=== PATIENT | male | born 1950 | race Caucasian/White ===

== ENCOUNTER 2019-09-19 16:11 | Inpatient (IN) | payer MEDICARE ==
[2019-09-19] MEDS ORDERED: Enoxaparin Sodium 100 MG/ML SYRINGE ONE (17:03)
--- NOTE | 2019-09-19 17:07 | PDOC.FPRHP ---
- History of Present Illness Chief Complaint: L upper chest pain History of Present Illness: 69 y/o M with pmhx of tobacco abuse, HTN, HLD, and epilepsy presents to the ED from [place] via transfer for SVT and NSTEMI. Pt c/o chest pain that started the night before in his left shoulder and upper left chest area. This pain radiated down the left arm. Today around 1 PM the pain became more intense and caused nausea, diaphoresis and SOB. This was worsened by walking and not alleviated with anything. Pt had never experienced this before. Denies palpitations. States his Pt states that a 14 years ago he had a cardiac cath and had CAD, with collateral circulation not requiring any stents or interventions. Has been on atenolol since. Pt was admitted to [facility] on Sunday and Sunday for treatment of pneumonia. F/u with Dr. Rahman, PCP, yesterday. He was not having chest pain during this visit. ED Course: Trop 0.678, 0.722. CXR cardiomegaly, R pleura effusion vs infiltrate. started on heparin drip initially in [place], transitioned to lovenox. EKG showed 197 rate, SVT with ST depressions. Placed on cardizem drip Repeat EKG showed rate 107, with short TN intervals and L atrial enlargement. Upon transfer to the floor pt had a flutter with RVR. Pt had crushing 10/10 chest pain at this time. Pt was cardioverted and converted to 70's SR with depressions in anteriolateral distribution. Pt's Chest pain was 2/10 after cardioversion. Cardiology was consulted and recommended amiodarone drip, therapeutic lovenox, and asa. - Allergies/Adverse Reactions Allergies Allergy/AdvReac Type Severity Reaction Status Date / Time No Known Drug Allergies Allergy Verified 09/15/19 12:53 - Home Medications Medication Instructions Recorded Confirmed Type Aspirin [Aspir-Low] 81 mg PO DAILY 09/15/19 09/15/19 History Atenolol [Tenormin] 25 mg PO DAILY 09/15/19 09/15/19 History Atorvastatin Calcium 40 mg PO DAILY 09/15/19 09/15/19 History Ezetimibe 10 mg PO DAILY 09/15/19 09/15/19 History Zonisamide 300 mg PO DAILY 09/15/19 09/15/19 History carBAMazepine [Carbamazepine] 600 mg PO BID 09/15/19 09/15/19 History Azithromycin [Zithromax] 250 mg PO DAILY #4 tablet 09/16/19 Rx Guaifenesin DM 100-10 [Robitussin 15 ml PO Q4H PRN ml 09/16/19 Rx DM] Ventolin HFA Inhaler 2 puff INH Q4H PRN #1 aer 09/16/19 Rx predniSONE 20 mg PO BID 4 Days #8 tab 09/16/19 Rx - History PMHx: epilepsy, HTN, HLD, COPD, Angina PSHx: Cardia cath 14 years ago, with no interventions. Tonsilectomy, appendectomy. FHx: Dad: stomach CA. Mom: A fib, "heart problems." Social: Smoked 3 ppd for 50 years. 150 pack year. denies current etoh or drug use. Prior etoh heavily used. - Review of Systems General: denies: fever/chills, weight/appetite/sleep changes, fatigue Eyes: denies: eye pain ENT: denies: nasal congestion Respiratory: reports: shortness of breath, exercise intolerance. denies: cough , congestion Cardiovascular: reports: chest pain. denies: palpitation, edema, paroxysmal nocturnal dyspnea, orthopnea Gastrointestinal: reports: nausea. denies: vomiting, diarrhea Genitourinary: denies: incontinence Skin: denies: rashes, lesions Musculoskeletal: denies: pain, tenderness Neurological: denies: numbness, syncope, seizure - Vital signs BP: 101/72 HR: 110 RR: 18 Tmax: 98.2 Pox: 99% on RA Wt: 98.9 kg - Physical Exam Constitutional: NAD, awake, alert and oriented, well developed HEENT: normocephalic and atraumatic, PERRLA, EOMI, conjunctiva clear, no scleral icterus, grossly normal vision, grossly normal hearing, MMM Neck: supple, FROM, trachea midline, no LAD, no JVD Chest: no-tender to palpation, no lesions Heart: normal S1/S2, no murmurs/rubs/gallops, pulses present, no edema -Heart: tachycardic Lungs: no respiratory distress, good air movement -Lungs: diffuse expiratory wheezing. Abdomen: soft, non-tender, bowel sounds present Musculoskeletal: normal structure, normal tone, ROM grossly normal Neurological: no focal deficit, normal sensation Skin: no rash/lesions, good turgor, capillary refill <2 seconds Heme/Lymphatic: no unusual bruising or bleeding, no purpura, no petechia Psychiatric: normal mood and affect, good judgment and insight, intact recent and remote memory FMR H&P: Results - Labs Result Diagrams: 09/19/19 16:45 - Radiology Interpretation Chest x-ray Status: report reviewed by me (cardiomegaly. RLL infiltrate vs pleural effusion) FMR H&P: A/P - Problem List (1) NSTEMI (non-ST elevated myocardial infarction) Current Visit: Yes Status: Acute Code(s): I21.4 - NON-ST ELEVATION (NSTEMI) MYOCARDIAL INFARCTION (2) SVT (supraventricular tachycardia) Current Visit: Yes Status: Acute Code(s): I47.1 - SUPRAVENTRICULAR TACHYCARDIA (3) HTN (hypertension) Current Visit: Yes Status: Chronic Code(s): I10 - ESSENTIAL (PRIMARY) HYPERTENSION (4) HLD (hyperlipidemia) Current Visit: Yes Status: Chronic Code(s): E78.5 - HYPERLIPIDEMIA, UNSPECIFIED (5) COPD (chronic obstructive pulmonary disease) Current Visit: Yes Status: Chronic (6) Epilepsy Current Visit: Yes Status: Chronic Code(s): G40.909 - EPILEPSY, UNSP, NOT INTRACTABLE, WITHOUT STATUS EPILEPTICUS (7) Tobacco dependence due to cigarettes Current Visit: Yes Status: Acute Code(s): F17.210 - NICOTINE DEPENDENCE, CIGARETTES, UNCOMPLICATED (8) Elevated liver enzymes Current Visit: Yes Status: Acute Code(s): R74.8 - ABNORMAL LEVELS OF OTHER SERUM ENZYMES (9) Elevated brain natriuretic peptide (BNP) level Current Visit: Yes Status: Acute Code(s): R79.89 - OTHER SPECIFIED ABNORMAL FINDINGS OF BLOOD CHEMISTRY - Plan 69 y/o male admitted to Tele in patient for further treatment and evaluation of an NSTEMI 1. NSTEMI - Trop 0.678, 0.722, likely elevated from demand ischemia from arrhythmias. - Continue to trend trops. BNP elevated. - Cardiology consulted, recommending amiodarone drip, ASA, therapeutic lovenox - NPO at midnight, HH diet for dinner - Started on Therapeutic lovenox - Ordered TT Echo - CXR cardiomegaly, RLL infiltrate vs pleural effusion. - Extensive smoking hx, 150 pack year. States he quit Last week. 2. SVT - rate 197 upon initial EKG in [place] - Started on cardizem drip and rate decreased to 107 with short TN intervals and evidence of L atrial enlargement. - Continue to monitor continuously on Tele 3. Recent hx for pneumonia - Hospitalized in [place] Sunday and Sunday this week. - Was d/c on Azithromycin and changed to Levaquin by PCP (Lacey,) on Sunday. 4. Elevated liver enzymes - Likely from acute myocardial event - Will trend in the morning. 5. Hx HTN 6. Hx of HLD 7. Hx of COPD 8. Hx of epilepsy - Continue home medications Code status: full code Diet: HH, NPo at midnight DVT Ppx: th lovenox Dispo: Stable, admit to tele inpatient for >2 midnights. Cardiology consulted. FMR H&P: Upper Level - Pertinent history 69 yo M w/hx of CAD and COPD and recent hospitalization for CAP here with complaint of chest pain. He was first seen in [place] where he was noted to be in SVT and he was given adenosine. He then went in to [facility] with RVR where and his was started on Dilt, he converted back in NSR and Dilt was dc'd here. Of note in the [place] ER was an elevated trop and CKMB. Also of note was elevated LFT and lactic acid. Repeat EKG was concerning for ischemia, but no STEMI. PMHx CAD COPD HLD Seizure disorder Social Hx 30 pack year smoker No etoh or drugs Surgical Hx none - Pertinent findings See environmental engineering intern note for full PE, ROS, vitals, and labs ROS General denies fever or chills. CV Complains of CP that radiates to his L shoulder. No palpitation Resp Denies SOB or cough GI denies n/v/d/c or abdominal pain denies increased frequency or dysuria Neuro denies numbness or weakness. PE General A&O x4, NAD HEENT NCAT CV RRR, no murmur Resp CTA, no respiratory distress Abd non tender, no distension, normal BS Extremities no edema, equal pedal pulses Neuro no focal deficits, CN II-XII intact - Plan Date/Time: 09/19/19 1707 IMino DO, have evaluated this patient and agree with findings/plan as outlined by environmental engineering intern resident. Pertinent changes/additions are listed here. 1. NSTEMI - admit to tele - trend trops and EKG - continue therapeutic lovenox - echo - consult cardiology - prn O2 2. CAD - continue home meds 3. HLD - continue home Statin 4. Elevated LFT - repeat CMP in am, likely related to LV dysfunction 5. Elevated BNP - does not appear overloaded at this time, likely related to UT 6. PNA - continue levaquin PPx on lovenox Diet HH, NPO at midnight Code Full
[2019-09-19 17:21] LABS: ALT (SGPT) 792 U/L (8-55); AST (SGOT) 609 U/L (5-34); Albumin 3.9 g/dL (3.4-4.8); Alkaline Phosphatase 54 U/L (40-110); Anion Gap 16 mmol/L (10-20); BUN (Urea Nitrogen) 25 mg/dL (8.4-25.7); Bilirubin, Total 0.5 mg/dL (0.2-1.2); CK (CPK) 93 U/L (30-200); Calc. Creatinine Clearance 0 mL/min (70-130); Calcium 8.1 mg/dL (7.8-10.44); Carbon Dioxide 19 mmol/L (23-31); Chloride 107 mmol/L (98-107); Estimated GFR-MDRD 72; Globulin 2.4 g/dL (2.4-3.5); Glucose 109 mg/dL (80-115); Potassium 4.2 mmol/L (3.5-5.1); Protein, Total 6.3 g/dL (5.8-8.1); Sodium 138 mmol/L (136-145)
--- NOTE | 2019-09-19 18:40 | PDOC.EVN ---
Event Note - Event Note Event Note: Date/Time: 09/19/191838 I personally evaluated the patient and discussed the management with Dr. Reed I agree with the History, Examination, Assessment and Plan documented above with any addition or exceptions noted below - 69 yo M w/hx of CAD, HTN, epilepsy , and COPD and recent hospitalization for CAP here with complaint of chest pain. He was first seen in [place] where he was noted to be in SVT and he was given adenosine. He then went in to [facility] with RVR where and his was started on diltiazem, he converted back in NSR and drip was dc'd here. Of note in the [place] ER was an elevated trop and CKMB. Also of note was elevated LFT and lactic acid. PMH/PSH/Meds/SH reviewed and agree with resident's documentation. Afebrile VSS Exam repeated by me and agree with resident's findings. Labs: H/H= 12.3/38.2, To=728, K=4.4, Lq=992, CO2=16, BUN/Cr=27/1.12, Gluc = 140, AST/ALT= 362/476, CFT=759, lactic acid=2.8, CKMB=8.1, trop=0.678. A/P: 1) NSTEMI - Admit to telemetry. Will continue to trend cardiac enzymes. Monitor EKG. Plan to check lipids and echo. Continue lovenox. Consult cardiology in AM 2) Transaminitis- most likely secondary to passive congestion; will continue to monitor. 3) Epilepsy - continue home meds.
[2019-09-19] MEDS ORDERED: Adenosine 6 MG/2 ML VIAL ONE (18:51)
[2019-09-19] MEDS ORDERED: Amiodarone 150 MG/3 ML VIAL ONE (19:38)
[2019-09-19] MEDS ORDERED: Ondansetron ODT 4 MG TAB PO PRN (20:12)
[2019-09-19] MEDS ORDERED: Nitroglycerin 0.4 MG TAB (25 Tab Bottle) SL PRN (20:12)
[2019-09-19] MEDS: Amiodarone 450 MG, Admixture Fee 1 EACH in Dextrose 5% in Water 250 ML IVPB SCH (20:32)
[2019-09-19] MEDS: Nicotine 14 MG PATCH TD SCH (20:35)
[2019-09-19] MEDS: Digoxin 0.5 MG/2 ML AMP SLOW IVP SCH (21:03)
[2019-09-19 21:14] LABS: Troponin I 1.109 ng/mL (< 0.028); Troponin I 1.179 ng/mL (< 0.028)
[2019-09-19 21:18] VITALS: BMI 30.7
[2019-09-19] MEDS ORDERED: Zonisamide 100 MG CAP PO SCH (23:30)
[2019-09-19] MEDS ORDERED: carBAMazepine 200 MG TAB PO SCH (23:30)
[2019-09-20] MEDS: Digoxin 0.5 MG/2 ML AMP SLOW IVP SCH (02:49)
[2019-09-20] MEDS: Benzonatate 100 MG CAP PO PRN ×3 (04:14→20:05)
[2019-09-20 04:47] LABS: #Lymphocytes 1.8 thou/uL (1.20-3.40); #Monocytes 0.6 thou/uL (0.11-0.59); %Basophils 0.7 % (0.0-1.0); %Eosinophils 0.4 % (0.0-10.0); %Lymphocytes 27.9 % (21.0-51.0); %Monocytes 8.5 % (0.0-10.0); %Neutrophils 62.5 % (42.0-75.0); Hemoglobin 11.4 g/dL (14.0-18.0); Mean Corpuscular HGB CONC 32.6 g/dL (32.0-36.0); Mean Corpuscular Hemoglobin 33.4 pg (27.0-31.0); Mean Platelet Volume 8.4 fL (7.4-10.4); Platelet Count 97 thou/uL (130-400); RBC Distribution Width 12.6 % (11.5-14.5); Red Blood Cell (RBC) Count 3.41 mill/uL (4.70-6.10); White Blood Cell (WBC) Count 6.4 thou/uL (4.8-10.8)
[2019-09-20 04:58] LABS: ALT (SGPT) 1814 U/L (8-55); AST (SGOT) 1765 U/L (5-34); Albumin 3.6 g/dL (3.4-4.8); Alkaline Phosphatase 48 U/L (40-110); Anion Gap 14 mmol/L (10-20); BUN (Urea Nitrogen) 31 mg/dL (8.4-25.7); Bilirubin, Total 0.4 mg/dL (0.2-1.2); Calc. Creatinine Clearance 94 mL/min (70-130); Calcium 8.2 mg/dL (7.8-10.44); Carbon Dioxide 18 mmol/L (23-31); Cardiac Risk 2.6 (Less than 4.5); Chloride 107 mmol/L (98-107); Cholesterol 92 mg/dl (< 200 Desired); Estimated GFR-MDRD 68; Globulin 2.7 g/dL (2.4-3.5); Glucose 103 mg/dL (80-115); HDL Cholesterol 36 mg/dL (>60 Neg Risk); LDL Cholesterol, Calculated 43 mg/dL; Potassium 4.1 mmol/L (3.5-5.1); Protein, Total 6.3 g/dL (5.8-8.1); Sodium 135 mmol/L (136-145); Triglycerides 65 mg/dL (Less than 150)
[2019-09-20] MEDS: Amiodarone 450 MG, Admixture Fee 1 EACH in Dextrose 5% in Water 250 ML IVPB SCH ×2 (05:23→23:59)
--- NOTE | 2019-09-20 05:53 | PDOC.FM ---
- Subjective Subjective: Pt denies any chest pain this morning. C/o SOB and coughing overnight. Given tessalon pears to alleviate the cough. Pt was SR in 60-70's overnight on Tele. Resting well this morning. Denies any IVDA in the past. Denies abd pain. Troponin levels have continued to rise. Cardiology started amiodarone drip and digoxin overnight. - Objective Vital Signs & Weight: Vital Signs (12 hours) Temp Pulse Resp BP BP Pulse Ox 09/20/19 03:33 97.7 F 68 20 135/82 98 09/20/19 02:49 69 09/20/19 02:35 18 98 09/20/19 00:12 69 122/79 09/19/19 20:12 100 09/19/19 19:50 76 20 118/69 100 Weight Weight 99.926 kg Result Diagrams: 09/20/19 09:45 09/20/19 09:44 Phys Exam - Physical Examination Constitutional: NAD HEENT: PERRLA, moist MMs, sclera anicteric Neck: no nodes, no JVD, supple, full ROM Respiratory: no rales, no rhonchi, wheezing present (expiratory) Cardiovascular: RRR, no rub Gastrointestinal: soft, non-tender, no distention, positive bowel sounds Musculoskeletal: no edema, pulses present Neurological: non-focal, moves all 4 limbs Psychiatric: normal affect, A&O x 3 Skin: no rash, normal turgor, cap refill <2 seconds Dx/Plan (1) NSTEMI (non-ST elevated myocardial infarction) Code(s): I21.4 - NON-ST ELEVATION (NSTEMI) MYOCARDIAL INFARCTION Status: Acute (2) Atrial flutter with rapid ventricular response Code(s): I48.92 - UNSPECIFIED ATRIAL FLUTTER Status: Acute (3) SVT (supraventricular tachycardia) Code(s): I47.1 - SUPRAVENTRICULAR TACHYCARDIA Status: Acute (4) HTN (hypertension) Code(s): I10 - ESSENTIAL (PRIMARY) HYPERTENSION Status: Chronic (5) HLD (hyperlipidemia) Code(s): E78.5 - HYPERLIPIDEMIA, UNSPECIFIED Status: Chronic (6) COPD (chronic obstructive pulmonary disease) Status: Chronic (7) Epilepsy Code(s): G40.909 - EPILEPSY, UNSP, NOT INTRACTABLE, WITHOUT STATUS EPILEPTICUS Status: Chronic (8) Tobacco dependence due to cigarettes Code(s): F17.210 - NICOTINE DEPENDENCE, CIGARETTES, UNCOMPLICATED Status: Acute (9) Elevated liver enzymes Code(s): R74.8 - ABNORMAL LEVELS OF OTHER SERUM ENZYMES Status: Acute (10) Elevated brain natriuretic peptide (BNP) level Code(s): R79.89 - OTHER SPECIFIED ABNORMAL FINDINGS OF BLOOD CHEMISTRY Status : Acute (11) Macrocytic anemia Code(s): D53.9 - NUTRITIONAL ANEMIA, UNSPECIFIED Status: Acute - Plan Plan: 69 y/o male admitted to Tele in patient for further treatment and evaluation of an NSTEMI 1. NSTEMI - Trop 0.678, 0.722, 1.179, 1.326, likely elevated from demand ischemia from arrhythmias. - Continue to trend trops. BNP elevated. - Cardiology consulted on 09/19, recommending amiodarone drip, ASA, therapeutic lovenox - Started on Therapeutic lovenox - Ordered TT Echo - CXR cardiomegaly, RLL infiltrate vs pleural effusion. - Extensive smoking hx, 150 pack year. States he quit Last week. 2. Arrhythmias: SVT, a Flutter with RVR. - SVT, rate 197 upon initial EKG in [place] - Started on cardizem drip and rate decreased to 107 with short KS intervals and evidence of L atrial enlargement. - Continue to monitor continuously on Tele - Card consulted, appreciate recommendations. Started digoxin. - Causing demand ischemia and organ damage with elevated liver enzymes. 3. Recent hx for pneumonia - Hospitalized in [place] Sunday and Sunday this week. - Was d/c on Azithromycin and changed to Levaquin by PCP (Lacey,) on Sunday. - Started Rocephin 2 g Q24H. 4. Elevated liver enzymes - Likely from acute myocardial event and lack of perfusion - AST 609 > 1765, ALT 792 > 1814 - Will trend - Ordered hepatitis panel 5. Hx HTN 6. Hx of HLD - Holding statin therapy in setting of elevated liver enzymes. 7. Hx of COPD -Added Dulera inhaler 2 puffs BID. 8. Hx of epilepsy - Continue home medications 9. Macrocytic anemia - ordered RBC folate and B12. Code status: full code Diet: HH diet. DVT Ppx: th lovenox Dispo: Stable, admit to tele inpatient for >2 midnights. Cardiology consulted, following recommendations.
[2019-09-20 06:49] LABS: CKMB 13.2 ng/mL (0-6.6)
[2019-09-20] MEDS ORDERED: Morphine 2 MG/ML SYRINGE SLOW IVP SCH (09:00)
[2019-09-20] MEDS: Zonisamide 100 MG CAP PO SCH ×2 (09:10→20:37)
[2019-09-20] MEDS: carBAMazepine 200 MG TAB PO SCH ×2 (09:10→20:05)
[2019-09-20 10:13] LABS: Hemoglobin 11.7 g/dL (14.0-18.0); Platelet Count 92 thou/uL (130-400)
[2019-09-20 10:56] LABS: Vitamin B12 1593 pg/mL (211-911)
[2019-09-20 11:02] LABS: HBCM Index 0.05 S/CO (0-0.79); HBSAB Concentration 1.83 mIU/mL; HBSAg Index 0.19 S/CO (0-0.99); Hep B Surf AB Non-Reactive (NonReactive); Hep B Surf Ag Non-Reactive S/CO (NonReactive); Hepatitis B Core IgM Abs Non-Reactive (NonReactive)
--- NOTE | 2019-09-20 11:05 | CON ---
DATE OF CONSULTATION: 09/20/2019 REASON FOR CONSULTATION: Coronary artery disease, [id number] myocardial infarction, tachycardia, possibly atrial flutter versus SVT with a very rapid rate, recent pneumonia, increased liver function tests, peripheral vascular disease, history of seizure disorder. HISTORY OF PRESENT ILLNESS: Mr. Stafford is a 69-year-old gentleman, who initially presented for medical care, he initially reported it was 14 years ago, he had a cardiac catheterization and was found have coronary artery disease, was found to have an occluded vessel with collateral flow. No intervention was done at that point. The patient has continued to smoke over the last 14 years. The patient went to the hospital about a week ago and had treatment for pneumonia. He was seen by Dr. Rahman yesterday, not having chest pain during that visit. The patient now started having recurrent subjective fever, diaphoresis, nausea, and came to the emergency room. After he had been in the emergency room, he was found to have an episode of very rapid tachycardia, rate 200 beats per minute, which required cardioversion as it was associated with a crushing 10/10 chest pain. The patient's pain resolved with cardioversion. Dr. Garland was consulted last night, he recommended amiodarone drip. The patient has had no recurrent atrial arrhythmias or supraventricular arrhythmias. The patient had pain in the left shoulder, left anterior chest, and left arm, also on left posterior chest and back. The patient was continuing to cough in the last few days. He stopped smoking about 5 days ago. He has had a cough, which is moderately productive. The patient is unable to lie down for more than just a few minutes without violent coughing. HOME MEDICATIONS: He is on; 1. Aspirin. 2. Atenolol. 3. Atorvastatin. 4. Zetia. 5. Zithromax. PAST MEDICAL HISTORY: 1. History of seizure disorder. No seizures in the last couple of years. 2. Coronary artery disease, catheterization 14 years ago per the patient. He thought that was done here, but I do not see any records of that. He is not certain where that was done. 3. The patient in initial history reported a three pack per day smoking for 50 years. REVIEW OF SYSTEMS: CONSTITUTIONAL: No significant weight gain or loss. VISION: No changes. PULMONARY: Positive for cough. No wheezing. CARDIAC: As outlined above. GASTROINTESTINAL: No nausea, vomiting, or diarrhea. SKIN: No rashes. NEUROLOGIC: No unilateral weakness or numbness. PSYCHIATRIC: No unusual depression or anxiety. FAMILY HISTORY: Negative for heart disease at a young age. SOCIAL HISTORY: The patient does not consume any alcohol. PHYSICAL EXAMINATION: GENERAL: This is a 69-year-old man. VITAL SIGNS: He is 5 feet and 11 inches tall, 220 pounds. EYES: Sclerae are nonicteric. MOUTH: Mucous membranes moist. NECK: Supple. No lymphadenopathy. LUNGS: Clear of any wheezing currently, there are no rales. CARDIAC: Normal S1, normal S2. ABDOMEN: Soft and nontender. EXTREMITIES: Warm and dry. No clubbing or cyanosis. There is no edema. PERIPHERAL PULSES: I feel femoral pulses bilaterally, faint popliteal pulses. I do not feel pedal pulses. PERTINENT LABORATORY DATA: The peak troponin is 1.326. AST was 609 initially and 1765 today, 1814 this morning. Potassium is 4.1. LDL cholesterol is 43. EKG, sinus rhythm with a left axis deviation. The patient when he had tachycardia, did have rate of 200 beats per minute. There is ST depression, there is some narrow complex. ASSESSMENT: 1. Coronary artery disease. 2. Non-ST elevation myocardial infarction, probably related to tachycardia superimposed on underlying coronary artery disease which may be severe. 3. Long history of smoking, 150 pack-year history of smoking. 4. Cough. 5. Increased liver function test of uncertain etiology. Since it got worse so quickly, we wonder if it is hypoperfusion. Also he is on amiodarone, but it will be very unusual to have increased liver function tests so quickly with amiodarone and the patient's liver function tests were elevated prior to the amiodarone. Also, he was on statins previously. 6. Peripheral vascular disease. 7. Seizure disorder, stable. 8. Cough, it is partly related to possible recent pneumonia. Also, he has quit smoking for 5 days, therefore likely there will be increasing cough for few days. PLAN: 1. Echocardiogram to evaluate left ventricular function. 2. Continue anticoagulation. 3. Continue aspirin. 4. Hold statin for now in view of markedly increased liver function tests. 5. Repeat liver function test tomorrow. 6. Ultimately cardiac catheterization should be done, it might be much safer if we could delay this for a few days until the cough improves. He may have multivessel coronary artery disease. He apparently had coronary artery disease 14 years ago and has continued to smoke heavily for the last 14 years. He would be a very poor candidate to go to surgery at the present time with his long history of smoking and recent pneumonia. I would like to have the patient be treated medically for some time. We will follow closely with you. Prognosis is guarded. Job ID: [id number]
[2019-09-20] MEDS: Aspirin 325 mg Enteric Coated Tablet PO SCH (11:52)
[2019-09-20] MEDS: Enoxaparin Sodium 100 MG/ML SYRINGE SC SCH ×2 (11:53→20:10)
[2019-09-20] MEDS: cefTRIAXone\\ROCEPHIN 2 GM in Sodium Chloride 0.9% 100 ML IVPB SCH (11:54)
[2019-09-20] MEDS ORDERED: Chloraseptic Spray 180 ml Bottle PO PRN (12:53)
[2019-09-20] MEDS: Mometasone/Formoterol 120 PUFF INHALER INH SCH (19:00)
[2019-09-20] MEDS: Nicotine 14 MG PATCH TD SCH (20:03)
[2019-09-21 05:06] LABS: #Eosinphils 0.1 thou/uL (0.0-0.7); #Lymphocytes 2.7 thou/uL (1.20-3.40); #Monocytes 0.4 thou/uL (0.11-0.59); #Neutrophils 3.6 thou/uL (1.40-6.50); %Basophils 0.6 % (0.0-1.0); %Eosinophils 1.4 % (0.0-10.0); %Lymphocytes 39.6 % (21.0-51.0); %Monocytes 5.4 % (0.0-10.0); %Neutrophils 52.9 % (42.0-75.0); Hemoglobin 11.3 g/dL (14.0-18.0); Mean Corpuscular HGB CONC 33.7 g/dL (32.0-36.0); Mean Corpuscular Hemoglobin 33.7 pg (27.0-31.0); Mean Corpuscular Volume 99.9 fL (78.0-98.0); Mean Platelet Volume 8.3 fL (7.4-10.4); Platelet Count 118 thou/uL (130-400); RBC Distribution Width 12.6 % (11.5-14.5); Red Blood Cell (RBC) Count 3.36 mill/uL (4.70-6.10); White Blood Cell (WBC) Count 6.8 thou/uL (4.8-10.8)
[2019-09-21 05:26] LABS: ALT (SGPT) 1860 U/L (8-55); AST (SGOT) 1016 U/L (5-34); Albumin 3.6 g/dL (3.4-4.8); Alkaline Phosphatase 52 U/L (40-110); Anion Gap 10 mmol/L (10-20); BUN (Urea Nitrogen) 23 mg/dL (8.4-25.7); Bilirubin, Total 0.4 mg/dL (0.2-1.2); Calc. Creatinine Clearance 111 mL/min (70-130); Calcium 8.1 mg/dL (7.8-10.44); Carbon Dioxide 25 mmol/L (23-31); Chloride 104 mmol/L (98-107); Estimated GFR-MDRD 83; Globulin 2.6 g/dL (2.4-3.5); Glucose 90 mg/dL (80-115); Potassium 4.2 mmol/L (3.5-5.1); Protein, Total 6.2 g/dL (5.8-8.1); Sodium 135 mmol/L (136-145)
--- NOTE | 2019-09-21 06:04 | PDOC.FM ---
- Subjective Subjective: Pt resting well. Denies CP. C/O mouth pain, associated with ulcerations on roof of mouth from use of inhalers. C/o cough that has alleviated some since yesterday. Productive of thick clear- brown sputum. - Objective MAR Reviewed: Yes Vital Signs & Weight: Vital Signs (12 hours) Temp Pulse Resp BP BP Pulse Ox 09/21/19 03:44 97.6 F 75 18 147/75 H 97 09/21/19 00:00 75 143/72 H 09/20/19 19:15 98.3 F 73 18 149/72 H 97 09/20/19 19:05 95 09/20/19 19:00 94 L Weight Admit Weight 99.926 kg Weight 99.926 kg I&O: 09/19/19 09/20/19 09/21/19 06:59 06:59 06:59 Intake Total 883 Output Total 300 Balance 583 Result Diagrams: 09/21/19 04:47 09/21/19 04:47 Phys Exam - Physical Examination Constitutional: NAD HEENT: PERRLA, moist MMs superior palate with scattered macular erythematous base ulcerations. Neck: no nodes, no JVD, full ROM + rales bilaterally. good airmovement. No respiratory distress. Cardiovascular: RRR, no significant murmur, no rub Gastrointestinal: soft, non-tender, no distention, positive bowel sounds Musculoskeletal: no edema, pulses present Neurological: non-focal, moves all 4 limbs Psychiatric: normal affect, A&O x 3 Skin: no rash, normal turgor, cap refill <2 seconds Dx/Plan (1) NSTEMI (non-ST elevated myocardial infarction) Code(s): I21.4 - NON-ST ELEVATION (NSTEMI) MYOCARDIAL INFARCTION Status: Acute (2) Atrial flutter with rapid ventricular response Code(s): I48.92 - UNSPECIFIED ATRIAL FLUTTER Status: Acute (3) SVT (supraventricular tachycardia) Code(s): I47.1 - SUPRAVENTRICULAR TACHYCARDIA Status: Acute (4) HTN (hypertension) Code(s): I10 - ESSENTIAL (PRIMARY) HYPERTENSION Status: Chronic (5) HLD (hyperlipidemia) Code(s): E78.5 - HYPERLIPIDEMIA, UNSPECIFIED Status: Chronic (6) COPD (chronic obstructive pulmonary disease) Status: Chronic (7) Epilepsy Code(s): G40.909 - EPILEPSY, UNSP, NOT INTRACTABLE, WITHOUT STATUS EPILEPTICUS Status: Chronic (8) Tobacco dependence due to cigarettes Code(s): F17.210 - NICOTINE DEPENDENCE, CIGARETTES, UNCOMPLICATED Status: Acute (9) Elevated liver enzymes Code(s): R74.8 - ABNORMAL LEVELS OF OTHER SERUM ENZYMES Status: Acute (10) Elevated brain natriuretic peptide (BNP) level Code(s): R79.89 - OTHER SPECIFIED ABNORMAL FINDINGS OF BLOOD CHEMISTRY Status : Acute (11) Macrocytic anemia Code(s): D53.9 - NUTRITIONAL ANEMIA, UNSPECIFIED Status: Acute - Plan Plan: 69 y/o male admitted to Tele in patient for further treatment and evaluation of an NSTEMI 1. NSTEMI - Trop 0.678, 0.722, 1.179, 1.326, likely elevated from demand ischemia from arrhythmias. - Continue to trend trops. BNP elevated. - Cardiology consulted on 09/19, recommending amiodarone drip, ASA, therapeutic lovenox. Planning to cath Sunday. - Continue Therapeutic lovenox - Echo: EF 50-60%, inferior wall hypokinetic. PA systolic pressure 54 mmHg. - CXR cardiomegaly, RLL infiltrate vs pleural effusion. - Extensive smoking hx, 150 pack year. States he quit Last week. 2. Arrhythmias: SVT, a Flutter with RVR. - SVT, rate 197 upon initial EKG in [place] - Started on cardizem drip and rate decreased to 107 with short NC intervals and evidence of L atrial enlargement. - Continue to monitor continuously on Tele - Card consulted, appreciate recommendations. Started digoxin. - Causing demand ischemia and organ damage with elevated liver enzymes. 3. Recent hx for pneumonia - Hospitalized in [place] Sunday and Sunday this week. - Was d/c on Azithromycin and changed to Levaquin by PCP (Lacey,) on Sunday. D/C'd levaquin. - Started Rocephin 2 g Q24H. 4. Elevated liver enzymes - Likely from acute myocardial event and lack of perfusion - AST 609 > 1765 > 1016, ALT 792 > 1814 >1860 - Will trend - Hepatitis panel negative for infection, non-immune to hep B. 5. Hx HTN 6. Hx of HLD - Holding statin therapy in setting of elevated liver enzymes. 7. Hx of COPD -Added Dulera inhaler 2 puffs BID. -Using duonebs with caution as pt has had arrhythmias recently. 8. Hx of epilepsy - Continue home medications 9. Macrocytic anemia - ordered RBC folate and B12. - B12 levels high. Code status: full code Diet: HH diet. DVT Ppx: th lovenox Dispo: Stable, admit to tele inpatient for >2 midnights. Cardiology consulted, following recommendations. Plan to take pt to cardiac cath Sunday.
[2019-09-21] MEDS: Mometasone/Formoterol 120 PUFF INHALER INH SCH ×2 (06:20→18:42)
[2019-09-21] MEDS ORDERED: Potassium Chloride 20 MEQ TAB PO SCH (08:15)
[2019-09-21] MEDS ORDERED: Furosemide 20 MG/2 ML VIAL SLOW IVP SCH (08:15)
[2019-09-21] MEDS: Zonisamide 100 MG CAP PO SCH ×2 (09:12→23:29)
[2019-09-21] MEDS: carBAMazepine 200 MG TAB PO SCH ×2 (09:14→21:08)
[2019-09-21] MEDS: Enoxaparin Sodium 100 MG/ML SYRINGE SC SCH ×2 (09:14→21:08)
[2019-09-21] MEDS: Aspirin 325 mg Enteric Coated Tablet PO SCH (09:14)
[2019-09-21] MEDS: Atenolol 25 MG TAB PO SCH (09:14)
[2019-09-21] MEDS: cefTRIAXone\\ROCEPHIN 2 GM in Sodium Chloride 0.9% 100 ML IVPB SCH (12:47)
[2019-09-21] MEDS: Amiodarone 450 MG, Admixture Fee 1 EACH in Dextrose 5% in Water 250 ML IVPB SCH (13:42)
--- NOTE | 2019-09-21 14:36 | PRG ---
DATE OF SERVICE: 09/21/2019 SUBJECTIVE: Mr. Stafford is feeling much better. His coughing has markedly reduced. OBJECTIVE: VITAL SIGNS: His blood pressure is 113/61. Pulse 66 and regular. LUNGS: Clear. CARDIAC: Normal S1, normal S2. ABDOMEN: Soft and nontender. EXTREMITIES: Still mild edema. DIAGNOSTIC STUDIES: Echocardiogram, technically difficult study. The ejection fraction is 40% to 50%. Inferior wall hypokinetic. The patient's liver function tests are still markedly abnormal, AST 1016, ALT 1860. ASSESSMENT: 1. Congestive heart failure, systolic and diastolic mixed, improved. 2. Probable multivessel coronary artery disease. 3. Supraventricular tachycardia associated with severe chest pain with a rate of 200, atrial flutter versus supraventricular tachycardia, AV sarmad reentry, more likely atrial flutter. PLAN: 1. Check comp mets tomorrow. 2. He received a dose of diuretics today with a good response. 3. Check coagulation tomorrow. 4. Consideration for catheterization in the next few days depending on clinical status, we will check him again in the morning, also on the electrophysiologic evaluation, he remains on IV amiodarone. Job ID: [id number]
[2019-09-21] MEDS: Nicotine 14 MG PATCH TD SCH (21:14)
[2019-09-22 04:56] LABS: INR-International Normal Ratio 1.4; PTT 41.3 SEC (22.9-36.1); Prothrombin Time 16.6 SEC (12.0-14.7)
[2019-09-22 05:17] LABS: ALT (SGPT) 1208 U/L (8-55); AST (SGOT) 361 U/L (5-34); Albumin 3.1 g/dL (3.4-4.8); Alkaline Phosphatase 49 U/L (40-110); Anion Gap 10 mmol/L (10-20); BUN (Urea Nitrogen) 17 mg/dL (8.4-25.7); Bilirubin, Total 0.3 mg/dL (0.2-1.2); Calc. Creatinine Clearance 120 mL/min (70-130); Calcium 7.8 mg/dL (7.8-10.44); Carbon Dioxide 26 mmol/L (23-31); Chloride 101 mmol/L (98-107); Estimated GFR-MDRD Greater than 90; Globulin 2.5 g/dL (2.4-3.5); Glucose 106 mg/dL (80-115); Potassium 3.4 mmol/L (3.5-5.1); Protein, Total 5.6 g/dL (5.8-8.1); Sodium 134 mmol/L (136-145)
--- NOTE | 2019-09-22 06:30 | PDOC.FM ---
- Subjective Subjective: Pt denies any CP, SOB. States his cough is much improved from yesterday. Louisa planning to cath pt tomorrow 09/23. Giving last dose of lovenox this AM, per Louisa. - Objective MAR Reviewed: Yes Vital Signs & Weight: Vital Signs (12 hours) Temp Pulse Resp BP BP Pulse Ox 09/22/19 04:00 98 F 69 18 129/57 L 92 L 09/21/19 20:00 98.7 F 70 18 114/54 L 92 L 09/21/19 18:43 93 L 09/21/19 18:42 94 L Weight Admit Weight 99.926 kg Weight 98.067 kg I&O: 09/20/19 09/21/19 09/22/19 06:59 06:59 06:59 Intake Total 883 2023 Output Total 300 175 Balance 583 1848 Result Diagrams: 09/21/19 04:47 09/22/19 04:15 Phys Exam - Physical Examination Constitutional: NAD HEENT: moist MMs, sclera anicteric Neck: no nodes, no JVD, full ROM Respiratory: wheezing present Lungs improved from yesterday's exam, but slight wheezing and rales present Cardiovascular: RRR, no rub Gastrointestinal: soft, non-tender, no distention Musculoskeletal: no edema, pulses present Neurological: non-focal, moves all 4 limbs Psychiatric: normal affect, A&O x 3 Skin: no rash, normal turgor, cap refill <2 seconds Dx/Plan (1) NSTEMI (non-ST elevated myocardial infarction) Code(s): I21.4 - NON-ST ELEVATION (NSTEMI) MYOCARDIAL INFARCTION Status: Acute (2) Atrial flutter with rapid ventricular response Code(s): I48.92 - UNSPECIFIED ATRIAL FLUTTER Status: Acute (3) SVT (supraventricular tachycardia) Code(s): I47.1 - SUPRAVENTRICULAR TACHYCARDIA Status: Acute (4) HTN (hypertension) Code(s): I10 - ESSENTIAL (PRIMARY) HYPERTENSION Status: Chronic (5) HLD (hyperlipidemia) Code(s): E78.5 - HYPERLIPIDEMIA, UNSPECIFIED Status: Chronic (6) COPD (chronic obstructive pulmonary disease) Status: Chronic (7) Epilepsy Code(s): G40.909 - EPILEPSY, UNSP, NOT INTRACTABLE, WITHOUT STATUS EPILEPTICUS Status: Chronic (8) Tobacco dependence due to cigarettes Code(s): F17.210 - NICOTINE DEPENDENCE, CIGARETTES, UNCOMPLICATED Status: Acute (9) Elevated liver enzymes Code(s): R74.8 - ABNORMAL LEVELS OF OTHER SERUM ENZYMES Status: Acute (10) Elevated brain natriuretic peptide (BNP) level Code(s): R79.89 - OTHER SPECIFIED ABNORMAL FINDINGS OF BLOOD CHEMISTRY Status : Acute (11) Macrocytic anemia Code(s): D53.9 - NUTRITIONAL ANEMIA, UNSPECIFIED Status: Acute - Plan Plan: 69 y/o male admitted to Tele in patient for further treatment and evaluation of an NSTEMI 1. NSTEMI - Trop 0.678, 0.722, 1.179, 1.326, likely elevated from demand ischemia from arrhythmias. - BNP elevated. Has trended down. 543 --> 222 - Cardiology consulted on 09/19, recommending amiodarone drip, ASA, therapeutic lovenox. Planning to cath Sunday. - Therapeutic lovenox. Louisa d/c'd after 12 AM dose. - Echo: EF 50-60%, inferior wall hypokinetic. PA systolic pressure 54 mmHg. - CXR cardiomegaly, RLL infiltrate vs pleural effusion. - Extensive smoking hx, 150 pack year. States he quit Last week. 2. Arrhythmias: SVT, a Flutter with RVR. Improved - SVT, rate 197 upon initial EKG in [place] - Started on cardizem drip in ER in [place], and rate decreased to 107 with short IA intervals and evidence of L atrial enlargement. - Continue to monitor continuously on Tele - Card consulted, appreciate recommendations. Started digoxin. - Causing demand ischemia and hepatic congestion with elevated liver enzymes. 3. Recent hx for pneumonia - Hospitalized in [place] Sunday and Sunday this week. - Was d/c on Azithromycin and changed to Levaquin by PCP (Lacey,) on Sunday. D/C'd levaquin. - Started Rocephin 2 g Q24H. 4. Elevated liver enzymes, improving - Likely from acute myocardial event and lack of perfusion vs hepatic congestion. - AST 609 > 1765 > 1016 > 361, ALT 792 > 1814 >1860 > 1218 - Will trend - Hepatitis panel negative for infection, non-immune to hep B. 5. Hx HTN 6. Hx of HLD - Holding statin therapy in setting of elevated liver enzymes. 7. Hx of COPD -Added Dulera inhaler 2 puffs BID. -Using duonebs with caution as pt has had arrhythmias recently. 8. Hx of epilepsy - Continue home medications 9. Macrocytic anemia - ordered RBC folate and B12. - B12 levels high. Code status: full code Diet: diet. DVT Ppx: th lovenox Dispo: Stable, admit to tele inpatient for >2 midnights. Cardiology consulted, following recommendations. Plan to take pt to cardiac cath Sunday.
[2019-09-22] MEDS: Mometasone/Formoterol 120 PUFF INHALER INH SCH ×2 (07:10→18:38)
[2019-09-22] MEDS ORDERED: Potassium Chloride 20 MEQ TAB PO SCH (07:45)
[2019-09-22] MEDS: Aspirin 325 mg Enteric Coated Tablet PO SCH (08:20)
[2019-09-22] MEDS: Amiodarone 200 MG TAB PO SCH ×4 (08:20→21:14)
[2019-09-22] MEDS: Atenolol 25 MG TAB PO SCH (08:20)
[2019-09-22] MEDS: Zonisamide 25 MG CAP PO SCH ×2 (08:21→20:31)
[2019-09-22] MEDS: carBAMazepine 200 MG TAB PO SCH ×2 (08:21→20:27)
--- NOTE | 2019-09-22 08:25 | PRG ---
DATE OF SERVICE: 09/22/2019 SUBJECTIVE: Mr. Stafford is feeling better today. He can lie flat now. He still has had some trouble lying down for a long time due to his back, but he is not short of breath when he lies down. His coughing has improved. OBJECTIVE: VITAL SIGNS: His blood pressure is 130/66, pulse is 66 and regular. LUNGS: Clear. CARDIAC: Normal S1. Normal S2. ABDOMEN: Soft, nontender. EXTREMITIES: No edema. PERTINENT LABORATORY DATA: His potassium is low at 3.4. His coagulations are off. His INR is 1.4, PTT is 41.3. His liver tests are improving. The AST is 361 and its peak was 1765; ALT is 1208, the peak was 1814, it is better every day. I suspect this may have been hepatic congestion. ASSESSMENT: 1. Status post non-ST elevation myocardial infarction, probably related to tachycardia with underlying coronary artery disease. 2. Coagulopathy. I suspect it is related to his liver congestion, is improving. 3. Tachyarrhythmia, probably was either atrial flutter with a very rapid rate or potentially atrioventricular sarmad reentry, but probably more likely to be flutter. PLAN: 1. Change from intravenous amiodarone to oral amiodarone. 2. Replete potassium. 3. Given one further dose of Lovenox and stop. 4. Probably proceed to catheterization tomorrow. The coagulopathy is probably going to improve daily. Now, that his liver congestion is better. We will come back again to discuss with the patient later today. Job ID: [id number]
[2019-09-22] MEDS ORDERED: Enoxaparin Sodium 100 MG/ML SYRINGE SC SCH (09:00)
[2019-09-22] MEDS: cefTRIAXone\\ROCEPHIN 2 GM in Sodium Chloride 0.9% 100 ML IVPB SCH (11:07)
--- NOTE | 2019-09-22 11:42 | PRG ---
DATE OF SERVICE: 09/22/2019 I read the note of Dr. Silvia Reed and discussed the case with her. I agree with her assessment and plan. Mr. Stafford is a pleasant 69-year-old man with a history of tobacco abuse, hypertension, and SVT. He had been having some chest pain intermittently since the night before admission. He became nauseated, diaphoretic, and shortness of breath. He eventually came to our ER and was noticed to have elevated troponins of 0.678 and 0.722. He was admitted with an NSTEMI and atrial flutter with RVR. In fact, he had to be given cardioversion because his heart rate was elevated and associated with crushing chest pain. This was successful and thereafter Cardiology was consulted. He will be undergoing a heart catheterization probably tomorrow and has been seen in consultation already by Dr. Jasso. This morning, he is pleasant, awake, alert, in no distress at all. We explained his condition and the plan. His CBC showed a white count of 6400. His hemoglobin was 11.4, hematocrit was 35 with an MCV of 102. His chemistries, his sodium was 135, potassium 4.2, chloride 104, bicarb 25, BUN 23, creatinine 0.91. His AST was elevated to 1016 and eventually dropped to 361. His ALT was elevated at 1860 and eventually dropped to 1208. We have initiated a workup and so far his hepatitis B studies are negative. We will add a hepatitis C as well. In the past, he had a very significant history of heavy drinking. I would therefore recommend we do a right upper quadrant ultrasound to consider the possibility of cirrhosis, particularly given that his CBC shows thrombocytopenia suggesting possibly hypersplenism from portal hypertension. In the event, from a clinical standpoint, he is stable and awaits cardiac catheterization, which will likely be done tomorrow. I have also suggested a baseline room air arterial blood gas given his significant smoking history and sleep apnea and the likely presence of pulmonary hypertension. Job ID: [id number]
[2019-09-22 12:49] LABS: Actual Bicarbonate (HCO3a) 25.5 mEq/L (22-28); Base Excess (BEa) 0.7 mEq/L (-2.0 to +3.0); CO2 Tension 41.5 mmHg (35.0-45.0); Carboxyhemoglobin (COHb) 1.8 gm% (0.0-3.0); Hemoglobin (Hb) 11.4 g/dL (14.0-18.0); O2 Tension (PaO2) 77.3 mmHg (> 80.0); Potassium - ABG Lab 3.59 mmol/L (3.70-5.30); pH, Arterial 7.41 (7.35-7.45)
[2019-09-22 12:52] LABS: ALV-art Gradient 20.555 (0-20)
[2019-09-22] MEDS: Nicotine 14 MG PATCH TD SCH (20:34)
[2019-09-22] MEDS ORDERED: Communication Order-Pharmacy FS SCH (20:45)
[2019-09-23 04:52] LABS: INR-International Normal Ratio 1.2; Prothrombin Time 15.2 SEC (12.0-14.7)
[2019-09-23 05:09] LABS: ALT (SGPT) 804 U/L (8-55); AST (SGOT) 133 U/L (5-34); Albumin 3.1 g/dL (3.4-4.8); Alkaline Phosphatase 50 U/L (40-110); Anion Gap 12 mmol/L (10-20); BUN (Urea Nitrogen) 13 mg/dL (8.4-25.7); Bilirubin, Total 0.4 mg/dL (0.2-1.2); Calc. Creatinine Clearance 116 mL/min (70-130); Carbon Dioxide 21 mmol/L (23-31); Chloride 105 mmol/L (98-107); Estimated GFR-MDRD 89; Globulin 2.7 g/dL (2.4-3.5); Glucose 102 mg/dL (80-115); Potassium 3.9 mmol/L (3.5-5.1); Protein, Total 5.8 g/dL (5.8-8.1); Sodium 134 mmol/L (136-145)
[2019-09-23] MEDS ORDERED: Diazepam 5 MG TAB PO SCH (06:00)
--- NOTE | 2019-09-23 06:32 | PDOC.FM ---
- Subjective Subjective: Pt resting well today. Awaiting cath to be performed by cards today. Possible ablation. Pt denies CP, SOB. Cough is improving. Tele monitoring: sinus 60-70's. - Objective MAR Reviewed: Yes Vital Signs & Weight: Vital Signs (12 hours) Temp Pulse Resp BP BP Pulse Ox 09/23/19 04:00 98.2 F 66 20 114/59 L 94 L 09/22/19 20:00 98.3 F 67 18 84/49 L 97 09/22/19 18:38 75 16 94 L Weight Admit Weight 99.926 kg Weight 97.386 kg I&O: 09/21/19 09/22/19 09/23/19 06:59 06:59 06:59 Intake Total 883 2022 2019 Output Total 300 175 Balance 583 1847 2019 Result Diagrams: 09/21/19 04:47 09/23/19 04:28 Phys Exam - Physical Examination Constitutional: NAD HEENT: moist MMs, sclera anicteric Neck: no nodes, no JVD, supple, full ROM Respiratory: wheezing present (no resp distress. Good air movement. ) Cardiovascular: RRR, no significant murmur, no rub Gastrointestinal: soft, non-tender, no distention, positive bowel sounds Musculoskeletal: no edema, pulses present Neurological: non-focal, normal sensation, moves all 4 limbs Psychiatric: normal affect, A&O x 3 Skin: normal turgor, cap refill <2 seconds Dx/Plan (1) NSTEMI (non-ST elevated myocardial infarction) Code(s): I21.4 - NON-ST ELEVATION (NSTEMI) MYOCARDIAL INFARCTION Status: Acute (2) Atrial flutter with rapid ventricular response Code(s): I48.92 - UNSPECIFIED ATRIAL FLUTTER Status: Acute (3) SVT (supraventricular tachycardia) Code(s): I47.1 - SUPRAVENTRICULAR TACHYCARDIA Status: Acute (4) HTN (hypertension) Code(s): I10 - ESSENTIAL (PRIMARY) HYPERTENSION Status: Chronic (5) HLD (hyperlipidemia) Code(s): E78.5 - HYPERLIPIDEMIA, UNSPECIFIED Status: Chronic (6) COPD (chronic obstructive pulmonary disease) Status: Chronic (7) Epilepsy Code(s): G40.909 - EPILEPSY, UNSP, NOT INTRACTABLE, WITHOUT STATUS EPILEPTICUS Status: Chronic (8) Tobacco dependence due to cigarettes Code(s): F17.210 - NICOTINE DEPENDENCE, CIGARETTES, UNCOMPLICATED Status: Acute (9) Elevated liver enzymes Code(s): R74.8 - ABNORMAL LEVELS OF OTHER SERUM ENZYMES Status: Acute (10) Elevated brain natriuretic peptide (BNP) level Code(s): R79.89 - OTHER SPECIFIED ABNORMAL FINDINGS OF BLOOD CHEMISTRY Status : Acute (11) Macrocytic anemia Code(s): D53.9 - NUTRITIONAL ANEMIA, UNSPECIFIED Status: Acute - Plan Plan: 69 y/o male admitted to Tele in patient for further treatment and evaluation of an NSTEMI 1. NSTEMI - Trop 0.678, 0.722, 1.179, 1.326, likely elevated from demand ischemia from arrhythmias. - BNP elevated. Has trended down. 543 --> 222 - Cardiology consulted on 09/19, recommending amiodarone drip, ASA, therapeutic lovenox. Planning to cath 09/23. Amiodarone switch to PO 09/22. - Therapeutic lovenox. Louisa d/c'd after 09/22 AM dose. - Echo: EF 50-60%, inferior wall hypokinetic. PA systolic pressure 54 mmHg. - CXR cardiomegaly, RLL infiltrate vs pleural effusion. - Extensive smoking hx, 150 pack year. States he quit Last week. 2. Arrhythmias: SVT, a Flutter with RVR. Improved - SVT, rate 197 upon initial EKG in [place] - Started on cardizem drip in ER in [place], and rate decreased to 107 with short OH intervals and evidence of L atrial enlargement. - Continue to monitor continuously on Tele - Card consulted, appreciate recommendations. PO amiodarone. - Causing demand ischemia and hepatic congestion with elevated liver enzymes. 3. Recent hx for pneumonia - Hospitalized in [place] Sunday and Sunday this week. - Was d/c on Azithromycin and changed to Levaquin by PCP (Lacey,) on Sunday. D/C'd levaquin. - Started Rocephin 2 g Q24H. 4. Elevated liver enzymes, improving - Likely from acute myocardial event and lack of perfusion vs hepatic congestion. Likely not due to amiodarone since elevated before starting amiodarone. - AST 609 > 1765 > 1016 > 361 > 133, ALT 792 > 1814 >1860 > 1218 > 804 - Will trend - Hepatitis panel negative for infection, non-immune to hep B. - RUQ abd US ordered, pending. 5. Hx HTN 6. Hx of HLD - Holding statin therapy in setting of elevated liver enzymes. 7. Hx of COPD -Added Dulera inhaler 2 puffs BID. -Using duonebs with caution as pt has had arrhythmias recently. 8. Hx of epilepsy - Continue home medications 9. Macrocytic anemia - ordered RBC folate and B12. - B12 levels high. Code status: full code Diet: HH diet. DVT Ppx: th lovenox Dispo: Stable, admit to tele inpatient for >2 midnights. Cardiology consulted, following recommendations. Plan to take pt to cardiac cath today.
[2019-09-23] MEDS: Mometasone/Formoterol 120 PUFF INHALER INH SCH ×2 (06:59→18:46)
[2019-09-23] MEDS: Atenolol 25 MG TAB PO SCH (07:20)
[2019-09-23] MEDS: Benzonatate 100 MG CAP PO PRN (07:20)
[2019-09-23] MEDS: Amiodarone 200 MG TAB PO SCH ×2 (07:21→21:01)
[2019-09-23] MEDS: carBAMazepine 200 MG TAB PO SCH ×2 (07:21→21:00)
[2019-09-23] MEDS: Zonisamide 25 MG CAP PO SCH (07:48)
[2019-09-23] MEDS: Aspirin 325 mg Enteric Coated Tablet PO SCH (07:48)
[2019-09-23] MEDS ORDERED: Heparin (Artline) 0 ML ONE (07:51)
[2019-09-23] MEDS ORDERED: Heparin (Artline) 500 ML ONE ×2 (07:51→10:27)
[2019-09-23] MEDS: Sodium Chloride 0.9% 1,000 ML IV SCH ×2 (08:09→22:40)
[2019-09-23 08:56] LABS: Hemoglobin 10.6 g/dL (14.0-18.0); Platelet Count 142 thou/uL (130-400)
[2019-09-23] MEDS ORDERED: Nitroglycerin 100MG/250ML BOT 250 ML ONE (09:09)
[2019-09-23] MEDS ORDERED: Verapamil 5 MG/2 ML VIAL ONE (09:09)
[2019-09-23] MEDS ORDERED: Heparin 10,000 UNITS/1 ML VIAL ONE (09:09)
[2019-09-23] MEDS ORDERED: Iopamidol 370 76% 50 ML VIAL FS ONE (09:31)
[2019-09-23] MEDS ORDERED: Iopamidol 370 76% 100 ML VIAL ONE (09:31)
--- NOTE | 2019-09-23 09:46 | ULT ---
RIGHT UPPER QUADRANT ULTRASOUND: HISTORY: Possible cirrhosis. FINDINGS: The liver demonstrates increase in coarse echogenicity without focal mass or intrahepatic ductal dila tation. The liver is enlarged, measuring 20.8 cm in length. The pancreas, gallbladder and right kidne y appear normal. The common duct measures 5 mm in diameter. No free fluid is seen. IMPRESSION: Hepatomegaly with fatty infiltration of the liver. POS: [facility]
--- NOTE | 2019-09-23 10:29 | PRG ---
DATE OF SERVICE: 09/22/2019 ADDENDUM: Mr. Stafford is scheduled for cardiac catheterization tomorrow. I discussed with him again over the phone tonight. We discussed again that there is a risk involved with the procedure. Discussed risks and benefits of cardiac catheterization and possible stent implantation. Risks include stroke, heart attack, iodine allergy, loss of blood supply to leg or kidney. He understands and wished to proceed. Job ID: [id number]
--- NOTE | 2019-09-23 10:48 | PRG ---
DATE OF SERVICE: 09/23/2019 Mr. Stafford is in no distress. He has currently been taken down for his cardiac catheterization and further treatment to follow the results of this study. He is also being followed by Dr. Jasso and Cardiology Service. Job ID: [id number]
[2019-09-23] MEDS: cefTRIAXone\\ROCEPHIN 2 GM in Sodium Chloride 0.9% 100 ML IVPB SCH (11:26)
[2019-09-23 13:10] LABS: Folate,Hemolysate 313.9 ng/mL (Not Estab.)
[2019-09-23] MEDS: Zonisamide 100 MG CAP PO SCH (21:00)
[2019-09-23] MEDS ORDERED: Atorvastatin Calcium 40 MG TAB PO SCH (21:00)
[2019-09-23] MEDS: Nicotine 14 MG PATCH TD SCH (21:01)
--- NOTE | 2019-09-23 22:56 | CON ---
DATE OF CONSULTATION: 09/23/2019 HISTORY OF PRESENT ILLNESS: I am seeing Mr. Stafford at our [facility] as electrophysiology [facility] consultant. His problems are: 1. Newly found sustained likely typical atrial flutter with 1:1 AV conduction requiring cardioversion and IV amiodarone for suppression. 2. Atypical chest pains. a. Left heart catheterization shows nonocclusive coronary artery disease, on medical management. 3. Widely used LVEF of 40% to 50%, mild MR, moderate pulmonary pressure elevation on echo, 09/12/2019. 4. History of COPD. 5. History of hypertension. 6. History of epilepsy. ALLERGIES: NONE NOTED. MEDICATIONS: At home included; 1. Zonisamide. 2. Lipitor. 3. Ezetimibe. 4. Atenolol daily. 5. Carbamazepine. 6. Aspirin. 7. Prednisone. 8. Ventolin. 9. Levofloxacin. 10. Guaifenesin. SUBJECTIVE: Mr. Stafford was admitted with complaints of pneumonia last week. He started developing chest pains on discharge, nausea, diaphoresis, dizziness, but did not pass out completely. Came to the ER, found to be in rapidly conducted atrial flutter. He initially was slowed down with diltiazem, but the atrial flutter with ventricular rate recurred and eventually required emergent cardioversion, which resolved the chest pains. He has no current chest discomforts. No recurrent rhythm issues on continued amiodarone therapy. No fever, chills, or cough. No stroke-like symptoms. No neurological deficits. Rest of 12-point review of system otherwise unremarkable. PAST MEDICAL HISTORY: As above. SOCIAL HISTORY: The patient is a smoker, three pack per day for the last 50 years. Denies EtOH or drug abuse, but has a history of heavy ETOH use in the past. FAMILY HISTORY: Significant for stomach cancer with father, and mother had atrial fibrillation and heart problems. OBJECTIVE DATA: VITAL SIGNS: Blood pressure is 110/67, heart rate 58, respiration is 18. The patient is afebrile. GENERAL: Alert and oriented man, with elevated BMI, in no apparent distress. NECK: Supple. Jugular veins not distended. CHEST: Coarse without crackles. HEART: Sounds are regular to rate and rhythm. No murmur or gallop is appreciated. PMI is nonpalpable. ABDOMEN: Benign. Bowel sounds are positive. EXTREMITIES: Lower extremities are without edema, clubbing, or cyanosis. Pulses are adequate. NEUROLOGIC: The patient is nonfocal. MUSCULOSKELETAL: No joint swelling or deformity. SKIN: Without rash. DATABASE: EKG is reviewed, initially reveals a 1:1 conducted atrial flutter. Subsequently, EKGs reveal improving rate control with 2:1 AV block. Typical isthmus dependent atrial flutter morphologies observed. Finally after cardioversion, the patient remained in sinus rhythm throughout his stay. LABORATORY DATA: Most recent hemoglobin 10.6, white cell count 6.8, platelet count is 118. Sodium 130, potassium 3.9, BUN is 13, creatinine 0.86. AST and ALT are elevated at 1016 to 661 down to 133; ALT is 1860, 1208 and 804. BNP is 223. ASSESSMENT AND PLAN: Mr. Stafford is a 69-year-old man with history of heavy smoking, COPD, moderately elevated pulmonary pressures, but preserved LV systolic function, presenting with severe chest pains and in one-to-one conducted very rapid atrial flutter up to 197 beats per minute. EKG reveals typical isthmus dependent atrial flutter with rapid conduction eventually required cardioversion for symptom control. He was placed on amiodarone drip and currently maintaining sinus rhythm. I discussed the etiology of atrial flutter and potential fibrillation with him and his family. We discussed the treatment options, which can be considered continued amiodarone therapy or alternative antiarrhythmic or ablation procedures. We agreed that likely ablation procedure would be more beneficial and then long-term exposure to the potential toxicity with the amiodarone medication. We discussed the procedure as well, including chance of infection, bleeding, pneumothorax, tamponade, device malfunctions, and recalls. Currently stable and could be discharged and will make arrangements for early followup in outpatient ablation. In the meantime, he could continue on low-dose amiodarone taper. Also consider oral anticoagulation likely or NOACs. I will see him back in 2-4 weeks in the office. The liver enzymes likely shock liver, improving. Continue monitoring. Chronic obstructive pulmonary disease. Smoking cessation advised. Job ID: [id number]
[2019-09-24 05:39] LABS: ALT (SGPT) 543 U/L (8-55); AST (SGOT) 85 U/L (5-34); Albumin 3.1 g/dL (3.4-4.8); Alkaline Phosphatase 47 U/L (40-110); Anion Gap 10 mmol/L (10-20); BUN (Urea Nitrogen) 11 mg/dL (8.4-25.7); Bilirubin, Total 0.4 mg/dL (0.2-1.2); Calc. Creatinine Clearance 109 mL/min (70-130); Calcium 7.9 mg/dL (7.8-10.44); Carbon Dioxide 24 mmol/L (23-31); Chloride 106 mmol/L (98-107); Estimated GFR-MDRD 84; Globulin 2.6 g/dL (2.4-3.5); Glucose 107 mg/dL (80-115); Potassium 3.8 mmol/L (3.5-5.1); Protein, Total 5.7 g/dL (5.8-8.1); Sodium 136 mmol/L (136-145)
[2019-09-24] MEDS: Mometasone/Formoterol 120 PUFF INHALER INH SCH (06:44)
--- NOTE | 2019-09-24 07:51 | PDOC.FM ---
- Subjective Subjective: pt denies any chest pain. Pt educated on diet changes for fatty liver. States he eats ice cream and fatty food choices. Denies SOB. - Objective MAR Reviewed: Yes Vital Signs & Weight: Vital Signs (12 hours) Temp Pulse Resp BP Pulse Ox 09/24/19 03:53 96.0 F L 68 20 133/63 96 09/24/19 00:00 68 20 09/23/19 20:00 97.6 F 66 20 121/57 L 94 L Weight Admit Weight 99.926 kg Weight 96.842 kg I&O: 09/23/19 09/24/19 09/25/19 06:59 06:59 06:59 Intake Total 2019 1976 Balance 2019 1976 Result Diagrams: 09/23/19 08:36 09/24/19 04:44 Phys Exam - Physical Examination Constitutional: NAD HEENT: PERRLA, moist MMs, sclera anicteric Neck: no JVD, supple, full ROM Respiratory: no rales, wheezing present Cardiovascular: RRR, no significant murmur, no rub Gastrointestinal: soft, non-tender, no distention, positive bowel sounds Musculoskeletal: no edema, pulses present Neurological: non-focal Psychiatric: normal affect, A&O x 3 Dx/Plan (1) NSTEMI (non-ST elevated myocardial infarction) Code(s): I21.4 - NON-ST ELEVATION (NSTEMI) MYOCARDIAL INFARCTION Status: Acute (2) Atrial flutter with rapid ventricular response Code(s): I48.92 - UNSPECIFIED ATRIAL FLUTTER Status: Acute (3) SVT (supraventricular tachycardia) Code(s): I47.1 - SUPRAVENTRICULAR TACHYCARDIA Status: Acute (4) HTN (hypertension) Code(s): I10 - ESSENTIAL (PRIMARY) HYPERTENSION Status: Chronic (5) HLD (hyperlipidemia) Code(s): E78.5 - HYPERLIPIDEMIA, UNSPECIFIED Status: Chronic (6) COPD (chronic obstructive pulmonary disease) Status: Chronic (7) Epilepsy Code(s): G40.909 - EPILEPSY, UNSP, NOT INTRACTABLE, WITHOUT STATUS EPILEPTICUS Status: Chronic (8) Tobacco dependence due to cigarettes Code(s): F17.210 - NICOTINE DEPENDENCE, CIGARETTES, UNCOMPLICATED Status: Acute (9) Elevated liver enzymes Code(s): R74.8 - ABNORMAL LEVELS OF OTHER SERUM ENZYMES Status: Acute (10) Elevated brain natriuretic peptide (BNP) level Code(s): R79.89 - OTHER SPECIFIED ABNORMAL FINDINGS OF BLOOD CHEMISTRY Status : Acute (11) Macrocytic anemia Code(s): D53.9 - NUTRITIONAL ANEMIA, UNSPECIFIED Status: Acute - Plan Plan: 69 y/o male admitted to Tele in patient for further treatment and evaluation of an NSTEMI 1. NSTEMI - Trop 0.678, 0.722, 1.179, 1.326, likely elevated from demand ischemia from arrhythmias. - BNP elevated. Has trended down. 543 --> 222 - Cardiology consulted on 09/19, recommending amiodarone drip, ASA, therapeutic lovenox. Planning to cath 09/23. Amiodarone switch to PO 09/22. - Therapeutic lovenox. Louisa d/c'd after 12/30 AM dose. - Echo: EF 50-60%, inferior wall hypokinetic. PA systolic pressure 54 mmHg. - CXR cardiomegaly, RLL infiltrate vs pleural effusion. - Extensive smoking hx, 150 pack year. States he quit Last week. - Cath did not show any stenosis requiring stenting. moderate stenosis throughout, but nothing requiring intervention. 2. Arrhythmias: SVT, a Flutter with RVR. Improved - SVT, rate 197 upon initial EKG in [place] - Started on cardizem drip in ER in [place], and rate decreased to 107 with short DC intervals and evidence of L atrial enlargement. - Continue to monitor continuously on Tele - Card consulted, appreciate recommendations. PO amiodarone. - EP consulted, recommending continued amiodarone and NOAC. F/u outpt for ablation in 2-4 weeks. - Causing demand ischemia and hepatic congestion with elevated liver enzymes. 3. Recent hx for pneumonia - Hospitalized in [place] Sunday and Sunday this week. - Was d/c on Azithromycin and changed to Levaquin by PCP (Lacey,) on Sunday. D/C'd levaquin. - Started Rocephin 2 g Q24H. stopped 09/24/2019 - d/c'd on omnicef for 6 more days. 4. Elevated liver enzymes, improving - Likely from acute myocardial event and lack of perfusion vs hepatic congestion. Likely not due to amiodarone since elevated before starting amiodarone. - AST 609 > 1765 > 1016 > 361 > 133, ALT 792 > 1814 >1860 > 1218 > 804 - Will trend - Hepatitis panel negative for infection, non-immune to hep B. - RUQ abd US ordered, pending. 5. Hx HTN 6. Hx of HLD - Holding statin therapy in setting of elevated liver enzymes. 7. Hx of COPD -Added Dulera inhaler 2 puffs BID. -Using duonebs with caution as pt has had arrhythmias recently. 8. Hx of epilepsy - Continue home medications 9. Macrocytic anemia - ordered RBC folate and B12. - B12 levels high. Code status: full code Diet: HH diet. DVT Ppx: th lovenox Dispo: Stable, admit to tele inpatient for >2 midnights. stable for d/c home today. following EP and cards recs.
[2019-09-24] MEDS: Zonisamide 100 MG CAP PO SCH (08:31)
[2019-09-24] MEDS: Atenolol 25 MG TAB PO SCH (08:32)
[2019-09-24] MEDS: Aspirin 325 mg Enteric Coated Tablet PO SCH (08:32)
[2019-09-24] MEDS: Amiodarone 200 MG TAB PO SCH (08:32)
[2019-09-24] MEDS: carBAMazepine 200 MG TAB PO SCH (08:32)
[2019-09-24 08:41] VITALS: BP 117/66; TEMP 98
[2019-09-24] MEDS ORDERED: Apixaban 5 MG TAB PO SCH (09:00)
[2019-09-24] MEDS: cefTRIAXone\\ROCEPHIN 2 GM in Sodium Chloride 0.9% 100 ML IVPB SCH (11:28)
--- NOTE | 2019-09-24 11:32 | PRG ---
DATE OF SERVICE: 09/24/2019 Mr. Stafford is pleasantly resting in bed this morning in no distress. His cath yesterday showed diffuse disease but nothing that needed stenting. He will be treated medically. He is currently on amiodarone and Eliquis. He is stable and will be discharged later this afternoon to follow up with Cardiology. Job ID: [id number]
--- NOTE | 2019-09-24 17:23 | DIS ---
DATE OF ADMISSION: 09/19/2019 DATE OF DISCHARGE: 09/24/2019 RESIDENT: Silvia Reed DO Admitting attending: Dr. Rivas DISCHARGE ATTENDING: Stephane Llamas MD CONSULTATIONS: Cardiology, Electrophysiology, Cardiac Rehab. PROCEDURES: Echocardiogram which showed an EF of 50% to 60%, inferior wall hypokinesis, and pulmonary artery pressure of 54 mmHg. laboratory administrative director procedure on 09/23/2019, disease of the right coronary artery, 50% proximal stenosis by distal to high bifurcation, the vessel that fills the left circumflex has no stenosis. LAD no stenosis. Diagonal-1 of 50% to 70%. Left circ fills distally from RCA. Left circ 100% after takeoff from the OM. OM1, no stenosis. No stents were placed or interventions were taken during the cath. Dr. Purcell was consulted for an outpatient ablation procedure to be performed, but not inpatient. DIAGNOSES: 1. Hee-TL-poucuklkv myocardial infarction. 2. Arrhythmias, supraventricular tachycardia, atrial flutter with rapid ventricular response. 3. Recent history for pneumonia. 4. Elevated liver enzymes. 5. Hypertension. 6. Hyperlipidemia. 7. Chronic obstructive pulmonary disease. 8. Epilepsy. 9. Macrocytic anemia. 10. Hepatomegaly with fatty liver. DISCHARGE MEDICATIONS: 1. Amiodarone 200 mg p.o. b.i.d. 2. Eliquis 5 mg p.o. b.i.d. 3. Aspirin 325 mg p.o. daily. 4. Atenolol 25 mg p.o. daily. 5. Tessalon Perles 100 mg capsules q.4 hours p.r.n. cough. 6. Carbamazepine 600 mg p.o. b.i.d. 7. Dulera inhaler 2 puffs inhaled b.i.d. 8. Nicotine patch 1 patch daily. 9. Zonisamide 300 mg p.o. b.i.d. 10. Cefdinir 300 mg p.o. b.i.d. 11. Robitussin 15 mL p.o. q.4 hours. 12. Ventolin inhaler 2 puffs inhaled q.4 hours. 13. Atorvastatin 40 mg p.o. daily. 14. Zetia 10 mg p.o. daily. DISCONTINUE MEDICATIONS: Aspirin 81 mg p.o. daily. Atorvastatin and Zetia were held during the hospital. The patient was discharged on these medications as the liver enzymes improved. HISTORY OF PRESENT ILLNESS AND HOSPITAL COURSE: Mr. Stafford is a 69-year-old carmina with a history of hypertension, hyperlipidemia, COPD, and epilepsy, came in because of shortness of breath and palpitations. He was found to be in SVT with elevated troponins, peak troponin of 1.326, and was treated for NSTEMI. The patient was placed on therapeutic Lovenox and Cardiology was consulted. He went into A- flutter with RVR and converted after a cardioversion done in the ER. The patient was then started on IV amiodarone and digoxin which was later transitioned to just p.o. amiodarone. The patient's liver enzymes, AST max of 1755, was down trended to 133 on the day of discharge, ALT 1860 max, was down trended to 804 on day of discharge. This is likely due to lack of perfusion to the liver during the cardiac event, although we did order a right upper quadrant ultrasound which showed hepatomegaly with fatty liver infiltrate. The patient' Zetia and atorvastatin were held during the elevation of his hepatic enzymes, but he was discharged on these medications as the patient needs to be on them for fatty liver. The patient's ABG did not show hypoxia, but did show some retained PO2. It is recommended that he get a sleep study outpatient as pulmonary artery pressures were also elevated to 54 as evidenced on his echo. Dr. Purcell would like to see the patient in the next 2 to 4 weeks after he has been on Eliquis and amiodarone to consider an outpatient ablation. The patient came in, already knowing about having pneumonia, he was treated on Rocephin IV while here, I have discharged him on Omnicef for 6 more days. The patient understands his discharge medications and will follow up with Dr. Rahman closely for any questions or concerns as she is his PCP. The patient had a workup in hospital for hepatitis, which was negative, but showed that he was nonimmune to hepatitis B. DISPOSITION: The patient was stable upon discharge, eager to go home. DISCHARGE INSTRUCTIONS: 1. Location: To home. 2. Diet: Heart healthy. 3. Activity: As tolerated. 4. Followup: Follow up with primary care doctor, Dr. Rahman. The patient already has appointment set for 09/30/2019 at 10 a.[address] Follow up with Dr. Purcell, EP, in 2 -[address] Jasso, Cardiology in 3 to 4 weeks in cardiac rehab in 3 days in [place]. Job ID: [id number] MTDD
--- NOTE | 2019-09-25 09:55 | PRG ---
DATE OF SERVICE: 09/24/2019 Mr. Stafford's liver enzymes have been dropping to near normal. I really believe this elevation was related to passive hepatic congestion and "shock liver." Feel it would be very prudent given that he has fatty liver that we add back his atorvastatin and increase the dose to 80 mg a day. He will also continue with aspirin and Eliquis. Job ID: [id number]
--- NOTE | 2019-09-25 21:37 | PQF ---
S[employer] Nursing Consultant [employer] [facility] ERCHAUNCEY STEPHANE CAMPBELL [id number] [facility]-261 [id number] CLINICAL DOCUMENTATION CLARIFICATION FORM: POST DISCHARGE Addendum to original discharge summary date: ____ Late entry note date: __ DATE: 08/25/19 ATTN: Stephane Jimenez Please exercise your independent, professional judgment in responding to the clarification form. Clinical indicators are provided on the bottom of this form for your review Can you please further specify the acuity of CHF? Please check appropriate box(s): Congestive hear failure , systolic and diastolic mixed ACUITY [ ] Acute [ ] Acute on Chronic [ ] Chronic [ ] Other diagnosis [ ] Unable to determine In addition, please specify: Present on Admission (POA): [ ] Yes [ ] No [ ] Unable to determine For continuity of documentation, please document condition throughout progress notes and discharge summary. Thank You. CLINICAL INDICATORS - SIGNS / SYMPTOMS / LABS H and P pg.4BNP elevated H and P pg.4- CXR cardiomegaly, RLL infiltrate vs pleural effusion PN Dr. Jasso09/21 pg.1 -congestive hear failure , systolic abd diastolic mixed, improved PN Dr. Jasso09/21 pg.1 the ejection fraction is 40%-50% Laboratory - BNP 222.3H RISKS: HTN- H and P pg.1 HLD- H and P pg.1 SVT- H and P pg.1 NSTEMI- H and P pg.1 CAD- H and P pg.1 Smoked 3 ppd for 50 years- H and P pg.2 TREATMENTS: Cardiology Consult-09/20 Dr. Jasso IV Lasix 20mg- DEC 03 LHC- BAR TURNER 09/19 IV Fluiids- DEC 03 (This form is maintained as a part of the permanent medical record) 2014 [employer]. All Rights Reserved [email or web address] [not provided] LYLYD
== END 2019-09-24 13:08 | disposition home or self-care (01) | DRG 280 ==
LOC: ERS 16:11 → 2NO 20:04
PROVIDERS: ADMIT Family Medicine; ATTEND Family Medicine
PROC: 5A2204Z Restoration of Cardiac Rhythm, Single (ICD-10-PCS; 2019-09-19)
PROC: 4A023N7 Measurement of Cardiac Sampling and Pressure, Left Heart, Percutaneous Approach (ICD-10-PCS; principal; 2019-09-23)
PROC: B2151ZZ Fluoroscopy of Left Heart using Low Osmolar Contrast (ICD-10-PCS; 2019-09-23)
PROC: B2111ZZ Fluoroscopy of Multiple Coronary Arteries using Low Osmolar Contrast (ICD-10-PCS; 2019-09-23)
DX: I48.3 Typical atrial flutter (principal); I21.4 Non-ST elevation (NSTEMI) myocardial infarction; J18.9 Pneumonia, unspecified organism; K72.00 Acute and subacute hepatic failure without coma; D68.4 Acquired coagulation factor deficiency; I50.40 Unspecified combined systolic (congestive) and diastolic (congestive) heart failure; J44.0 Chronic obstructive pulmonary disease with (acute) lower respiratory infection; I47.1 Supraventricular tachycardia; I73.9 Peripheral vascular disease, unspecified; I11.0 Hypertensive heart disease with heart failure; D69.6 Thrombocytopenia, unspecified; K76.0 Fatty (change of) liver, not elsewhere classified; K76.1 Chronic passive congestion of liver; I25.10 Atherosclerotic heart disease of native coronary artery without angina pectoris; E78.5 Hyperlipidemia, unspecified; G40.909 Epilepsy, unspecified, not intractable, without status epilepticus; E78.00 Pure hypercholesterolemia, unspecified; D53.9 Nutritional anemia, unspecified; Z90.49 Acquired absence of other specified parts of digestive tract; Z79.51 Long term (current) use of inhaled steroids; Z79.82 Long term (current) use of aspirin; Z79.52 Long term (current) use of systemic steroids; Z79.899 Other long term (current) drug therapy; Z95.5 Presence of coronary angioplasty implant and graft; Z87.891 Personal history of nicotine dependence
CPT/HCPCS: 36415; 76705; 80053; 80061; 82553; 82565; 82607; 82747; 82805; 83880; 84484; 85014; 85018; 85025; 85049; 85610; 85730; 86705; 86706; 86709; 87340; 87521; 93005; 93306; 93458; 94640; 94664; 96361; 96372; 96374; 96375; C1769; J0153; J0282; J0696; J1160; J1644; J1650; J1940; J2270; J3490; J7070; J7620; Q9967

== ENCOUNTER 2019-10-02 18:14 | Observation (INO) | payer MEDICARE ==
[2019-10-02 18:34] VITALS: BMI 31.3
--- NOTE | 2019-10-02 19:52 | PDOC.FPRHP ---
- History of Present Illness Chief Complaint: Fall History of Present Illness: Patient is a 69 y/o male who presents to the ED following a fall. Per the patient, he was standing up from a seated position in order to walk to the kitchen when he suddenly felt dizzy and fell to the ground. He denied LOC or trauma to his head, but stated that he has noticed that his vision had been getting blurry recently and that he was experiencing increasing NEVES. However, he denied palpitations, CP, SOB, peripheral edema, fatigue, N/V or diaphoresis during this episode. He recently suffered an NSTEMI and subsequent cardiac arrythmia that was treated via cardioversion in late August, and he states that he has been having similar symptoms since then, but never this severe. Following his fall, he stayed on the floor for several minutes to regain his balance and was able to ambulate without difficulty. Later in the afternoon, a family member noticed subjective difficulty with ambulation and slurred speech without associated facial droop, and encouraged him to present to an outside ED for subsequent evaluation. Initial CT Head performed at the outside ED was negative, and he was subsequently transferred to [facility] in order to receive a higher level of care since he was outside of the tPA window. ED Course: While in the ED, and EKG revealed NSR and a CT Angio [place] that revealed significant Left Carotid Artery stenosis. He was given Antivert 50 mg PO. - Allergies/Adverse Reactions Allergies Allergy/AdvReac Type Severity Reaction Status Date / Time No Known Drug Allergies Allergy Verified 10/02/19 19:52 - Home Medications Medication Instructions Recorded Confirmed Type Atenolol [Tenormin] 25 mg PO DAILY 09/15/19 10/02/19 History Zonisamide 300 mg PO BID 09/15/19 10/02/19 History carBAMazepine [Carbamazepine] 600 mg PO BID 09/15/19 10/02/19 History Amiodarone [Cordarone] 200 mg PO BID #60 tab 09/24/19 10/02/19 Rx Apixaban [Eliquis] 5 mg PO BID #60 tablet 09/24/19 10/02/19 Rx Aspirin [Ecotrin Regular Strength] 325 mg PO DAILY tab 09/24/19 10/02/19 Rx Atorvastatin Calcium [Lipitor] 40 mg PO DAILY #30 tab 09/24/19 10/02/19 Rx Ezetimibe [Zetia] 10 mg PO DAILY #30 tab 09/24/19 10/02/19 Rx - History PMHx: Recent NSTEMI, Recent Pneumonia, A-Flutter, Epilepsy, CAD, Tobacco Abuse PSHx: None FHx: Negative for [place], Stroke, Seizures, DM2, or HTN Social: Tobacco Abuse (2-3 PPD x40), denies EtOH and Drug Abuse Patient was a notably poor historian, and much of the extended history was obtained via chart review. Code: Full - Review of Systems General: reports: fatigue. denies: fever/chills Eyes: reports: vision changes ENT: denies: nasal congestion, rhinorrhea Respiratory: reports: cough. denies: congestion, shortness of breath Cardiovascular: reports: paroxysmal nocturnal dyspnea. denies: chest pain, palpitation, edema Gastrointestinal: denies: nausea, vomiting, diarrhea, constipation, abdominal pain, GI bleeding Genitourinary: denies: dysuria, discharge Skin: denies: rashes, lesions Musculoskeletal: denies: stiffness, swelling Neurological: reports: weakness. denies: numbness, syncope, seizure - Vital signs BP: [127/70] HR: [62] RR: [20] Tmax: [98.1] Pox: [96]% on [Room] Wt: [94 kg] - Physical Exam Constitutional: NAD, awake, alert and oriented, well developed HEENT: normocephalic and atraumatic, PERRLA, conjunctiva clear, no scleral icterus, grossly normal vision, grossly normal hearing, normal nasal mucosa, MMM , oropharynx clear, good dention Neck: supple, FROM, trachea midline, no LAD, no JVD Chest: no-tender to palpation, no lesions Heart: RRR, normal S1/S2, no murmurs/rubs/gallops, pulses present, no edema Lungs: CTAB, no respiratory distress, good air movement, no rales/rhonchi, no wheezing, no retractions Abdomen: soft, non-tender, bowel sounds present, no masses/distention Musculoskeletal: normal structure, ROM grossly normal Neurological: no focal deficit, CN II-XII intact, other (-Finger to Nose, -Heel to Harry, equivocal Dysdiadokinesia) Skin: no rash/lesions, no jaundice Heme/Lymphatic: no unusual bruising or bleeding, no purpura, no petechia, no LAD Psychiatric: normal mood and affect, intact recent and remote memory FMR H&P: Results - EKG Interpretation EKG: NSR FMR H&P: A/P - Problem List (1) TIA (transient ischemic attack) Current Visit: Yes Status: Acute Code(s): G45.9 - TRANSIENT CEREBRAL ISCHEMIC ATTACK, UNSPECIFIED (2) Atrial flutter with rapid ventricular response Current Visit: No Status: Acute Code(s): I48.92 - UNSPECIFIED ATRIAL FLUTTER (3) NSTEMI (non-ST elevated myocardial infarction) Current Visit: No Status: Acute Code(s): I21.4 - NON-ST ELEVATION (NSTEMI) MYOCARDIAL INFARCTION (4) SVT (supraventricular tachycardia) Current Visit: No Status: Acute Code(s): I47.1 - SUPRAVENTRICULAR TACHYCARDIA (5) COPD (chronic obstructive pulmonary disease) Current Visit: No Status: Chronic (6) Epilepsy Current Visit: No Status: Chronic Code(s): G40.909 - EPILEPSY, UNSP, NOT INTRACTABLE, WITHOUT STATUS EPILEPTICUS (7) HLD (hyperlipidemia) Current Visit: No Status: Chronic Code(s): E78.5 - HYPERLIPIDEMIA, UNSPECIFIED (8) HTN (hypertension) Current Visit: No Status: Chronic Code(s): I10 - ESSENTIAL (PRIMARY) HYPERTENSION - Plan Patient is a 69 y/o male who presented to the ED following an unexplained fall. 1. TIA vs. CVA -Patient's fall and reported ambulatory difficulty and dysarthria in the setting of advance cardiopulmonary history are concerning -CT Head: NAF -CT Angio [place]: Left Internal Carotid Artery Stenosis -EKG: NSR -Trops: 0.017 -CK-MB: 1.9 -NIHSS: 0-1 -s/p Aspirin 325 mg PO -Neuro Checks Q4H -Fasting Lipid Panel: Performed during recent hospitalization - will not repeat -TTE: Performed during recent hospitalization - will not repeat -MRI: Pending (Note: Patient will likely require Lorazepam prior to testing due to Claustrophobia) -Continue home medication regimen, as prescribed by Cards / EP following most recent hospitalization -Consider CV Surg consult based on CT Angio [place] findings 2. Hx of A-Fib vs. A-Flutter -Continue home medication regimen, as prescribed by Cards / EP following most recent hospitalization -Consider EP consult based on planned, upcoming ablation 3. HTN -BP: 136/78 on 10/03/19 -Continue home medication regimen -Hydralazine 10 mg PO PRN for severe-range pressures 4. HLD -Continue home medication regimen 5. Epilepsy -Patient denies recent seizure activity -Continue home medication regimen 6. Tobacco Abuse -Nicotine 21 mg Patch -Patient was encouraged to continue tobacco abuse cessation efforts Code: Full Diet: HH Activity: Ambulate w/ Assist VTE PPx: Currently holding for 24H Dispo: Patient is currently stable on the Telemetry Floor for further observation. Will plan for MRI in the AM and await AM labs. Consider consults for EP and CV Surg based on planned ablation and document ICA disease. Manage chronic medical conditions. Expected LOS < 48H FMR H&P: Upper Level - Pertinent history 69 y/o M PMHx CAD s/p NSTEMI, HTN, HLD, Epilepsy presents to the ED due to a fall. The patient was at home alone and around noon was getting up to go get some water from the kitchen and got very dizzy and then fell. Denies hitting his head. He reports dizziness and some blurry vision over the past couple of weeks , especially after taking his amiodarone. His relative came to check on him and reported some slurred speech that has now resolved. He was seen in [place] ED and had stroke workup initiated. The patient denies any LOC, numbness, or weakness. Of note, the patient was admitted to the hospital for PNA and then subsequently for an NSTEMI in Aug. He was found to have SVT and a-flutter and was started on amiodarone and eliquis. There are plans for an outpatient ablation with Dr. Purcell after 2 weeks of amio and anticoagulation. - Pertinent findings Vitals: BP 130/67, HR 65, RR 20, Temp 98.1, O2 sat 98% on RA PE: Gen - alert, oriented, sitting in bed in NAD CV - RRR, no murmurs Lungs - CTAB, no wheezes Neuro - CN II-XII intact, EOMI, PERRL, Sensation grossly intact, no dysdiadochokinesia, strength 5/5 in all extremities Labs: Trop 0.017 CT brain: no acute intracranial process CTA head/neck: short segment of severe stenosis in proximal L ICA, lumenal diameter of 2mm. Echo 09/20/19 - EF 40-50%, increased PA pressure to 54 - Plan Date/Time: 10/02/191951 IKendra MD, PGY-3, have evaluated this patient and agree with findings/ plan as outlined by promotions intern resident. Pertinent changes/additions are listed here. 1. Fall with dizziness Pt with h/o a-flutter, SVT, recent NSTEMI presents s/p fall. DDx: TIA, CVA, arrhythmia. Pt on eliquis at home. Denies hitting head. CT head negative. -Meclizine prn dizziness -Monitor on tele for arrhythmia. EKG showed NSR 2. TIA vs CVA CT head negative, CTA showed L ICA severe stenosis. -MRI brain -Neuro checks -Cont statin, aspirin 3. Severe Carotid Stenosis -Will consult CV surg in AM -Continue statin 4. CHF -Daily weights, strict I/O's -Cont home meds 5. h/o aflutter -Cont amiodarone, hold eliquis for 24 hours 6. Epilepsy -Cont home meds Dispo: Obs on stroke LOS: Likely less than 48 hours Addendum - Attending - Attending Attestation Date/Time: 10/02/192202 I personally evaluated the patient and discussed the management with Dr. Macario I agree with the History, Examination, Assessment and Plan documented above with any addition or exceptions noted below - 69 y/o M PMHx CAD s/p NSTEMI, HTN , HLD, Epilepsy presents to the ED due to a fall. The patient was at home alone and around noon was getting up to go get some water from the kitchen and got very dizzy and then fell. Denies hitting his head. He reports dizziness and some blurry vision over the past couple of weeks, especially after taking his amiodarone. His relative came to check on him and reported some slurred speech that has now resolved. He was seen in [place] ED and had stroke workup initiated. The patient denies any LOC, numbness, or weakness. PMH/PSH/Meds/SH reviewed and agree with resident's documentation. Afebrile P68 RR14 BP 144/ 87 94% RA Exam repeated by me and agree with resident's findings. Labs: H/H= 11.3/34.9, Poe=800, Xo=330, K=3.8, We=335, CO2=24, BUN/Cr=9/1.14, Gluc=95, trop I = 0.017, AST/ALT=31/84; CT brain- no acute intracranial abnormalities. CTA- short segment of high grade stenosis in left proximal internal carotid artery. A /P: 1) Possible TIA/CVA - will check MRI in AM; continue current medications. Symptoms may also be secondary to arrhythmia. Has h/o A-flutter with recent NSTEMI. Continue cardiac monitoring.
[2019-10-02] MEDS ORDERED: hydrALAZINE 20 MG/ML VIAL SLOW IVP PRN (21:03)
[2019-10-02] MEDS ORDERED: Meclizine HCl 12.5 MG TAB PO PRN (23:05)
[2019-10-02] MEDS ORDERED: Lorazepam 0.5 MG TAB PO SCH (23:30)
[2019-10-02] MEDS ORDERED: carBAMazepine 200 MG TAB PO SCH (23:30)
[2019-10-02] MEDS ORDERED: Zonisamide 100 MG CAP PO SCH (23:30)
[2019-10-03 05:11] LABS: Anion Gap 13 mmol/L (10-20); BUN (Urea Nitrogen) 10 mg/dL (8.4-25.7); Calc. Creatinine Clearance 81 mL/min (70-130); Calcium 8.2 mg/dL (7.8-10.44); Carbon Dioxide 23 mmol/L (23-31); Chloride 105 mmol/L (98-107); Estimated GFR-MDRD 62; Glucose 96 mg/dL (80-115); Potassium 3.5 mmol/L (3.5-5.1); Sodium 137 mmol/L (136-145)
[2019-10-03] MEDS ORDERED: Apixaban 5 MG TAB PO SCH (09:00)
[2019-10-03] MEDS: Ezetimibe 10 MG TAB PO SCH (09:25)
[2019-10-03] MEDS: carBAMazepine 200 MG TAB PO SCH ×2 (09:25→21:01)
[2019-10-03] MEDS: Amiodarone 200 MG TAB PO SCH ×2 (09:25→21:02)
[2019-10-03] MEDS: Atenolol 25 MG TAB PO SCH (09:25)
[2019-10-03] MEDS: Aspirin 325 mg Enteric Coated Tablet PO SCH (09:25)
[2019-10-03] MEDS: Famotidine 20 MG TAB PO SCH ×2 (09:26→21:02)
[2019-10-03] MEDS: Nicotine 21 MG PATCH TD SCH (09:26)
[2019-10-03] MEDS: Zonisamide 100 MG CAP PO SCH ×2 (09:26→21:01)
--- NOTE | 2019-10-03 09:46 | PDOC.FM ---
- Subjective Subjective: Pt feeling well this AM, no perception of neuro deficit. Family states his speech is at baseline. no acute complaints - Objective Vital Signs & Weight: Vital Signs (12 hours) Temp Pulse Resp BP Pulse Ox 10/03/19 09:25 67 10/03/19 07:26 98.2 F 67 14 141/80 H 97 10/03/19 04:00 98.2 F 66 20 139/81 97 10/03/19 00:00 97.7 F 65 23 H 136/78 96 Weight Weight 93.077 kg Result Diagrams: 10/03/19 04:36 Phys Exam - Physical Examination Constitutional: NAD HEENT: moist MMs, sclera anicteric Neck: no JVD, full ROM Respiratory: no wheezing, clear to auscultation bilateral Cardiovascular: RRR, no significant murmur Gastrointestinal: soft, non-tender Musculoskeletal: no edema, pulses present Neurological: normal sensation, moves all 4 limbs Psychiatric: normal affect, A&O x 3 Skin: no rash, normal turgor Dx/Plan (1) TIA (transient ischemic attack) Code(s): G45.9 - TRANSIENT CEREBRAL ISCHEMIC ATTACK, UNSPECIFIED Status: Acute (2) Atrial flutter with rapid ventricular response Code(s): I48.92 - UNSPECIFIED ATRIAL FLUTTER Status: Acute (3) COPD (chronic obstructive pulmonary disease) Status: Chronic (4) Epilepsy Code(s): G40.909 - EPILEPSY, UNSP, NOT INTRACTABLE, WITHOUT STATUS EPILEPTICUS Status: Chronic (5) HLD (hyperlipidemia) Code(s): E78.5 - HYPERLIPIDEMIA, UNSPECIFIED Status: Chronic (6) HTN (hypertension) Code(s): I10 - ESSENTIAL (PRIMARY) HYPERTENSION Status: Chronic - Plan Plan: Fall with dizziness A- Pt with h/o a-flutter, SVT, recent NSTEMI presents s/p fall. DDx: TIA, CVA, arrhythmia. Pt on eliquis at home. Denies hitting head. CT head negative. EKG showed NSR P- Meclizine prn dizziness -Monitor on tele for arrhythmia. TIA vs CVA A- CT head negative, CTA showed L ICA severe stenosis. P- MRI brain -Neuro checks -Cont statin, aspirin High grade Carotid Stenosis A- CTA shows high grade stenosis, lumen is 2mm P- Will consult CV surg -Continue statin -hold home eliquis in case they prefer to do procedure today/tomorrow CHF A- stable P- Daily weights, strict I/O's -Cont home meds h/o aflutter -Cont amiodarone, hold eliquis for possibility of procedure CV surg Epilepsy -Cont home meds Addendum - Attending - Attending Attestation Date/Time: 10/06/19 2462 I personally evaluated the patient and discussed the management with Dr. Ospina. I agree with the History, Examination, Assessment and Plan documented above with any addition or exceptions noted below.
--- NOTE | 2019-10-03 10:44 | MRI ---
MRI BRAIN WITHOUT CONTRAST: Date: 10/03/2019 HISTORY: TIA. COMPARISON: None. CORRELATION: CT and CTA of brain from previous day. FINDINGS: No restricted diffusion is seen. There are multiple foci of T2 prolongation in the periventricular wh ite matter consistent with chronic small vessel ischemic disease. No evidence of infarct, hemorrhage, midline shift, or abnormal extra-axial fluid collections are seen. The ventricular size is appropria te and the basilar cisterns are patent. There is mucosal disease in the paranasal sinuses and fluid i n the mastoid air cells, right greater than left. IMPRESSION: No evidence of acute intracranial process. POS: TPC
--- NOTE | 2019-10-03 16:07 | CON ---
DATE OF CONSULTATION: HISTORY OF PRESENT ILLNESS: This is a 69-year-old gentleman, who was recently discharged from the hospital about 2 weeks ago following evaluation for a non-STEMI. He was found to have coronary artery disease, but was not felt to be significant enough to warrant any stenting with an occluded small distal circumflex system. He had plans to be seen by Electrophysiology as an outpatient for possible ablation for his fibrillation/flutter. Unfortunately, he had a syncopal episode or near-syncopal episode as he did not actually pass out, but got up to get a drink of water and felt lightheaded and fell to the floor. Family saw him later and thought he had a facial droop and some slurred speech, and so, he was brought to the hospital, where he has had a thorough neurologic evaluation including a negative brain MRI. A CT angiogram read as severe left carotid stenosis, but on my review, I do not think the stenosis is more than 50% on the left. PAST MEDICAL HISTORY: Significant otherwise for a longstanding smoking history, but he stopped last month. He has a remote history of epilepsy. SOCIAL HISTORY: He is and not accompanied by his at the present time. PHYSICAL EXAMINATION: GENERAL: On examination, he is an alert and cooperative gentleman, in no distress. Recorded weight of 205 pounds, height 5 feet 8 inches. VITAL SIGNS: Last recorded blood pressure 139/70 with a heart rate of 68 and regular. NECK: He does have bilateral ear creases. He has no carotid bruits. No JVD. LUNGS: Clear to auscultation. CARDIAC: Regular rate and rhythm. No murmurs. ABDOMEN: Soft and nontender. No aneurysm. EXTREMITIES: He has palpable femoral and pedal pulses bilaterally. NEUROLOGIC: Normal at this time. ASSESSMENT AND PLAN: At this time, I do not think his left carotid disease is significant and I have suggested that he follow up in the office with me in 6 months with a carotid ultrasound. Otherwise, he was already on good medical management, taking Eliquis twice a day for his fibrillation/flutter, aspirin 81 a day, amiodarone 200 b.i.d., atenolol 25 a day, atorvastatin 40 a day, carbamazepine 600 b.i.d., Zetia 10 a day, and zonisamide 300 b.i.d. No further recommendations at the present time. Job ID: [id number]
[2019-10-03] MEDS ORDERED: Amiodarone 200 MG TAB PO SCH (21:00)
[2019-10-03] MEDS ORDERED: Atorvastatin Calcium 40 MG TAB PO SCH (21:00)
[2019-10-03] MEDS: Apixaban 5 MG TAB PO SCH (21:02)
--- NOTE | 2019-10-04 07:34 | PDOC.FM ---
- Subjective Subjective: Seen at bedside this morning no new complaints. No continued neuro symptoms - Objective Vital Signs & Weight: Vital Signs (12 hours) Temp Pulse Resp BP Pulse Ox 10/04/19 04:00 98.1 F 72 16 155/76 H 92 L 10/04/19 00:00 98.8 F 70 18 135/75 93 L 10/03/19 20:00 98.6 F 72 16 134/72 92 L Weight Weight 93.44 kg I&O: 10/03/19 10/04/19 10/05/19 06:59 06:59 06:59 Intake Total 1050 Balance 1050 Result Diagrams: 10/03/19 04:36 Phys Exam - Physical Examination Constitutional: NAD HEENT: moist MMs Respiratory: clear to auscultation bilateral Cardiovascular: RRR, no significant murmur Gastrointestinal: no distention Neurological: normal sensation, moves all 4 limbs Psychiatric: A&O x 3 Skin: no rash Dx/Plan (1) TIA (transient ischemic attack) Code(s): G45.9 - TRANSIENT CEREBRAL ISCHEMIC ATTACK, UNSPECIFIED Status: Acute (2) Atrial flutter with rapid ventricular response Code(s): I48.92 - UNSPECIFIED ATRIAL FLUTTER Status: Acute (3) COPD (chronic obstructive pulmonary disease) Status: Chronic (4) Epilepsy Code(s): G40.909 - EPILEPSY, UNSP, NOT INTRACTABLE, WITHOUT STATUS EPILEPTICUS Status: Chronic (5) HLD (hyperlipidemia) Code(s): E78.5 - HYPERLIPIDEMIA, UNSPECIFIED Status: Chronic (6) HTN (hypertension) Code(s): I10 - ESSENTIAL (PRIMARY) HYPERTENSION Status: Chronic - Plan Plan: TIA -CT and MRIhead negative, CTA showed L ICA severe stenosis. -CV surg has seen pt and opts for no intervention at this time. Pt will follow up outpt. High grade Carotid Stenosis - as above. Likely source of TIA CHF - stable h/o aflutter -Cont amiodarone Epilepsy -Cont home meds Dispo: pt is in good condition, plan to dc today Addendum - Attending - Attending Attestation Date/Time: 10/04/19 3700 I personally evaluated the patient and discussed the management with Dr. Blankenship I agree with the History, Examination, Assessment and Plan documented above with any addition or exceptions noted below. Patient stable anticipate d/c with eliquis/cordarone.
[2019-10-04 08:29] VITALS: BP 121/69; TEMP 98
[2019-10-04] MEDS: carBAMazepine 200 MG TAB PO SCH (08:29)
[2019-10-04] MEDS: Apixaban 5 MG TAB PO SCH (08:29)
[2019-10-04] MEDS: Amiodarone 200 MG TAB PO SCH (08:29)
[2019-10-04] MEDS: Nicotine 21 MG PATCH TD SCH (08:30)
[2019-10-04] MEDS: Aspirin 325 mg Enteric Coated Tablet PO SCH (08:30)
[2019-10-04] MEDS: Ezetimibe 10 MG TAB PO SCH (08:30)
[2019-10-04] MEDS: Zonisamide 100 MG CAP PO SCH (08:30)
[2019-10-04] MEDS: Atenolol 25 MG TAB PO SCH (08:30)
[2019-10-04] MEDS: Famotidine 20 MG TAB PO SCH (08:30)
[2019-10-04] MEDS ORDERED: Aspirin 325 mg Enteric Coated Tablet PO SCH (09:00)
[2019-10-04] MEDS ORDERED: Atorvastatin Calcium 40 MG TAB PO SCH (09:00)
--- NOTE | 2019-10-04 23:30 | DIS ---
DATE OF ADMISSION: 10/02/2019 DATE OF DISCHARGE: 10/04/2019 ADMITTING ATTENDING: Gaby Banks MD DISCHARGE ATTENDING: Jake Zepeda MD RESIDENT: Mino Blankenship DO. CONSULTS: Christiano Becerril MD, Cardiovascular Surgery. PROCEDURES: Brain CT on 10/02, finding no acute intracranial abnormality. CT angio, [place] on 10/02 with finding of no significant stenosis or vascular occlusion with short-segment high-grade stenosis involving the proximal left internal carotid and a brain MRI on 10/03 finding no evidence of acute intracranial process. ADMITTING DIAGNOSES: 1. Transient ischemic attack versus cerebrovascular accident. 2. Atrial flutter with rapid ventricular response. 3. Jxf-ZT-ackmnypfd myocardial infarction. 4. Supraventricular tachycardia. 5. Chronic obstructive pulmonary disease. 6. Epilepsy. 7. Hyperlipidemia. 8. Hypertension. DISCHARGE DIAGNOSES: 1. Transient ischemic attack. 2. Atrial flutter with rapid ventricular response. 3. Chronic obstructive pulmonary disease. 4. Epilepsy. 5. Hyperlipidemia. 6. Hypertension. DISCHARGE MEDICATIONS: 1. Zonisamide 100 mg capsule 300 mg p.o. b.i.d. 2. Atenolol 25 mg p.o. daily. 3. Carbamazepine 200 mg tab 600 mg p.o. b.i.d. 4. Amiodarone 200 mg p.o. b.i.d. 5. Aspirin 325 mg p.o. daily. 6. Eliquis 5 mg p.o. b.i.d. 7. Atorvastatin 40 mg p.o. daily. 8. Zetia 10 mg p.o. daily. HOSPITAL COURSE: This is a 69-year-old male, who was admitted as a near transfer from [place] after falling off a ladder at home. Initial workup for bleeds or fractures were negative. The patient at the time of fall felt dizzy with some weakness and there was concern initially for a CVA versus TIA. The subsequent followup was negative for CVA. However, CT angio of neck is concerning for a possible carotid source of a TIA. He was seen by CV Surgery, Dr. Becerril, while admitted, who opted for no intervention at this time. The patient is to have outpatient followup with Dr. Becerril. At the time of discharge, the patient was at his neurological baseline and had no specific complaints. DISCHARGE INSTRUCTIONS: 1. Location: Home. 2. Diet: Heart healthy. 3. Followup: With PCP, Dr. Rahman in [address] Becerril within 1 week. 4. Activity: Ad kamilah. Job ID: [id number]
== END 2019-10-04 13:27 | disposition home or self-care (01) ==
LOC: 2SE 18:14
PROVIDERS: ADMIT Family Medicine; ATTEND Family Medicine
DX: I65.22 Occlusion and stenosis of left carotid artery (principal); I48.92 Unspecified atrial flutter; J44.9 Chronic obstructive pulmonary disease, unspecified; G40.909 Epilepsy, unspecified, not intractable, without status epilepticus; E78.5 Hyperlipidemia, unspecified; I11.0 Hypertensive heart disease with heart failure; I50.9 Heart failure, unspecified; I25.2 Old myocardial infarction; I25.10 Atherosclerotic heart disease of native coronary artery without angina pectoris; F17.210 Nicotine dependence, cigarettes, uncomplicated; I47.1 Supraventricular tachycardia; Z79.01 Long term (current) use of anticoagulants; Z79.82 Long term (current) use of aspirin; Z79.899 Other long term (current) drug therapy; W19.XXXA Unspecified fall, initial encounter
CPT/HCPCS: 70551; 80048; G0378 ×3; 36415

== ENCOUNTER 2019-11-10 11:01 | Outpatient (CLI) | payer MEDICARE ==
[2019-11-10 12:43] LABS: Hemoglobin 11.2 g/dL (14.0-18.0); Mean Corpuscular HGB CONC 32.5 g/dL (32.0-36.0); Mean Corpuscular Hemoglobin 33.3 pg (27.0-31.0); Mean Platelet Volume 7.4 fL (7.4-10.4); Platelet Count 158 thou/uL (130-400); RBC Distribution Width 14.3 % (11.5-14.5); Red Blood Cell (RBC) Count 3.37 mill/uL (4.70-6.10); White Blood Cell (WBC) Count 5.3 thou/uL (4.8-10.8)
[2019-11-10 12:49] LABS: INR-International Normal Ratio 1.1; Prothrombin Time 14.6 SEC (12.0-14.7)
[2019-11-10 12:50] LABS: PTT 29.7 SEC (22.9-36.1)
[2019-11-10 13:29] LABS: Anion Gap 12 mmol/L (10-20); BUN (Urea Nitrogen) 12 mg/dL (8.4-25.7); Calc. Creatinine Clearance 0 mL/min (70-130); Calcium 9.3 mg/dL (7.8-10.44); Carbon Dioxide 23 mmol/L (23-31); Chloride 103 mmol/L (98-107); Estimated GFR-MDRD 70; Glucose 182 mg/dL (80-115); Potassium 3.7 mmol/L (3.5-5.1); Sodium 134 mmol/L (136-145)
--- NOTE | 2019-11-10 16:52 | EKG ---
Test Reason : Blood Pressure : / mmHG Vent. Rate : 059 BPM Atrial Rate : 059 BPM P-R Int : 144 ms QRS Dur : 090 ms QT Int : 422 ms P-R-T Axes : 059 076 050 degrees QTc Int : 417 ms Sinus bradycardia Non-specific intra-ventricular conduction delay Abnormal ECG Confirmed by AVIVA ARNOLD ([id number]) on 11/10/2019 4:52:29 PM Referred By: MILLER Confirmed By:AVIVA ARNOLD
== END 2019-11-10 11:02 | disposition home or self-care (01) ==
LOC: LABBT 11:01
PROVIDERS: ATTEND Internal Medicine Cardiovascular Disease
DX: Z01.818 Encounter for other preprocedural examination (principal); I48.92 Unspecified atrial flutter
CPT/HCPCS: 80048; 85027; 85610; 85730; 93005; 93010

== ENCOUNTER 2019-11-17 06:13 | Day surgery (SDC) | payer MEDICARE ==
[2019-11-10 11:37] VITALS: BMI 25.4
[2019-11-17] MEDS ORDERED: Heparin (Artline) 500 ML ONE (06:53)
[2019-11-17] MEDS ORDERED: Lidocaine 1% (PF) 30 ML VIAL ONE (06:54)
[2019-11-17] MEDS ORDERED: Heparin 10,000 UNITS/1 ML VIAL ONE (07:02)
[2019-11-17] MEDS ORDERED: Isoproterenol 0.2 MG/1 ML AMP ONE (08:12)
[2019-11-17] MEDS ORDERED: Albuterol Sulfate 1.25 MG/3 ML NEB ONE (08:37)
[2019-11-17] MEDS ORDERED: Ketamine 50 MG/ML (10ML VIAL) ONE (08:39)
[2019-11-17] MEDS ORDERED: Midazolam HCl 2 mg/2 ml Vial ONE (08:39)
[2019-11-17] MEDS ORDERED: Fentanyl 100 MCG/2 ML VIAL ONE (08:39)
[2019-11-17] MEDS ORDERED: Propofol 1,000 MG/100 ML VIAL IV ONE (08:40)
[2019-11-17] MEDS ORDERED: DOPamine 400 MG/D5W 250 ML 250 ML ONE (09:49)
--- NOTE | 2019-11-17 12:22 | OP ---
DATE OF PROCEDURE: 11/17/2019 PROCEDURE PERFORMED: Electrophysiology study and radiofrequency ablation. PRIMARY CARE PHYSICIAN: Evelina Rahman MD REASON FOR PROCEDURE: Mr. Stafford is a 69-year-old man who had a history of atypical chest pain, nonocclusive coronary artery disease, LVEF 40% to 50% on a recent hospitalization. He has also had narrow-complex tachycardia with diagnosis of typical atrial flutter seen with 1:1 conduction. IV amiodarone was used, which was later discontinued due to side effects. He is on Eliquis therapy, currently in sinus rhythm, here for ablation of atrial flutter. DESCRIPTION OF PROCEDURE: The patient received deep sedation by anesthesia specialist. The right femoral venous area was prepped, draped, and anesthetized using subcutaneous lidocaine. Under ultrasound guidance, the right femoral vein was cannulated x2. Two 8-Faroese short sheaths were introduced, through which a ThermoCool SFST catheter and a decapolar catheter was advanced to the right atrium. The catheter was moved to the right ventricle, His bundle, right atrium, and CS position. Pacing mapping and recording was performed in each location including pacing the left atrium via the CS. The RV was also paced. The 3D map of the right atrium, His bundle, CS, and cavotricuspid isthmus was obtained. Basic EP study was performed with the following findings. Baseline rhythm is sinus rhythm with RR 78 milliseconds, NE 165 milliseconds, QRS 104 milliseconds, QT 337 milliseconds, AH 67 milliseconds, HV 46 millisecond, sinus node recovery time is 982 milliseconds with corrected sinus node recovery time about 202 milliseconds. AV Wenckebach cycle length was 280 milliseconds, retrograde Wenckebach cycle length was 360 milliseconds, AV sarmad ERP 600/200 milliseconds. Concentric retrograde VA conduction was seen and no dual AV sarmad physiology was observed. Burst atrial pacing with down to 200 millisecond cycle length pacing performed, which did not reinduce atrial arrhythmias. At this point, decision was made hence history of typical morphology for the atrial flutter to perform a cavotricuspid isthmus ablation. During proximal CS pacing, radiofrequency ablation at the cavotricuspid isthmus was delivered with total of 3 lesions. Total duration 2 minutes and 39 seconds were delivered. During the ablation, the cavotricuspid isthmus prolonged up to 178 milliseconds. The isthmus block was demonstrated by longest transisthmus time adjacent to the ablation line. Following that, dopamine was administered at 50 mcg. Repeated burst atrial pacing maneuvers were performed. Also, at full dopamine effect, the transisthmus block was rechecked and any reconnection was re-ablated. No further atrial arrhythmias or atrial fibrillation induced. At the end of the case, cardiac silhouette did not change. The catheter was removed from body. The puncture sites were closed using a Vascade closure device under ultrasound guidance. CONCLUSIONS: 1. Successful cavotricuspid isthmus ablation. 2. No atrial arrhythmias inducible. 3. Normal sinus and AV sarmad and His-Purkinje function without evidence of any accessory pathway or slow pathway present. PLAN: Continue short-term anticoagulation. Monitor for recurrent arrhythmias. Consider discontinuing anticoagulation long-term if no further arrhythmias are seen after amiodarone completely washed out. Job ID: [id number]
--- NOTE | 2019-11-17 16:30 | EKG ---
Test Reason : POST ABLATION Blood Pressure : / mmHG Vent. Rate : 085 BPM Atrial Rate : 085 BPM P-R Int : 158 ms QRS Dur : 092 ms QT Int : 380 ms P-R-T Axes : 071 058 028 degrees QTc Int : 452 ms Normal sinus rhythm Normal ECG Confirmed by DR. Bella DUMONT ([id number]) on 11/17/2019 4:30:20 PM Referred By: [facility] Confirmed By:DR. Bella DUMONT
== END 2019-11-17 13:16 | disposition home or self-care (01) ==
LOC: CCL 06:13
PROVIDERS: ATTEND Internal Medicine Cardiovascular Disease
PROC: 02583ZZ Destruction of Conduction Mechanism, Percutaneous Approach (ICD-10-PCS; principal; 2019-11-17)
PROC: 02K83ZZ Map Conduction Mechanism, Percutaneous Approach (ICD-10-PCS; 2019-11-17)
PROC: 4A023FZ Measurement of Cardiac Rhythm, Percutaneous Approach (ICD-10-PCS; 2019-11-17)
PROC: 4A0234Z Measurement of Cardiac Electrical Activity, Percutaneous Approach (ICD-10-PCS; 2019-11-17)
DX: I48.3 Typical atrial flutter (principal); J44.9 Chronic obstructive pulmonary disease, unspecified; I25.10 Atherosclerotic heart disease of native coronary artery without angina pectoris; I10 Essential (primary) hypertension; E78.5 Hyperlipidemia, unspecified; G40.909 Epilepsy, unspecified, not intractable, without status epilepticus; I25.2 Old myocardial infarction; F17.200 Nicotine dependence, unspecified, uncomplicated; Z79.01 Long term (current) use of anticoagulants; Z79.82 Long term (current) use of aspirin; Z79.899 Other long term (current) drug therapy; Z88.8 Allergy status to other drugs, medicaments and biological substances
CPT/HCPCS: 76942; 93005; 93010; 93613; 93623; 93653; C1732; C1769; J1265; J1644; J2001; J2250; J2704; J3010

== ENCOUNTER 2020-09-19 02:57 | Inpatient (IN) | payer MEDICARE ==
--- NOTE | 2020-09-19 04:28 | PDOC.FPRHP ---
- History of Present Illness Chief Complaint: SOB History of Present Illness: Patient is a 70 year old male with a history of COPD, HTN, CAD, hx VA and nicotine dependence who presented to [facility] ED with complaints of SOB worsened with exertion and chest pain x 2 weeks. Chest pain was described as tightness, rated 3/10. Reported cough with productive sputum and sore throat. Patient noted similar symptoms 1 year ago when he was diagnosed with VA. Denied sick contacts. BP initially 100s-110s systolic, increased to max 215. While in ED, patient noted to be increasingly drowsy similar to post-ictal state. CT Head ordered to further evaluate. While in CT, patient noted to be hypoxic with diminished response. Was intubated. BP decreased to 60s systolic but improved to 120 after 2 L bolus. Patient was given solu-medrol 125mg, lovenox 100mg, lorazepam 2mg, midazolam 5mg x 2, ventolin inhaler, duoneb, ASA 81mg ED Course: See above - Allergies/Adverse Reactions Allergies Allergy/AdvReac Type Severity Reaction Status Date / Time amiodarone Allergy Verified 02/10/20 20:00 - Home Medications Medication Instructions Recorded Confirmed Type Atenolol [Tenormin] 25 mg PO DAILY 09/15/19 11/17/19 History Zonisamide 300 mg PO BID 09/15/19 11/17/19 History carBAMazepine [Carbamazepine] 3 tab PO BID 09/15/19 11/17/19 History Apixaban [Eliquis] 5 mg PO BID #60 tablet 09/24/19 11/17/19 Rx Aspirin [Ecotrin Regular Strength] 325 mg PO DAILY tab 09/24/19 11/17/19 Rx Atorvastatin Calcium [Lipitor] 40 mg PO DAILY #30 tab 09/24/19 11/17/19 Rx Ezetimibe [Zetia] 10 mg PO DAILY #30 tab 09/24/19 11/17/19 Rx Albuterol Sulfate [Ventolin Hfa] 2 puff INH BID PRN 11/10/19 11/10/19 History Mometasone/Formoterol 100/5 2 puff INH DAILY PRN 11/10/19 11/10/19 History [Dulera 100 Mcg/5 Mcg Inhaler] - History Per chart review PMHx: HLD, nicotine dependence, TIA, BPPV, HTN, CAD, VA, Aflutter, L carotid arthery stenosis, seizures, restless leg syndrome, obesity PSHx: Appendectomy, angioplasty in 2008, knee surgery in 1957, cardiac ablation in 10/13 FHx: Unable to obtain Social: Smokes 2ppd for past 25 years. Denies ETOH and drug use - Review of Systems ROS unobtainable: due to endotracheal tube - Vital signs BP: [107/64] HR: [100] RR: [19] Tmax: [95.1F] Wt: [111.9kg] Vent settings upon arrival: Ppeak 38, Pman 15, PEEP 5.3, I:E 1:2.0, fTOT 20, Vte 581, Vetot 11.5 - Physical Exam -Constitutional: Sedated on vent, intermittently moves HEENT: normocephalic and atraumatic, PERRLA, no scleral icterus, MMM Neck: trachea midline, no bruits Heart: normal S1/S2, no murmurs/rubs/gallops, no edema -Heart: Tachycardic Lungs: CTAB, good air movement, no rales/rhonchi, no wheezing Abdomen: soft, bowel sounds present, no masses/distention Musculoskeletal: normal structure -Neurological: Sedated Skin: no jaundice Heme/Lymphatic: no purpura, no petechia FMR H&P: A/P - Plan Acute hypoxic hypercapnic respiratory failure 2/2 COPD exacerbation Respiratory acidosis Presented with SOB and chest pain. Became acutely hypoxic in [facility] ED, requiring intubation, after receiving lorazepam 2mg and midazolam 5mg x 2 due to seizure x 2. Received solu-medrol 125mg, lovenox 100mg, ventolin and duoneb in ED. WBC 7.6, D-dimer 0.43, BNP 250. COVID neg. CXR showed no acute process. -Admit to CCU inpatient -Vent protocol with propofol for sedation -Order stat ABG, EKG -Repeat CXR to confirm ET and NG tube placement -Duoneb Q4H KRISTA -Azithromycin 500mg, transition to 250mg on 09/20 x 4 days -Start prednisone 40mg x 5 days -Trop 0.133 -> 0.154. Continue trend x 3 Hypotensive episode S/p 2 L in ED due to BP 60s/40s. Currently 100s/70s. -Monitor -Consider central line if persists due to need for adequate sedation EVANGELINA -Creatinine 1.54. Monitor with repeat labs Seizure Hx of seizures in the past. Per ED report, experienced 2 prior to transfer with administration of lorazepam 2mg, midazolam 5mg x 2 -Continue home meds -Monitor Macrocytic anemia Hgb 11.9, MCV 110 in ED -Monitor with am labs -B12, folate level Nicotine dependence Smokes 2ppd for 25 years -Nicotine patch HLD -Continue home med CAD -Hold home atenolol and lasix due to hypotensive episodes HFrEF Most recent echo 09/11 showed EF 40-50% -Continue home med Restless leg syndrome -Continue home meds Hx TIA BPPV Hx VA Hx aflutter L carotid artery stenosis Obesity -Aware PCP: Lacey Code: FULL DVT ppx: Home eliquis Dispo: Admit to CCU inpatient, expected LOS > 48 hours FMR H&P: Upper Level - Plan Date/Time: 09/19/20 0428 IChristina, have evaluated this patient and agree with findings/plan as outlined by international project engineer resident. Pertinent changes/additions are listed here.' HPI: 70 yo M with PMH of COPD, current tobacco abuse, CHF (EF 40-50%), VA, epilepsy, and medication noncompliance presented to [facility] for chest pain, SOB with exertion, LE swelling that had been worsening over the 2 weeks prior. He also reported productive cough. Chest pain per ED report was described as tightness. Patient reported to [facility] ED that he had similar symptoms 1 yr prior and was diagnosed with VA. He also reported associated Rt ear pain when coughing to the ED. He became less responsive and was thought to be having a seizure, he was given benzos. He then was sent to CT to look for bleed, and started desatting. He was intubated. ED: solumedrol 125 mg, lovenox 100, lorazepam 2 mg, midazolam 5 mg twice, Ventolin inhaler, duoneb, asa 81 mg Vitals: P 112, BP 84/54, T 98.1, O2 satting 100% on ventilator CXR: no acute cardiopulmonary findings. Repeat CXR: endotracheal tube present, somewhat shallow placement. Official read pending. EKG: NSR, rate 96, PVCs, Low voltage, normal ST segments Brain CT: No acute findings, official read pending Labs: WBC 7.6, Hgb 11.9, Plt 124, D-dimer 4.3, ABG (at [facility]) pH 7.16, pCO2 92.5, pO2 65.4, Base exc 1.3, Aa gradient 175, K of 5.66 Physical Exam: Cardiac: RRR, no murmur Lungs: Diffuse rhonchi Ext: 1+ pitting edema BLE A/P: Acute hypoxic Respiratory failure 2/2 COPD exacerbation -desatted to 80s on RA, responded to BNC -Then desatted while in CT and was intubated -Covid swab was negative - ABG showed hypercarbia, rate was increased by respiratory -Continue prednisone, azithromycin, duonebs -Pt intubated and sedated, Admit to CCU, consult pulm in AM SIRS criteria Hypotensive episode -Patient was having increased agitation, requiring propofol and Ativan. Fluid resuscitated with 2.5 L, But MAP decreased to the the 40s -Central line placed Right IJ, pressors started -Procal pending EVANGELINA - fluid resuscitation, continue to trend Ind Trop - 0.133, trend -CKMB also elevated at 11.9 -FLP ordered -Trend, NSTEMI vs Elevated BNP -hx of CHF -Echo in 08/2019: EF 40-50%, inferior wall hypokinetic, mod-[place] elevated pulm artery pressure, estimated pressure 54 mmHg systolic -Repeat Echo today -Monitor for s/s fluid overloaded, pt was appearing more fluid overloaded on repeat CXR, official read pending. Epilepsy, possible seizure -given lorazepam 2 mg once, midazolam 5 mg twice -likely the cause of his subsequent desaturations Tobacco abuse -currently smokes 2 PPD -Nicotine Patch For other chronic problems, please see international project engineer note. Dispo: Admit to CCU inpatient, continue pressor support, wean pressors and oxygen as tolerated. Treat for COPD exacerbation. Consult Pulm in the AM. Rachael Taylor MD PGY3 Addendum - Attending - Attending Attestation Date/Time: 09/19/20 0600 I personally evaluated the patient and discussed the management with Dr. Ervin and Dr. Taylor. I agree with the History, Examination, Assessment and Plan documented above with any addition or exceptions noted below. The patient presented to the [facility] ER with shortness of breath and chest pain. He was being treated for a copd exacerbation and was going to be admitted to the [facility] to evaluate the slightly elevated trops when they requested a covid swab. This was negative but while waiting for the results, the patient was reported to have 2 small seizures and given ativan. He was then sent to the CT scan for a CT head and became hypoxic requiring intubation. Pt's bnp is elevated as well. Upon arrival to the ICU, pt was noted to be hypotensive and requires pressure support. A central line is being placed by Dr. Taylor and Dr. Rivas. The patient will continue on levophed. He did receive a fluid bolus when hypotensive while waiting on the line to be placed. Will treat with steroids, levaquin. Get echo, trend trops. Consult pulmonology for vent management. Monitor for repeat seizure activity. Home seizure meds restarted. Adding urine culture.
[2020-09-19] MEDS ORDERED: Propofol 1,000 MG/100 ML VIAL IV ONE (04:45)
[2020-09-19 05:01] LABS: Actual Bicarbonate (HCO3a) 32.3 mEq/L (22-28); Base Excess (BEa) 1.3 mEq/L (-2.0 to +3.0); Carboxyhemoglobin (COHb) 3.7 gm% (0.0-3.0); Hemoglobin (Hb) 12.1 g/dL (14.0-18.0); O2 Tension (PaO2), arterial 65.4 mmHg (> 80.0); Potassium - ABG Lab 5.66 mmol/L (3.70-5.30)
[2020-09-19 05:05] LABS: CO2 Tension 92.5 mmHg (35.0-45.0); Puncture Site RRA; pH, Arterial 7.16 (7.35-7.45)
[2020-09-19 05:06] LABS: ALV-art Gradient 175.475 mmHg (0-20)
[2020-09-19] MEDS ORDERED: Electrolyte Replacement Protocol 1 EACH IVPB ONE (05:19)
[2020-09-19] MEDS ORDERED: Ventilator Sedation Protocol 1 EACH FS SCH (05:30)
[2020-09-19] MEDS ORDERED: Electrolyte Replacement Protocol FS PRN (05:45)
[2020-09-19] MEDS ORDERED: DISCONTINUE PREVIOUS NARCOTIC PAIN MEDICATIONS AND BENZODIAZEPINES FS SCH (05:45)
[2020-09-19] MEDS ORDERED: Propofol BOLUS 1,000 MG/100 ML VIAL IV PRN (05:45)
[2020-09-19] MEDS ORDERED: Fentanyl BOLUS 250 ML IVPB PRN (05:45)
[2020-09-19] MEDS ORDERED: Magnesium 2 GM/50 ML 2 GM in Premix Bag 1 BAG IVPB SCH (06:00)
[2020-09-19] MEDS ORDERED: Azithromycin 500 MG in Sodium Chloride 0.9% 250 ML 250 ML IVPB SCH (06:15)
[2020-09-19] MEDS ORDERED: Norepinephrine 8 MG/0.9% NS 250 ML ONE (06:16)
[2020-09-19 06:23] LABS: Troponin I 0.131 ng/mL (< 0.028)
[2020-09-19] MEDS ORDERED: Norepinephrine 8 MG/0.9% NS 250 ML IVPB SCH (06:30)
[2020-09-19] MEDS: Lorazepam 2 MG/ML VIAL SLOW IVP PRN ×6 (06:39→22:23)
--- NOTE | 2020-09-19 07:57 | RAD ---
Chest AP view INDICATION: Status post central line placement COMPARISON: September 19, 2020 5:40 AM FINDINGS: Lungs: There is increasing subsegmental atelectasis within both lower lobes. Cardiac silhouette: There is stable mild cardiomegaly Pulmonary vasculature: Normal Pleural spaces: No pleural effusion or pneumothorax is demonstrated. Upper abdomen: No abnormality seen. Osseous structures: No acute osseous abnormality. Additional findings: Patient is intubated with gastric catheter placement. There is a new right IJ c entral venous catheter. No pneumothorax. IMPRESSION: Worsening bibasilar atelectasis. Stable cardiomegaly. Tubes and lines as above. No pneumothorax.
[2020-09-19] MEDS ORDERED: predniSONE 20 MG TAB PER TUBE SCH (08:00)
--- NOTE | 2020-09-19 08:04 | RAD ---
Chest AP view INDICATION: History of ET tube placement for transport COMPARISON: Prior exam performed on September 19, 2020 2:31 AM FINDINGS: Lungs: There is worsening bibasilar interstitial and airspace opacities. There is worsening subsegme ntal volume loss involving both lung bases. Cardiac silhouette: There is mild cardiomegaly Pulmonary vasculature: Mildly prominent Pleural spaces: New small bilateral pleural effusions Upper abdomen: There is been interval placement of a gastric catheter projects below the left hemidi aphragm and beyond the [id number]. Osseous structures: No acute osseous abnormality. Additional findings: Patient remains intubated with the ET tube tip seen at the level of the thoraci c inlet. IMPRESSION: New bibasilar airspace disease may reflect aspiration. There are new bilateral pleural effusions with bibasilar atelectasis. Mild cardiomegaly and mild pulmonary vascular congestion persists. Component of volume overload or CHF is suspected. New gastric catheter projecting below the left hemidiaphragm and beyond the [id number]. Stable ET tube tip.
--- NOTE | 2020-09-19 08:14 | PDOC.BPN ---
- Brief Progress Note Encounter Date: 09/19/20 Encounter Time: 07:00 Internal Jugular Central Line Procedure Note INDICATION: Hypotension, needing to start pressors PROCEDURE CONFORMAL PAD FORMER: Dr. Rachael Taylor, PGY3 ATTENDING PHYSICIAN: Dr. Rivas, In Attendance CONSENT: The procedure was performed emergently and the permission was implied because of the emergent nature. PROCEDURE SUMMARY: A time out was performed. My hands were washed immediately prior to the procedure. I wore a surgical cap, mask, full gown and sterile gloves throughout the procedure. The patient was placed in Trendelenburg position. RIGHT chest region was prepped using iodine scrub and draped in sterile fashion using a full drape and sterile probe cover employed. The medial and lateral heads of the sternocleidomastoid muscle were identified as was the carotid pulse. The Internal Jugular vein was identified using the ultrasound. Anesthesia was achi eved over the vein using 1% lidocaine. Using real-time out of plane guidance, the introducer needle was inserted into the Internal Jugular vein under direct ultrasound visualization. Venous blood was withdrawn. The syringe was removed and a guidewire was advanced into the introducer needle. The guidewire was visualized in the Internal Jugular Vein by ultrasound. A small incision was made at the skin surface with a scalpel and the introducer needle was exchanged for a dilator over the guidewire. After appropriate dilation was obtained, the dilator was exchanged over the wire for a 3 lumen central venous catheter. The wire was removed and the catheter was sutured in place at 15 cm. Nursing placed a sterile sorbaview shield over the catheter at the insertion site. The patient tolerated the procedure without any hemodynamic compromise. At time of procedure completion, all ports aspirated and flushed properly. Post-procedure chest x-ray showed the tip of the CVC correctly placed. Estimated blood loss is 15 ml.
[2020-09-19] MEDS: Propofol 1,000 MG/100 ML VIAL IV PRN ×4 (08:29→21:07)
[2020-09-19] MEDS: Dexamethasone 4 mg/ml Vial SLOW IVP SCH (08:48)
[2020-09-19] MEDS: rOPINIRole HCl 2 MG TAB PER TUBE SCH (09:02)
[2020-09-19] MEDS: Zonisamide 100 MG CAP PER TUBE SCH ×2 (09:02→19:55)
[2020-09-19] MEDS: Nicotine 14 MG PATCH TD SCH (09:03)
[2020-09-19] MEDS: Apixaban 5 MG TAB PER TUBE SCH ×2 (09:03→19:54)
[2020-09-19] MEDS: Ezetimibe 10 MG TAB PER TUBE SCH (09:04)
[2020-09-19] MEDS: Aspirin Chewable 81 MG TAB PER TUBE SCH (09:04)
[2020-09-19 09:24] LABS: Bacteria/HPF None Seen HPF (None Seen); Bilirubin Negative (Negative); Blood, Urine 2+ (Negative); Clarity Clear (Clear); Glucose, Urine (Dipstick) 300 mg/dL (Negative); Ketone, Urine Negative (Negative); Leukocyte Negative Leu/uL (Negative); Nitrite Negative (Negative); Protein, Urine (Dipstick) 30 mg/dL (Neg-Trace); RBC/HPF Greater than 50 HPF (0-3); Squamous Epithelial None Seen HPF (0-3); Urobilinogen Normal mg/dL (Less than 2); WBC/HPF 0-3 HPF (0-3); pH, Urine 6.5 (5.0-9.0)
[2020-09-19 09:45] LABS: Actual Bicarbonate (HCO3a) 30.5 mEq/L (22-28); Base Excess (BEa) 5.2 mEq/L (-2.0 to +3.0); CO2 Tension 48.2 mmHg (35.0-45.0); Carboxyhemoglobin (COHb) 1.3 gm% (0.0-3.0); Hemoglobin (Hb) 11.3 g/dL (14.0-18.0); O2 Tension (PaO2), arterial 93.7 mmHg (> 80.0); Potassium - ABG Lab 4.54 mmol/L (3.70-5.30); pH, Arterial 7.42 (7.35-7.45)
[2020-09-19 09:48] LABS: Puncture Site RRA
[2020-09-19 10:53] LABS: Lactic Acid 1.2 mmol/L (0.5-2.2)
[2020-09-19 10:55] LABS: Anion Gap 12 mmol/L (10-20); BUN (Urea Nitrogen) 21 mg/dL (8.4-25.7); Calc. Creatinine Clearance 90 mL/min (70-130); Carbon Dioxide 29 mmol/L (23-31); Chloride 101 mmol/L (98-107); Potassium 4.6 mmol/L (3.5-5.1); Sodium 137 mmol/L (136-145)
[2020-09-19 10:56] LABS: Calcium 7.8 mg/dL (7.8-10.44); Glucose 137 mg/dL (80-115)
[2020-09-19 11:18] LABS: White Blood Cell (WBC) Count 8.3 thou/uL (4.8-10.8)
[2020-09-19 11:20] LABS: #Lymphocytes 0.9 thou/uL (1.20-3.40); #Monocytes 0.6 thou/uL (0.11-0.59); #Neutrophils 6.8 thou/uL (1.40-6.50); %Basophils 0.4 % (0.0-1.0); %Eosinophils 0.3 % (0.0-10.0); %Lymphocytes 10.5 % (21.0-51.0); %Monocytes 7.2 % (0.0-10.0); %Neutrophils 81.5 % (42.0-75.0); Hemoglobin 10.3 g/dL (14.0-18.0); MDiff Complete? YES; Macrocytosis SLIGHT = 6-15 cells (100X) (0-5/hpf); Mean Corpuscular HGB CONC 32.1 g/dL (32.0-36.0); Mean Corpuscular Hemoglobin 35.6 pg (27.0-31.0); Mean Platelet Volume 7.4 fL (7.4-10.4); Platelet Count 132 thou/uL (130-400); Platelet Morphology Comment Appears Adequate; Polychromasia SLIGHT = 2-3 cells (100X) (0-2/hpf); RBC Distribution Width 12.8 % (11.5-14.5); Red Blood Cell (RBC) Count 2.89 mill/uL (4.70-6.10)
[2020-09-19] MEDS ORDERED: Sodium Chloride 0.9% 1,000 ML IV SCH (13:45)
[2020-09-19] MEDS ORDERED: Mometasone 100 MCG/Formoterol 5 MCG 120 PUFF INHALER INH PRN (14:48)
[2020-09-19] MEDS: Morphine 2 MG/ML VIAL SLOW IVP PRN (16:41)
--- NOTE | 2020-09-19 18:08 | CON ---
DATE OF CONSULTATION: 09/19/2020 HISTORY OF PRESENT ILLNESS: Mr. Stafford is a 70-year-old male with history of hypertension, coronary artery disease, and COPD. Apparently, was transferred here. He was felt to possibly be postictal in the ER. He was given Ativan. Had a head CT done and then was respiratory distressed when he came out of the CAT scan. He subsequently was intubated. He became hypotensive, requiring volume resuscitation. He has subsequently been admitted. PAST MEDICAL HISTORY: Remarkable for, 1. Hypertension. 2. ? history of seizure disorder. 3. History of TIA. 4. History of myocardial infarction. 5. History of atrial flutter. 6. History of carotid disease. 7. History of restless legs. 8. History of obesity. 9. Appendectomy. 10. History of PTCA in 2008. 11. History of knee surgery in the distant past. 12. History of ablation early this year. FAMILY HISTORY: Unknown. SOCIAL HISTORY: Two pack-a-day smoker. Does not drink. REVIEW OF SYSTEMS: Not obtainable since he is intubated. PHYSICAL EXAMINATION: VITAL SIGNS: Blood pressure 113/64, heart rate 95, respiratory rate is 21, and oximetry is 100%. HEENT: Pupils reactive. Sclerae anicteric. NECK: Supple. LUNGS: Distant clear with wheezes. HEART: Regular rhythm. ABDOMEN: Soft. EXTREMITIES: Without clubbing, cyanosis, or edema. LABORATORY DATA: White count 8.3, hemoglobin 10.3, and platelets 132,000. The pH 7.42, CO2 48, and PO2 93. Electrolytes normal. Creatinine 1.24. Chest x-ray shows an increase in interstitial markings and generous cardiac silhouette. IMPRESSION: 1. Respiratory failure. 2. History of coronary artery disease. 3. History of chronic obstructive pulmonary disease. 4. History of ongoing tobacco use with clinical bronchospasm at this time. He has a prolonged expiratory phase on his flow volume loop with mechanical ventilation. He did have an echocardiogram done, but this is poor quality. We will continue ventilatory support. He is certainly not weanable until his bronchospasm improves. Critical care time 30 min. Job ID: [id number] MTDD
[2020-09-19] MEDS: carBAMazepine 200 MG TAB PO SCH (19:54)
[2020-09-19] MEDS: Atorvastatin Calcium 40 MG TAB PER TUBE SCH (19:54)
[2020-09-19] MEDS ORDERED: carBAMazepine 200 MG TAB PO SCH (21:00)
[2020-09-20] MEDS: Propofol 1,000 MG/100 ML VIAL IV PRN ×7 (00:38→21:16)
[2020-09-20] MEDS: Lorazepam 2 MG/ML VIAL SLOW IVP PRN ×7 (01:25→21:34)
[2020-09-20] MEDS: Morphine 2 MG/ML VIAL SLOW IVP PRN (01:54)
[2020-09-20 03:57] LABS: #Basophils 0.1 thou/uL (0.0-0.2); #Lymphocytes 1.3 thou/uL (1.20-3.40); #Monocytes 0.6 thou/uL (0.11-0.59); #Neutrophils 5.6 thou/uL (1.40-6.50); %Basophils 0.7 % (0.0-1.0); %Eosinophils 0.2 % (0.0-10.0); %Lymphocytes 17.5 % (21.0-51.0); %Monocytes 8.4 % (0.0-10.0); %Neutrophils 73.2 % (42.0-75.0); Hemoglobin 9.9 g/dL (14.0-18.0); Mean Corpuscular HGB CONC 32.3 g/dL (32.0-36.0); Mean Corpuscular Hemoglobin 35.7 pg (27.0-31.0); Mean Platelet Volume 7.5 fL (7.4-10.4); Platelet Count 111 thou/uL (130-400); RBC Distribution Width 12.9 % (11.5-14.5); Red Blood Cell (RBC) Count 2.79 mill/uL (4.70-6.10); White Blood Cell (WBC) Count 7.6 thou/uL (4.8-10.8)
[2020-09-20 04:07] LABS: Anion Gap 12 mmol/L (10-20); BUN (Urea Nitrogen) 22 mg/dL (8.4-25.7); Calc. Creatinine Clearance 115 mL/min (70-130); Calcium 7.7 mg/dL (7.8-10.44); Carbon Dioxide 29 mmol/L (23-31); Chloride 101 mmol/L (98-107); Glucose 112 mg/dL (80-115); Potassium 4.2 mmol/L (3.5-5.1); Sodium 138 mmol/L (136-145)
[2020-09-20] MEDS ORDERED: Diltiazem 125 MG in Sodium Chloride 0.9% 100 ML IVPB SCH (05:00)
--- NOTE | 2020-09-20 05:03 | PDOC.BPN ---
- Brief Progress Note Encounter Date: 09/20/20 Encounter Time: 05:00 Pt developed afib with RVR around 0430 this AM, with pulse of 160s. BP was stable, systolic in 120s. 20 mg of diltiazem IV push was given. Patient pulse responded and improved to the 110s-130s. He remains in afib. Diltiazem drip will be started and titrated for rate control/pulse less than 120. Mag, phos, and TSH are pending. Patient has been off of levophed support since 06:30 PM yesterday evening.
[2020-09-20 05:33] LABS: Magnesium 2.1 mg/dL (1.6-2.6); Phosphorus 2.6 mg/dL (2.3-4.7)
--- NOTE | 2020-09-20 06:27 | PDOC.FM ---
- Subjective Subjective: Developed afib RVR last night. Started on dilt drip after push and remains RVR. No other acute events. Remains ventilated and sedated. - Objective Vital Signs & Weight: Vital Signs (12 hours) Temp Pulse Resp Pulse Ox 09/20/20 06:00 23 H 09/20/20 04:00 99.6 F 27 H 09/20/20 02:53 103 H 20 97 09/20/20 02:00 20 09/20/20 00:00 99.9 F H 26 H 09/19/20 22:05 97 20 98 09/19/20 22:00 21 H 09/19/20 20:00 100.1 F H 26 H 98 09/19/20 18:57 94 20 98 Weight Weight 112 kg Most Recent Monitor Data Heart Rate from ECG 144 NIBP 118/58 NIBP BP-Mean 78 Respiration from ECG 29 SpO2 98 I&O: 09/18/20 09/19/20 09/20/20 06:59 06:59 06:59 Intake Total 526 2473.3 Output Total 760 3350 Balance -234 -876.7 Result Diagrams: 09/20/20 03:25 09/20/20 03:25 Phys Exam - Physical Examination HEENT: moist MMs insp and exp wheezing, few scattered rhonci tachy, irreg irreg, no murmur Gastrointestinal: soft, non-tender Musculoskeletal: edema present (1+) sedated, non purposeful movements, no tremor Skin: no rash, cap refill <2 seconds Dx/Plan - Plan Plan: Acute hypoxic hypercapnic respiratory failure 2/2 COPD exacerbation/Bronchospasm Intubated - Dex - Levaquin - simon Singh - Prolonged expiratory phase on vent - Pulm consulted, appreciate recs - Vent settings: RR 20, Vt 500, PS 10, PEEP 5, FiO2 40 - Blood gas: pending Afib RVR - Hx of afib/aflutter - Rate as high as 160 last night - Failed dilt after push and gtt maxed - Transition to esmolol, 55mg push followed by 50mcg/kg/min ggt, titrate per protocol HFrEF - repeat echo yesterday, technically difficult study - EF appeared normal but left atrium significantly dilated - Strict I/O - Holding lasix right now due to volume dependence upon arrival, low threshold to resume EVANGELINA -Resolved, Cr: 0.97 Seizure - resumed home carbemazepine and zonisamide - consider neuro consult based on neuro exam off sedation Macrocytic anemia - Folate deficiency - Folate level of 3 - Started on folic acid supplement Dispo: Remains intubated, not weanable due to broncho spasm, continue abx, steroids, and inhailed tx. Esmolol drip for afib RVR with plan to resume home atenolol once rate has improved. Addendum - Attending - Attending Attestation Date/Time: 09/20/20 1200 I personally evaluated the patient and discussed the management with Dr. Hagen. I agree with the History, Examination, Assessment and Plan documented above with any addition or exceptions noted below.
[2020-09-20] MEDS ORDERED: Esmolol 100 MG/10 ML VIAL IVP SCH (07:15)
[2020-09-20] MEDS: Esmolol 2,500 MG/250 ML 250 ML IVPB SCH ×3 (07:26→23:17)
[2020-09-20 07:38] LABS: Actual Bicarbonate (HCO3a) 29.3 mEq/L (22-28); Base Excess (BEa) 3.9 mEq/L (-2.0 to +3.0); CO2 Tension 48.1 mmHg (35.0-45.0); Calcium, Ionized (arterial) 1.11 mmol/L (1.12-1.30); Carboxyhemoglobin (COHb) 0.9 gm% (0.0-3.0); Hemoglobin (Hb) 10.9 g/dL (14.0-18.0); Potassium - ABG Lab 4.04 mmol/L (3.70-5.30)
[2020-09-20] MEDS: Dexamethasone 4 mg/ml Vial SLOW IVP SCH (07:38)
[2020-09-20] MEDS: carBAMazepine 200 MG TAB PO SCH ×2 (07:39→21:58)
[2020-09-20] MEDS: Folic Acid 1 MG TAB PER TUBE SCH (07:39)
[2020-09-20] MEDS: Aspirin Chewable 81 MG TAB PER TUBE SCH (07:39)
[2020-09-20] MEDS: rOPINIRole HCl 2 MG TAB PER TUBE SCH (07:39)
[2020-09-20] MEDS: Ezetimibe 10 MG TAB PER TUBE SCH (07:40)
--- NOTE | 2020-09-20 08:07 | RAD ---
AP CHEST: HISTORY: COPD. Intubation and CCU followup. COMPARISON: 09/19/2020. FINDINGS/IMPRESSION: ET tube, NG tube, and central lines are unchanged. CP angles are not included on this film. Visuali zed lung sanchez are aerated and show no focal consolidation or infiltrate. No interval change appare nt. POS: AGW
[2020-09-20] MEDS: Apixaban 5 MG TAB PER TUBE SCH ×2 (08:16→21:57)
[2020-09-20] MEDS: Nicotine 14 MG PATCH TD SCH (08:16)
[2020-09-20] MEDS ORDERED: Azithromycin 250 MG TAB PER TUBE SCH (09:00)
[2020-09-20] MEDS: Zonisamide 100 MG CAP PER TUBE SCH ×2 (10:19→22:09)
[2020-09-20 10:56] LABS: Carbamazepine-Tegretol 7.9 ug/mL (4.0-12.0)
[2020-09-20 12:00] LABS: ALV-art Gradient 166.875 mmHg (0-20); O2 Tension (PaO2), arterial 58.2 mmHg (> 80.0); Puncture Site LRA
--- NOTE | 2020-09-20 12:17 | PRG ---
DATE OF SERVICE: 09/20/2020 SUBJECTIVE: Samson Stafford remains hemodynamically stable. He is intermittently having rapid atrial fibrillation. He has been seen by Dr. Purcell in the past. OBJECTIVE: LUNGS: Remarkable for coarse equal breath sounds. HEART: Regular rhythm, rapid rate. ABDOMEN: Soft. IMAGING: Chest x-ray is clear today. LABORATORY DATA: White count 7.6, hemoglobin 9.9, platelets 111. Electrolytes are unremarkable. IMPRESSION: 1. History of Now, Cardiology input will be appreciated. 2. Respiratory failure. 3. History of chronic obstructive pulmonary disease. 4. Status post intubation, possibly mostly secondary to Ativan dosing given prior to a CT scan. 5. History of seizure disorder? 6. History of coronary artery disease. 7. History of ablation procedure earlier by Dr. Purcell. PLAN: Continue supportive care, slow decrease in ventilatory support, but need to be extubated, so we have rate control. Critical care time 35 min. Job ID: [id number] MTDD
--- NOTE | 2020-09-20 15:18 | EKG ---
Test Reason : Blood Pressure : / mmHG Vent. Rate : 089 BPM Atrial Rate : 089 BPM P-R Int : 144 ms QRS Dur : 092 ms QT Int : 338 ms P-R-T Axes : 079 076 033 degrees QTc Int : 411 ms Normal sinus rhythm Normal ECG No previous ECGs available Confirmed by RENÉ JACOBSON, DR. Tilley ([id number]) on 09/20/2020 3:18:12 PM Referred By: JOANA Confirmed By:DR. Treva MERRITT MD
--- NOTE | 2020-09-20 16:17 | CON ---
DATE OF CONSULTATION: 09/20/2020 REASON FOR CONSULTATION: Atrial flutter. HISTORY OF PRESENT ILLNESS: Mr. Stafford is a 70-year-old gentleman who is a patient of Dr. David Jasso. He recently was seen in the emergency room for COPD exacerbation and possible seizure. He developed respiratory distress and required rapid sequence intubation. During my encounter, he is sedated, is currently on Levophed in addition to esmolol. No family is present for history. PAST MEDICAL HISTORY: 1. Seizure disorder. 2. CAD. 3. Tobacco use. FAMILY HISTORY: Negative for CAD. SOCIAL HISTORY: Positive for tobacco use. HOME MEDICATIONS: 1. Carbamazepine. 2. Dulera. 3. Zetia. 4. Lipitor. 5. Tenormin. 6. Aspirin. 7. Eliquis. 8. Ventolin. PHYSICAL EXAMINATION: GENERAL: This gentleman is currently intubated and sedated. VITAL SIGNS: Blood pressure 105/68, pulse 85, and temperature 100.9. NEUROLOGIC: This gentleman is currently intubated and sedated. HEENT: Sclerae without icterus. Mouth has moist mucous membranes with normal pallor. NECK: No JVD. Carotid upstroke brisk. No bruits bilaterally. LUNGS: Clear to auscultation with unlabored respirations. BACK: No scoliosis or kyphosis. CARDIAC: Regular rate and rhythm with normal S1 and S2. No S3 or S4 noted. No significant rubs, murmurs, thrills, or gallops noted throughout the precordium. PMI is not displaced. There is no parasternal heave. ABDOMEN: Soft, nontender, nondistended. No peritoneal signs present. No hepatosplenomegaly. No abnormal striae. EXTREMITIES: 2+ femoral and 2+ dorsalis pedis pulses. No cyanosis, clubbing, or edema. SKIN: No gross abnormalities. PERTINENT LABORATORY DATA: Hemoglobin 9.9 and hematocrit 30.7. The patient is COVID negative as of 09/18/2020. IMPRESSION: 1. Atrial fibrillation with rapid ventricular rate. 2. Respiratory distress. 3. Seizure disorder. 4. Coronary artery disease. RECOMMENDATIONS: The patient is currently on esmolol and we will continue. He has also been on Levophed for pressor support. We would recommend weaning the pressor support down if blood pressure tolerates. Last angiogram dated RCA with 50% stenosis and LAD with no significant disease and the patient did have diagonal disease at 50% to 70% with 100% occlusion of the circumflex artery. Medical management is recommended. We will continue to follow with you. Job ID: [id number]
[2020-09-20] MEDS: Atorvastatin Calcium 40 MG TAB PER TUBE SCH (21:57)
--- NOTE | 2020-09-20 23:12 | EKG ---
Test Reason : Blood Pressure : / mmHG Vent. Rate : 150 BPM Atrial Rate : 357 BPM P-R Int : 000 ms QRS Dur : 088 ms QT Int : 286 ms P-R-T Axes : 000 047 048 degrees QTc Int : 451 ms Atrial fibrillation with rapid ventricular response Low voltage QRS Abnormal ECG When compared with ECG of 20-SEP-2020 03:13, (Unconfirmed) Atrial fibrillation has replaced Sinus rhythm Confirmed by Guanaco RADFORD ([id number]) on 09/20/2020 11:12:25 PM Referred By: AMY Confirmed By:Guanaco RADFORD
--- NOTE | 2020-09-20 23:12 | EKG ---
Test Reason : Blood Pressure : / mmHG Vent. Rate : 117 BPM Atrial Rate : 117 BPM P-R Int : 126 ms QRS Dur : 086 ms QT Int : 324 ms P-R-T Axes : 049 046 049 degrees QTc Int : 451 ms Sinus tachycardia with Premature supraventricular complexes Low voltage QRS Borderline ECG When compared with ECG of 19-SEP-2020 06:26, (Unconfirmed) Premature supraventricular complexes are now Present Confirmed by Guanaco RADFORD ([id number]) on 09/20/2020 11:12:14 PM Referred By: AMY Confirmed By:Guanaco RADFORD
--- NOTE | 2020-09-20 23:13 | EKG ---
Test Reason : Blood Pressure : / mmHG Vent. Rate : 100 BPM Atrial Rate : 100 BPM P-R Int : 128 ms QRS Dur : 088 ms QT Int : 324 ms P-R-T Axes : 065 056 002 degrees QTc Int : 417 ms Normal sinus rhythm Normal ECG When compared with ECG of 20-SEP-2020 04:45, (Unconfirmed) Sinus rhythm has replaced Atrial fibrillation Vent. rate has decreased BY 50 BPM Inverted T waves have replaced nonspecific T wave abnormality in Inferior leads Confirmed by Guanaco RADFORD ([id number]) on 09/20/2020 11:13:19 PM Referred By: VALENTIN CliftonR Confirmed By:Guanaco RADFORD
[2020-09-21] MEDS: Propofol 1,000 MG/100 ML VIAL IV PRN ×7 (00:57→22:42)
[2020-09-21] MEDS: Lorazepam 2 MG/ML VIAL SLOW IVP PRN ×3 (04:06→11:44)
[2020-09-21] MEDS: Esmolol 2,500 MG/250 ML 250 ML IVPB SCH ×3 (04:07→12:48)
[2020-09-21 04:55] LABS: #Basophils 0.1 thou/uL (0.0-0.2); #Eosinphils 0.1 thou/uL (0.0-0.7); #Lymphocytes 1.9 thou/uL (1.20-3.40); #Monocytes 0.6 thou/uL (0.11-0.59); #Neutrophils 6.8 thou/uL (1.40-6.50); %Basophils 0.8 % (0.0-1.0); %Eosinophils 0.7 % (0.0-10.0); %Lymphocytes 19.8 % (21.0-51.0); %Monocytes 6.8 % (0.0-10.0); Hemoglobin 10.1 g/dL (14.0-18.0); Mean Corpuscular HGB CONC 32.3 g/dL (32.0-36.0); Mean Corpuscular Hemoglobin 35.4 pg (27.0-31.0); Platelet Count 117 thou/uL (130-400); RBC Distribution Width 12.8 % (11.5-14.5); Red Blood Cell (RBC) Count 2.84 mill/uL (4.70-6.10); White Blood Cell (WBC) Count 9.4 thou/uL (4.8-10.8)
[2020-09-21 05:24] LABS: Anion Gap 10 mmol/L (10-20); BUN (Urea Nitrogen) 24 mg/dL (8.4-25.7); Calc. Creatinine Clearance 110 mL/min (70-130); Calcium 7.8 mg/dL (7.8-10.44); Carbon Dioxide 29 mmol/L (23-31); Chloride 102 mmol/L (98-107); Glucose 116 mg/dL (80-115); Sodium 137 mmol/L (136-145)
--- NOTE | 2020-09-21 06:37 | PDOC.FM ---
- Subjective Subjective: Intubated and sedated. - Objective Vital Signs & Weight: Vital Signs (12 hours) Pulse Resp BP Pulse Ox 09/21/20 06:00 20 09/21/20 05:00 20 09/21/20 04:00 20 09/21/20 02:29 87 96/62 09/21/20 02:00 20 09/21/20 00:00 20 09/20/20 23:42 88 123/68 09/20/20 22:00 20 09/20/20 21:44 86 108/84 09/20/20 20:00 20 99 Weight Admit Weight 111.992 kg Weight 112.8 kg Most Recent Monitor Data Heart Rate from ECG 85 NIBP 101/58 NIBP BP-Mean 72 Respiration from ECG 20 SpO2 98 I&O: 09/19/20 09/20/20 09/21/20 06:59 06:59 06:59 Intake Total 526 2473.3 1499 Output Total 760 3350 2515 Balance -234 -876.7 -1016 Result Diagrams: 09/21/20 04:22 09/21/20 04:22 Phys Exam - Physical Examination Inutbated and sedated HEENT: moist MMs Neck: no JVD, supple no wheezing appreciated, rhonchi present Cardiovascular: RRR, no significant murmur Gastrointestinal: soft, positive bowel sounds Musculoskeletal: no edema, pulses present sedated Deviation from normal: sedated Skin: no rash, cap refill <2 seconds Dx/Plan - Plan Plan: Acute hypoxic hypercapnic respiratory failure 2/2 COPD exacerbation/Bronchospasm Intubated - Dex - Levaquin - dario Singhbs - Prolonged expiratory phase on vent - Pulm consulted, appreciate recs - Vent settings: RR 20, Vt 500, PS 10, PEEP 5, FiO2 40 Afib RVR - Hx of afib/aflutter - Rate as high as 160 last night - Currently on esmolol and restarted atenolol with goal to titrate off esmolol - Cardiology consulted, appreciate recs HFpEF - repeat echo yesterday, technically difficult study - EF appeared normal but left atrium significantly dilated - Strict I/O - Holding lasix right now due to volume dependence upon arrival, low threshold to resume Hypotension - likely secondary to sedation, beta jm, intubation - continue levophed and titrate as tolerated EVANGELINA -Resolved Seizure - resumed home carbemazepine and zonisamide - consider neuro consult based on neuro exam off sedation Macrocytic anemia - Folate deficiency - Folate level of 3 - Started on folic acid supplement Dispo: Remains intubated, continue abx, steroids, and inhaled tx. Titrate off of esmolol and start atenolol Addendum - Attending - Attending Attestation Date/Time: 09/21/20 3535 I personally evaluated the patient and discussed the management with Dr. Mercado. I agree with the History, Examination, Assessment and Plan documented above with any addition or exceptions noted below. Patient overall stable. HR controlled, BP maintained at goal with Levophed. Work to wean from Levophed and ensure rate control. Oxygenation improved, Pulm on board and managing vent, hopeful to extubate in the next day or so. Continue abx for supportive care for suspected COPD exacerbation that led to his decompensation.
[2020-09-21] MEDS: Apixaban 5 MG TAB PER TUBE SCH ×2 (07:14→21:10)
[2020-09-21] MEDS: Nicotine 14 MG PATCH TD SCH (07:14)
[2020-09-21] MEDS: rOPINIRole HCl 2 MG TAB PER TUBE SCH (07:14)
[2020-09-21] MEDS: carBAMazepine 200 MG TAB PO SCH ×2 (07:14→21:10)
[2020-09-21] MEDS: Ezetimibe 10 MG TAB PER TUBE SCH (07:14)
[2020-09-21] MEDS: methylPREDNISolone Sod Succ 40 MG VIAL IVP SCH (07:14)
[2020-09-21] MEDS: Zonisamide 100 MG CAP PER TUBE SCH ×2 (07:15→21:11)
[2020-09-21] MEDS: Aspirin Chewable 81 MG TAB PER TUBE SCH (07:15)
[2020-09-21] MEDS: Folic Acid 1 MG TAB PER TUBE SCH (07:15)
[2020-09-21 07:21] LABS: Actual Bicarbonate (HCO3a) 27.3 mEq/L (22-28); Base Excess (BEa) 2.6 mEq/L (-2.0 to +3.0); CO2 Tension 42.9 mmHg (35.0-45.0); Calcium, Ionized (arterial) 1.11 mmol/L (1.12-1.30); Carboxyhemoglobin (COHb) 0.5 gm% (0.0-3.0); Hemoglobin (Hb) 10.3 g/dL (14.0-18.0); O2 Tension (PaO2), arterial 84.1 mmHg (> 80.0); Potassium - ABG Lab 3.95 mmol/L (3.70-5.30); pH, Arterial 7.42 (7.35-7.45)
[2020-09-21 07:28] LABS: ALV-art Gradient 147.475 mmHg (0-20); Puncture Site LRA
--- NOTE | 2020-09-21 07:57 | RAD ---
XR Chest 1 View Portable History: Intubated patient Comparison: Radiograph prior day Findings: Right IJ approach catheter projects over the history location inferior SVC. Endotracheal tu be tip at the clavicular level. Enteric tube tip below diaphragm although out of field of view. Layering left larger than right pleural effusions with compressive atelectasis. No pneumothorax. Impression: Similar examination of the chest without worsening lung aeration.
--- NOTE | 2020-09-21 09:45 | CON ---
DATE OF CONSULTATION: 09/21/2020 SUBJECTIVE: Mr. Stafford has converted into sinus rhythm. He converted last evening. He continues to be on esmolol. He is currently intubated and sedated. He also is requiring a low-dose of Levophed at 5 mcg. REVIEW OF SYSTEMS: Unobtainable. PHYSICAL EXAMINATION: VITAL SIGNS: Blood pressure 92/61, pulse 83, respirations 20. LUNGS: Rhonchi and rales bilaterally. HEART: Regular rate and rhythm. ABDOMEN: Soft, nontender, nondistended. EXTREMITIES: No edema. PERTINENT LABORATORY DATA: Hemoglobin 10.1, hematocrit 31.2. IMPRESSION: 1. Atrial fibrillation. 2. Chronic obstructive pulmonary disease exacerbation. 3. Respiratory failure. RECOMMENDATIONS: Mr. Stafford has currently improved cardiovascularly. His rate is back in sinus rhythm. Would recommend adding low-dose beta-jm therapy and trying to wean off esmolol. Respiratory status per Pulmonary. Job ID: [id number]
--- NOTE | 2020-09-21 17:26 | PRG ---
DATE OF SERVICE: 09/21/2020 SUBJECTIVE: Mr. Stafford remains mechanically ventilated. OBJECTIVE: VITAL SIGNS: Heart rate is in the 80s, blood pressure 102/54, respiratory rates in the 20s, and oximetry is 97. LUNGS: Distant and clear. He has a prolonged expiratory phase. HEART: Regular rhythm. ABDOMEN: Soft. EXTREMITIES: Without edema. LABORATORY DATA: White count 9.4, hemoglobin 10.1, and platelets 117. Electrolytes are normal, creatinine is 1.0. Chest x-ray is unchanged. He is seen by Dr. Garland today for atrial fibrillation, but he converted into sinus rhythm. IMPRESSION: 1. Chronic obstructive pulmonary disease exacerbation, leading to intubation. 2. Atrial fibrillation, now in sinus rhythm. 3. Obesity and deconditioning. PLAN: We may be able to dramatically decrease ventilatory support and consider extubation in 24 to 48 hours. Critical care time 30 min. Job ID: [id number] MTDD
[2020-09-21] MEDS ORDERED: Atenolol 25 MG TAB PO SCH (17:45)
[2020-09-21] MEDS: Atorvastatin Calcium 40 MG TAB PER TUBE SCH (21:10)
[2020-09-22] MEDS: Esmolol 2,500 MG/250 ML 250 ML IVPB SCH (01:33)
[2020-09-22] MEDS: Propofol 1,000 MG/100 ML VIAL IV PRN ×4 (02:30→12:20)
[2020-09-22 04:12] LABS: Anion Gap 13 mmol/L (10-20); BUN (Urea Nitrogen) 25 mg/dL (8.4-25.7); Calc. Creatinine Clearance 114 mL/min (70-130); Carbon Dioxide 26 mmol/L (23-31); Chloride 103 mmol/L (98-107); Glucose 119 mg/dL (80-115); Potassium 4.2 mmol/L (3.5-5.1); Sodium 138 mmol/L (136-145)
[2020-09-22 04:22] LABS: Band 19 % (5-11); Hemoglobin 10.9 g/dL (14.0-18.0); Lymphocytes 17 % (21-51); MDiff Complete? YES; Mean Corpuscular Hemoglobin 35.2 pg (27.0-31.0); Mean Platelet Volume 7.8 fL (7.4-10.4); Monocytes 5 % (0-10); Neutrophil 58 % (42-75); Platelet Count 95 thou/uL (130-400); Platelet Morphology Comment Appears Decreased; RBC Distribution Width 12.6 % (11.5-14.5); Reactive Lymphocytes 1 % (0-10); White Blood Cell (WBC) Count 6.8 thou/uL (4.8-10.8)
[2020-09-22] MEDS: Lorazepam 2 MG/ML VIAL SLOW IVP PRN ×2 (05:58→07:50)
--- NOTE | 2020-09-22 07:07 | PDOC.FM ---
- Subjective Subjective: Pt is intubated and sedated. Tolerated atenolol last night and is currently being titrated off of esmolol. - Objective Vital Signs & Weight: Vital Signs (12 hours) Temp Pulse Resp BP Pulse Ox 09/22/20 07:01 83 109/59 L 09/22/20 05:53 29 H 09/22/20 05:51 100.3 F H 09/22/20 05:00 24 H 09/22/20 04:00 27 H 09/22/20 03:00 99.1 F 09/22/20 02:23 82 24 H 94 L 09/22/20 02:00 99.7 F H 17 09/22/20 01:00 99.7 F H 09/22/20 00:00 100.3 F H 21 H 09/21/20 22:00 27 H 09/21/20 21:36 81 28 H 96 09/21/20 20:00 23 H 97 Weight Admit Weight 111.992 kg Weight 112.4 kg Most Recent Monitor Data Heart Rate from ECG 82 NIBP 104/60 NIBP BP-Mean 74 Respiration from ECG 31 SpO2 93 I&O: 09/21/20 09/22/20 09/23/20 06:59 06:59 06:59 Intake Total 1499 1284 Output Total 2840 4740 Balance -1631 -5756 Result Diagrams: 09/22/20 03:35 09/22/20 03:35 Phys Exam - Physical Examination Inbutated and sedated Neck: no JVD diffuse rhonchi appreciated, no wheezing Cardiovascular: RRR, no significant murmur Gastrointestinal: soft, positive bowel sounds Musculoskeletal: no edema, pulses present Skin: no rash, cap refill <2 seconds Dx/Plan - Plan Plan: Acute hypoxic hypercapnic respiratory failure 2/2 COPD exacerbation/Bronchospasm Intubated - Dex - Levaquin - simon Singh - Pulm consulted, appreciate recs - Vent settings: RR 14, Vt 550, PS 10, PEEP 5, FiO2 40 - Possible extubation in next 24-48 hours per pulm Afib RVR - Hx of afib/aflutter - Currently on esmolol and restarted atenolol with goal to titrate off esmolol. Tolerating well. - Cardiology consulted, appreciate recs HFpEF - repeat echo yesterday, technically difficult study - EF appeared normal but left atrium significantly dilated - Strict I/O - Holding lasix right now due to volume dependence upon arrival, low threshold to resume Hypotension - likely secondary to sedation, beta jm, intubation - continue levophed and titrate as tolerated - currently at 5 mcg EVANGELINA -Resolved Seizure - resumed home carbemazepine and zonisamide - consider neuro consult based on neuro exam off sedation Macrocytic anemia - Folate deficiency - Folate level of 3 - Started on folic acid supplement Dispo: Remains intubated, continue abx, steroids, and inhaled tx. Titrate off of esmolol and continue atenolol Addendum - Attending - Attending Attestation Date/Time: 09/22/20 1151 I personally evaluated the patient and discussed the management with Dr. Mercado. I agree with the History, Examination, Assessment and Plan documented above with any addition or exceptions noted below.
[2020-09-22] MEDS: Atenolol 25 MG TAB PO SCH (07:20)
[2020-09-22] MEDS: carBAMazepine 200 MG TAB PO SCH ×2 (07:20→21:38)
[2020-09-22] MEDS: Apixaban 5 MG TAB PER TUBE SCH ×2 (07:20→22:15)
[2020-09-22] MEDS: rOPINIRole HCl 2 MG TAB PER TUBE SCH (07:20)
[2020-09-22] MEDS: Nicotine 14 MG PATCH TD SCH (07:21)
[2020-09-22] MEDS: methylPREDNISolone Sod Succ 40 MG VIAL IVP SCH (07:21)
[2020-09-22] MEDS: Ezetimibe 10 MG TAB PER TUBE SCH (07:21)
[2020-09-22] MEDS: Aspirin Chewable 81 MG TAB PER TUBE SCH (07:21)
[2020-09-22] MEDS: Folic Acid 1 MG TAB PER TUBE SCH (07:21)
[2020-09-22] MEDS: Zonisamide 100 MG CAP PER TUBE SCH ×2 (07:28→21:39)
[2020-09-22 07:47] LABS: Actual Bicarbonate (HCO3a) 26.2 mEq/L (22-28); Base Excess (BEa) -0.7 mEq/L (-2.0 to +3.0); CO2 Tension 54.3 mmHg (35.0-45.0); Calcium, Ionized (arterial) 1.17 mmol/L (1.12-1.30); Carboxyhemoglobin (COHb) 0.6 gm% (0.0-3.0); Hemoglobin (Hb) 10.5 g/dL (14.0-18.0); O2 Tension (PaO2), arterial 67.4 mmHg (> 80.0)
[2020-09-22 08:08] LABS: ALV-art Gradient 149.925 mmHg (0-20); Puncture Site LRA
[2020-09-22] MEDS: fentaNYL Citrate/PF 2,000 MCG in Sodium Chloride 0.9% 60 ML IV SCH (08:56)
--- NOTE | 2020-09-22 10:39 | RAD ---
PORTABLE CHEST: HISTORY: CCU followup. COPD. COMPARISON: 09/21/2020. FINDINGS: ET tube and NG tube again noted. Central line unchanged. Hazy infiltrate throughout the left lung is more prominent on the current study. Left CP angle and d iaphragm are not included on this exam but opacification of the left lung base indicates effusion and left basilar atelectasis or consolidation. Small right effusion with right basilar atelectasis also again noted. IMPRESSION: Bilateral effusions and bilateral infiltrates more extensive on the left. POS: AGW
--- NOTE | 2020-09-22 14:40 | PRG ---
DATE OF SERVICE: 09/22/2020 OBJECTIVE: VITAL SIGNS: His heart rate is in the 70s blood pressure is 95/55, respiratory rate is in the 20s, still has very long expiratory phase. LUNGS: Remarkable for distant coarse wheezes diffusely. HEART: Regular rhythm. ABDOMEN: Soft. EXTREMITIES: Without asymmetry. NEUROLOGIC: Is not assessed as he is sedated. Bladder temperature is a 101.1, which makes his core temperature a 100.1. LABORATORY DATA: Chest radiograph shows bilateral infiltrates. IMPRESSION: 1. Chronic obstructive pulmonary disease exacerbation. 2. Atrial fibrillation, converted to sinus rhythm. 3. Obesity and deconditioning. 4. ? coexistent pneumonia. PLAN: We will start Precedex drip and decrease his ventilatory support. It is unclear what his functional status is to me, but I suspect it is not good. This may take a while to wean him from mechanical ventilation. We will continue nebulized treatments, empiric antimicrobial therapy, steroids, and sedation. Critical care time 30 min. Job ID: [id number] MTDD
[2020-09-22] MEDS: Atorvastatin Calcium 40 MG TAB PER TUBE SCH (21:37)
[2020-09-23 05:44] LABS: #Eosinphils 0.1 thou/uL (0.0-0.7); #Lymphocytes 0.9 thou/uL (1.20-3.40); #Monocytes 0.5 thou/uL (0.11-0.59); #Neutrophils 4.5 thou/uL (1.40-6.50); %Basophils 0.8 % (0.0-1.0); %Lymphocytes 14.7 % (21.0-51.0); %Neutrophils 74.5 % (42.0-75.0); Hemoglobin 10.5 g/dL (14.0-18.0); Mean Corpuscular HGB CONC 31.7 g/dL (32.0-36.0); Mean Corpuscular Hemoglobin 35.2 pg (27.0-31.0); Mean Platelet Volume 8.3 fL (7.4-10.4); Platelet Count 101 thou/uL (130-400); RBC Distribution Width 12.5 % (11.5-14.5); Red Blood Cell (RBC) Count 2.99 mill/uL (4.70-6.10)
[2020-09-23] MEDS: Propofol 1,000 MG/100 ML VIAL IV PRN ×3 (05:47→21:03)
[2020-09-23 05:57] LABS: Anion Gap 13 mmol/L (10-20); BUN (Urea Nitrogen) 39 mg/dL (8.4-25.7); Calc. Creatinine Clearance 0 mL/min (70-130); Calcium 8.4 mg/dL (7.8-10.44); Carbon Dioxide 27 mmol/L (23-31); Chloride 104 mmol/L (98-107); Glucose 124 mg/dL (80-115); Potassium 4.8 mmol/L (3.5-5.1); Sodium 139 mmol/L (136-145)
--- NOTE | 2020-09-23 06:41 | PDOC.FM ---
- Subjective Subjective: Pt is intubated and sedated. Requiring levophed. He is sedated due to agitation while remaining intubated. He did have a temperature overnight. - Objective Vital Signs & Weight: Vital Signs (12 hours) Pulse Resp Pulse Ox 09/23/20 02:20 75 18 93 L 09/22/20 21:35 75 22 H 94 L 09/22/20 18:55 78 22 H 95 Weight Admit Weight 111.992 kg Weight 113.3 g Most Recent Monitor Data Heart Rate from ECG 79 NIBP 104/60 NIBP BP-Mean 74 Respiration from ECG 22 SpO2 92 I&O: 09/21/20 09/22/20 09/23/20 06:59 06:59 06:59 Intake Total 1499 1284 1044 Output Total 2840 2240 1960 Balance -1341 -3456 -916 Result Diagrams: 09/23/20 04:40 09/23/20 04:40 Phys Exam - Physical Examination Inbutated and sedated HEENT: PERRLA, sclera anicteric Neck: no JVD, supple diffuse rhonchi Cardiovascular: RRR, no significant murmur Gastrointestinal: soft, non-tender, positive bowel sounds Musculoskeletal: no edema, pulses present Skin: no rash, normal turgor Dx/Plan - Plan Plan: Acute hypoxic hypercapnic respiratory failure 2/2 COPD exacerbation/Bronchospasm Intubated - Dex - Levaquin - increasing temperature with possible bilateral pneumonia on CXR. Will discuss addition of abx. - simon Singh - Pulm consulted, appreciate recs - Vent settings: RR 14, Vt 550, PS 10, PEEP 5, FiO2 40 - Possible extubation in next 24-48 hours per pulm Afib RVR - resolved - Hx of afib/aflutter - Continue atenolol - Cardiology consulted, appreciate recs HFpEF - repeat echo yesterday, technically difficult study - EF appeared normal but left atrium significantly dilated - Strict I/O - Holding lasix right now due to volume dependence upon arrival, low threshold to resume EVANGELINA -Resolved Seizure - resumed home carbemazepine and zonisamide - consider neuro consult based on neuro exam off sedation Macrocytic anemia - Folate deficiency - Folate level of 3 - Started on folic acid supplement Dispo: Remains intubated, continue abx, steroids, and inhaled tx. Addendum - Attending - Attending Attestation Date/Time: 09/23/20 8277 I personally evaluated the patient and discussed the management with Dr. Mercado. I agree with the History, Examination, Assessment and Plan documented above with any addition or exceptions noted below. Patient overall stable. Still having low grade fevers, on abx therapy. CXR overall stable. Due to lack of findings of bacterial infection or to explain his COPD exacerbation and respiratory failure, will repeat COVID swab. Continue supportive care, Pulm on board.
--- NOTE | 2020-09-23 08:18 | RAD ---
Portable frontal chest radiograph: 09/23/2020 COMPARISON: 09/22/2020 HISTORY: Intubated patient, COPD exacerbation FINDINGS: Stable endotracheal tube, nasogastric tube, and right-sided vascular catheter. Persistent pulmonary vascular prominence and stable dense pleural and parenchymal opacity in the lung bases, left greater than right. IMPRESSION: No significant interval change.
[2020-09-23 08:20] LABS: Actual Bicarbonate (HCO3a) 27.5 mEq/L (22-28); Base Excess (BEa) 0.1 mEq/L (-2.0 to +3.0); CO2 Tension 59.7 mmHg (35.0-45.0); Calcium, Ionized (arterial) 1.18 mmol/L (1.12-1.30); Carboxyhemoglobin (COHb) 1.1 gm% (0.0-3.0); Hemoglobin (Hb) 10.4 g/dL (14.0-18.0); O2 Tension (PaO2), arterial 65.3 mmHg (> 80.0); Potassium - ABG Lab 4.79 mmol/L (3.70-5.30); pH, Arterial 7.28 (7.35-7.45)
[2020-09-23] MEDS: Acetaminophen 325 MG TAB PER TUBE PRN (08:41)
[2020-09-23] MEDS: Folic Acid 1 MG TAB PER TUBE SCH (08:42)
[2020-09-23] MEDS: carBAMazepine 200 MG TAB PO SCH ×2 (08:42→20:47)
[2020-09-23] MEDS: Apixaban 5 MG TAB PER TUBE SCH ×2 (08:42→20:47)
[2020-09-23] MEDS: Zonisamide 100 MG CAP PER TUBE SCH ×2 (08:42→20:47)
[2020-09-23] MEDS: Aspirin Chewable 81 MG TAB PER TUBE SCH (08:42)
[2020-09-23] MEDS: Atenolol 25 MG TAB PO SCH (08:42)
[2020-09-23] MEDS: Ezetimibe 10 MG TAB PER TUBE SCH (08:42)
[2020-09-23] MEDS: methylPREDNISolone Sod Succ 40 MG VIAL IVP SCH (08:43)
[2020-09-23] MEDS: Nicotine 14 MG PATCH TD SCH (08:43)
[2020-09-23 09:05] LABS: ALV-art Gradient 145.275 mmHg (0-20); Puncture Site LRA
[2020-09-23] MEDS: rOPINIRole HCl 2 MG TAB PER TUBE SCH (09:07)
[2020-09-23] MEDS: Vancomycin 1.5 GRAM/300 ML BAG 1.5 GM in Premix Bag 1 BAG IVPB SCH ×2 (12:51→23:50)
[2020-09-23 17:11] LABS: SARS-CoV-2 MS2 Positive; SARS-CoV-2 N Gene Negative; SARS-CoV-2 S Gene Negative; SARS-CoV-2 by NAA Not Detected (NotDetected); SARS-CoV-2 orf1ab Negative
--- NOTE | 2020-09-23 18:04 | PRG ---
DATE OF SERVICE: 09/23/2020 SUBJECTIVE: Samson Stafford remains mechanically ventilated, sedated for ventilation. OBJECTIVE: VITAL SIGNS: Respiratory rate is in the 20s, FiO2 is 40%, blood pressure 100/56, and heart rate is in 70s. LUNGS: Remarkable for diffuse faint wheezes. HEART: Regular rhythm. ABDOMEN: Soft. EXTREMITIES: Without asymmetry or significant edema. LABORATORY DATA: White count 6, hemoglobin 10.5, and platelets 101,000. Electrolytes are normal. Potassium 4.8, BUN 39, and creatinine 1.15. A pH 7.28, . IMPRESSION: Chronic obstructive pulmonary disease exacerbation. He had a temperature spike by core temperature, so COVID screen was ordered. The admitting COVID was negative. Today's COVID screen was also negative. We will continue with supportive care with slow weaning from mechanical ventilation. Majority of his problems are chronic obstructive pulmonary disease related in my opinion. He does have a history of seizure disorder. There is some concern that maybe he was postictal when he was in the emergency department, but this also could have just been simply respiratory failure and altered mental status because of that. We will continue with supportive care and slow decrease in ventilatory support. His expiratory phase has improved compared to yesterday, but yesterday he still had a very long expiratory phase. Critical care time 30 min. Job ID: [id number] MTDD
[2020-09-23] MEDS: Atorvastatin Calcium 40 MG TAB PER TUBE SCH (20:47)
[2020-09-24] MEDS: fentaNYL Citrate/PF 2,000 MCG in Sodium Chloride 0.9% 60 ML IV SCH (00:20)
[2020-09-24 04:08] LABS: Anion Gap 14 mmol/L (10-20); BUN (Urea Nitrogen) 46 mg/dL (8.4-25.7); Calc. Creatinine Clearance 0 mL/min (70-130); Calcium 8.2 mg/dL (7.8-10.44); Carbon Dioxide 28 mmol/L (23-31); Chloride 108 mmol/L (98-107); Glucose 141 mg/dL (80-115); Potassium 4.8 mmol/L (3.5-5.1); Sodium 145 mmol/L (136-145)
[2020-09-24] MEDS: Propofol 1,000 MG/100 ML VIAL IV PRN (04:50)
[2020-09-24 04:58] LABS: #Eosinphils 0.1 thou/uL (0.0-0.7); #Monocytes 0.6 thou/uL (0.11-0.59); #Neutrophils 5.1 thou/uL (1.40-6.50); %Basophils 0.5 % (0.0-1.0); %Eosinophils 1.3 % (0.0-10.0); %Lymphocytes 14.9 % (21.0-51.0); %Monocytes 8.5 % (0.0-10.0); %Neutrophils 74.9 % (42.0-75.0); Hemoglobin 9.8 g/dL (14.0-18.0); MDiff Complete? YES; Macrocytosis SLIGHT = 6-15 cells (100X) (0-5/hpf); Mean Corpuscular HGB CONC 32.1 g/dL (32.0-36.0); Mean Corpuscular Hemoglobin 35.7 pg (27.0-31.0); Mean Platelet Volume 8.2 fL (7.4-10.4); Platelet Count 102 thou/uL (130-400); Platelet Morphology Comment Appears Decreased; RBC Distribution Width 12.3 % (11.5-14.5); Red Blood Cell (RBC) Count 2.75 mill/uL (4.70-6.10); White Blood Cell (WBC) Count 6.8 thou/uL (4.8-10.8)
--- NOTE | 2020-09-24 07:02 | PDOC.FM ---
- Subjective Subjective: Pt is inbtubated and sedated with precedex. Fentanyl and propofol have been d/c 5 minutes prior to my eval. He was agitated but not responding to commands. - Objective Vital Signs & Weight: Vital Signs (12 hours) Pulse BP 09/24/20 02:31 82 111/57 L 09/23/20 22:41 79 Weight Admit Weight 111.992 kg Weight 115.1 g Most Recent Monitor Data Heart Rate from ECG 69 NIBP 105/59 NIBP BP-Mean 74 Respiration from ECG 15 SpO2 94 I&O: 09/23/20 09/24/20 09/25/20 06:59 06:59 06:59 Intake Total 1044 2172 Output Total 1960 2760 Balance -916 -588 Result Diagrams: 09/24/20 03:18 09/24/20 03:18 Phys Exam - Physical Examination Constitutional: NAD intubated HEENT: PERRLA, sclera anicteric Neck: no JVD, full ROM bilateral rhonchi Cardiovascular: RRR, no significant murmur Gastrointestinal: soft, positive bowel sounds Musculoskeletal: no edema, pulses present Neurological: moves all 4 limbs Psychiatric: normal affect, A&O x 3 Skin: no rash, cap refill <2 seconds Dx/Plan - Plan Plan: Acute hypoxic hypercapnic respiratory failure 2/2 COPD exacerbation/Bronchospasm Intubated - Dex - Levaquin, vanc but pt remains febrile, procal negative; covid pending - simon Singh - Pulm consulted, appreciate recs - Vent settings: RR 14, Vt 550, PS 10, PEEP 5, FiO2 40 - Possible extubation in next 24-48 hours per pulm - currently only on precedex. Afib RVR - resolved - Hx of afib/aflutter - Continue atenolol - Cardiology consulted, appreciate recs HFpEF - repeat echo yesterday, technically difficult study - EF appeared normal but left atrium significantly dilated - Strict I/O - Holding lasix right now due to volume dependence upon arrival, low threshold to resume EVANGELINA -Resolved Seizure - resumed home carbemazepine and zonisamide - consider neuro consult based on neuro exam off sedation Macrocytic anemia - Folate deficiency - Folate level of 3 - Started on folic acid supplement Thrombocytopenia - stable HLD - continue home meds Dispo: Remains intubated, continue abx, steroids, and inhaled tx. Addendum - Attending - Attending Attestation Date/Time: 09/24/20 0482 I personally evaluated the patient and discussed the management with Dr. Mercado . I agree with the History, Examination, Assessment and Plan documented above with any addition or exceptions noted below. Patient overall stable. He continues to spike moderate fevers, despite negative cultures, stable CXR, and negative COVID x2. Suspect this could be inflammatory or medication related, will do med review. Pulm on board and managing vent. Otherwise, continue treatment for COPD exacerbation and wean vent as tolerated. Vanc added to improve antimicrobial coverage, but low suspicion at this time for worsening bacterial infection given his CXR and labs.
[2020-09-24] MEDS: methylPREDNISolone Sod Succ 40 MG VIAL IVP SCH ×2 (08:09→20:00)
[2020-09-24 08:21] LABS: Actual Bicarbonate (HCO3a) 27.4 mEq/L (22-28); Base Excess (BEa) -0.1 mEq/L (-2.0 to +3.0); CO2 Tension 59.6 mmHg (35.0-45.0); Calcium, Ionized (arterial) 1.18 mmol/L (1.12-1.30); Hemoglobin (Hb) 10.6 g/dL (14.0-18.0); O2 Tension (PaO2), arterial 70.5 mmHg (> 80.0); Potassium - ABG Lab 4.57 mmol/L (3.70-5.30); pH, Arterial 7.28 (7.35-7.45)
[2020-09-24] MEDS: Apixaban 5 MG TAB PER TUBE SCH ×2 (08:31→20:00)
[2020-09-24] MEDS: Aspirin Chewable 81 MG TAB PER TUBE SCH (08:32)
[2020-09-24] MEDS: Folic Acid 1 MG TAB PER TUBE SCH (08:32)
[2020-09-24] MEDS: carBAMazepine 200 MG TAB PO SCH ×2 (08:32→20:00)
[2020-09-24] MEDS: Ezetimibe 10 MG TAB PER TUBE SCH (08:33)
[2020-09-24] MEDS: Nicotine 14 MG PATCH TD SCH (08:33)
[2020-09-24] MEDS: Zonisamide 100 MG CAP PER TUBE SCH ×2 (08:33→20:01)
[2020-09-24 09:07] LABS: Puncture Site RRA
--- NOTE | 2020-09-24 09:55 | RAD ---
EXAM: Chest one view: HISTORY: Intubation, COPD exacerbation COMPARISON: 09/23/2020 FINDINGS: Life support tubes in place. Heart size: Within upper range of normal. Lungs: Bilateral vascular congestion. Bilateral pleural effusions. IMPRESSION: Overall stable findings.
[2020-09-24] MEDS: Atenolol 25 MG TAB PO SCH (10:51)
[2020-09-24] MEDS: rOPINIRole HCl 2 MG TAB PER TUBE SCH (10:51)
[2020-09-24] MEDS: Lorazepam 2 MG/ML VIAL SLOW IVP PRN ×3 (12:23→20:50)
[2020-09-24] MEDS ORDERED: Albumin 25% 25 GM/100 ML BOT IVPB ONE (12:23)
--- NOTE | 2020-09-24 12:43 | PRG ---
DATE OF SERVICE: 09/24/2020 SUBJECTIVE: 70-year-old gentleman with end-stage COPD, remains in the ICU, intubated in the vent. He was sedated this morning. His blood pressure was low, still 99/60. He is making good urine output. OBJECTIVE: VITAL SIGNS: His temperature is 101.9, respirations 25, sats 92%. CHEST: Decreased breath sounds. No wheezing. CARDIAC: Normal S1, S2. No gallops. ABDOMEN: Soft. LABORATORY AND DIAGNOSTIC DATA: White count 6000, H and H 9 and 38, platelet count is 102. PO2 of 70, pCO2 of 59, pH 7.28. BUN is 46, creatinine is normal. GFR is 63. X-ray shows cardiomegaly. Cultures all negative. ASSESSMENT AND PLAN: Chronic obstructive pulmonary disease, respiratory failure, presumably normal to decreased ejection fraction. COVID test negative. He is not weanable at this stage. Increase the dose of steroids. Still febrile. We will continue broad-spectrum antibiotics as prescribed. One-half hour of critical time. Job ID: [id number]
[2020-09-24] MEDS: Vancomycin 1.5 GRAM/300 ML BAG 1.5 GM in Premix Bag 1 BAG IVPB SCH (13:04)
[2020-09-24] MEDS: Acetaminophen 325 MG TAB PER TUBE PRN (15:22)
[2020-09-24] MEDS: Atorvastatin Calcium 40 MG TAB PER TUBE SCH (20:01)
[2020-09-24] MEDS: Morphine 2 MG/ML VIAL SLOW IVP PRN (20:17)
[2020-09-24] MEDS: Norepinephrine 8 MG in Dextrose 5% in Water 242 ML IVPB SCH (20:50)
[2020-09-24 23:26] LABS: Vancomycin, Trough 22.1 ug/mL
[2020-09-25] MEDS: Acetaminophen 325 MG TAB PER TUBE PRN ×3 (00:30→16:03)
[2020-09-25] MEDS: Vancomycin 1.5 GRAM/300 ML BAG 1.5 GM in Premix Bag 1 BAG IVPB SCH ×2 (00:30→11:21)
[2020-09-25] MEDS: Lorazepam 2 MG/ML VIAL SLOW IVP PRN ×5 (00:49→20:13)
[2020-09-25] MEDS: Morphine 2 MG/ML VIAL SLOW IVP PRN (04:06)
[2020-09-25] MEDS: fentaNYL Citrate/PF 2,000 MCG in Sodium Chloride 0.9% 60 ML IV SCH ×2 (04:06→23:08)
[2020-09-25 05:07] LABS: #Lymphocytes 1.1 thou/uL (1.20-3.40); #Monocytes 0.6 thou/uL (0.11-0.59); %Basophils 0.4 % (0.0-1.0); %Eosinophils 0.8 % (0.0-10.0); %Lymphocytes 18.7 % (21.0-51.0); %Monocytes 9.6 % (0.0-10.0); %Neutrophils 70.5 % (42.0-75.0); Hemoglobin 9.1 g/dL (14.0-18.0); Mean Corpuscular HGB CONC 31.5 g/dL (32.0-36.0); Mean Corpuscular Hemoglobin 35.7 pg (27.0-31.0); Mean Platelet Volume 8.5 fL (7.4-10.4); Platelet Count 91 thou/uL (130-400); RBC Distribution Width 12.2 % (11.5-14.5); Red Blood Cell (RBC) Count 2.54 mill/uL (4.70-6.10); White Blood Cell (WBC) Count 5.7 thou/uL (4.8-10.8)
[2020-09-25 05:10] LABS: Anion Gap 13 mmol/L (10-20); BUN (Urea Nitrogen) 47 mg/dL (8.4-25.7); Calc. Creatinine Clearance 0 mL/min (70-130); Calcium 8.3 mg/dL (7.8-10.44); Carbon Dioxide 31 mmol/L (23-31); Chloride 109 mmol/L (98-107); Glucose 163 mg/dL (80-115); Potassium 5.3 mmol/L (3.5-5.1); Sodium 148 mmol/L (136-145)
--- NOTE | 2020-09-25 05:55 | PDOC.FM ---
- Subjective Subjective: Pt is intubated and sedated today. He is requring levophed 5 mcg/min. BP's drop when agitated. Spoke with RT and state his chest is tight. Good I&O's but is receiving almost 2 L NS with medications. Atenolol was not given yesterday but rates are normal. - Objective Vital Signs & Weight: Vital Signs (12 hours) Temp Pulse Resp BP Pulse Ox 09/25/20 05:39 10 L 09/25/20 04:00 14 09/25/20 03:46 101.9 F H 09/25/20 02:00 10 L 09/25/20 01:57 81 94/55 L 09/25/20 00:00 25 H 09/24/20 22:11 83 118/65 09/24/20 22:00 18 09/24/20 19:25 22 H 09/24/20 19:18 80 121/57 L 09/24/20 19:05 95 09/24/20 18:00 20 Weight Admit Weight 111.992 kg Weight 109.3 kg Most Recent Monitor Data Heart Rate from ECG 75 NIBP 104/60 NIBP BP-Mean 74 Respiration from ECG 9 SpO2 95 I&O: 09/23/20 09/24/20 09/25/20 06:59 06:59 06:59 Intake Total 1044 2172 3679 Output Total 8036 2760 3035 Balance -916 -588 644 Result Diagrams: 09/25/20 03:15 09/25/20 03:15 Phys Exam - Physical Examination Intubated and sedated HEENT: PERRLA, sclera anicteric Neck: no JVD, full ROM bilateral rhonchi Cardiovascular: RRR, no significant murmur Gastrointestinal: soft, positive bowel sounds Musculoskeletal: no edema, pulses present Neurological: non-focal Skin: no rash, cap refill <2 seconds Dx/Plan - Plan Plan: Acute hypoxic hypercapnic respiratory failure 2/2 COPD exacerbation/Bronchospasm Intubated - Dex - Levaquin, vanc but pt remains febrile, procal negative; covid negative - simon Singh - Pulm consulted, appreciate recs - Continue levophed as tolerated in the setting of precedex and fentanyl. Continue sedation as needed. - Vanc trough 22 Hyperchloremic Hypernatremia -Add free water, pt is receiving NaCl with medications Elevated BUN -Will discuss on round. Monitor K Afib RVR - resolved - Hx of afib/aflutter - Continue atenolol - Cardiology consulted, appreciate recs HFpEF - repeat echo yesterday, technically difficult study - EF appeared normal but left atrium significantly dilated - Strict I/O - Holding lasix right now due to volume dependence upon arrival, low threshold to resume EVANGELINA -Resolved Seizure - resumed home carbemazepine and zonisamide - consider neuro consult based on neuro exam off sedation Macrocytic anemia - Folate deficiency - Folate level of 3 - Started on folic acid supplement Thrombocytopenia - stable HLD - continue home meds Dispo: Remains intubated, continue abx, steroids, and inhaled tx. Addendum - Attending - Attending Attestation Date/Time: 09/25/20 0068 I personally evaluated the patient and discussed the management with Dr. Mercado. I agree with the History, Examination, Assessment and Plan documented above with any addition or exceptions noted below. Patient overall stable. Continues to spike fevers despite negative infection workup. Continues on empiric abx. Consider drug fever. HR controlled, Pulm on board to wean vent as tolerated. Increase free water flushes given her hypernatremia.
[2020-09-25 07:47] LABS: Actual Bicarbonate (HCO3a) 32.2 mEq/L (22-28); Base Excess (BEa) 3.4 mEq/L (-2.0 to +3.0); Calcium, Ionized (arterial) 1.21 mmol/L (1.12-1.30); Carboxyhemoglobin (COHb) 0.9 gm% (0.0-3.0); Hemoglobin (Hb) 9.3 g/dL (14.0-18.0); O2 Tension (PaO2), arterial 74.4 mmHg (> 80.0); Potassium - ABG Lab 5.05 mmol/L (3.70-5.30)
[2020-09-25 07:48] LABS: pH, Arterial 7.24 (7.35-7.45)
[2020-09-25 07:49] LABS: ALV-art Gradient 185.225 mmHg (0-20); CO2 Tension 77.5 mmHg (35.0-45.0); Puncture Site RRA
[2020-09-25] MEDS: Nicotine 14 MG PATCH TD SCH (08:01)
[2020-09-25] MEDS: carBAMazepine 200 MG TAB PO SCH ×2 (08:01→20:18)
[2020-09-25] MEDS: Ezetimibe 10 MG TAB PER TUBE SCH (08:01)
[2020-09-25] MEDS: Aspirin Chewable 81 MG TAB PER TUBE SCH (08:01)
[2020-09-25] MEDS: Zonisamide 100 MG CAP PER TUBE SCH ×2 (08:02→20:18)
[2020-09-25] MEDS: Apixaban 5 MG TAB PER TUBE SCH ×2 (08:02→20:18)
[2020-09-25] MEDS: Folic Acid 1 MG TAB PER TUBE SCH (08:02)
[2020-09-25] MEDS: methylPREDNISolone Sod Succ 40 MG VIAL IVP SCH ×2 (08:02→20:18)
[2020-09-25] MEDS: Atenolol 25 MG TAB PO SCH (08:03)
--- NOTE | 2020-09-25 09:34 | RAD ---
Chest one view HISTORY: Dyspnea. COPD. COMPARISON: 09/24/2020. FINDINGS: Cardiac silhouette is magnified and enlarged. Pulmonary vasculature remains engorged. Hazy opacity at the right base has increased. Left pleural fluid unchanged. Subtle ill-defined patchy areas of parenchymal infiltrate throughout each lung are stable. Mediastinum is midline. Lines and tubes unchanged in position. IMPRESSION : Slight interval increase in right pleural fluid. Bilateral infiltrates and other findings are otherwise stable.
[2020-09-25] MEDS: rOPINIRole HCl 2 MG TAB PER TUBE SCH (10:58)
[2020-09-25] MEDS ORDERED: Furosemide 20 MG/2 ML VIAL SLOW IVP SCH (11:00)
--- NOTE | 2020-09-25 11:16 | PRG ---
DATE OF SERVICE: SUBJECTIVE: Mr. Stafford remains intubated, sedated. The patient's blood pressure was low this morning. The beta jm was held. The patient becomes somewhat agitated when the sedation is reduced. OBJECTIVE: VITAL SIGNS: Currently, blood pressure is 120/60, pulse is in the mid 80s and sinus. LUNGS: Clear. CARDIAC: Normal S1, normal S2. ABDOMEN: Soft, nontender. EXTREMITIES: Mild edema. They are warm and dry. LABORATORY DATA: Reviewing the records, the patient has had high BNP of 250 on the 18 of September. ASSESSMENT: 1. Congestive heart failure, diastolic, probably somewhat volume overloaded. The x-ray still looks like heart failure. 2. Severe chronic obstructive pulmonary disease. 3. Mild hyperkalemia. Potassium is 5.3. PLAN: 1. Add furosemide. 2. Stop beta blockers for now. 3. Continue to monitor. I think at least some of his problem may be diastolic heart failure exacerbating the COPD. Job ID: [id number]
--- NOTE | 2020-09-25 12:30 | PRG ---
DATE OF SERVICE: 09/25/2020 SUBJECTIVE: Samson Stafford remains in the ICU, very encephalopathic. In spite of being on fentanyl, he is thrashing around, on Demadex. His pCO2 was 77, pO2 was 74, pH 7.224, clearly not weanable. His rate of 10, 550 tidal volume. White count 5000, H and H 9 and 28, platelet count is 91,000. His x-ray did show what appears to be his pleural effusion. OBJECTIVE: VITAL SIGNS: Otherwise, this morning, his temperature is 99.9, blood pressure 120/59, saturations 96%. I's and O's even. CHEST: Decreased breath sounds. No wheezing. CARDIAC: Normal S1, S2. No gallops. ABDOMEN: Soft. LABORATORY AND DIAGNOSTIC STUDIES: White count 5000, H and H 9 and 28, platelet count is low. Creatinine is normal. BUN is 47, sodium 147, glucose 133. ASSESSMENT: 1. Chronic obstructive pulmonary disease. 2. Respiratory failure. 3. Possibly underlying congestive heart failure. 4. Metabolic encephalopathy. PLAN: He is not weanable at this stage. I have added low-dose risperidone for his agitation and encephalopathy. He is getting diuretics. He is on pressors. He is on steroids and inhalers. He is on vancomycin. His cultures are negative. I may consider discontinuing the vancomycin. One-half hour of critical care time. Job ID: [id number]
[2020-09-25] MEDS: risperiDONE 0.25 MG TAB PO SCH (20:18)
[2020-09-25] MEDS: Atorvastatin Calcium 40 MG TAB PER TUBE SCH (20:55)
[2020-09-25] MEDS ORDERED: Amiodarone 450 MG, Admixture Fee 1 EACH in Dextrose 5% in Water 250 ML IVPB SCH ×2 (21:15)
[2020-09-25] MEDS ORDERED: Digoxin 0.5 MG/2 ML AMP SLOW IVP SCH (21:15)
[2020-09-25] MEDS: Norepinephrine 8 MG in Dextrose 5% in Water 242 ML IVPB SCH (22:44)
[2020-09-25] MEDS: Diltiazem HCl 125 MG, Admixture Fee 1 EACH in Sodium Chloride 0.9% 100 ML IVPB SCH (22:46)
[2020-09-26] MEDS: Vancomycin 1.5 GRAM/300 ML BAG 1.5 GM in Premix Bag 1 BAG IVPB SCH ×2 (00:01→11:38)
[2020-09-26] MEDS: Morphine 2 MG/ML VIAL SLOW IVP PRN (04:27)
[2020-09-26] MEDS: Furosemide 20 MG/2 ML VIAL SLOW IVP SCH ×2 (05:07→13:01)
[2020-09-26 05:49] LABS: Anion Gap 12 mmol/L (10-20); BUN (Urea Nitrogen) 43 mg/dL (8.4-25.7); Calc. Creatinine Clearance 120 mL/min (70-130); Calcium 8.3 mg/dL (7.8-10.44); Carbon Dioxide 33 mmol/L (23-31); Chloride 110 mmol/L (98-107); Glucose 148 mg/dL (80-115); Potassium 4.4 mmol/L (3.5-5.1); Sodium 151 mmol/L (136-145)
--- NOTE | 2020-09-26 05:52 | PDOC.FM ---
- Subjective Subjective: Pt is intubated and sedated. Overnight his rate was uncontrolled and ultimately started on a dilt drip. He has missed 2 doses of atenolol. - Objective Vital Signs & Weight: Vital Signs (12 hours) Temp Pulse Resp BP Pulse Ox 09/26/20 04:00 99.8 F H 26 H 09/26/20 03:27 95 09/26/20 02:00 100.0 F H 13 09/26/20 00:00 101.1 F H 25 H 09/25/20 23:55 97 124/66 09/25/20 22:35 169 H 120/67 09/25/20 22:00 26 H 09/25/20 21:23 134 H 09/25/20 20:00 16 94 L 09/25/20 18:56 81 09/25/20 18:55 94 L 09/25/20 18:00 12 Weight Admit Weight 111.992 kg Weight 109.3 kg Most Recent Monitor Data Heart Rate from ECG 96 NIBP 120/58 NIBP BP-Mean 78 Respiration from ECG 12 SpO2 93 I&O: 09/24/20 09/25/20 09/26/20 06:59 06:59 06:59 Intake Total 2172 3679 3914.8 Output Total 2760 3035 5345 Balance -588 644 -1430.2 Result Diagrams: 09/26/20 05:15 09/26/20 05:15 Phys Exam - Physical Examination Intubated but agitated with sedation HEENT: sclera anicteric Neck: no JVD, full ROM Respiratory: no wheezing, clear to auscultation bilateral irregular rate and rhythm Gastrointestinal: soft, positive bowel sounds mild distention Musculoskeletal: no edema, pulses present Neurological: moves all 4 limbs Dx/Plan - Plan Plan: Acute hypoxic hypercapnic respiratory failure 2/2 COPD exacerbation/Bronchospasm Intubated - Dex - Levaquin, vanc but pt remains febrile, procal negative; covid negative - simon Singh - Pulm consulted, appreciate recs - Continue levophed as tolerated in the setting of precedex and fentanyl. Continue sedation as needed. - Vanc trough 22 Hypernatremia -Add free water with flushes 200 ml/hr, start D5W. Pt is down 5 L of fluids which is complicated by the need for diuresis. Has too much solute compared to free water. Elevated BUN -likely from pre-renal disease Monitor K/Mg Afib RVR - resolved - started on dilt drip; atenolol d/c but not given for 2 doses - Cardiology consulted, appreciate recs HFpEF - repeat echo yesterday, technically difficult study - EF appeared normal but left atrium significantly dilated - Strict I/O - Resume lasix, diuresing well EVANGELINA -Resolved Seizure - resumed home carbemazepine and zonisamide - consider neuro consult based on neuro exam off sedation Macrocytic anemia - Folate deficiency - Folate level of 3 - Started on folic acid supplement Thrombocytopenia - stable HLD - continue home meds Dispo: Remains intubated, continue abx, steroids, and inhaled tx. Addendum - Attending - Attending Attestation Date/Time: 09/26/20 9715 I personally evaluated the patient and discussed the management with Dr. Orville baldwin. I agree with the History, Examination, Assessment and Plan documented above with any addition or exceptions noted below. Patient clinical status stable. He did bounce back to RVR overnight, given he was not continued on Atenolol by nursing. This was started for initial RVR on presentation and had cardiology input. He is back on Diltiazem drip now. Await further cardiology recs. His free water deficit has increased and will need to be repleted despite him being hypervolemic. Increase tube feed flushes. Continues to spike stable fevers, suspect drug fever at this time. On vent for COPD exacerbation, wean as tolerated per Pulm. UOP adequate.
[2020-09-26 06:38] LABS: #Eosinphils 0.1 thou/uL (0.0-0.7); #Lymphocytes 1.9 thou/uL (1.20-3.40); #Monocytes 0.7 thou/uL (0.11-0.59); #Neutrophils 4.8 thou/uL (1.40-6.50); %Basophils 0.1 % (0.0-1.0); %Eosinophils 1.1 % (0.0-10.0); %Lymphocytes 24.9 % (21.0-51.0); %Monocytes 9.6 % (0.0-10.0); %Neutrophils 64.3 % (42.0-75.0); Hemoglobin 9.5 g/dL (14.0-18.0); MDiff Complete? YES; Macrocytosis SLIGHT = 6-15 cells (100X) (0-5/hpf); Mean Corpuscular HGB CONC 29.7 g/dL (32.0-36.0); Mean Corpuscular Hemoglobin 33.6 pg (27.0-31.0); Mean Platelet Volume 8.4 fL (7.4-10.4); Platelet Count 115 thou/uL (130-400); Platelet Morphology Comment Appears Decreased; RBC Distribution Width 12.1 % (11.5-14.5); Red Blood Cell (RBC) Count 2.82 mill/uL (4.70-6.10); White Blood Cell (WBC) Count 7.5 thou/uL (4.8-10.8)
[2020-09-26 06:58] LABS: Actual Bicarbonate (HCO3a) 30.2 mEq/L (22-28); Base Excess (BEa) 3.2 mEq/L (-2.0 to +3.0); CO2 Tension 59.5 mmHg (35.0-45.0); Calcium, Ionized (arterial) 1.18 mmol/L (1.12-1.30); Carboxyhemoglobin (COHb) 0.6 gm% (0.0-3.0); Hemoglobin (Hb) 10.5 g/dL (14.0-18.0); Potassium - ABG Lab 4.12 mmol/L (3.70-5.30); pH, Arterial 7.32 (7.35-7.45)
[2020-09-26 07:05] LABS: ALV-art Gradient 220.125 mmHg (0-20); Puncture Site RRA
[2020-09-26] MEDS: Lorazepam 2 MG/ML VIAL SLOW IVP PRN ×4 (08:03→21:15)
[2020-09-26] MEDS: methylPREDNISolone Sod Succ 40 MG VIAL IVP SCH ×2 (08:25→21:34)
[2020-09-26] MEDS: Aspirin Chewable 81 MG TAB PER TUBE SCH ×2 (08:26→08:27)
[2020-09-26] MEDS: rOPINIRole HCl 2 MG TAB PER TUBE SCH (08:26)
[2020-09-26] MEDS: carBAMazepine 200 MG TAB PO SCH ×2 (08:27→21:23)
[2020-09-26] MEDS: Folic Acid 1 MG TAB PER TUBE SCH (08:27)
[2020-09-26] MEDS: Apixaban 5 MG TAB PER TUBE SCH ×2 (08:27→21:23)
[2020-09-26] MEDS: Polyethylene Glycol 3350 17 GM Packet PER TUBE SCH (08:27)
[2020-09-26] MEDS: Nicotine 14 MG PATCH TD SCH (08:28)
[2020-09-26] MEDS: Ezetimibe 10 MG TAB PER TUBE SCH (08:28)
[2020-09-26] MEDS: Dextrose 5% in Water 1,000 ML IV SCH ×2 (09:03→21:34)
[2020-09-26] MEDS: risperiDONE 0.25 MG TAB PO SCH ×2 (09:03→21:33)
[2020-09-26] MEDS: Zonisamide 100 MG CAP PER TUBE SCH ×2 (09:30→21:23)
[2020-09-26] MEDS: Acetaminophen 650 MG/20.3 ML UDCUP PER TUBE PRN (09:31)
[2020-09-26] MEDS ORDERED: Digoxin 0.5 MG/2 ML AMP SLOW IVP SCH (09:45)
[2020-09-26] MEDS ORDERED: Metoprolol Tartrate 5 MG/5 ML VIAL IVP SCH (10:00)
--- NOTE | 2020-09-26 10:03 | PRG ---
DATE OF SERVICE: 09/26/2020 SUBJECTIVE: Mr. Stafford went into atrial fibrillation with a rapid ventricular response last night. He was given intravenous diltiazem and intravenous digoxin. The heart rate was difficult to control, but ultimately he converted to sinus rhythm. This morning, he went back in atrial fibrillation with a rapid rate despite intravenous Cardizem. He has been given additional Cardizem. The patient is very restless when he wakes up. Still on pressors. OBJECTIVE: VITAL SIGNS: Blood pressure 117/76, pulse is 120 to 140, irregular. LUNGS: Clear. CARDIAC: Tachycardic and irregular. ABDOMEN: Soft, nontender. ASSESSMENT: 1. Atrial fibrillation, paroxysmal with rapid ventricular response, difficult to control the rate. 2. Congestive heart failure, diastolic. 3. Hypernatremia with sodium of 151. PLAN: 1. Continue intravenous diltiazem. 2. BNP was checked, it is elevated at 552 compatible with diastolic heart failure. 3. Continue diuretics. 4. Continue digoxin. 5. Prognosis guarded in this gentleman. Continue to treat aggressively. Job ID: [id number]
--- NOTE | 2020-09-26 10:12 | RAD ---
Chest one view HISTORY: Pneumonia. COPD. Follow-up. COMPARISON: 09/25/2020. FINDINGS: Cardiac silhouette is magnified and upper limits of normal in size. Pulmonary vasculature e ngorged. Patient remains rotated rightward. Lines and tubes unchanged in position. Hazy opacity at each base and widespread reticulonodular interstitial prominence are similar in appea lebron to the prior exam. No evidence of pneumothorax. IMPRESSION : Bilateral pleural fluid, widespread fine infiltrate, and other findings are stable.
[2020-09-26] MEDS ORDERED: Metoprolol Tartrate 25 MG TAB PO SCH (10:15)
[2020-09-26] MEDS: Diltiazem HCl 125 MG, Admixture Fee 1 EACH in Sodium Chloride 0.9% 100 ML IVPB SCH ×2 (10:20→21:11)
--- NOTE | 2020-09-26 10:30 | PRG ---
DATE OF SERVICE: 09/26/2020 SUBJECTIVE: A 70-year-old gentleman, who is intubated, remains encephalopathic. OBJECTIVE: VITAL SIGNS: Temperature 98, blood pressure 106/63, pulse 100, atrial fibrillation, respiratory rate 20. EYES AND NOSE: Negative. CHEST: Decreased breath sounds. No wheezing. CARDIAC: Normal, S1, S2. ABDOMEN: No masses. LABORATORY DATA: Platelet count 150, H and H 9 and 25, white count 7000. pO2 of 62, pCO2 of x-ray still shows bilateral infiltrates. Sodium 151. IMPRESSION: 1. Respiratory failure. 2. electrolyte imbalance. 3. Supraventricular tachycardia. 4. Pneumonia. 5. Encephalopathy. PLAN: The patient clearly is not weanable at this stage. He was started on risperidone, broad-spectrum antibiotics on board. Cultures so far negative. Fluids being switched over to D5 when elevated sodium. We will continue to follow. One-half hour of critical time. Job ID: [id number]
[2020-09-26 11:16] LABS: Vancomycin, Trough 24.4 ug/mL
[2020-09-26] MEDS: fentaNYL Citrate/PF 2,000 MCG in Sodium Chloride 0.9% 60 ML IV SCH (13:24)
[2020-09-26] MEDS: Atorvastatin Calcium 40 MG TAB PER TUBE SCH (21:23)
[2020-09-26] MEDS: Metoprolol Tartrate 25 MG TAB PO SCH (21:34)
[2020-09-27] MEDS: Vancomycin 1 GM in Premix Bag 1 BAG IVPB SCH ×2 (00:12→11:29)
[2020-09-27] MEDS: Lorazepam 2 MG/ML VIAL SLOW IVP PRN ×11 (02:56→22:07)
[2020-09-27] MEDS: Furosemide 20 MG/2 ML VIAL SLOW IVP SCH ×2 (05:40→13:22)
[2020-09-27] MEDS: Dextrose 5% in Water 1,000 ML IV SCH ×2 (05:52→13:23)
[2020-09-27 06:09] LABS: #Lymphocytes 1.4 thou/uL (1.20-3.40); #Monocytes 0.5 thou/uL (0.11-0.59); #Neutrophils 5.1 thou/uL (1.40-6.50); %Basophils 0.7 % (0.0-1.0); %Eosinophils 0.6 % (0.0-10.0); %Lymphocytes 19.9 % (21.0-51.0); %Neutrophils 71.8 % (42.0-75.0); Hemoglobin 9.1 g/dL (14.0-18.0); Mean Corpuscular HGB CONC 30.8 g/dL (32.0-36.0); Mean Corpuscular Hemoglobin 34.8 pg (27.0-31.0); Mean Platelet Volume 8.4 fL (7.4-10.4); Platelet Count 107 thou/uL (130-400); RBC Distribution Width 11.9 % (11.5-14.5); White Blood Cell (WBC) Count 7.1 thou/uL (4.8-10.8)
--- NOTE | 2020-09-27 06:13 | PDOC.FM ---
- Subjective Subjective: Pt is intubated with mild sedation. He did not receive his metoprolol overnight, remains on dilt drip at 10 mg/hr. Pt has digoxin as well. Received about 3.5 L of free water yesterday. - Objective Vital Signs & Weight: Vital Signs (12 hours) Pulse Resp BP Pulse Ox 09/27/20 04:00 30 H 09/27/20 03:41 100 09/27/20 02:00 28 H 09/27/20 00:00 15 09/26/20 23:36 79 103/53 L 09/26/20 22:00 10 L 09/26/20 20:00 10 L 100 09/26/20 18:58 60 Weight Admit Weight 111.992 kg Weight 108.9 kg Most Recent Monitor Data Heart Rate from ECG 100 NIBP 123/60 NIBP BP-Mean 81 Respiration from ECG 25 SpO2 97 I&O: 09/25/20 09/26/20 09/27/20 06:59 06:59 06:59 Intake Total 3679 3968.1 6138 Output Total 3035 5995 3760 Balance 644 -2026.9 2378 Result Diagrams: 09/27/20 05:40 09/27/20 05:40 Phys Exam - Physical Examination Intubated and sedated Neck: no JVD, supple Respiratory: no wheezing, no rales irregular rate and rhythm Gastrointestinal: soft, no distention Musculoskeletal: no edema, pulses present Neurological: moves all 4 limbs Skin: no rash, cap refill <2 seconds Dx/Plan - Plan Plan: Acute hypoxic hypercapnic respiratory failure 2/2 COPD exacerbation/Bronchospasm Intubated - Dex - Levaquin, vanc; procal negative; covid negative - simon Singh - Pulm consulted, appreciate recs - Continue levophed as tolerated due to sedation. Likely hypotension secondary to increased rate control medications. - Vanc trough 22 Hypernatremia -Add free water with flushes 200 ml/hr, start D5W. Pt is down 3.7 L at this time. Had 2 L in total yesterday. Will continue to monitor in the setting of diuresis to help with extubation. Elevated BUN -likely from pre-renal disease Monitor K/Mg Afib RVR - started on dilt drip; metprolol IV and dig initiated; mildly tachycardic on exam. He did not receive metoprolol overnight. He needs to receive this am. - Cardiology consulted, appreciate recs HFpEF - repeat echo yesterday, technically difficult study - EF appeared normal but left atrium significantly dilated - Strict I/O - Resume lasix, diuresing well EVANGELINA -Resolved Seizure - resumed home carbemazepine and zonisamide - consider neuro consult based on neuro exam off sedation Macrocytic anemia - Folate deficiency - Folate level of 3 - Started on folic acid supplement Thrombocytopenia - stable HLD - continue home meds Dispo: Remains intubated, continue abx, steroids, and inhaled tx. Addendum - Attending - Attending Attestation Date/Time: 09/27/20 0230 I personally evaluated the patient and discussed the management with Dr. Mercado I agree with the History, Examination, Assessment and Plan documented above with any addition or exceptions noted below. 70 yo male admitted for acute respiratory failure due to severe COPD ex. Covid negative. Remains intubated. A-a gradient stable. Pulm following. Continue current meds. HFrEF with elevated BNP. Treat with lasix as needed. Remains agitated. Requires high doses of sedative to remain comfortable while intubated. Medications are causing hypotension. Required pressor support. Do not feel this is related to septic shock. Start antipsychotic/alpha jm to help Low grade temp concern for drug fevers. Monitoring. Free H2O deficit. Elevated sodium. Increase free water flush per tube. Continue D5W. Plt down to 105. Monitor. No bleeding. Monitor for arrhythmias. Nursing holding medication causing arrhythmias due to hypotension related to deep sedation. Discussed with staff. Continue anti- arrhythmias. Wojciech
[2020-09-27 06:15] LABS: Anion Gap 12 mmol/L (10-20); BUN (Urea Nitrogen) 43 mg/dL (8.4-25.7); Calc. Creatinine Clearance 122 mL/min (70-130); Calcium 8.3 mg/dL (7.8-10.44); Carbon Dioxide 34 mmol/L (23-31); Chloride 106 mmol/L (98-107); Glucose 181 mg/dL (80-115); Magnesium 2.1 mg/dL (1.6-2.6); Potassium 4.1 mmol/L (3.5-5.1); Sodium 148 mmol/L (136-145)
[2020-09-27 07:51] LABS: Actual Bicarbonate (HCO3a) 34.1 mEq/L (22-28); Base Excess (BEa) 7.6 mEq/L (-2.0 to +3.0); CO2 Tension 59.3 mmHg (35.0-45.0); Calcium, Ionized (arterial) 1.14 mmol/L (1.12-1.30); Carboxyhemoglobin (COHb) 0.6 gm% (0.0-3.0); Hemoglobin (Hb) 9.4 g/dL (14.0-18.0); O2 Tension (PaO2), arterial 72.2 mmHg (> 80.0); Potassium - ABG Lab 3.74 mmol/L (3.70-5.30); pH, Arterial 7.38 (7.35-7.45)
[2020-09-27 07:54] LABS: ALV-art Gradient 210.175 mmHg (0-20); Puncture Site RRA
[2020-09-27] MEDS: Polyethylene Glycol 3350 17 GM Packet PER TUBE SCH (08:21)
[2020-09-27] MEDS: methylPREDNISolone Sod Succ 40 MG VIAL IVP SCH ×2 (08:22→21:12)
[2020-09-27] MEDS: Aspirin Chewable 81 MG TAB PER TUBE SCH (08:22)
[2020-09-27] MEDS: Ezetimibe 10 MG TAB PER TUBE SCH (08:22)
[2020-09-27] MEDS: Folic Acid 1 MG TAB PER TUBE SCH (08:23)
[2020-09-27] MEDS: carBAMazepine 200 MG TAB PO SCH ×2 (08:23→21:56)
[2020-09-27] MEDS: Metoprolol Tartrate 25 MG TAB PO SCH ×2 (08:23→21:23)
[2020-09-27] MEDS: risperiDONE 0.25 MG TAB PO SCH ×3 (08:23→21:23)
[2020-09-27] MEDS: Apixaban 5 MG TAB PER TUBE SCH ×2 (08:24→21:23)
[2020-09-27] MEDS: Nicotine 14 MG PATCH TD SCH (08:36)
[2020-09-27] MEDS: Zonisamide 100 MG CAP PER TUBE SCH ×2 (08:36→21:57)
[2020-09-27] MEDS: fentaNYL Citrate/PF 2,000 MCG in Sodium Chloride 0.9% 60 ML IV SCH (09:04)
[2020-09-27] MEDS: rOPINIRole HCl 2 MG TAB PER TUBE SCH (09:05)
--- NOTE | 2020-09-27 09:25 | RAD ---
PORTABLE CHEST: HISTORY: COPD exacerbation. Pneumonia. COMPARISON: 09/26/2020 study. FINDINGS: Endotracheal and NG tubes and right-sided central line are all unchanged in position. Infiltrative l cristian changes are stable. IMPRESSION: Stable exam. POS: OFF
[2020-09-27] MEDS: Diltiazem HCl 125 MG, Admixture Fee 1 EACH in Sodium Chloride 0.9% 100 ML IVPB SCH (11:53)
--- NOTE | 2020-09-27 15:28 | PRG ---
DATE OF SERVICE: 09/27/2020 SUBJECTIVE: The patient remains intubated and sedated. Heart rhythm is somewhat better. He is in sinus rhythm in the 70s, intermittently goes into atrial fibrillation with a rate of 110. OBJECTIVE: LUNGS: Clear. CARDIAC: Irregular at times, but now is regular. ABDOMEN: Soft, nontender, is obese. ASSESSMENT: 1. Chronic obstructive pulmonary disease. 2. Diastolic heart failure. 3. Paroxysmal atrial fibrillation. 4. Listed as allergic to amiodarone. PLAN: 1. He is on furosemide twice a day. 2. Metoprolol 12.5 mg twice a day. 3. IV Cardizem. No other recommendations presently. Job ID: [id number]
--- NOTE | 2020-09-27 19:23 | PRG ---
DATE OF SERVICE: 09/27/2020 SUBJECTIVE: Mr. Stafford is clinically unchanged. He is not deeply sedated. He is extremely tachypneic and tachycardic. OBJECTIVE: VITAL SIGNS: His heart rate is 80, blood pressure 129/70, respiratory rate is in the teens. LUNGS: Remarkable for distant breath sounds with prolonged expiratory phase. HEART: Regular rhythm. ABDOMEN: Soft. EXTREMITIES: Without edema. LABORATORY DATA: White count is 7.1, hemoglobin 9.1, platelets 107,000. Sodium 148, potassium 4.1, chloride 106, bicarb 34, BUN 43, creatinine 0.89. PH 7.38, pCO2 of 59, pO2 of 72. IMPRESSION: Respiratory failure secondary to severe chronic obstructive pulmonary disease. He has paroxysmal atrial fibrillation and diastolic heart failure. He is well and reports an allergy to amiodarone. He is in sinus rhythm at this time. He will need a tracheostomy to wean in my opinion. Critical care time 30 min. Job ID: [id number]
[2020-09-27] MEDS: Famotidine/PF 20 mg/2ml Vial SLOW IVP SCH (21:12)
[2020-09-27] MEDS: Atorvastatin Calcium 40 MG TAB PER TUBE SCH (21:12)
[2020-09-28] MEDS: Vancomycin 1 GM in Premix Bag 1 BAG IVPB SCH ×2 (00:02→22:02)
[2020-09-28] MEDS: fentaNYL Citrate/PF 2,000 MCG in Sodium Chloride 0.9% 60 ML IV SCH (00:23)
[2020-09-28] MEDS: Lorazepam 2 MG/ML VIAL SLOW IVP PRN ×4 (01:36→22:45)
[2020-09-28] MEDS: Morphine 2 MG/ML VIAL SLOW IVP PRN (01:41)
[2020-09-28] MEDS: Propofol 1,000 MG/100 ML VIAL IV PRN ×4 (02:11→18:24)
[2020-09-28] MEDS: Dextrose 5% in Water 1,000 ML IV SCH (02:27)
[2020-09-28 04:37] LABS: #Lymphocytes 1.1 thou/uL (1.20-3.40); #Monocytes 0.3 thou/uL (0.11-0.59); #Neutrophils 5.5 thou/uL (1.40-6.50); %Basophils 0.4 % (0.0-1.0); %Eosinophils 0.2 % (0.0-10.0); %Lymphocytes 16.3 % (21.0-51.0); %Monocytes 4.5 % (0.0-10.0); %Neutrophils 78.7 % (42.0-75.0); Hemoglobin 8.4 g/dL (14.0-18.0); Mean Corpuscular HGB CONC 31.3 g/dL (32.0-36.0); Mean Corpuscular Hemoglobin 34.9 pg (27.0-31.0); Mean Platelet Volume 8.4 fL (7.4-10.4); Platelet Count 111 thou/uL (130-400); Red Blood Cell (RBC) Count 2.39 mill/uL (4.70-6.10); White Blood Cell (WBC) Count 6.9 thou/uL (4.8-10.8)
[2020-09-28 04:48] LABS: Anion Gap 11 mmol/L (10-20); BUN (Urea Nitrogen) 35 mg/dL (8.4-25.7); Calc. Creatinine Clearance 121 mL/min (70-130); Carbon Dioxide 34 mmol/L (23-31); Chloride 100 mmol/L (98-107); Glucose 223 mg/dL (80-115); Potassium 4.2 mmol/L (3.5-5.1); Sodium 141 mmol/L (136-145)
[2020-09-28] MEDS: Furosemide 20 MG/2 ML VIAL SLOW IVP SCH ×2 (05:41→14:20)
--- NOTE | 2020-09-28 06:23 | PDOC.FM ---
- Subjective Subjective: Pt is intubated and sedated. Currently on fentanyl and propofol. He is no longer on levophed but did not receive his metoprolol overnight. He is mildly tachycardic, a-fib. He has not had a BM at this time. - Objective Vital Signs & Weight: Vital Signs (12 hours) Temp Pulse Resp BP Pulse Ox 09/28/20 06:00 14 09/28/20 04:00 98.5 F 09/28/20 03:32 12 09/28/20 02:43 77 09/28/20 02:00 23 H 09/28/20 00:00 98.4 F 09/27/20 23:53 16 09/27/20 22:16 73 88/53 L 09/27/20 22:00 12 09/27/20 20:00 100 09/27/20 19:52 71 97/55 L 09/27/20 19:51 69 13 99 09/27/20 19:48 12 Weight Admit Weight 111.992 kg Weight 109.2 g Most Recent Monitor Data Heart Rate from ECG 84 NIBP 112/53 NIBP BP-Mean 72 Respiration from ECG 13 SpO2 96 I&O: 09/26/20 09/27/20 09/28/20 06:59 06:59 06:59 Intake Total 3968.1 6176.7 6054.2 Output Total 5995 4185 4300 Balance -2026.9 1991.7 1754.2 Result Diagrams: 09/28/20 04:10 09/28/20 04:10 Phys Exam - Physical Examination intubated, sedated but agitated HEENT: PERRLA, sclera anicteric Neck: no JVD, full ROM Respiratory: no wheezing, no rhonchi irregular rate and rhythm Gastrointestinal: positive bowel sounds distended Musculoskeletal: no edema, pulses present Neurological: moves all 4 limbs Skin: no rash, cap refill <2 seconds Dx/Plan - Plan Plan: Acute hypoxic hypercapnic respiratory failure 2/2 COPD exacerbation/Bronchospasm Intubated - Dex - Levaquin, vanc; procal negative; covid negative - simon Singh - Pulm consulted, appreciate recs - D/C levophed overnight, administer Hypernatremia - resolved -Continue free water flushes at 50 mls/hr, d/c D5W Elevated BUN -likely from pre-renal disease Monitor K/Mg Afib RVR - currently rate controlled - started on dilt drip again - wean as tolerated; metprolol IV, dig d/c per cards; mildly tachycardic on exam. He did not receive metoprolol overnight. He needs to receive this am. Call inpt medicine team if there is concern for hypotension and will be evaluated before rate controlling medication are held. - Cardiology consulted, appreciate recs HFpEF - repeat echo yesterday, technically difficult study - EF appeared normal but left atrium significantly dilated - Strict I/O - Resume lasix, diuresing well EVANGELINA -Resolved Seizure - resumed home carbemazepine and zonisamide - consider neuro consult based on neuro exam off sedation Macrocytic anemia - Folate deficiency Monitor as it seems there is a dilutional aspect to Hgb. Will also assess for bleeding as we can go off of vitals signs. - Folate level of 3 - Started on folic acid supplement Thrombocytopenia - stable HLD - continue home meds No BM - soapsuds enema ordered Dispo: Remains intubated, continue abx, steroids, and inhaled tx. Addendum - Attending - Attending Attestation Date/Time: 09/28/20 3476 I personally evaluated the patient and discussed the management with Dr. Mercado. I agree with the History, Examination, Assessment and Plan documented above with any addition or exceptions noted below. Patient with no majjor change in clinical status. He will be moving towards Trach/PEG tomorrow per Pulm due to inability to wean from ventilator. HR varies based on whether he is given his rate control medication or not. He has remained afebrile. Hypernatremia improved. Continue current management.
[2020-09-28] MEDS: Diltiazem HCl 125 MG, Admixture Fee 1 EACH in Sodium Chloride 0.9% 100 ML IVPB SCH ×2 (07:50→22:46)
[2020-09-28] MEDS: Famotidine/PF 20 mg/2ml Vial SLOW IVP SCH ×2 (07:56→21:05)
[2020-09-28] MEDS: Aspirin Chewable 81 MG TAB PER TUBE SCH (08:00)
[2020-09-28] MEDS: Folic Acid 1 MG TAB PER TUBE SCH (08:00)
[2020-09-28] MEDS: Apixaban 5 MG TAB PER TUBE SCH (08:00)
[2020-09-28] MEDS: methylPREDNISolone Sod Succ 40 MG VIAL IVP SCH ×2 (08:01→21:06)
[2020-09-28] MEDS: Metoprolol Tartrate 25 MG TAB PO SCH ×2 (08:01→17:25)
[2020-09-28] MEDS: Ezetimibe 10 MG TAB PER TUBE SCH (08:01)
[2020-09-28] MEDS: Zonisamide 100 MG CAP PER TUBE SCH ×2 (08:01→21:05)
[2020-09-28] MEDS: Nicotine 14 MG PATCH TD SCH (08:02)
[2020-09-28] MEDS: Polyethylene Glycol 3350 17 GM Packet PER TUBE SCH (08:02)
[2020-09-28] MEDS: rOPINIRole HCl 2 MG TAB PER TUBE SCH (08:02)
[2020-09-28] MEDS: carBAMazepine 200 MG TAB PO SCH ×2 (08:07→21:27)
[2020-09-28] MEDS: risperiDONE 0.25 MG TAB PO SCH ×2 (08:07→21:05)
--- NOTE | 2020-09-28 08:34 | RAD ---
Chest one view HISTORY: Pneumonia. Follow-up. COMPARISON: 09/27/2020. FINDINGS: Cardiac silhouette is magnified and enlarged. Pulmonary vasculature remains engorged. Media stinum is midline. Lines and tubes unchanged in position. Hazy opacity and infiltrate at the right base are more pronounced than on the prior study. Widespread groundglass infiltrate involving each lung otherwise stable. No pneumothorax. IMPRESSION : Worsening density at right lung base infiltrate and pleural fluid.
[2020-09-28 08:37] LABS: Actual Bicarbonate (HCO3a) 32.2 mEq/L (22-28); Base Excess (BEa) 4.4 mEq/L (-2.0 to +3.0); Calcium, Ionized (arterial) 1.13 mmol/L (1.12-1.30); Carboxyhemoglobin (COHb) 1.1 gm% (0.0-3.0); Hemoglobin (Hb) 9.2 g/dL (14.0-18.0); O2 Tension (PaO2), arterial 81.1 mmHg (> 80.0); Potassium - ABG Lab 3.75 mmol/L (3.70-5.30); pH, Arterial 7.29 (7.35-7.45)
[2020-09-28 08:38] LABS: CO2 Tension 68.9 mmHg (35.0-45.0)
[2020-09-28 08:39] LABS: ALV-art Gradient 189.275 mmHg (0-20); Puncture Site RRA
[2020-09-28 09:27] LABS: Actual Bicarbonate (HCO3a) 32.2 mEq/L (22-28); Base Excess (BEa) 4.4 mEq/L (-2.0 to +3.0); CO2 Tension 68.9 mmHg (35.0-45.0); Carboxyhemoglobin (COHb) 1.1 gm% (0.0-3.0); Hemoglobin (Hb) 9.2 g/dL (14.0-18.0); O2 Tension (PaO2), arterial 81.1 mmHg (> 80.0); pH, Arterial 7.29 (7.35-7.45)
[2020-09-28 09:28] LABS: ALV-art Gradient 189.275 mmHg (0-20); Calcium, Ionized (arterial) 1.13 mmol/L (1.12-1.30); Potassium - ABG Lab 3.75 mmol/L (3.70-5.30); Puncture Site RRA
--- NOTE | 2020-09-28 10:19 | PRG ---
DATE OF SERVICE: 09/28/2020 SUBJECTIVE: Mr. Stafford is intubated and sedated. OBJECTIVE: VITAL SIGNS: Blood pressure is 105/49, pulse 90, it is regular. NECK: Veins are normal. LUNGS: Clear anteriorly and laterally. CARDIAC: There is no new murmur, rub, or gallop. ABDOMEN: Obese, nontender. EXTREMITIES: There is no edema. He is maintaining sinus rhythm currently. ASSESSMENT: 1. Chronic obstructive pulmonary disease with respiratory failure. 2. Diastolic heart failure. 3. Paroxysmal atrial fibrillation. 4. He is becoming progressively more anemic with the hemoglobin drop in 8.4. PLAN: 1. Agree withholding apixaban for now. 2. Continue low-dose diltiazem. He seems to still be going in and out of atrial fibrillation. 3. Continue aspirin. 4. May consider reducing furosemide tomorrow. 5. Continue metoprolol. Long-term prognosis guarded. Job ID: [id number]
--- NOTE | 2020-09-28 10:33 | EKG ---
Test Reason : AFIB? Blood Pressure : / mmHG Vent. Rate : 135 BPM Atrial Rate : 192 BPM P-R Int : 000 ms QRS Dur : 088 ms QT Int : 278 ms P-R-T Axes : 000 073 -78 degrees QTc Int : 417 ms Atrial fibrillation with rapid ventricular response Abnormal ECG When compared with ECG of 20-SEP-2020 10:09, Atrial fibrillation has replaced Sinus rhythm ST now depressed in Lateral leads T wave inversion more evident in Inferior leads Confirmed by Guanaco RADFORD ([id number]) on 09/28/2020 10:33:14 AM Referred By: Armando REYES Confirmed By:Guanaco RADFORD
[2020-09-28 11:49] LABS: Vancomycin, Trough 21.6 ug/mL
[2020-09-28] MEDS ORDERED: Metoprolol Tartrate 5 MG/5 ML VIAL ONE (11:52)
[2020-09-28] MEDS ORDERED: Vancomycin 2 GM in Premix Bag 1 BAG IVPB SCH (12:55)
[2020-09-28] MEDS: Metoprolol Tartrate 5 MG/5 ML VIAL IVP SCH ×2 (13:43→16:48)
--- NOTE | 2020-09-28 15:34 | PRG ---
DATE OF SERVICE: 09/28/2020 SUBJECTIVE: Mr. Stafford remains mechanically ventilated. He is quite combative when he is not deeply sedated. OBJECTIVE: VITAL SIGNS: Respiratory rate in the teens, FiO2 is 50%, blood pressure 98/51, heart rate is 80. LUNGS: Remarkable distant breath sounds with prolonged expiratory phase. HEART: Regular rate and rhythm. ABDOMEN: Soft and nontender. LABORATORY DATA: White count 6.9, hemoglobin 8.4, platelets 111. Sodium 141, potassium 4.2, chloride 100, bicarb 34, BUN 35, creatinine 0.9. PH of 7.29, CO2 of 60, PO2 of 81. IMPRESSION: 1. Respiratory failure associated with very severe chronic obstructive pulmonary disease. Recommended tracheostomy and PEG. 2. Rapid atrial fibrillation. I reviewed the cultures and I do not see any MRSA isolates, so I would consider discontinuing the vancomycin. Blood cultures going back all the way to the are negative. His Eliquis will be held. Critical care time 30 min Job ID: [id number] MTDD
[2020-09-28] MEDS ORDERED: Metoprolol Tartrate 5 MG/5 ML VIAL IVP PRN (16:41)
[2020-09-28] MEDS ORDERED: Metoprolol Tartrate 5 MG/5 ML VIAL IVP SCH (16:45)
--- NOTE | 2020-09-28 17:27 | CON ---
DATE OF CONSULTATION: HISTORY OF PRESENT ILLNESS: Samson Stafford is a 70-year-old male, COVID negative on 09/23/2020, admitted to [facility] on 09/19/2020, seen by Cardiology and Pulmonary Medicine. He has developed respiratory failure. I have been asked to see him regarding placement of tracheostomy and PEG tube. He has good IV access. He had presented initially to [facility] with dyspnea, chest pain, cough productive. He developed drowsiness while being evaluated. CAT scan obtained of brain, unresponsible. The patient required intubation and treated for COPD and transferred to this facility and is felt to need trach and PEG to enable weaning. The patient is sedated on the ventilator. PAST SURGICAL HISTORY: 1. Appendectomy. 2. Some sort of angioplasty. 3. Knee surgery. 4. Cardiac ablation. PAST MEDICAL HISTORY: 1. Hypertension. 2. Coronary artery disease. 3. Myocardial infarction. 4. A flutter. 5. Seizures. 6. Restless legs syndrome. 7. Obesity. Seen by Dr. Purcell on 11/17/2019 for RFA, electrophysiology. ALLERGIES: NONE. SOCIAL HISTORY: Tobacco abuse, more than two packs a day. Alcohol and drug use, none. REVIEW OF SYSTEMS: Not possible. FAMILY HISTORY: Not possible. PHYSICAL EXAMINATION: VITAL SIGNS: Height 6 feet tall, blood pressure 90/51, and heart rate 80. HEAD, EARS, EYES, NOSE, AND THROAT: Unremarkable. LUNGS: Clear to auscultation. Wheezing. CARDIAC: Obese, soft. Midline incision. EXTREMITIES: Unremarkable. LABORATORY DATA: White count 6 and hemoglobin 8.4. Sodium 141, potassium 4.2, BUN 35, and creatinine 0.9. ASSESSMENT AND PLAN: Respiratory failure. PLAN: Percutaneous endoscopic gastrostomy tube and tracheostomy tube tomorrow. Hold his Eliquis. Can resume his Eliquis 2 days postoperatively. Job ID: [id number]
[2020-09-28] MEDS: Atorvastatin Calcium 40 MG TAB PER TUBE SCH (21:05)
[2020-09-29] MEDS: Metoprolol Tartrate 25 MG TAB PO SCH ×5 (00:02→23:58)
[2020-09-29] MEDS: Lorazepam 2 MG/ML VIAL SLOW IVP PRN (01:02)
[2020-09-29] MEDS: fentaNYL Citrate/PF 2,000 MCG in Sodium Chloride 0.9% 60 ML IV SCH (02:06)
[2020-09-29] MEDS: Propofol 1,000 MG/100 ML VIAL IV PRN ×2 (03:39→15:40)
[2020-09-29 04:27] LABS: #Lymphocytes 1.4 thou/uL (1.20-3.40); #Monocytes 0.4 thou/uL (0.11-0.59); #Neutrophils 5.2 thou/uL (1.40-6.50); %Basophils 0.4 % (0.0-1.0); %Eosinophils 0.5 % (0.0-10.0); %Lymphocytes 19.6 % (21.0-51.0); %Monocytes 5.6 % (0.0-10.0); %Neutrophils 73.8 % (42.0-75.0); Hemoglobin 8.5 g/dL (14.0-18.0); Mean Corpuscular HGB CONC 32.2 g/dL (32.0-36.0); Mean Corpuscular Hemoglobin 35.4 pg (27.0-31.0); Mean Platelet Volume 8.6 fL (7.4-10.4); Platelet Count 125 thou/uL (130-400); RBC Distribution Width 12.2 % (11.5-14.5); White Blood Cell (WBC) Count 7.1 thou/uL (4.8-10.8)
[2020-09-29 04:45] LABS: Anion Gap 11 mmol/L (10-20); BUN (Urea Nitrogen) 39 mg/dL (8.4-25.7); Calc. Creatinine Clearance 0 mL/min (70-130); Calcium 8.1 mg/dL (7.8-10.44); Carbon Dioxide 34 mmol/L (23-31); Chloride 99 mmol/L (98-107); Glucose 154 mg/dL (80-115); Potassium 4.5 mmol/L (3.5-5.1); Sodium 139 mmol/L (136-145)
[2020-09-29] MEDS: Furosemide 20 MG/2 ML VIAL SLOW IVP SCH ×2 (05:56→15:10)
--- NOTE | 2020-09-29 06:23 | PDOC.FM ---
- Subjective Subjective: Pt is intubated and sedated. Trach and PEG for this am. - Objective Vital Signs & Weight: Vital Signs (12 hours) Temp Pulse Resp BP Pulse Ox 09/29/20 06:00 24 H 09/29/20 04:00 99.2 F 15 09/29/20 03:43 97 115/59 L 09/29/20 02:00 27 H 09/29/20 01:00 99.8 F H 09/29/20 00:00 23 H 09/28/20 22:50 130 H 09/28/20 22:49 96 09/28/20 22:00 24 H 09/28/20 20:00 98.4 F 28 H 96 09/28/20 19:57 111 H 15 97 Weight Admit Weight 111.992 kg Weight 108.4 kg Most Recent Monitor Data Heart Rate from ECG 95 NIBP 135/55 NIBP BP-Mean 81 Respiration from ECG 22 SpO2 98 I&O: 09/27/20 09/28/20 09/29/20 06:59 06:59 06:59 Intake Total 6176.7 6054.2 2315.3 Output Total 4185 4300 5040 Balance 1991.7 1754.2 -2724.7 Result Diagrams: 09/29/20 03:40 09/29/20 03:40 Phys Exam - Physical Examination intubated and sedated HEENT: sclera anicteric Neck: no JVD, full ROM Respiratory: no wheezing, no rhonchi regular rate Gastrointestinal: soft, non-tender, positive bowel sounds Musculoskeletal: pulses present No LE Edema intubated and sedated Skin: no rash, cap refill <2 seconds Dx/Plan - Plan Plan: Acute hypoxic hypercapnic respiratory failure 2/2 COPD exacerbation/Bronchospasm Intubated - Dex - Levaquin, d/c vanc; procal negative; covid negative - simon Singh - Pulm consulted, appreciate recs - trach/peg today Hypernatremia - resolved -Continue free water flushes at 50 mls/hr, d/c D5W Elevated BUN -likely from pre-renal disease Monitor K/Mg Afib RVR - currently rate controlled - Continue metoprolol IV, dilt GGT at 10 - Cardiology consulted, appreciate recs HFpEF - repeat echo yesterday, technically difficult study - EF appeared normal but left atrium significantly dilated - Strict I/O - Resume lasix, diuresing well, good UOP, I&Os balance -2.7 L EVANGELINA -Resolved Seizure - resumed home carbemazepine and zonisamide - consider neuro consult based on neuro exam off sedation Macrocytic anemia - Folate deficiency Monitor as it seems there is a dilutional aspect to Hgb. Will also assess for bleeding as we can go off of vitals signs. - Folate level of 3 - Started on folic acid supplement Thrombocytopenia - stable HLD - continue home meds No BM - soapsuds enema ordered Dispo: Remains intubated, continue abx, steroids, and inhaled tx. Addendum - Attending - Attending Attestation Date/Time: 09/29/20 4755 I personally evaluated the patient and discussed the management with Dr. Mercado. I agree with the History, Examination, Assessment and Plan documented above with any addition or exceptions noted below. Patient overall stable, taking a little better spontaneous breaths today. He is going for Trach/PEG today. Stop Vanc. Otherwise he seems fairly stable at the the current time, will be prolonged wean from vent. Will need placement.
[2020-09-29] MEDS: Famotidine/PF 20 mg/2ml Vial SLOW IVP SCH ×2 (08:31→20:30)
[2020-09-29] MEDS: Aspirin Chewable 81 MG TAB PER TUBE SCH (08:31)
[2020-09-29] MEDS: Folic Acid 1 MG TAB PER TUBE SCH (08:31)
[2020-09-29] MEDS: carBAMazepine 200 MG TAB PO SCH ×2 (08:31→20:29)
[2020-09-29] MEDS: Ezetimibe 10 MG TAB PER TUBE SCH (08:31)
[2020-09-29] MEDS: Zonisamide 100 MG CAP PER TUBE SCH ×2 (08:32→20:29)
[2020-09-29] MEDS: methylPREDNISolone Sod Succ 40 MG VIAL IVP SCH ×2 (08:32→20:30)
[2020-09-29] MEDS: risperiDONE 0.25 MG TAB PO SCH ×2 (08:32→20:29)
[2020-09-29] MEDS: rOPINIRole HCl 2 MG TAB PER TUBE SCH (08:32)
[2020-09-29] MEDS: Polyethylene Glycol 3350 17 GM Packet PER TUBE SCH (08:32)
[2020-09-29] MEDS: Nicotine 14 MG PATCH TD SCH (08:37)
[2020-09-29] MEDS ORDERED: Rocuronium Bromide 10 MG/ML (10ML VIAL) ONE (08:52)
[2020-09-29] MEDS ORDERED: Ondansetron PF 4 MG/2 ML Vial ONE (08:52)
[2020-09-29] MEDS ORDERED: PHENYLEPHRINE-NS 100 MCG/ML 10 ML SYRINGE ONE (08:52)
[2020-09-29 09:29] LABS: Actual Bicarbonate (HCO3a) 32.3 mEq/L (22-28); Base Excess (BEa) 6.8 mEq/L (-2.0 to +3.0); CO2 Tension 51.4 mmHg (35.0-45.0); Calcium, Ionized (arterial) 1.13 mmol/L (1.12-1.30); Carboxyhemoglobin (COHb) 0.2 gm% (0.0-3.0); Hemoglobin (Hb) 9.8 g/dL (14.0-18.0); O2 Tension (PaO2), arterial 80.6 mmHg (> 80.0); Potassium - ABG Lab 3.96 mmol/L (3.70-5.30); pH, Arterial 7.42 (7.35-7.45)
[2020-09-29 09:33] LABS: Puncture Site RRA
[2020-09-29] MEDS ORDERED: Fentanyl 100 MCG/2 ML VIAL ONE ×2 (10:27→11:25)
[2020-09-29] MEDS ORDERED: Midazolam HCl 2 mg/2 ml Vial ONE ×2 (10:27→11:26)
[2020-09-29] MEDS ORDERED: Lorazepam 2 MG/ML VIAL SLOW IVP PRN (11:00)
[2020-09-29] MEDS ORDERED: fentaNYL Citrate/PF 2,000 MCG in Sodium Chloride 0.9% 60 ML IV SCH (11:00)
[2020-09-29] MEDS ORDERED: Morphine 2 MG/ML VIAL SLOW IVP PRN (11:00)
[2020-09-29] MEDS ORDERED: Fentanyl BOLUS 250 ML IVPB PRN (11:00)
--- NOTE | 2020-09-29 11:06 | RAD ---
PORTABLE CHEST: HISTORY: COPD exacerbation. COMPARISON: Prior day's exam. FINDINGS: Endotracheal and NG Tubes and right central line all are unchanged in position. Pleural and parenchy mal lung changes all appear stable. IMPRESSION: Stable exam. POS: [facility]
[2020-09-29] MEDS ORDERED: Famotidine/PF 20 mg/2ml Vial ONE (11:25)
[2020-09-29] MEDS ORDERED: Bupivacaine PF 0.5% 30 ML VIAL ONE (11:28)
[2020-09-29] MEDS ORDERED: Lidocaine 2% w/Epinephrine 1:200K 20 ML VIAL ONE (11:28)
[2020-09-29] MEDS: Diltiazem HCl 125 MG, Admixture Fee 1 EACH in Sodium Chloride 0.9% 100 ML IVPB SCH (11:42)
[2020-09-29] MEDS: Atorvastatin Calcium 40 MG TAB PER TUBE SCH (20:29)
--- NOTE | 2020-09-29 22:24 | PRG ---
DATE OF SERVICE: 09/29/2020 SUBJECTIVE: Av Stafford is to undergo tracheostomy today. OBJECTIVE: VITAL SIGNS: Heart rate is in 80s, blood pressure 109/65 this evening, and respiratory rate is in the teens. LUNGS: Distant, clear. HEART: Regular rhythm. ABDOMEN: Soft. LABORATORY DATA: White count 7.1, hemoglobin 8.5, platelets 125. Sodium 139, potassium 4.5, chloride 99, bicarb 34, BUN 39, and creatinine 0.84. Blood gas, pH 7.42, CO2 of 51, pO2 of 80. IMPRESSION: Respiratory failure secondary to chronic obstructive pulmonary disease tracheostomy. He could be evaluated for transfer to long-term acute care hospital starting tomorrow. We will begin the weaning process starting tomorrow. Critical care time 30 min Job ID: [id number] MTDD
[2020-09-30] MEDS: Propofol 1,000 MG/100 ML VIAL IV PRN ×4 (01:29→23:02)
[2020-09-30] MEDS: Metoprolol Tartrate 25 MG TAB PO SCH ×4 (05:02→23:18)
[2020-09-30] MEDS: Furosemide 20 MG/2 ML VIAL SLOW IVP SCH ×2 (05:02→14:14)
[2020-09-30 05:15] LABS: #Lymphocytes 2.2 thou/uL (1.20-3.40); #Monocytes 0.7 thou/uL (0.11-0.59); #Neutrophils 7.7 thou/uL (1.40-6.50); %Basophils 0.5 % (0.0-1.0); %Eosinophils 0.4 % (0.0-10.0); %Lymphocytes 20.7 % (21.0-51.0); %Monocytes 6.3 % (0.0-10.0); %Neutrophils 72.2 % (42.0-75.0); Hemoglobin 8.9 g/dL (14.0-18.0); Mean Corpuscular HGB CONC 32.3 g/dL (32.0-36.0); Mean Corpuscular Hemoglobin 35.9 pg (27.0-31.0); Mean Platelet Volume 8.6 fL (7.4-10.4); Platelet Count 151 thou/uL (130-400); RBC Distribution Width 12.6 % (11.5-14.5); Red Blood Cell (RBC) Count 2.48 mill/uL (4.70-6.10); White Blood Cell (WBC) Count 10.7 thou/uL (4.8-10.8)
[2020-09-30 05:39] LABS: Anion Gap 13 mmol/L (10-20); BUN (Urea Nitrogen) 36 mg/dL (8.4-25.7); Calc. Creatinine Clearance 99 mL/min (70-130); Calcium 8.2 mg/dL (7.8-10.44); Carbon Dioxide 33 mmol/L (23-31); Chloride 102 mmol/L (98-107); Glucose 146 mg/dL (80-115); Potassium 4.3 mmol/L (3.5-5.1); Sodium 144 mmol/L (136-145)
--- NOTE | 2020-09-30 05:50 | PDOC.FM ---
- Subjective Subjective: Pt has no overnight events. PEG is ok. No feeds started at this time. Will need orders from Dr. Diez/Budget Report Clerk. No free water flushes due to not using PEG tube at this time. Trach is working but bleeding noted at site. No RVR/tachycardia overnight. - Objective Vital Signs & Weight: Vital Signs (12 hours) Temp Pulse Resp BP Pulse Ox 09/30/20 04:00 99.7 F H 30 H 09/30/20 02:09 97 27 H 97 09/30/20 02:00 25 H 09/30/20 01:54 96 117/63 09/30/20 00:00 100.8 F H 28 H 09/29/20 22:43 97 25 H 94 L 09/29/20 22:38 97 136/89 09/29/20 22:00 20 09/29/20 20:00 99.9 F H 25 H 100 09/29/20 19:07 88 20 98 09/29/20 19:03 88 115/59 L 09/29/20 18:00 23 H Weight Admit Weight 111.992 kg Weight 102.5 kg Most Recent Monitor Data Heart Rate from ECG 100 NIBP 123/61 NIBP BP-Mean 81 Respiration from ECG 28 SpO2 97 I&O: 09/28/20 09/29/20 09/30/20 06:59 06:59 06:59 Intake Total 6054.2 2315.3 826 Output Total 4300 5040 3865 Balance 1754.2 -2724.7 -3039 Result Diagrams: 09/30/20 04:00 09/30/20 04:00 Phys Exam - Physical Examination Intubated and sedated HEENT: PERRLA, moist MMs Neck: no JVD, full ROM Respiratory: no wheezing, no rales rhonchi present Cardiovascular: RRR appears to be in sinus rhythm Gastrointestinal: soft, non-tender Musculoskeletal: no edema, pulses present Skin: no rash, cap refill <2 seconds Dx/Plan - Plan Plan: Acute hypoxic hypercapnic respiratory failure 2/2 COPD exacerbation/Bronchospasm Intubated - Dex - Levaquin, d/c vanc; procal negative; covid negative - simon Singh - Pulm consulted, appreciate recs - trach/peg 09/30 w/o complications. Will need orders from Dr. Diez for use. Hypernatremia - resolved -Continue free water flushes at 50 mls/hr once PEG is cleared for use. Discussed with nursing staff. Monitor K/Mg Afib RVR - currently rate controlled - Continue metoprolol IV, dilt GGT at 10 - Cardiology consulted, appreciate recs HFpEF - repeat echo yesterday, technically difficult study - EF appeared normal but left atrium significantly dilated - Strict I/O - Resume lasix, diuresing well, good UOP EVANGELINA -Resolved Seizure - resumed home carbemazepine and zonisamide - consider neuro consult based on neuro exam off sedation Macrocytic anemia - Folate deficiency Monitor as it seems there is a dilutional aspect to Hgb. Will also assess for bleeding as we can go off of vitals signs. - Folate level of 3 - Started on folic acid supplement Thrombocytopenia - stable HLD - continue home meds Dispo: Trach for ventilation, continue abx, steroids, and inhaled tx. Addendum - Attending - Attending Attestation Date/Time: 09/30/20 1131 I personally evaluated the patient and discussed the management with Dr. Mercado. I agree with the History, Examination, Assessment and Plan documented above with any addition or exceptions noted below. Patient overall stable. POD1 from trach/PEG. Continue to wean vent as tolerated, hopefully start tube feeds today. Continue treatment for COPD. Will need longterm placement once stable for discharge.
[2020-09-30 06:27] LABS: Actual Bicarbonate (HCO3a) 30.9 mEq/L (22-28); Base Excess (BEa) 6.3 mEq/L (-2.0 to +3.0); CO2 Tension 44.5 mmHg (35.0-45.0); Calcium, Ionized (arterial) 1.12 mmol/L (1.12-1.30); Carboxyhemoglobin (COHb) 0.7 gm% (0.0-3.0); O2 Tension (PaO2), arterial 64.4 mmHg (> 80.0); Potassium - ABG Lab 4.03 mmol/L (3.70-5.30); pH, Arterial 7.46 (7.35-7.45)
[2020-09-30 06:32] LABS: ALV-art Gradient 236.475 mmHg (0-20); Puncture Site RRA
--- NOTE | 2020-09-30 07:07 | OP ---
DATE OF PROCEDURE: 09/29/2020 PREOPERATIVE DIAGNOSES: Respiratory failure, malnutrition, chronic obstructive pulmonary disease, respiratory dependency. POSTOPERATIVE DIAGNOSES: Respiratory failure, malnutrition, chronic obstructive pulmonary disease, respiratory dependency. PROCEDURE PERFORMED: #8 Shiley low-pressure cuffed tracheostomy tube, percutaneous endoscopic gastrostomy tube. ANESTHESIA: General, local 0.5% Marcaine 30 mL mixed with 1% Xylocaine with epinephrine 20 mL. DESCRIPTION OF PROCEDURE: The patient was taken to the operating room, where under general anesthesia, neck and chest and abdomen clipped of hair, prepared with ChloraPrep and draped in routine fashion. Local anesthetic was infiltrated in the skin and subcutaneous tissue about the operative site. Incision was made in the lower neck just above the manubrium, carried down to skin and platysma, gaining hemostasis with cautery, dividing the strap muscles laterally, reflecting laterally, dividing the isthmus of the thyroid, identifying the trachea, dissecting it free below the cricoid cartilage. Tracheostomy hook inserted. Good hemostasis noted. Anterior window of the trachea excised over 2 cartilaginous rings and endotracheal tube withdrawn. Good hemostasis noted. #8 Shiley low-pressure cuffed tracheostomy tube directly inserted in the trachea, balloon inflated, connected to the ventilator. Skin approximated with OpSite with 3-0 Prolene and tracheostomy appliance secured to skin with 3-0 Prolene and sterile dressings applied. The patient tolerated the procedure well. Endoscope was placed per os under direct visualization. Using air insufflation, passed throughout the esophagus and the stomach insufflated left medial subcostal. Betadine prep used local anesthetic infiltrated in skin and subcutaneous tissue. Stab incision made. Trocar catheter introduced percutaneously into the gastric lumen and visualized endoscopically, grasping, introduced the wire with the snare and then bringing it out through the mouth, connected to the feeding tube. Scope was withdrawn. The esophagus and stomach visualized was normal. Feeding tube lubricated, pulled back down through the esophagus and the stomach, fixated to the abdominal wall fixation the feeding tube and connected to the feeding device. Patient tolerated the procedure well. Sterile dressing was applied. Job ID: [id number]
--- NOTE | 2020-09-30 08:48 | RAD ---
Chest one view HISTORY: COPD. Dyspnea. COMPARISON: 09/29/2020. FINDINGS: Cardiac silhouette is magnified by projection. Pulmonary vasculature is engorged. Mediastinum is midline. Tracheostomy appliance now in place over the upper trachea. Nasogastric tube no longer visible. Right internal jugular central venous catheter in place. Hazy pleural opacity at the left base unchanged. Widespread reticulonodular interstitial prominence s table. IMPRESSION : Tracheostomy appliance in good radiographic position. Removal of the nasogastric tube. Right pleural fluid and findings are stable.
[2020-09-30] MEDS: Aspirin Chewable 81 MG TAB PER TUBE SCH (08:59)
[2020-09-30] MEDS: Ezetimibe 10 MG TAB PER TUBE SCH (08:59)
[2020-09-30] MEDS: carBAMazepine 200 MG TAB PO SCH ×2 (08:59→20:22)
[2020-09-30] MEDS: Famotidine/PF 20 mg/2ml Vial SLOW IVP SCH ×2 (09:00→20:23)
[2020-09-30] MEDS: Folic Acid 1 MG TAB PER TUBE SCH (09:00)
[2020-09-30] MEDS: methylPREDNISolone Sod Succ 40 MG VIAL IVP SCH ×2 (09:00→20:23)
[2020-09-30] MEDS: rOPINIRole HCl 2 MG TAB PER TUBE SCH (09:01)
[2020-09-30] MEDS: risperiDONE 0.25 MG TAB PO SCH ×2 (09:01→20:23)
[2020-09-30] MEDS: Polyethylene Glycol 3350 17 GM Packet PER TUBE SCH (09:01)
[2020-09-30] MEDS: Zonisamide 100 MG CAP PER TUBE SCH ×2 (09:02→20:23)
[2020-09-30] MEDS: Nicotine 14 MG PATCH TD SCH (09:34)
[2020-09-30] MEDS: Diltiazem HCl 125 MG, Admixture Fee 1 EACH in Sodium Chloride 0.9% 100 ML IVPB SCH ×2 (12:09)
--- NOTE | 2020-09-30 13:40 | PRG ---
DATE OF SERVICE: 09/30/2020 Mr. Stafford is doing well after tracheostomy and PEG tube yesterday. He is tolerating his tube feedings. Tracheostomy is functioning well without significant bleeding. At this point, I will see him as needed. Please call if necessary. Job ID: [id number]
--- NOTE | 2020-09-30 13:59 | PRG ---
DATE OF SERVICE: 09/30/2020 SUBJECTIVE: Mr. Stafford is status post tracheostomy and PEG tube placement. He is oozing from the tracheostomy. OBJECTIVE: VITAL SIGNS: Blood pressure 110/54. Pulse 90 and it is regular. LUNGS: Clear. CARDIAC: Normal S1, normal S2. ASSESSMENT: 1. Respiratory failure. 2. Paroxysmal atrial fibrillation. 3. Allergy to amiodarone per the chart. PLAN: 1. Continue to hold Eliquis, I think it has been a couple of days since he has received any, he is not on it now. 2. Continue p.r.n. beta-blockers as well as scheduled beta blockers. 3. Still on low-dose diltiazem. 4. Consider resuming apixaban in a few days once the oozing is stopped and there are no bleeding issues. My partners will be available this weekend. Job ID: [id number]
[2020-09-30] MEDS ORDERED: Vecuronium 10 MG VIAL ONE (14:38)
--- NOTE | 2020-09-30 16:05 | PRG ---
DATE OF SERVICE: 09/30/2020 OBJECTIVE: VITAL SIGNS: Samson Stafford's heart rate in 80s, blood pressure 112/56, respiratory rates in the 20s. He has audible air coming up through his mouth. His trach balloon is inflated. I suspect his trachea has bigger diameter than the balloon. LUNGS: He has equal breath sounds bilaterally. HEART: Regular rhythm. ABDOMEN: Soft. LABORATORY DATA: White count 10.7, hemoglobin 8.9, platelets 151. Sodium 144, potassium 4.3, chloride 102, bicarb 33, BUN 36, creatinine 1.04. PH 7.46, CO2 of 44, pO2 of 64. IMPRESSION: Respiratory failure associated with chronic obstructive pulmonary disease exacerbation, now with tracheostomy. We will more aggressively work toward weaning. His pH is 7.46, CO2 of 44, pO2 of 64. We decreased his ventilatory rate. We will hopefully be able to try trach collar in the morning and p.r.n. Critical care time 30 min. Job ID: [id number] MTDD
--- NOTE | 2020-09-30 16:30 | OP ---
DATE OF PROCEDURE: 09/30/2020 PROCEDURE PERFORMED: Bronchoscopy. PREOPERATIVE DIAGNOSES: Tracheostomy, excessive leak, inability to ventilate the patient. DESCRIPTION OF PROCEDURE: I was informed by the respiratory therapist that he could no longer get tidal volumes back on the patient. I came to the bedside and the patient was breathing spontaneously, but all this volume was going through his mouth. We put a mask over his mouth and initiated bag-mask ventilation. I called Dr. Diez, who came to the bedside as he was put in the original trach. We attempted to change the tracheostomy with a tube exchanger, but the exchanger would not pass through the tracheostomy. Therefore, the tracheostomy was removed. Using a bronchoscope, I located the ostomy site and placed a Bivona tracheostomy tube into the trachea without difficulty. 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 I was able to pass the Bivona tube down to where it was almost hubbed and it was still about 2 cm above the marcelo. This did get him past the area of tracheomalacia. The patient tolerated the procedure well and was returned to mechanical ventilation. Job ID: [id number]
[2020-09-30] MEDS: Acetaminophen 650 MG/20.3 ML UDCUP PER TUBE PRN (16:49)
[2020-09-30] MEDS: Atorvastatin Calcium 40 MG TAB PER TUBE SCH (20:22)
[2020-10-01 03:59] LABS: #Lymphocytes 1.6 thou/uL (1.20-3.40); #Monocytes 0.7 thou/uL (0.11-0.59); #Neutrophils 7.1 thou/uL (1.40-6.50); %Basophils 0.1 % (0.0-1.0); %Eosinophils 0.3 % (0.0-10.0); %Lymphocytes 16.7 % (21.0-51.0); %Monocytes 7.6 % (0.0-10.0); %Neutrophils 75.3 % (42.0-75.0); Hemoglobin 8.7 g/dL (14.0-18.0); Mean Corpuscular HGB CONC 31.9 g/dL (32.0-36.0); Mean Corpuscular Hemoglobin 34.6 pg (27.0-31.0); Mean Platelet Volume 8.1 fL (7.4-10.4); Platelet Count 164 thou/uL (130-400); RBC Distribution Width 12.5 % (11.5-14.5); Red Blood Cell (RBC) Count 2.52 mill/uL (4.70-6.10); White Blood Cell (WBC) Count 9.5 thou/uL (4.8-10.8)
[2020-10-01 04:22] LABS: Anion Gap 14 mmol/L (10-20); BUN (Urea Nitrogen) 40 mg/dL (8.4-25.7); Calc. Creatinine Clearance 97 mL/min (70-130); Calcium 8.3 mg/dL (7.8-10.44); Carbon Dioxide 29 mmol/L (23-31); Chloride 106 mmol/L (98-107); Glucose 151 mg/dL (80-115); Potassium 4.5 mmol/L (3.5-5.1); Sodium 144 mmol/L (136-145)
--- NOTE | 2020-10-01 06:19 | PDOC.FM ---
- Subjective Subjective: Pt trach'ed and mildly sedated. He is agitated. Not following commands. - Objective Vital Signs & Weight: Vital Signs (12 hours) Temp Pulse Resp Pulse Ox 10/01/20 04:00 99.8 F H 20 10/01/20 02:49 75 19 97 10/01/20 02:00 22 H 10/01/20 00:00 21 H 09/30/20 23:00 99.7 F H 09/30/20 22:17 84 21 H 99 09/30/20 22:00 20 09/30/20 20:00 18 09/30/20 19:39 99 09/30/20 19:00 99.8 F H 09/30/20 18:35 78 18 100 Weight Admit Weight 111.992 kg Weight 104.5 kg Most Recent Monitor Data Heart Rate from ECG 79 NIBP 93/50 NIBP BP-Mean 64 Respiration from ECG 20 SpO2 98 I&O: 09/29/20 09/30/20 10/01/20 06:59 06:59 06:59 Intake Total 2315.3 892.4 400.9 Output Total 5040 4515 2270 Balance -2724.7 -3622.6 -1869.1 Result Diagrams: 10/01/20 03:30 10/01/20 03:30 Phys Exam - Physical Examination Constitutional: NAD HEENT: sclera anicteric Neck: no JVD, full ROM tracheostomy Respiratory: no wheezing, clear to auscultation bilateral Cardiovascular: no significant murmur irregular rate and rhytm Gastrointestinal: soft, non-tender Musculoskeletal: no edema, pulses present Skin: no rash, cap refill <2 seconds Dx/Plan - Plan Plan: Acute hypoxic hypercapnic respiratory failure 2/2 COPD exacerbation/Bronchospasm Intubated - Dex - Levaquin, d/c vanc; procal negative; covid negative - simon Singh - Pulm consulted, appreciate recs - trach/peg 09/30 w/o complications. Will need orders from Dr. Diez for use. Hypernatremia - resolved -Continue free water flushes at 50 mls/hr once PEG is cleared for use. Discussed with nursing staff. Monitor K/Mg Afib RVR - currently rate controlled - Continue metoprolol, dilt - Restart anticoagulation when ok'ed by surgery HFpEF - repeat echo yesterday, technically difficult study - EF appeared normal but left atrium significantly dilated - Strict I/O - Resume lasix, diuresing well, good UOP EVANGELINA -Resolved Seizure - resumed home carbemazepine and zonisamide - consider neuro consult based on neuro exam off sedation Macrocytic anemia - Folate deficiency Monitor as it seems there is a dilutional aspect to Hgb. Will also assess for bleeding as we can go off of vitals signs. - Folate level of 3 - Started on folic acid supplement Thrombocytopenia - stable HLD - continue home meds Dispo: Trach for ventilation, continue abx, steroids, and inhaled tx. Addendum - Attending - Attending Attestation Date/Time: 10/01/20 1103 I personally evaluated the patient and discussed the management with Dr. Mercado. I agree with the History, Examination, Assessment and Plan documented above with any addition or exceptions noted below. Patient overall stable. POD 2 from trach/PEG. Continue to wean vent as tolerated. HR back into RVR, will increase diltiazem to obtain better HR control. Continue diuresis. No evidence of bacterial infection. Continues on treatment for COPD exacerbation. Pulm and Cards on board.
[2020-10-01] MEDS ORDERED: Apixaban 5 MG TAB PO SCH (09:00)
[2020-10-01] MEDS: Aspirin Chewable 81 MG TAB PER TUBE SCH (09:06)
[2020-10-01] MEDS: Folic Acid 1 MG TAB PER TUBE SCH (09:07)
[2020-10-01] MEDS: carBAMazepine 200 MG TAB PO SCH ×2 (09:07→21:11)
[2020-10-01] MEDS: Ezetimibe 10 MG TAB PER TUBE SCH (09:07)
[2020-10-01] MEDS: Famotidine 20 MG TAB PER TUBE SCH ×2 (09:07→21:10)
[2020-10-01] MEDS: rOPINIRole HCl 2 MG TAB PER TUBE SCH (09:08)
[2020-10-01] MEDS: risperiDONE 0.25 MG TAB PO SCH ×2 (09:08→21:12)
[2020-10-01] MEDS: Zonisamide 100 MG CAP PER TUBE SCH ×2 (09:08→21:10)
[2020-10-01] MEDS: Polyethylene Glycol 3350 17 GM Packet PER TUBE SCH (09:08)
[2020-10-01] MEDS: methylPREDNISolone Sod Succ 40 MG VIAL IVP SCH ×2 (09:09→21:10)
[2020-10-01] MEDS: Furosemide 20 MG/2 ML VIAL SLOW IVP SCH ×2 (09:09→14:23)
[2020-10-01] MEDS: Metoprolol Tartrate 25 MG TAB PO SCH ×3 (09:10→17:45)
[2020-10-01] MEDS: Nicotine 14 MG PATCH TD SCH (09:10)
--- NOTE | 2020-10-01 09:50 | RAD ---
PORTABLE CHEST 1 VIEW: DATE: 10/01/2020. TIME: 5:42 AM. HISTORY: Respiratory failure, COPD, dyspnea. Exacerbation of COPD. COMPARISON: Previous day. FINDINGS/IMPRESSION: No significant interval change is seen since the previous day's exam. POS: ALEXANDER
[2020-10-01] MEDS: Diltiazem HCl 125 MG, Admixture Fee 1 EACH in Sodium Chloride 0.9% 100 ML IVPB SCH (10:12)
[2020-10-01] MEDS: Lactated Ringer's 1,000 ML IV SCH ×2 (11:47→21:15)
[2020-10-01] MEDS: Digoxin 0.5 MG/2 ML AMP SLOW IVP SCH ×3 (11:47→16:39)
--- NOTE | 2020-10-01 13:03 | PQF ---
CLINICAL DOCUMENTATION CLARIFICATION FORM: Dear Dr. Mercado / Attending Dr. Florez Date: 10/01/2020 Please exercise your independent, professional judgment in responding to the clarification form. Clinical indicators are provided on the bottom of this form for your review. Please check appropriate box(es): HEART FAILURE: A. ACUITY [ ] Acute [ ] Acute on Chronic [ X ] Chronic B. TYPE: [ ] Systolic / HFrEF [ X ] Diastolic / HFpEF [ ] Combined Systolic / Diastolic [ ] Other diagnosis [ ] Unable to determine In addition, please specify: Present on Admission (POA): [ X ] Yes [ ] No [ ] Unable to determine For continuity of documentation, please document condition throughout progress notes and discharge summary. Thank You. To be completed by CDI/Coding staff for physician review: CLINICAL INDICATORS - SIGNS / SYMPTOMS / LABS / RESULTS AND LOCATION IN EMR *H&P 09/19 (Arcadio) Upper level: HPI: CHF (EF 40-50%) Presented to [facility] ED for CP, SOB with exertion, LE swelling that had been worsening over the 2 wks prior. *09/20 pn (Hieu) Plan: HFrEF -repeat echo yesterday, technically difficult study -EF appeared normal but l atrium significantly dilated *1/2 pn (Louisa) LAB: the pt had high BNP of 250 on the 18 of September Assess: CHF, diastolic, probably somewhat volume overloaded. The x-ray still looks like heart failure. *1/3 pn (Louisa) Plan: BNP is elevated at 552, compatible with diastolic heart failure. *1/4 pn (Jess) Plan: HFpEF Attending: (Charles) HRrEF with elevated BNP. RISKS FACTORS / RESULTS AND LOCATION IN EMR H&P 09/19 (Arcadio) HPI: hx of COPD, HTN, CAD. A/P: HFrEF TREATMENTS / RESULTS AND LOCATION IN EMR *09/20 pn (Hieu) Plan: HFrEF: Holding lasix right now d/t volume dependence upon arrival, low threshold to resume *1/2 pn (Louisa) Assess: add furosemide *MAR: Order 1/2: Lasix 20 mg slow IVP 0600,1400 Thank you, Lashay Dockery RN, [email or web address] This is a permanent part of the Medical Record [facility]
[2020-10-01] MEDS: Metoprolol Tartrate 5 MG/5 ML VIAL IVP SCH ×2 (17:41→18:16)
--- NOTE | 2020-10-01 18:59 | PRG ---
DATE OF SERVICE: 10/01/2020 SUBJECTIVE: tracheostomy tube changed yesterday. OBJECTIVE: VITAL SIGNS: Heart rate is 110, blood pressure 113/62, respiratory rate in the 20s to 30s. LUNGS: Remarkable for coarse equal breath sounds. HEART: Regular rhythm. ABDOMEN: Soft. LABORATORY DATA: White count 9.5, hemoglobin 8.7, platelets 164. Sodium 144, potassium 4.5, chloride 106, bicarb 29, BUN 40, creatinine 1.06. Intake and outputs -1869. Chest x-ray is unchanged. IMPRESSION: Chronic obstructive pulmonary disease with respiratory failure, requiring a tracheostomy. PLAN: Continue attempts at weaning hopefully within 24 to 48 hours to a trach collar at least during the day. Placement in a long-term acute care hospital is reasonable if there were beds available. Critical care time 30 min. Job ID: [id number] MTDD
[2020-10-01] MEDS: Atorvastatin Calcium 40 MG TAB PER TUBE SCH (21:11)
[2020-10-01] MEDS ORDERED: Metoprolol Tartrate 5 MG/5 ML VIAL IVP SCH (22:00)
[2020-10-02] MEDS: Metoprolol Tartrate 25 MG TAB PO SCH ×5 (01:21→22:56)
[2020-10-02] MEDS: Diltiazem HCl 125 MG, Admixture Fee 1 EACH in Sodium Chloride 0.9% 100 ML IVPB SCH (03:38)
[2020-10-02 04:38] LABS: #Basophils 0.1 thou/uL (0.0-0.2); #Lymphocytes 2.1 thou/uL (1.20-3.40); #Monocytes 0.8 thou/uL (0.11-0.59); #Neutrophils 9.8 thou/uL (1.40-6.50); %Basophils 0.5 % (0.0-1.0); %Eosinophils 0.1 % (0.0-10.0); %Lymphocytes 16.2 % (21.0-51.0); %Monocytes 6.3 % (0.0-10.0); %Neutrophils 76.9 % (42.0-75.0); Hemoglobin 8.9 g/dL (14.0-18.0); Mean Corpuscular Hemoglobin 33.5 pg (27.0-31.0); Mean Platelet Volume 8.4 fL (7.4-10.4); Platelet Count 210 thou/uL (130-400); RBC Distribution Width 12.5 % (11.5-14.5); Red Blood Cell (RBC) Count 2.67 mill/uL (4.70-6.10); White Blood Cell (WBC) Count 12.7 thou/uL (4.8-10.8)
[2020-10-02 05:05] LABS: Anion Gap 13 mmol/L (10-20); BUN (Urea Nitrogen) 38 mg/dL (8.4-25.7); Calc. Creatinine Clearance 109 mL/min (70-130); Calcium 8.5 mg/dL (7.8-10.44); Carbon Dioxide 29 mmol/L (23-31); Chloride 106 mmol/L (98-107); Glucose 170 mg/dL (80-115); Potassium 3.8 mmol/L (3.5-5.1); Sodium 144 mmol/L (136-145)
[2020-10-02] MEDS: Furosemide 20 MG/2 ML VIAL SLOW IVP SCH ×2 (06:09→13:26)
--- NOTE | 2020-10-02 06:30 | PDOC.FM ---
- Subjective Subjective: Overnight, patients HR remained elevated, as high as 149. He was given doses of lopressor overnight for this. Currently 110s. Patient is now on CPAP settings with his trach collar. He was only on precedex. Resting, comfortably. No othera cute events overnight per nursing. - Objective MAR Reviewed: Yes Vital Signs & Weight: Vital Signs (12 hours) Temp Pulse Resp BP Pulse Ox 10/02/20 06:00 35 H 10/02/20 05:00 99.5 F 10/02/20 04:00 32 H 10/02/20 02:48 101 H 10/02/20 02:45 100 10/02/20 02:00 31 H 10/02/20 01:00 99.2 F 10/02/20 00:00 31 H 10/01/20 22:19 116 H 95/54 L 10/01/20 22:16 99 10/01/20 22:00 37 H 10/01/20 20:00 31 H 10/01/20 19:53 100 10/01/20 19:00 99.3 F 10/01/20 18:33 131 H 10/01/20 18:31 98 Weight Admit Weight 111.992 kg Weight 103.7 kg Most Recent Monitor Data Heart Rate from ECG 115 NIBP 111/64 NIBP BP-Mean 79 Respiration from ECG 28 SpO2 100 I&O: 09/30/20 10/01/20 10/02/20 06:59 06:59 06:59 Intake Total 892.4 400.9 3507.8 Output Total 4515 2270 4550 Balance -3622.6 -1869.1 -1042.2 Result Diagrams: 10/02/20 03:30 10/02/20 03:30 Phys Exam - Physical Examination Constitutional: NAD HEENT: PERRLA, moist MMs Neck: supple, full ROM trach collar in place, pink tinge output coarse breath sounds anteriorly, poor insp effort Cardiovascular: no significant murmur, no rub tachycardic Gastrointestinal: soft, no distention, positive bowel sounds trace edema b/l LE unable to fully assess, alert, does not answer questions, moves all limbs Skin: no rash Dx/Plan - Plan Plan: Acute hypoxic hypercapnic respiratory failure 2/2 COPD exacerbation/Bronchospasm - Dex - s/p Levaquin, vanc; procal negative; covid negative - simon Singh - Pulm consulted, appreciate recs. Currently on CPAP settings with trach collar. On precedex for sedation and will continue to ween. - Trach/peg 09/30 w/o complications. Will need orders from Dr. Diez for use. - Plan for LTAC, CM consulted - Consider imaging due to mental status Afib RVR HR in the 130-140s overnight. - Cards consulted, appreciate recs. - Continue metoprolol, dilt, dig. Currently on dilt drip. Metoprolol recently increased. - Restart home eliquis Hypernatremia - resolved - Continue free water flushes at 50 mls/hr once PEG is cleared for use. Discussed with nursing staff. Monitor K/Mg HFpEF - Repeat echo 09/30, technically difficult study - EF appeared normal but left atrium significantly dilated - Strict I/O - Resume lasix, diuresing well, good UOP EVANGELINA -Resolved Seizure - resumed home carbemazepine and zonisamide - consider neuro consult or imaging based on neuro exam off sedation Macrocytic anemia - Folate deficiency Monitor as it seems there is a dilutional aspect to Hgb. Will also assess for bleeding as we can go off of vitals signs. - Folate level of 3 - Started on folic acid supplement Thrombocytopenia - stable HLD - continue home meds Dispo: Trach for ventilation, continue steroids, and inhaled tx. Plan for placement at LTAC, but limited beds available. Case discussed with Dr. Soto Addkaneum - Attending - Attending Attestation Date/Time: 10/02/20 3166 I personally evaluated the patient and discussed the management with Dr. Suarez I agree with the History, Examination, Assessment and Plan documented above with any addition or exceptions noted below. Stable. Unchanged. Still with difficult to control/manage atrial arrhythmias. MV through trach. Tolerating PEG feeds. Pulm and Cards managing. Wojciech
[2020-10-02] MEDS: risperiDONE 0.25 MG TAB PO SCH ×2 (09:21→21:32)
[2020-10-02] MEDS: Zonisamide 100 MG CAP PER TUBE SCH ×2 (09:22→23:38)
[2020-10-02] MEDS: rOPINIRole HCl 2 MG TAB PER TUBE SCH (09:22)
[2020-10-02] MEDS: Aspirin Chewable 81 MG TAB PER TUBE SCH (09:22)
[2020-10-02] MEDS: Famotidine 20 MG TAB PER TUBE SCH ×2 (09:22→23:33)
[2020-10-02] MEDS: Ezetimibe 10 MG TAB PER TUBE SCH (09:22)
[2020-10-02] MEDS: Folic Acid 1 MG TAB PER TUBE SCH (09:22)
[2020-10-02] MEDS: Polyethylene Glycol 3350 17 GM Packet PER TUBE SCH (09:22)
[2020-10-02] MEDS: methylPREDNISolone Sod Succ 40 MG VIAL IVP SCH (09:23)
[2020-10-02] MEDS: Digoxin 0.5 MG/2 ML AMP SLOW IVP SCH (09:23)
[2020-10-02] MEDS: Lactated Ringer's 1,000 ML IV SCH ×2 (09:23→18:29)
[2020-10-02] MEDS: carBAMazepine 200 MG TAB PO SCH ×2 (09:27→23:34)
[2020-10-02] MEDS: Nicotine 14 MG PATCH TD SCH (09:27)
--- NOTE | 2020-10-02 09:30 | RAD ---
RADIOGRAPH CHEST 1 VIEW: DATE: 10/02/2020 TIME: 5:35 AM HISTORY: 70-year-old male with dyspnea COMPARISON: 10/01/2020 FINDINGS: Patient is now rotated to the right. There has been no other interval change. Tracheostomy tube. Central vascular catheter descending from right supraclavicular region. Probably no cardiomegaly. Pulmonary opacities at bilateral lower lung zones causing silhouetting of the bilateral hemidiaphragm s. No pneumothorax. IMPRESSION: No significant interval change
[2020-10-02] MEDS: Scopolamine 1.5 mg/72 hour Patch TD SCH (13:26)
[2020-10-02] MEDS: Haloperidol Lactate 5 MG/ML VIAL IM SCH ×2 (18:29→23:35)
[2020-10-02] MEDS: Apixaban 5 MG TAB PO SCH (23:33)
[2020-10-02] MEDS: Atorvastatin Calcium 40 MG TAB PER TUBE SCH (23:36)
[2020-10-03] MEDS: Haloperidol Lactate 5 MG/ML VIAL IM SCH ×6 (01:06→21:10)
[2020-10-03] MEDS: Lactated Ringer's 1,000 ML IV SCH (03:46)
[2020-10-03 04:50] LABS: #Lymphocytes 2.1 thou/uL (1.20-3.40); #Monocytes 0.7 thou/uL (0.11-0.59); #Neutrophils 8.7 thou/uL (1.40-6.50); %Basophils 0.3 % (0.0-1.0); %Eosinophils 0.3 % (0.0-10.0); %Lymphocytes 18.1 % (21.0-51.0); %Monocytes 5.8 % (0.0-10.0); %Neutrophils 75.4 % (42.0-75.0); Hemoglobin 8.7 g/dL (14.0-18.0); Mean Corpuscular HGB CONC 31.7 g/dL (32.0-36.0); Mean Corpuscular Hemoglobin 34.4 pg (27.0-31.0); Mean Platelet Volume 8.3 fL (7.4-10.4); Platelet Count 199 thou/uL (130-400); RBC Distribution Width 12.4 % (11.5-14.5); Red Blood Cell (RBC) Count 2.52 mill/uL (4.70-6.10); White Blood Cell (WBC) Count 11.5 thou/uL (4.8-10.8)
[2020-10-03 05:10] LABS: Anion Gap 12 mmol/L (10-20); BUN (Urea Nitrogen) 38 mg/dL (8.4-25.7); Calc. Creatinine Clearance 109 mL/min (70-130); Calcium 8.3 mg/dL (7.8-10.44); Carbon Dioxide 30 mmol/L (23-31); Chloride 110 mmol/L (98-107); Glucose 140 mg/dL (80-115); Potassium 3.6 mmol/L (3.5-5.1); Sodium 148 mmol/L (136-145)
[2020-10-03] MEDS: Furosemide 20 MG/2 ML VIAL SLOW IVP SCH ×2 (05:39→16:39)
[2020-10-03] MEDS: Metoprolol Tartrate 25 MG TAB PO SCH ×4 (05:39→23:17)
--- NOTE | 2020-10-03 06:29 | PDOC.FM ---
- Subjective Subjective: NAEO. He did have a HR 103-122 overnight. Remains on dilt drip. Otherwise no concerns. He is on trach collar. Remains on precedex. - Objective MAR Reviewed: Yes Vital Signs & Weight: Vital Signs (12 hours) Temp Pulse Ox 10/03/20 03:24 97 10/03/20 03:00 99.4 F 10/02/20 23:22 96 10/02/20 23:00 99.3 F 10/02/20 20:00 93 L 10/02/20 19:00 99.1 F Weight Admit Weight 111.992 kg Weight 104.7 kg Most Recent Monitor Data Heart Rate from ECG 122 NIBP 102/53 NIBP BP-Mean 69 Respiration from ECG 20 SpO2 94 I&O: 10/01/20 10/02/20 10/03/20 06:59 06:59 06:59 Intake Total 400.9 3507.8 1998.3 Output Total 2270 4550 2380 Balance -1869.1 -1042.2 -381.7 Result Diagrams: 10/03/20 04:00 10/03/20 04:00 Phys Exam - Physical Examination Constitutional: NAD mouth and tongue dry Neck: no nodes trach in place, yellow/clear secretions coarse breath sounds anteriorly Cardiovascular: no significant murmur, irregular tachycardic Gastrointestinal: soft, no distention, positive bowel sounds trace pitting edema throughout Neurological: moves all 4 limbs on sedation during exam Skin: no rash, normal turgor, cap refill <2 seconds Dx/Plan - Plan Plan: Acute hypoxic hypercapnic respiratory failure 2/2 COPD exacerbation/Bronchospasm s/p Levaquin, vanc; procal negative; covid negative - Continue steroids - simon Singh - Pulm consulted, appreciate recs. On precedex for sedation and will continue to ween. Has been weened to trach collar. - Trach/peg 09/30 w/o complications. Will need orders from Dr. Diez for use. - Plan for LTAC, CM consulted - Consider imaging if concern for cognition off sedation Afib RVR HR mildly improved from 10/02 with HR 100-120s. Continues to go in and out of afib. - Cards consulted, appreciate recs. - Continue metoprolol, dilt, dig. Currently on dilt drip. Metoprolol recently increased. - Restart home eliquis Hypernatremia - resolved - Continue free water flushes at 50 mls/hr once PEG is cleared for use. Discussed with nursing staff. Monitor K/Mg HFpEF - Repeat echo 09/30, technically difficult study - EF appeared normal but left atrium significantly dilated - Strict I/O - Resume lasix, diuresing well, good UOP EVANGELINA -Resolved Seizure - resumed home carbemazepine and zonisamide - consider neuro consult or imaging based on neuro exam off sedation Macrocytic anemia - Folate deficiency Monitor as it seems there is a dilutional aspect to Hgb. Will also assess for bleeding as we can go off of vitals signs. - Folate level of 3 - Started on folic acid supplement Thrombocytopenia - stable HLD - continue home meds Dispo: Trach for ventilation, continue steroids, and inhaled tx. Plan for placement at LTAC, but limited beds available. Can possibly transfer out of CCU since weened to trach collar - will touch base with pulm today. Case discussed with Dr. oSto Addendum - Attending - Attending Attestation Date/Time: 10/03/20 1025 I personally evaluated the patient and discussed the management with Dr. Suarez I agree with the History, Examination, Assessment and Plan documented above with any addition or exceptions noted below. Stable but patient still with difficult to control arrhythmia and enc ephalopathy. HR increased this morning. IV BB given today. Cards notified. Still on Dilt gtt and PO dilt, BB, and dig. Still concerning mental state. Patient at baseline has normal affect and menta tion. No hx of substance use or alcohol. Concern possible anoxic injury. Needs MRI. Remains agitated which causes him to become hypoxic. Has been requiring presadex and 2 antipsychotics!. Multiple medication risk factors present. Need to proceed with extreme caution. Patient is also on 2 anticonvulsants. Along with anticholenergic. Will stop 1 of the antipsychotic. Need to consider discussion with neuro. This is not anywhere near patient's baseline. Poor and guarded. ABrayMD
[2020-10-03] MEDS: Folic Acid 1 MG TAB PER TUBE SCH (09:10)
[2020-10-03] MEDS: Ezetimibe 10 MG TAB PER TUBE SCH (09:10)
[2020-10-03] MEDS: carBAMazepine 200 MG TAB PO SCH ×2 (09:10→21:02)
[2020-10-03] MEDS: Famotidine 20 MG TAB PER TUBE SCH ×2 (09:10→21:01)
[2020-10-03] MEDS: Aspirin Chewable 81 MG TAB PER TUBE SCH (09:10)
[2020-10-03] MEDS: methylPREDNISolone Sod Succ 40 MG VIAL IVP SCH (09:11)
[2020-10-03] MEDS: Polyethylene Glycol 3350 17 GM Packet PER TUBE SCH (09:11)
[2020-10-03] MEDS: Apixaban 5 MG TAB PO SCH ×2 (09:16→21:15)
[2020-10-03] MEDS: Digoxin 0.5 MG/2 ML AMP SLOW IVP SCH (09:16)
[2020-10-03] MEDS: Zonisamide 100 MG CAP PER TUBE SCH ×2 (09:20→21:02)
[2020-10-03] MEDS: risperiDONE 0.25 MG TAB PO SCH (10:13)
[2020-10-03] MEDS: Nicotine 14 MG PATCH TD SCH (10:13)
[2020-10-03] MEDS ORDERED: Metoprolol Tartrate 5 MG/5 ML VIAL IVP SCH (10:15)
--- NOTE | 2020-10-03 10:19 | RAD ---
AP CHEST: Date: 10/03/2020 HISTORY: COPD exacerbation with shortness of breath. CCU follow-up. COMPARISON: 10/02/2020. FINDINGS/IMPRESSION: Tracheostomy device and central line unchanged. Mild cardiomegaly. Vascularity is mildly engorged. Hazy bilateral interstitial and ground-glass type infiltrates appear stable. Small effusions. No focal confluent consolidation. No evidence of acute in terval change. POS: AGW
[2020-10-03] MEDS: Diltiazem HCl 125 MG, Admixture Fee 1 EACH in Sodium Chloride 0.9% 100 ML IVPB SCH ×2 (10:20→22:29)
--- NOTE | 2020-10-03 11:37 | PRG ---
DATE OF SERVICE: 10/02/2020 SUBJECTIVE: Samson Stafford looks the same on the ventilator or off the ventilator on a trach collar. Still encephalopathic. We added Haldol today to see if this helps us wean him off Precedex. OBJECTIVE: VITAL SIGNS: Heart rate is 107, respiratory rates in the high 20s. O2 saturations are 100%. He is on a trach collar. FiO2 is at 40%. He is a CO2 retainer, so we should try to wean his O2 down to a goal saturation of 88% to 92%. LUNGS: Remarkable for equal breath sounds. HEART: Regular rhythm. ABDOMEN: Soft. EXTREMITIES: Without asymmetry. LABORATORY DATA: Reviewed. IMPRESSION: Respiratory failure, now with tracheostomy with advanced obstructive lung disease with CO2 retention. We have added Haldol. Hopefully, we can decrease the Precedex. If we can get him off Precedex, we can transfer him out of the Critical Care Unit. He will probably need supportive long-term acute care This is a 70 min consult with greater than 50% of the time spent on the unit with coordination of care. Job ID: [id number] MTDD
--- NOTE | 2020-10-03 17:36 | PRG ---
DATE OF SERVICE: 10/03/2020 SUBJECTIVE: Mr. Stafford appears more comfortable. OBJECTIVE: VITAL SIGNS: Heart rate is 114, respiratory rate 20, oximetry is 93, and blood pressure 96/56. LUNGS: Clear and distant. HEART: Regular rhythm. ABDOMEN: Soft. He is having issues with secretions, so scopolamine patch has been added. LABORATORY DATA: White count 11.5, hemoglobin 8.7, and platelets 199. Sodium 148, potassium 3.6, chloride 110, bicarb 30, BUN 38, and creatinine 0.95. IMPRESSION AND PLAN: Chronic obstructive pulmonary disease exacerbation with respiratory failure, now with a trach. He is stable to move out of critical care unit to LTAC skilled unit in my opinion. Prognosis is quite guarded even with the tracheostomy because of significant weakness and deconditioning. Job ID: [id number]
[2020-10-03] MEDS: Atorvastatin Calcium 40 MG TAB PER TUBE SCH (21:01)
[2020-10-04] MEDS: Haloperidol Lactate 5 MG/ML VIAL IM SCH ×6 (02:29→22:50)
[2020-10-04 04:21] LABS: #Lymphocytes 2.4 thou/uL (1.20-3.40); #Monocytes 0.6 thou/uL (0.11-0.59); #Neutrophils 8.4 thou/uL (1.40-6.50); %Basophils 0.2 % (0.0-1.0); %Eosinophils 0.3 % (0.0-10.0); %Monocytes 5.1 % (0.0-10.0); %Neutrophils 73.4 % (42.0-75.0); Mean Corpuscular HGB CONC 32.5 g/dL (32.0-36.0); Mean Corpuscular Hemoglobin 35.3 pg (27.0-31.0); Mean Platelet Volume 8.5 fL (7.4-10.4); Platelet Count 206 thou/uL (130-400); RBC Distribution Width 12.5 % (11.5-14.5); Red Blood Cell (RBC) Count 2.54 mill/uL (4.70-6.10); White Blood Cell (WBC) Count 11.5 thou/uL (4.8-10.8)
[2020-10-04 04:40] LABS: Anion Gap 14 mmol/L (10-20); BUN (Urea Nitrogen) 36 mg/dL (8.4-25.7); Calc. Creatinine Clearance 107 mL/min (70-130); Calcium 8.4 mg/dL (7.8-10.44); Carbon Dioxide 29 mmol/L (23-31); Chloride 111 mmol/L (98-107); Glucose 166 mg/dL (80-115); Potassium 3.5 mmol/L (3.5-5.1); Sodium 150 mmol/L (136-145)
--- NOTE | 2020-10-04 06:09 | PDOC.FM ---
- Subjective Subjective: Patient was seated in bedside neuro chair at the time of evaluation. Patient appeared moderately agitated, and was unable to communicate due to trach. No acute overnight events were reported by the Resident Night Team or Nursing Staff. - Objective Vital Signs & Weight: Vital Signs (12 hours) Temp Pulse Resp Pulse Ox 10/04/20 03:39 99 10/04/20 00:00 98.3 F 10/03/20 20:00 98.7 F 90 L 10/03/20 18:57 96 10/03/20 18:56 107 H 22 H 96 Weight Admit Weight 111.992 kg Weight 104.7 kg Most Recent Monitor Data Heart Rate from ECG 114 NIBP 113/52 NIBP BP-Mean 72 Respiration from ECG 20 SpO2 100 I&O: 10/02/20 10/03/20 10/04/20 06:59 06:59 06:59 Intake Total 3507.8 3379.3 2537 Output Total 4550 2520 3120 Balance -1042.2 859.3 -583 Result Diagrams: 10/04/20 03:42 10/04/20 03:42 Phys Exam - Physical Examination Moderate agitation, moving extremities non-purposefully HEENT: moist MMs Neck: supple, full ROM Respiratory: no wheezing, no rales Course breath sounds Cardiovascular: no significant murmur, no rub Tachycardia Gastrointestinal: soft, non-tender, no distention, positive bowel sounds Musculoskeletal: no edema, pulses present Neurological: non-focal, moves all 4 limbs Dx/Plan (1) Atrial flutter with rapid ventricular response Code(s): I48.92 - UNSPECIFIED ATRIAL FLUTTER Status: Acute (2) COPD (chronic obstructive pulmonary disease) Status: Chronic (3) HLD (hyperlipidemia) Code(s): E78.5 - HYPERLIPIDEMIA, UNSPECIFIED Status: Chronic (4) HTN (hypertension) Code(s): I10 - ESSENTIAL (PRIMARY) HYPERTENSION Status: Chronic (5) Acute respiratory failure with hypoxia and hypercapnia Code(s): J96.01 - ACUTE RESPIRATORY FAILURE WITH HYPOXIA; J96.02 - ACUTE RESPIRATORY FAILURE WITH HYPERCAPNIA Status: Acute (6) Macrocytic anemia Code(s): D53.9 - NUTRITIONAL ANEMIA, UNSPECIFIED Status: Acute (7) Epilepsy Code(s): G40.909 - EPILEPSY, UNSP, NOT INTRACTABLE, WITHOUT STATUS EPILEPTICUS Status: Chronic - Plan Plan: Patient is a 70 y/o male with a PMH notable for COPD and Seizure Disorder to was transferred from an outside hospital with a chief complaint of worsening SOB. #Acute Hypoxic Respiratory Failure w/ Hypercapnea 2/2 COPD Exacerbation/Bronchospasm -s/p Levaquin, Vanc -Procal: 0.12 -Covid: Negative x2 -Continue steroids, Dulera, Duonebs -Pulm: Consulted, recs appreciated - will attempt to wean Precedex, appropriate to transfer to LTAC -s/p Trach/Peg on 09/30 w/o complications -Case Management: Consulted, recs appreciated with regard to LTAC placement -Will consider additional imaging if concern for cognition off sedation #A-Fib w/ RVR -HR mildly improved from 10/02 with HR 100-120s - continues to go in and out of A- Fib -Cardiology: Consulted, recs appreciated - will add Multaq and DC Digoxin -Continue Metoprolol, Diltiazem #Hypernatremia -Elevated intermittently since admission -Na: 150 -Free Water Deficit: 3.7L -Currently receiving Free H2O Flushes via PEG -Will repeat BMP @ 1400 and attempt gentle correction if indicated #HFpEF -Echo (09/30): Technically difficult study with normal appearing EF, significantly dilated Left Atrium -Strict I/O -Resume Lasix with adequate diuresis #EVANGELINA -Resolved #Seizure -Resumed home Carbemazepine and Zonisamide regimen -Will add Ziprasidone later today -Will consider Neuro consult or imaging based on Neuro exam off sedation #Macrocytic anemia - Folate deficiency -Monitor as it seems there is a dilutional aspect to Hgb - will also assess for bleeding as we can go off of vitals signs -Folate: 3 - will supplement accordingly #Thrombocytopenia -Stable #HLD -Will continue home medication regimen PCP: Lacey Code: Full Diet: NPO Activity: Bed Rest VTE PPx: Apixaban Dispo: Patient is currently s/p Trach/PEG following AHRF 2/2 COPD Exacerbation. Will continue ventilation, steroids, and inhaled treatments as per above. Currently planning for transfer to LTAC but beds are limited - will reach out to to discuss. Expected LOS > 48H. Addendum - Attending - Attending Attestation Date/Time: 10/04/20 2566 I personally evaluated the patient and discussed the management with Dr. Macario. I agree with the History, Examination, Assessment and Plan documented above with any addition or exceptions noted below.
[2020-10-04] MEDS: Metoprolol Tartrate 25 MG TAB PO SCH ×3 (06:44→18:28)
[2020-10-04] MEDS: Furosemide 20 MG/2 ML VIAL SLOW IVP SCH (06:44)
[2020-10-04] MEDS: carBAMazepine 200 MG TAB PO SCH ×2 (08:34→20:29)
[2020-10-04] MEDS: Zonisamide 100 MG CAP PER TUBE SCH ×2 (08:35→20:29)
[2020-10-04] MEDS: Ezetimibe 10 MG TAB PER TUBE SCH (08:35)
[2020-10-04] MEDS: Famotidine 20 MG TAB PER TUBE SCH ×2 (08:35→20:28)
[2020-10-04] MEDS: Aspirin Chewable 81 MG TAB PER TUBE SCH (08:36)
[2020-10-04] MEDS: Folic Acid 1 MG TAB PER TUBE SCH (08:36)
--- NOTE | 2020-10-04 08:36 | PRG ---
DATE OF SERVICE: 10/04/2020 SUBJECTIVE: Mr. Stafford continues to have some secretion issues. OBJECTIVE: VITAL SIGNS: Heart rate is 114, respiratory rate is 20, FiO2 is at 28%, and oximetry is in the high 90s, blood pressure 113/52. LUNGS: Remarkable for mild rhonchi. HEART: Regular rhythm. ABDOMEN: Soft. LABORATORY DATA: White count 11.5, hemoglobin 9, platelets 206,000. Sodium 150, potassium 3.5, chloride 111, bicarb 29, BUN 36, creatinine 0.98. IMPRESSION: Respiratory failure associated with chronic obstructive pulmonary disease exacerbation, now with tracheostomy and a PEG. Chest radiograph shows no new infiltrates. He is a candidate to go to a long-term care facility for rehab. I still think his prognosis even with a trach is quite guarded. Job ID: [id number]
[2020-10-04] MEDS: methylPREDNISolone Sod Succ 40 MG VIAL IVP SCH (08:38)
[2020-10-04] MEDS: Digoxin 0.5 MG/2 ML AMP SLOW IVP SCH (08:43)
[2020-10-04] MEDS: Apixaban 5 MG TAB PO SCH ×2 (08:43→20:28)
[2020-10-04] MEDS: Polyethylene Glycol 3350 17 GM Packet PER TUBE SCH (08:44)
[2020-10-04] MEDS: Nicotine 14 MG PATCH TD SCH (08:44)
[2020-10-04] MEDS ORDERED: Potassium Chloride 40 MEQ in Sodium Chloride 0.9% 250 ML 250 ML IVPB SCH (09:00)
--- NOTE | 2020-10-04 09:37 | RAD ---
CHEST 1 VIEW: Date: 10/04/2020 HISTORY: Intubated patient. COMPARISON: Radiograph prior day. FINDINGS: The tracheostomy tube tip is above the marcelo, 3.4 cm. Right IJ central venous catheter is in a simil ar location. Cardiac silhouette and mediastinal contours are similar. Trace effusions. No pneumothorax. Mild cephalization of pulmonary vasculature. IMPRESSION: Similar exam of the chest. POS: HOME
--- NOTE | 2020-10-04 09:59 | PRG ---
DATE OF SERVICE: 10/04/2020 SUBJECTIVE: Mr. Stafford is actually sitting up in the chair. Heart rate is 120 to 138, atrial fibrillation. OBJECTIVE: VITAL SIGNS: His blood pressure 110/58. LUNGS: Clear. CARDIAC: Rapid and irregular. ABDOMEN: Obese, nontender. EXTREMITIES: Warm and dry. ASSESSMENT: 1. Atrial fibrillation, persistent, now poorly controlled rate. 2. Digoxin seemed to be relatively ineffective in helping lower the heart rate. 3. Chronic obstructive pulmonary disease. 4. History of allergy to amiodarone. PLAN: 1. Try to add Multaq per tube. 2. He is already on intravenous and PEG tube Cardizem. 3. He is already on beta-blockers. 4. We will stop digoxin, it seemed to be ineffective. 5. Replete potassium. We will continue to follow with you. Job ID: [id number]
[2020-10-04] MEDS ORDERED: Dronedarone HCl 400 MG TAB PO SCH (10:00)
[2020-10-04] MEDS ORDERED: Potassium Chloride 40 MEQ in Premix Bag 1 BAG IVPB SCH (10:00)
[2020-10-04] MEDS: Diltiazem HCl 125 MG, Admixture Fee 1 EACH in Sodium Chloride 0.9% 100 ML IVPB SCH ×2 (11:40→22:50)
[2020-10-04] MEDS ORDERED: Norepinephrine 8 MG/0.9% NS 250 ML IVPB SCH (14:45)
[2020-10-04] MEDS: Dronedarone HCl 400 MG TAB PO SCH (17:00)
[2020-10-04 17:41] LABS: Anion Gap 13 mmol/L (10-20); BUN (Urea Nitrogen) 41 mg/dL (8.4-25.7); Calc. Creatinine Clearance 99 mL/min (70-130); Calcium 8.4 mg/dL (7.8-10.44); Carbon Dioxide 28 mmol/L (23-31); Chloride 113 mmol/L (98-107); Glucose 178 mg/dL (80-115); Potassium 4.2 mmol/L (3.5-5.1); Sodium 150 mmol/L (136-145)
[2020-10-04] MEDS ORDERED: Lactated Ringer's 1,000 ML IV SCH (20:00)
[2020-10-04] MEDS: Atorvastatin Calcium 40 MG TAB PER TUBE SCH (20:28)
[2020-10-04] MEDS: Ziprasidone 20 MG CAP PO SCH (20:28)
[2020-10-05] MEDS: Metoprolol Tartrate 25 MG TAB PO SCH ×4 (04:12→17:58)
[2020-10-05] MEDS: Haloperidol Lactate 5 MG/ML VIAL IM SCH ×6 (04:13→21:58)
[2020-10-05 05:51] LABS: Anion Gap 12 mmol/L (10-20); BUN (Urea Nitrogen) 36 mg/dL (8.4-25.7); Calc. Creatinine Clearance 102 mL/min (70-130); Calcium 8.4 mg/dL (7.8-10.44); Carbon Dioxide 29 mmol/L (23-31); Chloride 113 mmol/L (98-107); Glucose 156 mg/dL (80-115); Potassium 3.7 mmol/L (3.5-5.1); Sodium 150 mmol/L (136-145)
[2020-10-05 05:58] LABS: Band 29 % (5-11); Hemoglobin 8.8 g/dL (14.0-18.0); Hypochromia SLIGHT = 6-15 cells (100X) (0-5/hpf); Lymphocytes 17 % (21-51); MDiff Complete? YES; Macrocytosis SLIGHT = 6-15 cells (100X) (0-5/hpf); Mean Corpuscular HGB CONC 31.1 g/dL (32.0-36.0); Mean Platelet Volume 8.8 fL (7.4-10.4); Monocytes 4 % (0-10); Neutrophil 49 % (42-75); Platelet Count 225 thou/uL (130-400); Platelet Morphology Comment Appears Adequate; RBC Distribution Width 12.7 % (11.5-14.5); Reactive Lymphocytes 1 % (0-10); Red Blood Cell (RBC) Count 2.57 mill/uL (4.70-6.10); White Blood Cell (WBC) Count 12.8 thou/uL (4.8-10.8)
--- NOTE | 2020-10-05 08:02 | RAD ---
RADIOGRAPH CHEST 1 VIEW: DATE: 10/05/2020 TIME: 4:47 AM HISTORY: 70-year-old male in respiratory distress. COPD exacerbation. COMPARISON: 10/04/2020 and 10/03/2020 FINDINGS: Tracheostomy tube and right-sided central vascular catheter remain. Mild hazy streaky density at right lung base remains. Mild hazy streaky densities at bilateral lung apices, chronic versus acute, remain. No overt consolidation or pneumothorax. Lateral costophrenic angles are sharp. No interval change. IMPRESSION: 1) nonspecific mild pulmonary densities. 2) no interval change
[2020-10-05] MEDS: Apixaban 5 MG TAB PO SCH ×2 (08:41→21:57)
[2020-10-05] MEDS: Dronedarone HCl 400 MG TAB PO SCH ×2 (08:41→17:58)
[2020-10-05] MEDS: Aspirin Chewable 81 MG TAB PER TUBE SCH (08:41)
[2020-10-05] MEDS: methylPREDNISolone Sod Succ 40 MG VIAL IVP SCH (08:41)
[2020-10-05] MEDS: carBAMazepine 200 MG TAB PO SCH ×2 (08:41→21:57)
[2020-10-05] MEDS: Nicotine 14 MG PATCH TD SCH (08:41)
[2020-10-05] MEDS: Zonisamide 100 MG CAP PER TUBE SCH ×2 (08:42→21:56)
[2020-10-05] MEDS: Ezetimibe 10 MG TAB PER TUBE SCH (08:42)
[2020-10-05] MEDS: Furosemide 20 MG/2 ML VIAL SLOW IVP SCH (08:42)
[2020-10-05] MEDS: Folic Acid 1 MG TAB PER TUBE SCH (08:42)
[2020-10-05] MEDS: Famotidine 20 MG TAB PER TUBE SCH ×2 (08:42→21:56)
[2020-10-05] MEDS: Ziprasidone 20 MG CAP PO SCH ×2 (08:42→21:56)
[2020-10-05] MEDS: Polyethylene Glycol 3350 17 GM Packet PER TUBE SCH (08:43)
--- NOTE | 2020-10-05 09:36 | PRG ---
DATE OF SERVICE: 10/05/2020 SUBJECTIVE: Mr. Stafford is on the ventilator. He has had tracheostomy. His heart rate is still poorly controlled, rate of 100 to 120. OBJECTIVE: LUNGS: Some rhonchi. CARDIAC: Irregular. ABDOMEN: Soft and nontender. EXTREMITIES: Warm and dry. No edema. Reviewing the records, he has had an echocardiogram done here showing the ejection fraction appears normal, but difficult to assess. ASSESSMENT: 1. Chronic obstructive pulmonary disease. 2. Atrial fibrillation, rate still poorly controlled. 3. History of amiodarone allergy. 4. Respiratory failure. PLAN: 1. He is on high-dose Cardizem. 2. He is on metoprolol. 3. He is on Multaq, continued currently for now. His rate can be controlled. Consideration for biventricular pacemaker and junction ablation could be given. Prognosis guarded in this patient. Job ID: [id number]
[2020-10-05] MEDS: Diltiazem HCl 125 MG, Admixture Fee 1 EACH in Sodium Chloride 0.9% 100 ML IVPB SCH ×2 (09:46→17:59)
[2020-10-05] MEDS: Scopolamine 1.5 mg/72 hour Patch TD SCH (12:42)
--- NOTE | 2020-10-05 12:59 | PDOC.FM ---
- Subjective Subjective: Patient was resting in bed at the time of evaluation. Patient appears less agitated this AM and was able to follow simple commands. No acute overnight events were reported by the Resident Night Team or Nursing Staff. - Objective Vital Signs & Weight: Vital Signs (12 hours) Temp Pulse Resp Pulse Ox 10/05/20 10:45 114 H 28 H 96 10/05/20 08:00 99.0 F 94 L 10/05/20 06:36 99 10/05/20 06:35 131 H 24 H 93 L 10/05/20 04:00 98.7 F 10/05/20 02:22 121 H 27 H 96 Weight Admit Weight 111.992 kg Weight 97.795 kg Most Recent Monitor Data Heart Rate from ECG 117 NIBP 126/64 NIBP BP-Mean 84 Respiration from ECG 27 SpO2 96 I&O: 10/04/20 10/05/20 10/06/20 06:59 06:59 06:59 Intake Total 2537 2350.5 440 Output Total 3120 2370 430 Balance -583 -19.5 10 Result Diagrams: 10/06/20 04:39 10/06/20 04:39 Phys Exam - Physical Examination Constitutional: NAD HEENT: oral pharynx no lesions Neck: supple, full ROM Course breath sounds Cardiovascular: no significant murmur, no rub Irregular Gastrointestinal: soft, non-tender, no distention, positive bowel sounds Musculoskeletal: no edema, pulses present Neurological: moves all 4 limbs Cognition appears to be improving Dx/Plan (1) Atrial flutter with rapid ventricular response Code(s): I48.92 - UNSPECIFIED ATRIAL FLUTTER Status: Acute (2) COPD (chronic obstructive pulmonary disease) Status: Chronic (3) HLD (hyperlipidemia) Code(s): E78.5 - HYPERLIPIDEMIA, UNSPECIFIED Status: Chronic (4) HTN (hypertension) Code(s): I10 - ESSENTIAL (PRIMARY) HYPERTENSION Status: Chronic (5) Acute respiratory failure with hypoxia and hypercapnia Code(s): J96.01 - ACUTE RESPIRATORY FAILURE WITH HYPOXIA; J96.02 - ACUTE RESPIRATORY FAILURE WITH HYPERCAPNIA Status: Acute (6) Macrocytic anemia Code(s): D53.9 - NUTRITIONAL ANEMIA, UNSPECIFIED Status: Acute (7) Epilepsy Code(s): G40.909 - EPILEPSY, UNSP, NOT INTRACTABLE, WITHOUT STATUS EPILEPTICUS Status: Chronic - Plan Plan: Patient is a 70 y/o male with a PMH notable for COPD and Seizure Disorder to was transferred from an outside hospital with a chief complaint of worsening SOB. #Acute Hypoxic Respiratory Failure w/ Hypercapnea 2/2 COPD Exacerbation/Bro nchospasm -s/p Levaquin, Vanc -Procal: 0.12 -Covid: Negative x2 -Continue steroids, Dulera, Duonebs -Pulm: Consulted, recs appreciated - weaned off Precedex overnight -s/p Trach/Peg on 09/30 w/o complications -Case Management: Consulted, recs appreciated with regard to LTAC placement -Will consider additional imaging if concern for cognition off sedation #A-Fib w/ RVR -HR mildly improved from 10/02 with HR 100-120s - continues to go in and out of A- Fib -Cardiology: Consulted, recs appreciated - will add Multaq and DC Digoxin -Per Cardiology, patient may require evaluation by EP if unable to control rate with triple-therapy -Continue Metoprolol, Diltiazem PO and gtt #Hypernatremia -Elevated intermittently since admission -Na: 150 -Free Water Deficit: 3.7L -Currently receiving Free H2O Flushes via PEG -s/p 1L LR overnight - no improvement -Will gently hydrate with D5W @ 100 ml/hr until 2L has been administered #HFpEF -Echo (09/30): Technically difficult study with normal appearing EF, significantly dilated Left Atrium -Will monitor volume status closely -Strict I&Os #EVANGELINA -Resolved #Seizure -Resumed home Carbemazepine and Zonisamide regimen #AMS -Added Haldol and Ziprasidone -Will consider Neuro consult or imaging based on Neuro exam off sedation #Macrocytic Anemia - Folate Deficiency -Monitor as it seems there is a dilutional aspect to Hgb - will also assess for bleeding as we can go off of vitals signs -Folate: 3 - will supplement accordingly #Thrombocytopenia -Stable #HLD -Will continue home medication regimen PCP: Lacey Code: Full Diet: Tube Feeds Activity: Bed Rest VTE PPx: Apixaban Dispo: Patient is currently s/p Trach/PEG following AHRF 2/2 COPD Exacerbation. Will continue ventilation, steroids, and inhaled treatments as per above. Patient's A-Fib has been extremely difficult to manage due to patient's Amiodarone allergy. Cardiology consulted with recs appreciated - will consider EP consult if Multaq, Metoprolol and Diltiazem does not significantly improve patient's HR. Patient's mental status is difficult to evaluate fully, with family members stating that mental status waxes and wanes at baseline - will continue home anti-epileptic regimen with Haldol and Geodon added on for augmentation. Currently planning for transfer to LTAC but beds are limited and patient's mental status and cardiac conditions require further management. Expected LOS > 48H. Addendum - Attending - Attending Attestation Date/Time: 10/06/20 2907 I personally evaluated the patient and discussed the management with Dr. Macario yesterday. I agree with the History, Examination, Assessment and Plan documented above with any addition or exceptions noted below.
[2020-10-05] MEDS: Dextrose 5% in Water 1,000 ML IV SCH (14:20)
--- NOTE | 2020-10-05 20:05 | PRG ---
DATE OF SERVICE: 10/05/2020 SUBJECTIVE: Samson Stafford remains in the ICU. OBJECTIVE: VITAL SIGNS: Heart rates in the 90s, respiratory rates in the 20s, blood pressure 101/68, oximetry is in the high 90s. LUNGS: Remarkable for rhonchi bilaterally. HEART: Regular rhythm. ABDOMEN: Soft. He looks more comfortable than he did yesterday. LABORATORY DATA: White count 12.8, hemoglobin 8.8, platelets 225. Sodium 150, potassium 3.7, chloride 113, bicarb 29, BUN 36, creatinine 0.96. IMPRESSION: Respiratory failure associated with chronic obstructive pulmonary disease exacerbation. We will continue with current care, working towards placement. Atrial fibrillation still an issue. He has a history reportedly of amiodarone intolerance, although I am not sure what this is. He is on a beta jm at 50 mg a day, but I would go a higher than that probably. He is on high-dose Cardizem and Multaq. I think with a tracheostomy, attempts at pacing or ablation might be complicated by infections. We will continue supportive care. Job ID: [id number]
[2020-10-05] MEDS: Atorvastatin Calcium 40 MG TAB PER TUBE SCH (21:57)
[2020-10-05 23:02] LABS: Bilirubin Negative (Negative); Blood, Urine 2+ (Negative); Clarity Turbid (Clear); Glucose, Urine (Dipstick) 100 mg/dL (Negative); Ketone, Urine Negative (Negative); Leukocyte Negative Leu/uL (Negative); Nitrite Negative (Negative); Protein, Urine (Dipstick) 30 mg/dL (Neg-Trace); Specific Gravity, Urine 1.015 (1.002-1.036); Squamous Epithelial None Seen HPF (0-3); Urobilinogen Normal mg/dL (Less than 2); Yeast-Budding 2+ HPF (None Seen); pH, Urine 6.5 (5.0-9.0)
[2020-10-05 23:11] LABS: Bacteria/HPF Rare-Few HPF (None Seen); Yeast-Hyphae 2+ HPF (None Seen)
[2020-10-05 23:12] LABS: Urine Culture Reflex Yes Yes
[2020-10-06] MEDS: Dextrose 5% in Water 1,000 ML IV SCH ×3 (00:27→15:25)
[2020-10-06] MEDS: Metoprolol Tartrate 25 MG TAB PO SCH ×2 (00:27→07:35)
[2020-10-06 06:32] LABS: Anion Gap 10 mmol/L (10-20); BUN (Urea Nitrogen) 30 mg/dL (8.4-25.7); Calc. Creatinine Clearance 103 mL/min (70-130); Carbon Dioxide 32 mmol/L (23-31); Chloride 112 mmol/L (98-107); Glucose 221 mg/dL (80-115); Potassium 3.6 mmol/L (3.5-5.1); Sodium 150 mmol/L (136-145)
[2020-10-06 07:06] LABS: #Basophils 0.1 thou/uL (0.0-0.2); #Eosinphils 0.1 thou/uL (0.0-0.7); #Lymphocytes 2.1 thou/uL (1.20-3.40); #Monocytes 0.5 thou/uL (0.11-0.59); #Neutrophils 8.2 thou/uL (1.40-6.50); %Basophils 0.5 % (0.0-1.0); %Eosinophils 0.7 % (0.0-10.0); %Lymphocytes 19.4 % (21.0-51.0); %Monocytes 4.1 % (0.0-10.0); %Neutrophils 75.3 % (42.0-75.0); Hemoglobin 8.4 g/dL (14.0-18.0); Mean Corpuscular HGB CONC 31.5 g/dL (32.0-36.0); Mean Corpuscular Hemoglobin 35.5 pg (27.0-31.0); Mean Platelet Volume 9.2 fL (7.4-10.4); Platelet Count 185 thou/uL (130-400); RBC Distribution Width 12.6 % (11.5-14.5); Red Blood Cell (RBC) Count 2.37 mill/uL (4.70-6.10); White Blood Cell (WBC) Count 10.9 thou/uL (4.8-10.8)
[2020-10-06] MEDS: Haloperidol Lactate 5 MG/ML VIAL IM SCH ×2 (07:35→09:46)
--- NOTE | 2020-10-06 08:04 | RAD ---
XR Chest 1 View Portable History: COPD exacerbation Comparison: Radiograph prior day Findings: Tracheostomy is similar. Slight improved bibasilar lung aeration. No pneumothorax. Heart si ze is enlarged. Impression: Improved basilar lung aeration and decreasing pleural effusions.
--- NOTE | 2020-10-06 08:24 | PDOC.FM ---
- Subjective Subjective: Patient was laying in bed at the time of evaluation. His mental cognition continues to improve, and he is able to shake his head "yes" or "no" to basic questions. Per Nursing Staff, patient's HR was primarily in the 90s low-100s overnight. - Objective Vital Signs & Weight: Vital Signs (12 hours) Temp Pulse Resp Pulse Ox 10/06/20 06:34 111 H 20 100 10/06/20 06:33 100 10/06/20 04:00 99.0 F 10/05/20 23:56 98.6 F 10/05/20 22:03 94 24 H 100 Weight Admit Weight 111.992 kg Weight 95.617 kg Most Recent Monitor Data Heart Rate from ECG 126 NIBP 110/62 NIBP BP-Mean 78 Respiration from ECG 16 SpO2 100 I&O: 10/05/20 10/06/20 10/07/20 06:59 06:59 06:59 Intake Total 2350.5 3931 Output Total 2370 3816 Balance -19.5 115 Result Diagrams: 10/06/20 04:39 10/06/20 04:39 Phys Exam - Physical Examination Constitutional: NAD Neck: supple Course breath sounds Cardiovascular: no significant murmur, no rub Tachycardia Gastrointestinal: soft, non-tender, no distention, positive bowel sounds Musculoskeletal: no edema, pulses present Deviation from normal: Flat affect - mildly improved from baseline Dx/Plan (1) Atrial flutter with rapid ventricular response Code(s): I48.92 - UNSPECIFIED ATRIAL FLUTTER Status: Acute (2) COPD (chronic obstructive pulmonary disease) Status: Chronic Qualifiers: COPD type: COPD with acute exacerbation Qualified Code(s): J44.1 - Chronic obstructive pulmonary disease with (acute) exacerbation (3) HLD (hyperlipidemia) Code(s): E78.5 - HYPERLIPIDEMIA, UNSPECIFIED Status: Chronic (4) HTN (hypertension) Code(s): I10 - ESSENTIAL (PRIMARY) HYPERTENSION Status: Chronic (5) Acute respiratory failure with hypoxia and hypercapnia Code(s): J96.01 - ACUTE RESPIRATORY FAILURE WITH HYPOXIA; J96.02 - ACUTE RESPIRATORY FAILURE WITH HYPERCAPNIA Status: Acute (6) Macrocytic anemia Code(s): D53.9 - NUTRITIONAL ANEMIA, UNSPECIFIED Status: Acute (7) Epilepsy Code(s): G40.909 - EPILEPSY, UNSP, NOT INTRACTABLE, WITHOUT STATUS EPILEPTICUS Status: Chronic - Plan Plan: Patient is a 70 y/o male with a PMH notable for COPD and Seizure Disorder to was transferred from an outside hospital with a chief complaint of worsening SOB. #AHRF w/ Hypercapnea 2/2 COPD Exacerbation/Bronchospasm -s/p Levaquin, Vanc -Procal: 0.12 -Covid: Negative x2 -Continue steroids, Dulera, Duonebs -Pulm: Consulted, recs appreciated - weaned off Precedex overnight -s/p Trach/Peg on 09/30 w/o complications -Case Management: Consulted, recs appreciated with regard to LTAC placement -Will consider additional imaging if concern for cognition off sedation #A-Fib w/ RVR -HR mildly improved from 10/02 with HR 100-120s - continues to go in and out of A- Fib -Cardiology: Consulted, recs appreciated - will add Multaq and DC Digoxin -Per Cardiology, patient may require evaluation by EP if unable to control rate with triple-therapy -Continue Metoprolol, Diltiazem PO and gtt #Hypernatremia -Elevated intermittently since admission -Na: 150 -Free Water Deficit: 3.4L -Currently receiving Free H2O Flushes via PEG -s/p 2L LR overnight - no improvement -Will gently hydrate with D5W @ 100 ml/hr and place orders for SSI w/ Accuchecks #HFpEF -Echo (09/30): Technically difficult study with normal appearing EF, significantly dilated Left Atrium -Will monitor volume status closely -Strict I&Os #EVANGELINA -Resolved #Seizure -Resumed home Carbemazepine and Zonisamide regimen #AMS -Added Haldol and Ziprasidone - will change Haldol to PRN only as cognition appears to be improving -Will consider Neuro consult or imaging based on Neuro exam off sedation #Macrocytic Anemia - Folate Deficiency -Monitor as it seems there is a dilutional aspect to Hgb - will also assess for bleeding as we can go off of vitals signs -Folate: 3 - will supplement accordingly #Thrombocytopenia -Stable #HLD -Will continue home medication regimen PCP: Lacey Code: Full Diet: Tube Feeds Activity: Bed Rest VTE PPx: Apixaban Dispo: Patient is currently s/p Trach/PEG following AHRF 2/2 COPD Exacerbation. Will continue ventilation, steroids, and inhaled treatments as per above. Patient's A-Fib has been extremely difficult to manage due to patient's Amiodarone allergy. Cardiology consulted with recs appreciated - consulted EP on 10/06 in light of triple therapy with Multaq, Metoprolol and Diltiazem. Patient's mental status is difficult to evaluate fully, with family members stating that mental status waxes and wanes at baseline - will continue home anti-epileptic regimen and Geodon with Haldol PRN for agitation. Currently planning for transfer to LTAC but beds are limited and patient's mental status and cardiac conditions require further management. Expected LOS > 48H. Addendum - Attending - Attending Attestation Date/Time: 10/06/20 4884 I personally evaluated the patient and discussed the management with Dr. Macario. I agree with the History, Examination, Assessment and Plan documented above with any addition or exceptions noted below.
[2020-10-06] MEDS: Furosemide 20 MG/2 ML VIAL SLOW IVP SCH (08:54)
[2020-10-06] MEDS: Zonisamide 100 MG CAP PER TUBE SCH ×2 (08:54→22:22)
[2020-10-06] MEDS: Folic Acid 1 MG TAB PER TUBE SCH (08:54)
[2020-10-06] MEDS: Nicotine 14 MG PATCH TD SCH (08:54)
[2020-10-06] MEDS: methylPREDNISolone Sod Succ 40 MG VIAL IVP SCH (08:54)
[2020-10-06] MEDS: Apixaban 5 MG TAB PO SCH (08:54)
[2020-10-06] MEDS: Aspirin Chewable 81 MG TAB PER TUBE SCH (08:54)
[2020-10-06] MEDS: Ziprasidone 20 MG CAP PO SCH (08:54)
[2020-10-06] MEDS: Famotidine 20 MG TAB PER TUBE SCH ×2 (08:54→22:21)
[2020-10-06] MEDS: Ezetimibe 10 MG TAB PER TUBE SCH (08:54)
[2020-10-06] MEDS: Dronedarone HCl 400 MG TAB PO SCH ×2 (08:55→17:24)
[2020-10-06] MEDS: carBAMazepine 200 MG TAB PO SCH (08:55)
[2020-10-06] MEDS: Polyethylene Glycol 3350 17 GM Packet PER TUBE SCH (08:56)
--- NOTE | 2020-10-06 09:24 | PRG ---
DATE OF SERVICE: 10/06/2020 SUBJECTIVE: Mr. Stafford is awake. Initially, he does not report chest pain or pressure. OBJECTIVE: VITAL SIGNS: Blood pressure 194/56, pulse is still 120, atrial fibrillation. LUNGS: Diffuse rhonchi. CARDIAC: Irregularly irregular. ABDOMEN: Soft, nontender. EXTREMITIES: There is no significant edema. PERTINENT LABORATORY DATA: Hemoglobin is 8.4. ASSESSMENT: 1. Respiratory failure. 2. Remains hypernatremic. 3. Atrial fibrillation, still poorly controlled ventricular rate. PLAN: 1. He is on intravenous diltiazem. 2. His metoprolol dose will be increased. 3. He is on oral diltiazem. 4. The digoxin that was given did not seem to help the heart rate much. 5. He is on apixaban. 6. He is on Multaq. 7. Allergic to amiodarone. We will consult electrophysiology. May need to consider pacemaker and AV junction ablation if the rate can be controlled. I consulted Dr. Purcell. Job ID: [id number]
[2020-10-06] MEDS ORDERED: Haloperidol Lactate 5 MG/ML VIAL IM PRN (10:41)
[2020-10-06] MEDS ORDERED: Dextrose 5% in Water 1,000 ML IV PRN (10:43)
[2020-10-06] MEDS ORDERED: Dextrose 50% Abboject 50 ML SYRINGE SLOW IVP PRN (10:43)
[2020-10-06] MEDS: Diltiazem HCl 125 MG, Admixture Fee 1 EACH in Sodium Chloride 0.9% 100 ML IVPB SCH (10:56)
[2020-10-06] MEDS: HumaLOG 300 UNITS/3 ML VIAL SC PRN ×2 (11:15→15:36)
[2020-10-06] MEDS ORDERED: Metoprolol Tartrate 25 MG TAB PO SCH (12:00)
--- NOTE | 2020-10-06 13:52 | PDOC.PALCO ---
Palliative Care Consult - Consult Details Requesting Physician: Dr Chua Reason for Consult: family support Family Members Present: none - Pertinent HPI 70-year-old male admitted 09/19/2020. Past medical history includes COPD, current tobacco abuse, CHF with EF 40 to 50%, MO, epilepsy and medication noncompliance. He presented to [place] ED for chest pain, shortness of breath with exertion, lower extremity swelling that had been worsening over the previous 2 weeks, and productive cough. He was admitted for respiratory failure, Covid swab was negative, ABG showed hypercapnia. He was intubated and sedated and started on prednisone, antibiotics and duo nebs. He has continued on the ventilator and required tracheostomy 2/2 prolonged ventilation with failure to wean. He continues to have agitation requiring Haldol and Geodon for sedation. - Social History Smoking Status: Current every day smoker - Medications MAR Reviewed: Yes - Allergies Allergies/Adverse Reactions: Allergies Allergy/AdvReac Type Severity Reaction Status Date / Time amiodarone Allergy Verified 02/10/20 20:00 - ROS Non Response: due to endotracheal tube Respiratory: dry cough Cardiology: palpitations - Objective Vital Signs: Vital Signs - Most Recent Temp Pulse Resp BP Pulse Ox 97.9 F 107 H 20 127/68 100 10/06/20 12:00 10/06/20 10:09 10/06/20 10:09 10/05/20 10:00 10/06/20 10:09 - Advance Directives Medical Power of [place]: Cady Stafford- [phone] Specific Directives: Full resuscitation - Problem List (1) Atrial fibrillation Code(s): I48.91 - UNSPECIFIED ATRIAL FIBRILLATION Current Visit: Yes Status: Acute (2) SVT (supraventricular tachycardia) Code(s): I47.1 - SUPRAVENTRICULAR TACHYCARDIA Current Visit: No Status: Acute (3) COPD (chronic obstructive pulmonary disease) Current Visit: Yes Status: Chronic Qualifiers: COPD type: COPD with acute exacerbation Qualified Code(s): J44.1 - Chronic obstructive pulmonary disease with (acute) exacerbation Assessment: Is on trach collar- agitation requiring sedation is slowing ability to wean off (4) Acute respiratory failure with hypoxia and hypercapnia Code(s): J96.01 - ACUTE RESPIRATORY FAILURE WITH HYPOXIA; J96.02 - ACUTE RESPIRATORY FAILURE WITH HYPERCAPNIA Current Visit: Yes Status: Acute - Plan/Recommendations Plan:Is still agitated and making weaning difficult- is on trach collar. Continues in AFib with RVR- Dr Jasso considering AV junction ablation with pacemeker placement- Will need LTAC placement with trach 90 minutes spent on this encounter with >50% of the time in counseling and coordination of care. Thank you for this very appropriate consult.
[2020-10-06] MEDS ORDERED: PROPOFOL 20 ML ONE (14:08)
[2020-10-06] MEDS ORDERED: PROPOFOL 200 MG/20 ML VIAL IV SCH (15:15)
[2020-10-06 15:21] VITALS: BMI 28.5
[2020-10-06] MEDS: Metoprolol Tartrate 25 MG TAB PER TUBE SCH (17:30)
[2020-10-06] MEDS ORDERED: Dronedarone HCl 400 MG TAB PER TUBE SCH (17:30)
[2020-10-06] MEDS: Lactated Ringer's 1,000 ML IV SCH (18:34)
--- NOTE | 2020-10-06 20:08 | OP ---
DATE OF PROCEDURE: 10/06/2020 PROCEDURE PERFORMED: Electrical cardioversion. ADDITIONAL REFERRING PHYSICIAN: Dr. Jasso. REASON FOR PROCEDURE: Mr. Stafford is a pleasant 70-year-old man with history of atrial flutter, post CTI ablation in October 2019, who has developed atrial fibrillation in rapid rates in the setting of bronchitis intermittently. He has been persisting now with rapid rates and with difficult ventricular rate control requiring diltiazem, beta blockers, and Multaq. Multaq was initiated 2 days ago, has been on Eliquis therapy. We are planning to perform a cardioversion to restore sinus rhythm. The procedure consent was obtained from family, the over the phone. Risks and benefits explained. DESCRIPTION OF PROCEDURE: The patient received propofol by dr Dhaliwal, engineering surveyor. After adequate level of sedation achieved, a synchronized 200- joule shock promptly converted him back to sinus rhythm at 72 beats per minute. PLAN: Continue Multaq and Eliquis. Titrate off IV diltiazem. Continue p.o. diltiazem unless heart rates are suboptimal. Continue beta-jm therapy as well. Should recurrent atrial fibrillation is seen consider ablate and pace strategy. Critical care time 30 minutes spent.. Job ID: [id number] MTDD
--- NOTE | 2020-10-06 20:42 | PRG ---
DATE OF SERVICE: 10/06/2020 SUBJECTIVE: Av Stafford remains stable. He still has secretion issues, but he is able to clear them effectively. OBJECTIVE: VITAL SIGNS: Heart rate is in 80s, respiratory rate is 20, oximetry is 100% on trach collar, blood pressure 108/53. LUNGS: Clear. HEART: Regular rate and rhythm. ABDOMEN: Soft and nontender. EXTREMITIES: Without asymmetry or significant edema. LABORATORY DATA: White count 10.9, hemoglobin 8.4, and platelets 185. Sodium 150, potassium 3.6, chloride 112, bicarb 32, BUN 30, creatinine 0.95. Electrophysiology evaluated today, they are considering at some point in time cardioversion. I suggested cardioversion while he is in the Critical Care Unit since he was already anticoagulated and had a tracheostomy in place. He was sedated with 50 mg of propofol and Ambu bagged once he was somnolent. He was then given another 50 mg of propofol. Once he was completely sedated, he was electively cardioverted in the sinus rhythm successfully. He was Ambu bagged for approximately 5 minutes after the procedure and awakened and began with spontaneous breathing. He returned to his baseline state within 15 minutes. He was scheduled to transfer out of the Critical Care Unit today. Fortunately, now he is in sinus rhythm. Hopefully, he will remain in sinus rhythm. He already has multiple different drugs on board. Critical care time, 30 minutes. Job ID: [id number]
--- NOTE | 2020-10-06 21:28 | CON ---
DATE OF CONSULTATION: TIME OF CONSULTATION: 1 o'clock in the afternoon. REASON FOR CONSULTATION: Atrial fibrillation with RVR. HISTORY OF PRESENT ILLNESS: Mr. Stafford is a 70-year-old gentleman who was admitted for COPD exacerbation, who developed respiratory distress requiring intubation. Eventually, he required tracheostomy placement in addition to PEG tube placement. Throughout his hospitalization, he has been in and out of atrial fibrillation, initially paroxysmal, now persisting for a few days, requiring increasing rate control with medications including diltiazem drip, oral diltiazem, oral metoprolol, in addition to Multaq. In regard to his orientation, he waxes and wanes. He continues to have difficult to control ventricular rates with his ongoing atrial fibrillation despite the aggressive rate control regimen, prompting EP consultation. Mr. Stafford today is minimally responsive, but does nod some yes and no. His cognition seems to be significantly limited. PAST MEDICAL HISTORY: 1. Typical atrial flutter diagnosed in 2018 status post EP study and CTI modification in October 2019. 2. Left heart catheterization previously showing nonocclusive coronary artery disease with medical management. 3. Mildly reduced LVEF 40% to 50%, by echo 09/12/2019. Echo on 09/19/2020, reportedly "normal EF.". 4. Seizure disorder. 5. Longstanding tobacco use. 6. COPD. 7. Hypertension. ALLERGIES: REPORTED AMIODARONE (SPOKE WITH , THIS IS AN INTOLERANCE, MAKES THE PATIENT GROGGY AND WEAK IN THE LEGS, BUT NOT AN ANAPHYLACTIC RESPONSE). HOME MEDICATIONS: 1. Carbamazepine. 2. Dulera. 3. Eliquis 5 mg b.i.d. 4. Zonisamide. 5. Zetia. 6. Lipitor. 7. Tenormin. 8. Aspirin. 9. Ventolin. FAMILY HISTORY: Could not be obtained. SOCIAL HISTORY: Positive for tobacco use by chart review. REVIEW OF SYSTEMS: Could not be obtained due to patient's cognitive status limitations. OBJECTIVE: VITALS: Pulse 117, oxygen 95%, respirations 26, blood pressure 109/58, temp 97.9. GENERAL: Patient is awake. He is responsive to verbal stimuli. His orientation cannot be assessed. He does drift off to sleep easily, but will occasionally indicate yes or no when asked questions. He does not appear to be in any acute distress. He has a tracheostomy and a PEG tube present. He is in poor condition overall. CARDIOVASCULAR: His heart rate is irregularly irregular, occasionally tachycardic. LUNGS: Lung sounds are decreased in the bases with some fine bibasilar crackles. NECK: Supple without jugular venous distention. ABDOMEN: Obese with PEG tube present. No palpable masses. EXTREMITIES: Warm and dry to touch with trace peripheral edema. NEUROLOGIC EXAM: Could not be assessed. Gait was not assessed. DATABASE: 09/19/2020, echocardiogram, reportedly normal EF, though no percentage is signed due to technical difficulties with the study during his AF, RVR. LABORATORY DATA: Hematology was reviewed. Hemoglobin 8.4. Chemistry was reviewed, potassium 3.6, creatinine 0.95, magnesium 2.2 week ago. Telemetry and EKGs show paroxysmal atrial fibrillation with sinus rhythm, most recently on 09/30. OAC was initiated on 10/02. Persistent atrial fibrillation has been seen since the with RVR, now in the low 100-beat per minute range. IMPRESSION: 1. Chronic obstructive pulmonary disease exacerbation with acute respiratory failure. 2. Atrial fibrillation with RVR. 3. Elevated CHADS-VASc score on Eliquis for anticoagulation. 4. History of seizure disorder. 5. Coronary artery disease. 6. Preserved left ventricular ejection fraction. PLAN AND RECOMMENDATIONS: Mr. Stafford is a fortunate 70-year-old gentleman with significant acute medical issues ongoing. He came in acute respiratory failure due to COPD exacerbation and is now seen to have a trach and also a PEG tube. He has been in and out of atrial fibrillation with RVR throughout his hospitalization and as of 09/30, has been persisting in atrial fibrillation with RVR that has been difficult to rate control with medications alone. The question has been asked if he would benefit from an AV node ablation pacemaker. Given his trach and his risk factors for pneumonia, this could result in a device infection. Would like to avoid device implant if possible. I think the most reasonable next step given his ongoing oral anticoagulation would be for a cardioversion. Spoken with Dr. Dhaliwal and he is agreeable to do this at bedside and providing sedation and ventilation through his trach. Have also spoken with his over the phone who provided telephone consent for this procedure. His also confirmed that the amiodarone did not result in an anaphylactic reaction, but more of an intolerance that for day-to-day life, left him rather incapacitated due to leg weakness and dizziness. We will proceed with cardioversion at bedside today and watch for recurrence of his atrial arrhythmias. If recurrence is seen, a rate control strategy alone would likely be his best option. Thank you for allowing me to participate in care of this patient. Critical care time 30 minutes spent in addition to preparation of this report. Job ID: [id number] MTDD
[2020-10-06] MEDS: Apixaban 5 MG TAB PER TUBE SCH (22:18)
[2020-10-06] MEDS: Atorvastatin Calcium 40 MG TAB PER TUBE SCH (22:18)
[2020-10-06] MEDS: carBAMazepine 200 MG TAB PER TUBE SCH (22:18)
[2020-10-06] MEDS: Ziprasidone 20 MG CAP PER TUBE SCH (22:19)
--- NOTE | 2020-10-07 00:05 | OP ---
DATE OF PROCEDURE: 10/06/2020 PROCEDURE PERFORMED: Bronchoscopy for tracheostomy replacement. ANESTHESIA: None. INDICATION FOR PROCEDURE: This is a 70-year-old male who is a little over week post tracheostomy placement for prolonged mechanical ventilation. 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 I was notified by the nursing staff that he had pulled the whole tracheostomy out, thinking it was a standard tracheostomy. The trach could not be replaced easily. Respiratory therapist was able to get a 6.0 endotracheal tube again while I was driving appear to replace the trach. I used a bronchoscope and was able to locate the ostomy site and placed a size 8 Bivona trach back and secured it at 13 cm. The patient ventilated fine. The tube was placed, past the area of tracheomalacia. He tolerated the procedure well. Job ID: [id number]
[2020-10-07] MEDS: Metoprolol Tartrate 25 MG TAB PER TUBE SCH ×3 (00:13→12:12)
[2020-10-07 01:19] LABS: Anion Gap 14 mmol/L (10-20); BUN (Urea Nitrogen) 30 mg/dL (8.4-25.7); Calc. Creatinine Clearance 99 mL/min (70-130); Carbon Dioxide 25 mmol/L (23-31); Chloride 113 mmol/L (98-107); Glucose 157 mg/dL (80-115); Potassium 4.1 mmol/L (3.5-5.1); Sodium 148 mmol/L (136-145)
[2020-10-07] MEDS: Lactated Ringer's 1,000 ML IV SCH ×2 (04:32→14:38)
--- NOTE | 2020-10-07 05:42 | PDOC.FM ---
- Subjective Subjective: Patient was lying in bed in soft restraints at the time of evaluation - he appeared to be at baseline. Per chart review, patient pulled his trach tube out last night and required replacement by Pulm. Since that time, patient has maintained adequate O2Sats with his previous rate of supplemental O2. - Objective Vital Signs & Weight: Vital Signs (12 hours) Temp Pulse Resp BP Pulse Ox 10/07/20 04:00 98.9 F 94 20 105/54 L 95 10/06/20 23:47 96 10/06/20 21:40 98.7 F 80 18 110/57 L 97 10/06/20 19:43 100 10/06/20 19:39 99 Weight Admit Weight 111.992 kg Weight 95.617 kg Most Recent Monitor Data Heart Rate from ECG 86 NIBP 107/53 NIBP BP-Mean 71 Respiration from ECG 20 SpO2 100 I&O: 10/05/20 10/06/20 10/07/20 06:59 06:59 06:59 Intake Total 2350.5 3931 4106.5 Output Total 2370 3816 1755 Balance -19.5 115 2351.5 Result Diagrams: 10/07/20 07:10 10/07/20 07:10 Phys Exam - Physical Examination Constitutional: NAD HEENT: moist MMs Neck: supple, full ROM Course breath sounds Cardiovascular: no significant murmur, no rub Difficult to auscultate Gastrointestinal: soft, non-tender, no distention, positive bowel sounds Musculoskeletal: no edema, pulses present Neurological: moves all 4 limbs Deviation from normal: Affect consistent with previous evaluations Dx/Plan (1) Atrial flutter with rapid ventricular response Code(s): I48.92 - UNSPECIFIED ATRIAL FLUTTER Status: Acute (2) COPD (chronic obstructive pulmonary disease) Status: Chronic Qualifiers: COPD type: COPD with acute exacerbation Qualified Code(s): J44.1 - Chronic obstructive pulmonary disease with (acute) exacerbation (3) HLD (hyperlipidemia) Code(s): E78.5 - HYPERLIPIDEMIA, UNSPECIFIED Status: Chronic (4) HTN (hypertension) Code(s): I10 - ESSENTIAL (PRIMARY) HYPERTENSION Status: Chronic (5) Acute respiratory failure with hypoxia and hypercapnia Code(s): J96.01 - ACUTE RESPIRATORY FAILURE WITH HYPOXIA; J96.02 - ACUTE RESPIRATORY FAILURE WITH HYPERCAPNIA Status: Acute (6) Macrocytic anemia Code(s): D53.9 - NUTRITIONAL ANEMIA, UNSPECIFIED Status: Acute (7) Epilepsy Code(s): G40.909 - EPILEPSY, UNSP, NOT INTRACTABLE, WITHOUT STATUS EPILEPTICUS Status: Chronic - Plan Plan: Patient is a 70 y/o male with a PMH notable for COPD and Seizure Disorder who was transferred from an outside hospital with a chief complaint of worsening SOB. #AHRF w/ Hypercapnea 2/2 COPD Exacerbation/Bronchospasm -s/p Levaquin, Vanc -Procal: 0.12 -Covid: Negative x2 -Continue steroids, Dulera, Duonebs -Pulm: Consulted, recs appreciated -s/p Trach/Peg on 09/30, pulled out overnight on 10/06 - replaced by Pulm w/o complications -Case Management: Consulted, recs appreciated with regard to LTAC placement #A-Fib w/ RVR -Since admission, patient has gone in and out of A-Fib w/ RVR despite maximum medical management -Cardiology: Consulted, recs appreciated - added Multaq and increased dose of Metoprolol, consulted EP -EP: Patient is a poor candidate for ablation - elected to cardiovert on 10/06 with successful discontinuation of Diltiazem gtt -Will continue PO Diltiazem, Metoprolol, and Multaq, with Apixaban on-board for anticoagulation #Hypernatremia -Elevated intermittently since admission -Na: 150 > 148 following IVF with D5W and then LR -Current Free Water Deficit: 2.7L -Currently receiving Free H2O Flushes via PEG in addition to IVF -Will continue to gently hydrate with LR @ 100 ml/hr due to Dx of HFpEF #HFpEF -Echo (09/30): Technically difficult study with normal appearing EF, significantly dilated Left Atrium -Will monitor volume status closely and avoid aggressive fluid hydration, as per above -Strict I&Os #EVANGELINA -Resolved #Seizure Disorder -Resumed home Carbemazepine and Zonisamide regimen #AMS -Patient's mental status has been difficult to evaluate fully since admission -Appears improved somewhat, with patient able to follow simple commands and shake head "yes" or "no" -Ziprasidone KRISTA and Haldol PRN for agitation -Per discussion with patient's family, patient's mental status has been in significant decline for some time. Patient's states that patient was diagnosed with MR years ago and demonstrates signs and symptoms consistent with Dementia, although this was not fully evaluated by patient's PCP due to poor follow-up and current acute illness #Macrocytic Anemia - Folate Deficiency -No evidence of acute bleeding - will continue to monitor appropriately with AM Labs -Will supplement Folate accordingly #Thrombocytopenia -Resolved #HLD -Will continue home medication regimen PCP: Lacey Code: Full Diet: Tube Feeds Activity: Bed Rest VTE PPx: Apixaban Dispo: Patient is currently s/p AHRF 2/2 COPD Exacerbation with cardioversion for persistent A-Fib w/ RVR. Will continue ventilation, steroids, and inhaled treatments as per above, as well as ensure rate control for A-Fib w/ RVR. Patient's condition appear stable although long-term prognosis is regrettably poor based on patient's age, mental status and multiple chronic medical conditions. Will initiate a Doc-to-Doc later today to discuss LTAC placement and long-term recovery goals. Expected LOS > 48H. Addendum - Attending - Attending Attestation Date/Time: 10/07/20 2182 I personally evaluated the patient and discussed the management with Dr. Macario. I agree with the History, Examination, Assessment and Plan documented above with any addition or exceptions noted below.
[2020-10-07 07:39] LABS: #Eosinphils 0.1 thou/uL (0.0-0.7); #Lymphocytes 2.2 thou/uL (1.20-3.40); #Monocytes 0.5 thou/uL (0.11-0.59); #Neutrophils 10.1 thou/uL (1.40-6.50); %Basophils 0.2 % (0.0-1.0); %Lymphocytes 16.8 % (21.0-51.0); %Monocytes 4.2 % (0.0-10.0); %Neutrophils 77.8 % (42.0-75.0); Mean Corpuscular HGB CONC 31.3 g/dL (32.0-36.0); Mean Corpuscular Hemoglobin 34.6 pg (27.0-31.0); Mean Platelet Volume 9.3 fL (7.4-10.4); Platelet Count 182 thou/uL (130-400); RBC Distribution Width 12.7 % (11.5-14.5)
[2020-10-07 07:59] LABS: Anion Gap 12 mmol/L (10-20); BUN (Urea Nitrogen) 27 mg/dL (8.4-25.7); Calc. Creatinine Clearance 96 mL/min (70-130); Calcium 8.1 mg/dL (7.8-10.44); Carbon Dioxide 28 mmol/L (23-31); Chloride 108 mmol/L (98-107); Glucose 183 mg/dL (80-115); Potassium 3.8 mmol/L (3.5-5.1); Sodium 144 mmol/L (136-145)
[2020-10-07] MEDS: carBAMazepine 200 MG TAB PER TUBE SCH ×2 (08:33→22:59)
[2020-10-07] MEDS: Polyethylene Glycol 3350 17 GM Packet PER TUBE SCH (08:33)
[2020-10-07] MEDS: Furosemide 20 MG/2 ML VIAL SLOW IVP SCH (08:33)
[2020-10-07] MEDS: methylPREDNISolone Sod Succ 40 MG VIAL IVP SCH (08:33)
[2020-10-07] MEDS: Famotidine 20 MG TAB PER TUBE SCH ×2 (08:33→23:00)
[2020-10-07] MEDS: Dronedarone HCl 400 MG TAB PER TUBE SCH ×2 (08:34→17:04)
[2020-10-07] MEDS: Ezetimibe 10 MG TAB PER TUBE SCH (08:34)
[2020-10-07] MEDS: Fluconazole 100 MG TAB PER TUBE SCH (08:34)
[2020-10-07] MEDS: Aspirin Chewable 81 MG TAB PER TUBE SCH (08:34)
[2020-10-07] MEDS: Ziprasidone 20 MG CAP PER TUBE SCH ×2 (08:35→23:00)
[2020-10-07] MEDS: Apixaban 5 MG TAB PER TUBE SCH ×2 (08:35→23:00)
[2020-10-07] MEDS: Folic Acid 1 MG TAB PER TUBE SCH (08:35)
[2020-10-07] MEDS: Nicotine 14 MG PATCH TD SCH (08:36)
--- NOTE | 2020-10-07 08:48 | RAD ---
EXAM: Single view of the chest HISTORY: COPD exacerbation COMPARISON: 10/06/2020 FINDINGS: Single view of the chest shows an enlarged but stable cardiomediastinal silhouette. The tr acheostomy and central venous catheter are unchanged in position. Increased interstitial lung markings are present. There is no evidence of consolidation, mass, or pleural effusion. Degenerative changes are seen in the spine. IMPRESSION: Stable exam
--- NOTE | 2020-10-07 08:55 | PDOC.BPN ---
- Brief Progress Note Encounter Date: 10/01/20 Encounter Time: 18:00 Mr. Stafford is a 70 yo gentleman with PMH significant for a-fib, COPD, obesity, seizure disorder who presented to the emergency department with acute hypercapnic respiratory failure, altered mental status described as a post-ictal state and subsequently became hypotensive. He initially was started on a levophed drip, intubated/sedated, and CT head revealed no acute pathology. He was admitted to the ICU and pulmonology was consulted. He was diagnosed with a COPD exacerbation vs bronchospasm and started on IV steroids, levaquin. COVID test was negative x 2 while admitted. He would become very agitated while weaning sedation making it difficult to assess patient's ability to tolerate extubation. Subsequently, Dr. Diez, performed a PEG tube and tracheotomy. He tolerated the procedures well. He was not having residual feeds with OG tube and transitioned to use with PEG well. He did convert from NSR to atrial fibrillation with RVR. He initially was started on esmolol GGT which controlled the rate and then converted esmolol to home atenolol. Unfortunately, he missed a few doses causing him to convert to RVR and a diltiazem GGT was initiated, loaded with Digoxin. On 10/01 he remained on the dilt GGT. We were hopeful to convert to PO dilt. While receiving rate controlling medications his BP's remained soft requiring use of levophed at times. Pt had an episode of hypernatremia requiring D5W, free water flushes. Once Na returned to normal we maintained free water flushes at 50 cc/hr which he tolerated well. Pt has a macrocytic anemia 2/2 folate deficiency. Folic acid was initiated. Mr. Stafford had fluctuating fevers as high as 102. It was suspected he had a drug fever. We did not find a source of infection and pt was on levaquin. We initiated vancomycin and fevers remained. Subsequently, vancomycin was d/c, continued levaquin. BCx negative x 2, COVID negative x 2, influenza neg. He did not have prior indwelling catheters. His was updated daily. Tremayne Mercado DO
[2020-10-07] MEDS: Zonisamide 100 MG CAP PER TUBE SCH ×2 (09:43→22:58)
--- NOTE | 2020-10-07 13:34 | PRG ---
DATE OF SERVICE: 10/07/2020 SUBJECTIVE: Mr. Stafford is out on the floor, maintaining sinus rhythm after the cardioversion. OBJECTIVE: VITAL SIGNS: Blood pressure 106/56, pulse 87 and regular. LUNGS: Diffuse rhonchi. CARDIAC: Normal S1, normal S2. ABDOMEN: Soft, nontender ASSESSMENT: 1. Status post cardioversion. 2. Chronic obstructive pulmonary disease. 3. Hypernatremia, improves. Potassium is 3.8. Sodium 144. PLAN: 1. Continue Multaq. 2. I would recommend reducing the intravenous fluid. 3. Reduce metoprolol to 25 mg every 8 hours. 4. No other recommendations presently. Job ID: [id number]
--- NOTE | 2020-10-07 14:05 | PDOC.PALPN ---
Palliative Progress Note - Subjective Family support- visited patient and contacted Cady- - [phone]. She states that she and their 3 children are all Covid positive x 3 days and she is becoming symptomatic- They do not want him to know and worry-Updated on current status - including cardioversion with return to NSR on cardiezem per peg tube, move to telemetry with trach collar and plans to secure transfer to LTAC that will accept trached patient- Doc to Doc planned for today. Is much less agitated and requiring less sedation-Nursing requested scopalamine patch to decrease tracheal secretions. Visited with Mr Stafford and relayed that his said to tell her they are all OK and have been up dated on his condition - Objective Vital Signs: Vital Signs - Most Recent Temp Pulse Resp BP Pulse Ox 98.5 F 85 18 106/56 L 95 10/07/20 11:01 10/07/20 11:57 10/07/20 11:57 10/07/20 11:01 10/07/20 11:57 - Physical Exam Constitutional: NAD, ill appearing Deviation from normal: nonconversive 2/2 trach HEENT: sclera anicteric, poor dentition Deviation from normal: MM very dry Respiratory: no rales, unlabored breathing Deviation from normal: coarse rhonchi and profuse tracheal secrtion Cardiovascular: no significant murmur, RRR Gastrointestinal: non-tender, no distention, positive bowel sounds Deviation from normal: Peg tube clamped Genitourinary: gill catheter Musculoskeletal: no cyanosis, no clubbing, no edema Neurology: moves all 4 limbs, no focal deficits Skin: cap refill <2 seconds, no lesions, normal turgor Deviation from normal: less agitated - Assessment (1) Atrial fibrillation Code(s): I48.91 - UNSPECIFIED ATRIAL FIBRILLATION Current Visit: Yes Status: Acute Qualifiers: Atrial fibrillation type: paroxysmal Qualified Code(s): I48.0 - Paroxysmal atrial fibrillation Comment: cardioverted to NSR and on cardiezem per peg (2) SVT (supraventricular tachycardia) Code(s): I47.1 - SUPRAVENTRICULAR TACHYCARDIA Current Visit: No Status: Acute (3) COPD (chronic obstructive pulmonary disease) Current Visit: Yes Status: Chronic Qualifiers: COPD type: COPD with acute exacerbation Qualified Code(s): J44.1 - Chronic obstructive pulmonary disease with (acute) exacerbation (4) Acute respiratory failure with hypoxia and hypercapnia Code(s): J96.01 - ACUTE RESPIRATORY FAILURE WITH HYPOXIA; J96.02 - ACUTE RESPIRATORY FAILURE WITH HYPERCAPNIA Current Visit: Yes Status: Acute - Plan Plan:Family support Called Cady - and updated on plan of care- answered all questions Update Cady as plans to move to LTAC progress 45 minutes spent on this encounter with >50% of the time in counseling and coordination of care. - ROS Non Response: due to endotracheal tube (Trach tube) Constitutional: alert
--- NOTE | 2020-10-07 17:22 | PDOC.EP ---
- Subjective Date: 10/07/20 Time: 08:00 Interval History: much more alert today responds appropriately with yes no answers ( indicated with head motions) - Review of Systems ROS unobtainable: due to endotracheal tube ( tracheostomy) - Objective Allergies/Adverse Reactions: Allergies Allergy/AdvReac Type Severity Reaction Status Date / Time amiodarone Allergy Verified 02/10/20 20:00 Current Medications Acetaminophen (Acetaminophen 650 Mg/20.3 Ml Udcup) 650 mg PER TUBE Q4H PRN PRN Reason: Headache/Fever/Mild Pain (1-3) Last Admin: 09/30/20 16:49 Dose: 650 mg Documented by: Albuterol/Ipratropium (Ipratropium/Albuterol Sulfate 3 Ml Neb) 3 ml NEB M1ND-MR [facility] Last Admin: 10/07/20 15:35 Dose: 3 ml Documented by: Apixaban (Apixaban 5 Mg Tab) 5 mg PER TUBE BID [facility] Last Admin: 10/07/20 08:35 Dose: 5 mg Documented by: Aspirin (Aspirin Chewable 81 Mg Tab) 81 mg PER TUBE DAILY [facility] Last Admin: 10/07/20 08:34 Dose: 81 mg Documented by: Atorvastatin Calcium (Atorvastatin Calcium 40 Mg Tab) 40 mg PER TUBE HS [facility] Last Admin: 10/06/20 22:18 Dose: 40 mg Documented by: Carbamazepine (Carbamazepine 200 Mg Tab) 600 mg PER TUBE BID [facility] Last Admin: 10/07/20 08:33 Dose: 600 mg Documented by: Dextrose/Water (Dextrose 50% Abboject 50 Ml Syringe) 25 gm SLOW IVP PRN PRN PRN Reason: Hypoglycemia Diltiazem HCl (Diltiazem Hcl 30 Mg Tablet) 90 mg PER TUBE QID [facility] Last Admin: 10/07/20 17:04 Dose: 90 mg Documented by: Dronedarone (Dronedarone Hcl 400 Mg Tab) 400 mg PER TUBE BID-WM [facility] Last Admin: 10/07/20 17:04 Dose: 400 mg Documented by: Ezetimibe (Ezetimibe 10 Mg Tab) 10 mg PER TUBE DAILY [facility] Last Admin: 10/07/20 08:34 Dose: 10 mg Documented by: Famotidine (Famotidine 20 Mg Tab) 20 mg PER TUBE BID [facility] Last Admin: 10/07/20 08:33 Dose: 20 mg Documented by: Fluconazole (Fluconazole 100 Mg Tab) 200 mg PER TUBE DAILY [facility] Stop: 10/20/20 09:00 Last Admin: 10/07/20 08:34 Dose: 200 mg Documented by: Folic Acid (Folic Acid 1 Mg Tab) 1 mg PER TUBE DAILY [facility] Last Admin: 10/07/20 08:35 Dose: 1 mg Documented by: Furosemide (Furosemide 20 Mg/2 Ml Vial) 20 mg SLOW IVP DAILY [facility] Last Admin: 10/07/20 08:33 Dose: 20 mg Documented by: Glucagon (Glucagon 1 Mg/Ml Vial) 1 mg IM PRN PRN PRN Reason: Hypoglycemia Haloperidol Lactate (Haloperidol Lactate 5 Mg/Ml Vial) 5 mg IM Q4H PRN PRN Reason: Agitation Dextrose/Water (D5w) 1,000 mls @ 0 mls/hr IV .Q0M PRN PRN Reason: Hypoglycemia Lactated Ringer's (Lactated Ringer's) 1,000 mls @ 60 mls/hr IV .[id number] [facility] Last Admin: 10/07/20 14:38 Dose: 1,000 mls Documented by: Methylprednisolone Sodium Succinate (Methylprednisolone Sod Succ 40 Mg Vial) 40 mg IVP DAILY [facility] Last Admin: 10/07/20 08:33 Dose: 40 mg Documented by: Metoprolol Tartrate (Metoprolol Tartrate 25 Mg Tab) 25 mg PER TUBE 1800 [facility] Stop: 10/07/20 20:00 Last Admin: 10/07/20 17:04 Dose: 25 mg Documented by: Miscellaneous Medication (Electrolyte Replacement Protocol) 0 each FS ASDIR PRN; Protocol PRN Reason: ELECTROLYTE REPLACEMENT Mometasone Furoate/Formoterol Fumar (Mometasone 100 Mcg/Formoterol 5 Mcg 120 Puff Inhaler) 2 puff INH DAILYPRN PRN PRN Reason: shortness of breath Morphine Sulfate (Morphine 2 Mg/Ml Vial) 2 mg SLOW IVP Q1H PRN PRN Reason: Breakthrough Pain/Agitation Stop: 10/29/20 11:00 Nicotine (Nicotine 14 Mg Patch) 14 mg TD Q24HR [facility] Last Admin: 10/07/20 08:36 Dose: 14 mg Documented by: Polyethylene Glycol (Polyethylene Glycol 3350 17 Gm Packet) 17 gm PER TUBE DAILY [facility] Last Admin: 10/07/20 08:33 Dose: 17 gm Documented by: Quetiapine Fumarate (Quetiapine Fumarate 25 Mg Tab) 25 mg PO HS [facility] Scopolamine (Scopolamine 1.5 Mg/72 Hour Patch) 1.5 mg TD Q3D [facility] Last Admin: 10/05/20 12:42 Dose: 1.5 mg Documented by: Sodium Chloride (Flush - Normal Saline 10 Ml Syringe) 10 ml IVF Q12HR [facility] Last Admin: 10/07/20 08:35 Dose: 10 ml Documented by: Sodium Chloride (Flush - Normal Saline 10 Ml Syringe) 10 ml IVF PRN PRN PRN Reason: Saline Flush Last Admin: 09/28/20 22:45 Dose: 10 ml Documented by: Ziprasidone (Ziprasidone 20 Mg Cap) 30 mg PER TUBE BID [facility] Zonisamide (Zonisamide 100 Mg Cap) 300 mg PER TUBE BID [facility] Last Admin: 10/07/20 09:43 Dose: 300 mg Documented by: Vital Signs & Weight: Vital Signs Temp Pulse Resp BP Pulse Ox 10/07/20 15:35 89 16 10/07/20 15:30 98.9 F 78 22 H 109/55 L 93 L 10/07/20 11:57 85 18 95 10/07/20 11:01 98.5 F 87 106/56 L 96 10/07/20 08:35 100 10/07/20 07:42 99.8 F H 91 20 110/52 L 100 10/07/20 07:39 99 10/07/20 07:29 92 18 Admit Weight 246 lb 14.4 oz Weight 210 lb 12.8 oz I/O: I/O 10/06/20 10/07/20 10/08/20 06:59 06:59 06:59 Intake Total 3931 5506.5 297 Output Total 3816 2655 1025 Balance 115 2851.5 -728 - Quality Measures Condition: Atrial Fibrillation/Flutter (hx or current) CV meds: Eliquis: Yes - Physical Exam General: no apparent distress, affect appropriate. negative: speech clear HEENT: mucus membranes moist, normocephaly Neck: supple neck, midline trachea, no lymphadenopathy Cardiology: regular rate and rhythm, no murmur, PMI nondisplaced Lungs: no wheezes, no rales, decreased breath sounds, bibasilar rales Neurology: cranial nerve 2-12 intact, grossly intact, no lateralizing findings - Labs Result Diagrams: 10/07/20 07:10 10/07/20 07:10 - EKG Interpretation EKG Method: Telemetry EKG shows: Sinus rhythm - Assessment/Plan Assessment/Plan: IMPRESSION: 1. Chronic obstructive pulmonary disease exacerbation with acute respiratory failure. 2. Atrial fibrillation with RVR. 3. Elevated CHADS-VASc score on Eliquis for anticoagulation. 4. History of seizure disorder. 5. Coronary artery disease. 6. Preserved left ventricular ejection fraction. cardioversion bedside in ICU on 10/06/2020. Maintaining sinus rhythm overnight per telemetry tracings. Continue oral Multaq diltiazem and metoprolol. Monitor for bradycardia and hypotension. I would avoid amiodarone use unless absolutely necessary given his prior intolerance and his advanced pulmonary disease
--- NOTE | 2020-10-07 17:47 | PRG ---
DATE OF SERVICE: 10/07/2020 SUBJECTIVE: Samson Stafford noted. The tracheostomy was removed by the staff and could not be replaced. It is not clear to me why it was removed, but I suspect it was because of secretions. Dr. Casper was able to replace the tracheostomy with a #8 Bivona 13 cm. His assistance is appreciated. OBJECTIVE: VITAL SIGNS: Mr. Stafford is afebrile, heart rate 78, respiratory rate is 22, oximetry is 93, and blood pressure 109/55. LUNGS: Unchanged. HEART: Unchanged. ABDOMEN: Unchanged. IMPRESSION: 1. Respiratory failure secondary to chronic obstructive pulmonary disease. 2. Atrial fibrillation, status post cardioversion yesterday. 3. Encephalopathy, slowly improving. 4. Tracheomalacia, leading to replacement of a Shiley catheter with a Bivona catheter, which secures below the area of dilated trachea. He remains in sinus rhythm. He is awaiting placement in long-term acute care or rehab hospital. I think, his prognosis for a fully functional recovery is quite guarded. Job ID: [id number]
[2020-10-07] MEDS ORDERED: Metoprolol Tartrate 25 MG TAB PER TUBE SCH (18:00)
[2020-10-07] MEDS: Atorvastatin Calcium 40 MG TAB PER TUBE SCH (23:00)
[2020-10-08 04:45] LABS: #Eosinphils 0.1 thou/uL (0.0-0.7); #Lymphocytes 2.2 thou/uL (1.20-3.40); #Monocytes 0.6 thou/uL (0.11-0.59); #Neutrophils 8.6 thou/uL (1.40-6.50); %Basophils 0.2 % (0.0-1.0); %Lymphocytes 19.3 % (21.0-51.0); %Monocytes 4.8 % (0.0-10.0); %Neutrophils 74.7 % (42.0-75.0); Hemoglobin 8.3 g/dL (14.0-18.0); Mean Corpuscular HGB CONC 30.9 g/dL (32.0-36.0); Mean Platelet Volume 9.1 fL (7.4-10.4); Platelet Count 172 thou/uL (130-400); RBC Distribution Width 12.6 % (11.5-14.5); Red Blood Cell (RBC) Count 2.44 mill/uL (4.70-6.10); White Blood Cell (WBC) Count 11.6 thou/uL (4.8-10.8)
[2020-10-08 04:51] LABS: Anion Gap 13 mmol/L (10-20); BUN (Urea Nitrogen) 28 mg/dL (8.4-25.7); Calc. Creatinine Clearance 101 mL/min (70-130); Calcium 7.9 mg/dL (7.8-10.44); Carbon Dioxide 28 mmol/L (23-31); Chloride 109 mmol/L (98-107); Glucose 266 mg/dL (80-115); Potassium 3.8 mmol/L (3.5-5.1); Sodium 146 mmol/L (136-145)
--- NOTE | 2020-10-08 05:53 | PDOC.FM ---
- Subjective Subjective: Patient was resting in bed in no acute cardiopulmonary distress at the time of evaluation. Patient was easily arousable and could shake his head "yes" or "no" to simple questions. No acute overnight events were reported by the Resident Night Team or Nursing Staff, particularly with regard to agitation. - Objective Vital Signs & Weight: Vital Signs (12 hours) Temp Pulse Resp BP Pulse Ox 10/08/20 05:21 99.9 F H 103 H 20 148/65 H 95 10/08/20 01:38 81 16 97 10/07/20 22:57 82 16 96 10/07/20 19:59 99.7 F H 74 18 121/60 94 L 10/07/20 18:27 76 18 92 L Weight Admit Weight 111.992 kg Weight 95.617 kg Most Recent Monitor Data Heart Rate from ECG 86 NIBP 107/53 NIBP BP-Mean 71 Respiration from ECG 20 SpO2 100 I&O: 10/06/20 10/07/20 10/08/20 06:59 06:59 06:59 Intake Total 3931 5506.5 1614 Output Total 3816 2655 1741 Balance 115 2851.5 -127 Result Diagrams: 10/08/20 04:00 10/08/20 04:00 Phys Exam - Physical Examination Constitutional: NAD HEENT: moist MMs Neck: supple Course breath sounds Cardiovascular: no significant murmur Difficult to auscultate Gastrointestinal: soft, non-tender Musculoskeletal: no edema, pulses present Neurological: non-focal, moves all 4 limbs Deviation from normal: Flattened affect Dx/Plan (1) Atrial flutter with rapid ventricular response Code(s): I48.92 - UNSPECIFIED ATRIAL FLUTTER Status: Acute (2) COPD (chronic obstructive pulmonary disease) Status: Chronic Qualifiers: COPD type: COPD with acute exacerbation Qualified Code(s): J44.1 - Chronic obstructive pulmonary disease with (acute) exacerbation (3) HLD (hyperlipidemia) Code(s): E78.5 - HYPERLIPIDEMIA, UNSPECIFIED Status: Chronic (4) HTN (hypertension) Code(s): I10 - ESSENTIAL (PRIMARY) HYPERTENSION Status: Chronic (5) Acute respiratory failure with hypoxia and hypercapnia Code(s): J96.01 - ACUTE RESPIRATORY FAILURE WITH HYPOXIA; J96.02 - ACUTE RESPIRATORY FAILURE WITH HYPERCAPNIA Status: Acute (6) Macrocytic anemia Code(s): D53.9 - NUTRITIONAL ANEMIA, UNSPECIFIED Status: Acute (7) Epilepsy Code(s): G40.909 - EPILEPSY, UNSP, NOT INTRACTABLE, WITHOUT STATUS EPILEPTICUS Status: Chronic - Plan Plan: Patient is a 70 y/o male with a PMH notable for COPD, Seizure Disorder and likely poor mental capacity at baseline who was transferred from an outside hospital with a chief complaint of worsening SOB. #AHRF w/ Hypercapnea 2/2 COPD Exacerbation/Bronchospasm -Overall, patient's condition appears to have improved and stabilized over the course of the past several days -s/p Levaquin, Vanc -Procal: 0.12 -COVID: Negative x2 -Continue steroids, Dulera, Duonebs -Pulm: Consulted, recs appreciated -s/p Trach/Peg on 09/30, pulled out overnight on 10/06 - replaced by Pulm w/o complications -Case Management: Consulted, recs appreciated with regard to LTAC placement #A-Fib w/ RVR -Since admission, patient has gone in and out of A-Fib w/ RVR despite maximum medical management -Cardiology: Consulted, recs appreciated - added Multaq and increased dose of Metoprolol, consulted EP -EP: Patient is a poor candidate for ablation - elected to cardiovert on 10/06 with successful rate control and discontinuation of Diltiazem gtt -Will continue PO Diltiazem, Metoprolol, and Multaq, with Apixaban on-board for anticoagulation #Hypernatremia -Elevated intermittently since admission -Na: 150 > 146 following IVF with D5W and then LR -Current Free Water Deficit: 2.0L -Currently receiving Free H2O Flushes via PEG in addition to IVF -Will continue to gently hydrate with LR @ 100 ml/hr due to Dx of HFpEF #HFpEF -Echo (09/30): Technically difficult study with normal appearing EF, significantly dilated Left Atrium -Will monitor volume status closely and avoid aggressive fluid hydration, as per above -Strict I&Os #EVANGELINA -Resolved #Seizure Disorder -Resumed home Carbemazepine and Zonisamide regimen #AMS -Patient's mental status has been difficult to evaluate fully since admission and has required multiple discussions with family in order to better ch aracterize -Per discussion with patient's family, patient's mental status has been in significant decline for many years. Patient's states that patient was diagnosed with MR years ago and demonstrates signs and symptoms consistent with Dementia, although this was not fully evaluated by patient's PCP due to poor follow-up and current acute illness -Appears improved somewhat, with patient able to follow simple commands and shake head "yes" or "no" -Ziprasidone KRISTA, Quetiapine KRISTA and Haldol PRN for agitation #Macrocytic Anemia -Folate: 3 -No evidence of acute bleeding - will continue to monitor appropriately with AM Labs -Will supplement Folate accordingly #Thrombocytopenia -Resolved #HLD -Will continue home medication regimen PCP: Lacey Code: Full Diet: Tube Feeds Activity: Bed Rest VTE PPx: Apixaban Dispo: Patient is currently s/p AHRF 2/2 COPD Exacerbation with cardioversion for persistent A-Fib w/ RVR. Will continue supplemental O2, steroids, and inhaled treatments as per above, as well as ensure rate control and anticoagulation for A-Fib w/ RVR. Patient's condition appear stable although long-term prognosis is regrettably poor based on patient's age, mental status and multiple chronic medical conditions. Patient has been approved for transfer to LTAC - will confirm with specialists for clearance prior to DC. Expected LOS < 24H. Addendum - Attending - Attending Attestation Date/Time: 10/09/20 8527 I personally evaluated the patient and discussed the management with Dr. Macario yesterday. I agree with the History, Examination, Assessment and Plan documented above with any addition or exceptions noted below. I am pleased that he no longer required physical restraints.
[2020-10-08] MEDS: Lactated Ringer's 1,000 ML IV SCH (06:40)
--- NOTE | 2020-10-08 08:00 | RAD ---
Exam: Chest one view HISTORY:COPD exacerbation Comparison: 10/07/2020 FINDINGS: Cardiac silhouette:Stable mild cardiomegaly. Lines and tubes: Stable tracheostomy and right-sided vascular catheter. Aorta: Unremarkable Pulmonary vessels: Normal Costophrenic angles: Clear LUNGS: Scattered interstitial and alveolar opacities, unchanged. Pneumothorax: None Osseous abnormalities: None IMPRESSION: No significant interval change.
[2020-10-08] MEDS: Polyethylene Glycol 3350 17 GM Packet PER TUBE SCH (09:49)
[2020-10-08] MEDS: Zonisamide 100 MG CAP PER TUBE SCH (09:49)
[2020-10-08] MEDS: Nicotine 14 MG PATCH TD SCH (09:50)
[2020-10-08] MEDS: Ezetimibe 10 MG TAB PER TUBE SCH (09:50)
[2020-10-08] MEDS: Ziprasidone 20 MG CAP PER TUBE SCH (09:50)
[2020-10-08] MEDS: methylPREDNISolone Sod Succ 40 MG VIAL IVP SCH (09:50)
[2020-10-08] MEDS: Dronedarone HCl 400 MG TAB PER TUBE SCH (09:51)
[2020-10-08] MEDS: Famotidine 20 MG TAB PER TUBE SCH (09:51)
[2020-10-08] MEDS: Fluconazole 100 MG TAB PER TUBE SCH (09:51)
[2020-10-08] MEDS: Apixaban 5 MG TAB PER TUBE SCH (09:52)
[2020-10-08] MEDS: Folic Acid 1 MG TAB PER TUBE SCH (09:52)
[2020-10-08] MEDS: carBAMazepine 200 MG TAB PER TUBE SCH (09:52)
[2020-10-08] MEDS: Furosemide 20 MG/2 ML VIAL SLOW IVP SCH (09:52)
[2020-10-08 12:28] VITALS: BP 134/63; TEMP 98.2
[2020-10-08] MEDS: Scopolamine 1.5 mg/72 hour Patch TD SCH (13:04)
[2020-10-08] MEDS: Aspirin Chewable 81 MG TAB PER TUBE SCH (13:07)
--- NOTE | 2020-10-08 13:22 | DIS ---
DATE OF ADMISSION: 09/19/2020 DATE OF DISCHARGE: 10/08/2020 RESIDENT: Dr. Harshal Macario. ADMITTING ATTENDING: Dr. Evelina Rahman. DISCHARGE ATTENDING: Dr. Chad Lion. CONSULTS: 1. Dr. Gwyn Garland, Cardiology. 2. Madhuri Badillo, Pulmonology. 3. Dr. Freddie Bautista, Pulmonology. 4. Dr. Viktoria Freed, Cardiology. 5. Dr. David Jasso, Cardiology. 6. Dr. Alessio Diez, General Surgery. 7. Dr. Denis Casper, Pulmonology. 8. Dr. Dre Purcell, Electrophysiology. PROCEDURES: Chest x-ray performed on 09/19/2020, which demonstrated new bibasilar airspace disease that may reflect aspiration as well as new bilateral pleural effusions with bibasilar atelectasis, mild cardiomegaly, and mild pulmonary vascular congestion that persists. A component of volume overload or CHF is suspected. New gastric catheter projecting below the left hemidiaphragm in the on field of view, stable endotracheal tube tip. Repeat chest x-ray performed on 09/19/2020, which demonstrated worsening bibasilar atelectasis, stable cardiomegaly, tubes and lines as above, no pneumothorax. Echocardiogram performed on 09/19/2020, which was technically difficult with poor endocardial definition, although ejection fraction appeared normal, but was remarkably difficult to assess. Severe dilation of the left atrium. Multiple additional chest x-rays were performed on a daily basis with mild interval change or no change whatsoever noted by Radiology. Tracheostomy tube and PEG tube placed on 09/30/2020. PRIMARY DIAGNOSES: 1. Acute hypoxic respiratory failure secondary to COPD exacerbation. 2. Atrial fibrillation with RVR. 3. Hypernatremia. 4. Heart failure with preserved ejection fraction. 5. Acute kidney injury. 6. Seizure disorder. 7. Altered mental status, although this may represent the patient's baseline. 8. Macrocytic anemia. 9. Thrombocytopenia. 10. Hyperlipidemia. DISCHARGE MEDICATIONS: 1. Acetaminophen 650 mg per tube q.4 hours p.r.n. 2. Apixaban 5 mg p.o. b.i.d. 3. Aspirin 81 mg per tube daily. 4. Atorvastatin 40 mg per tube daily. 5. Carbamazepine 200 mg three tabs per tube b.i.d. 6. Diltiazem 90 mg per tube q.i.d. 7. Multaq 400 mg per tube b.i.d. 8. Famotidine 20 mg per tube b.i.d. 9. Fluconazole 200 mg per tube daily for 12 days. 10. Folic acid 1 mg per tube daily. 11. Furosemide 20 mg IV daily, may transition to p.o. as dictated by overall clinical status. 12. Haloperidol 5 mg IM q.4 hours for agitation p.r.n., this may be discontinued based on clinical status. 13. Methylprednisolone 40 mg IV for 8 days. 14. Dulera 2 puffs inhaled daily. 15. Nicotine patch 14 mg transdermally q.24 hours. 16. Polyethylene glycol 17 g per tube daily p.r.n. 17. Quetiapine 25 mg p.o. at bedtime per tube daily. 18. Scopolamine patch 1.5 mg transdermal q.3 days, this may be discontinued based on the patient's overall clinical course. 19. Ziprasidone 30 mg per tube b.i.d. 20. Zonisamide 300 mg per tube b.i.d. 21. Albuterol sulfate 2 puffs inhaled b.i.d. 22. Zetia 10 mg per tube daily. 23. Metoprolol tartrate 25 mg per tube daily. HISTORY OF PRESENT ILLNESS/HOSPITAL COURSE: For all information prior to 10/02/2020, please reference brief progress note for continuity of care by Dr. Tremayne Mercado. Mr. Stafford is an unfortunate gentleman approximately 70 years old, who was initially admitted to the hospital following COPD exacerbation with subsequent acute hypoxic respiratory failure. Of note, the patient also has seizure disorder and developed atrial fibrillation with RVR, which was difficult to control throughout his hospitalization. As such, multiple specialists were consulted and his medication was subsequently optimized. However, he still had intermittent episodes of atrial fibrillation with RVR, and as such, was successfully cardioverted on 10/06/2020. As his condition stabilized, he was subsequently transferred out of the [facility] and transferred to the telemetry floor, where he continued to demonstrate appropriate rate control, good tolerance of his medication regimen, and increasing mental cognition. As he was stabilized, he was subsequently prepped for discharge to a long-term acute care facility. Prior to discharge, the patient's vital signs were recorded as temperature 99.1, pulse 73, respirations 16 per minute, oxygen saturation 5 L applied via trach collar, blood pressure 132/58. LABORATORY ANALYSIS: Revealed white blood cell count of 11.6, hemoglobin 8.3, hematocrit 26.9, platelet count 172. Chem panel revealed a sodium of 146, potassium 3.8, chloride 109, carbon dioxide 28, BUN 28, creatinine 0.95, glucose 189, lactic acid 1.2, calcium 7.9, phosphorus 2.6, magnesium 2.2. Troponin 0.131. BNP 555. Vitamin B12 of 393, folate 3, procalcitonin 0.12, TSH 2.3. Urinalysis revealed budding yeast that was later identified to be Ghislaine albicans. The patient was found to be COVID negative. DISPOSITION: Stable, although long-term prognosis is regrettably poor. DISCHARGE INSTRUCTIONS: 1. Location: LTAC. 2. Diet: Tube feeds. 3. Activity: Bedrest with possible ambulate with assist as determined by occupational therapy, physical therapy, speech therapy at the patient's LTAC facility. 4. Followup: The patient was encouraged to follow up with his primary care provider following discharge from LTAC as well as Dr. Dre Purcell, Electrophysiology approximately 6 weeks after discharge from LTAC. Regrettably, the patient's overall prognosis is poor as stated above due to the patient's advanced age, mental status, and overall poor health. However, patient is stable at this time and is subsequently appropriate for discharge. Job ID: [id number] [facility]
--- NOTE | 2020-10-08 14:04 | PRG ---
DATE OF SERVICE: 10/08/2020 SUBJECTIVE: Samson Stafford can almost completely cough up all of his secretions, but he usually has some stuck in his tracheostomy tube. OBJECTIVE: LUNGS: Otherwise clear once he has been suctioned. HEART: Regular rhythm. ABDOMEN: Soft. LABORATORY DATA: White count 11.6, hemoglobin 8.3, platelets 172. Sodium 146, potassium 3.8, chloride 109, bicarb 20, BUN 28, creatinine 0.95. IMAGING STUDIES: The chest x-ray was done today. He has no change in his infiltrates. IMPRESSION: 1. Chronic obstructive pulmonary disease exacerbation. 2. Respiratory failure. 3. Status post tracheostomy. 4. Tracheomalacia. PLAN: He needs an x-ray in 6 to 8 weeks to document clearing of his chest x- ray. We will sign off. Job ID: [id number] [facility]
--- NOTE | 2020-10-08 15:51 | PDOC.EP ---
- Subjective Date: 10/08/20 Time: 12:00 Interval History: No new events. Remains in SR., - Review of Systems Constitutional: denies: chills, fever, malaise, sweats, weakness, other Respiratory: reports: SOB with excertion Cardiology: denies: chest pain, palpitations Gastrointestinal: denies: abdominal pain Musculoskeletal: denies: unstable gait, falls, neck pain, shoulder pain, arm pain, hand pain, leg pain, foot pain, other - Objective Allergies/Adverse Reactions: Allergies Allergy/AdvReac Type Severity Reaction Status Date / Time amiodarone Allergy Verified 02/10/20 20:00 Current Medications Acetaminophen (Acetaminophen 650 Mg/20.3 Ml Udcup) 650 mg PER TUBE Q4H PRN PRN Reason: Headache/Fever/Mild Pain (1-3) Last Admin: 09/30/20 16:49 Dose: 650 mg Documented by: Albuterol/Ipratropium (Ipratropium/Albuterol Sulfate 3 Ml Neb) 3 ml NEB [id number] [facility] Last Admin: 10/08/20 11:22 Dose: 3 ml Documented by: Apixaban (Apixaban 5 Mg Tab) 5 mg PER TUBE BID [facility] Last Admin: 10/08/20 09:52 Dose: 5 mg Documented by: Aspirin (Aspirin Chewable 81 Mg Tab) 81 mg PER TUBE DAILY [facility] Last Admin: 10/08/20 13:07 Dose: 81 mg Documented by: Atorvastatin Calcium (Atorvastatin Calcium 40 Mg Tab) 40 mg PER TUBE HS [facility] Last Admin: 10/07/20 23:00 Dose: 40 mg Documented by: Carbamazepine (Carbamazepine 200 Mg Tab) 600 mg PER TUBE BID [facility] Last Admin: 10/08/20 09:52 Dose: 600 mg Documented by: Dextrose/Water (Dextrose 50% Abboject 50 Ml Syringe) 25 gm SLOW IVP PRN PRN PRN Reason: Hypoglycemia Diltiazem HCl (Diltiazem Hcl 30 Mg Tablet) 90 mg PER TUBE QID [facility] Last Admin: 10/08/20 13:04 Dose: 90 mg Documented by: Dronedarone (Dronedarone Hcl 400 Mg Tab) 400 mg PER TUBE BID-WM [facility] Last Admin: 10/08/20 09:51 Dose: 400 mg Documented by: Ezetimibe (Ezetimibe 10 Mg Tab) 10 mg PER TUBE DAILY [facility] Last Admin: 10/08/20 09:50 Dose: 10 mg Documented by: Famotidine (Famotidine 20 Mg Tab) 20 mg PER TUBE BID [facility] Last Admin: 10/08/20 09:51 Dose: 20 mg Documented by: Fluconazole (Fluconazole 100 Mg Tab) 200 mg PER TUBE DAILY [facility] Stop: 10/20/20 09:00 Last Admin: 10/08/20 09:51 Dose: 200 mg Documented by: Folic Acid (Folic Acid 1 Mg Tab) 1 mg PER TUBE DAILY [facility] Last Admin: 10/08/20 09:52 Dose: 1 mg Documented by: Furosemide (Furosemide 20 Mg/2 Ml Vial) 20 mg SLOW IVP DAILY [facility] Last Admin: 10/08/20 09:52 Dose: 20 mg Documented by: Glucagon (Glucagon 1 Mg/Ml Vial) 1 mg IM PRN PRN PRN Reason: Hypoglycemia Haloperidol Lactate (Haloperidol Lactate 5 Mg/Ml Vial) 5 mg IM Q4H PRN PRN Reason: Agitation Dextrose/Water (D5w) 1,000 mls @ 0 mls/hr IV .Q0M PRN PRN Reason: Hypoglycemia Lactated Ringer's (Lactated Ringer's) 1,000 mls @ 60 mls/hr IV .[id number] [facility] Last Admin: 10/08/20 06:40 Dose: 1,000 mls Documented by: Methylprednisolone Sodium Succinate (Methylprednisolone Sod Succ 40 Mg Vial) 40 mg IVP DAILY [facility] Last Admin: 10/08/20 09:50 Dose: 40 mg Documented by: Miscellaneous Medication (Electrolyte Replacement Protocol) 0 each FS ASDIR PRN; Protocol PRN Reason: ELECTROLYTE REPLACEMENT Mometasone Furoate/Formoterol Fumar (Mometasone 100 Mcg/Formoterol 5 Mcg 120 Puff Inhaler) 2 puff INH DAILYPRN PRN PRN Reason: shortness of breath Morphine Sulfate (Morphine 2 Mg/Ml Vial) 2 mg SLOW IVP Q1H PRN PRN Reason: Breakthrough Pain/Agitation Stop: 10/29/20 11:00 Nicotine (Nicotine 14 Mg Patch) 14 mg TD Q24HR [facility] Last Admin: 10/08/20 09:50 Dose: 14 mg Documented by: Polyethylene Glycol (Polyethylene Glycol 3350 17 Gm Packet) 17 gm PER TUBE DAILY [facility] Last Admin: 10/08/20 09:49 Dose: 17 gm Documented by: Quetiapine Fumarate (Quetiapine Fumarate 25 Mg Tab) 25 mg PO HS [facility] Last Admin: 10/07/20 22:59 Dose: 25 mg Documented by: Scopolamine (Scopolamine 1.5 Mg/72 Hour Patch) 1.5 mg TD Q3D [facility] Last Admin: 10/08/20 13:04 Dose: 1.5 mg Documented by: Sodium Chloride (Flush - Normal Saline 10 Ml Syringe) 10 ml IVF Q12HR [facility] Last Admin: 10/08/20 09:53 Dose: 10 ml Documented by: Sodium Chloride (Flush - Normal Saline 10 Ml Syringe) 10 ml IVF PRN PRN PRN Reason: Saline Flush Last Admin: 09/28/20 22:45 Dose: 10 ml Documented by: Ziprasidone (Ziprasidone 20 Mg Cap) 30 mg PER TUBE BID [facility] Last Admin: 10/08/20 09:50 Dose: 30 mg Documented by: Zonisamide (Zonisamide 100 Mg Cap) 300 mg PER TUBE BID [facility] Last Admin: 10/08/20 09:49 Dose: 300 mg Documented by: Vital Signs & Weight: Vital Signs Temp Pulse Resp BP Pulse Ox 10/08/20 12:28 98.2 F 83 28 H 134/63 96 10/08/20 11:22 73 16 10/08/20 07:39 99.1 F 97 24 H 132/58 L 97 10/08/20 07:14 94 L 10/08/20 07:11 84 16 10/08/20 05:21 99.9 F H 103 H 20 148/65 H 95 Admit Weight 246 lb 14.4 oz Weight 211 lb I/O: I/O 10/07/20 10/08/20 10/09/20 06:59 06:59 06:59 Intake Total 5506.5 3708 537 Output Total 8945 3241 Balance 2851.5 467 537 - Quality Measures Condition: Atrial Fibrillation/Flutter (hx or current) CV meds: Eliquis: Yes - Physical Exam General: alert & oriented x3, appears well HEENT: normocephaly Neck: no JVD/HJR Cardiology: no murmur, regular rate Lungs: normal breath sounds, no wheezes, no rales Neurology: grossly intact Abdomen: unremarkable, soft, non-tender Extremities: warm Skin: device site stable w/o swelling Musculoskeletal: no pain - Labs Result Diagrams: 10/08/20 04:00 10/08/20 04:00 - EKG Interpretation EKG Method: Telemetry EKG shows: Sinus rhythm - Assessment/Plan Assessment/Plan: 1. Chronic obstructive pulmonary disease exacerbation with acute respiratory failure. 2. Atrial fibrillation with RVR. 3. Elevated CHADS-VASc score on Eliquis for anticoagulation. 4. History of seizure disorder. 5. Coronary artery disease. 6. Preserved left ventricular ejection fraction. 10/08/20 Remains in SR. No new events. Continue to improve. LTAC placement is being considered. S/P cardioversion bedside in ICU on 10/06/2020. Maintaining sinus rhythm overnight per telemetry tracings. Continue oral Multaq diltiazem and metoprolol. No bradycardia and hypotension. I would avoid amiodarone use unless absolutely necessary given his prior intolerance and his advanced pulm onary disease. Happy to see him back in office in 4-6 weeks. Discussed with Amirah.
--- NOTE | 2020-10-17 19:32 | EKG ---
Test Reason : POST CARDIOVERSION Blood Pressure : / mmHG Vent. Rate : 087 BPM Atrial Rate : 087 BPM P-R Int : 134 ms QRS Dur : 084 ms QT Int : 324 ms P-R-T Axes : 073 067 222 degrees QTc Int : 389 ms Normal sinus rhythm Abnormal ECG When compared with ECG of 25-SEP-2020 20:38, Sinus rhythm has replaced Atrial fibrillation Vent. rate has decreased BY 48 BPM T wave inversion now evident in Anterolateral leads Confirmed by JENNIFER HOLDEN MD ([id number]) on 10/17/2020 7:31:41 PM Referred By: MILLER Confirmed By:JENNIFER HOLDEN MD
== END 2020-10-08 17:45 | DRG 4 ==
LOC: CCU 02:57 → 2NO 10-06 16:56
PROVIDERS: ADMIT Family Medicine; ATTEND Family Medicine
PROC: 0BH17EZ Insertion of Endotracheal Airway into Trachea, Via Natural or Artificial Opening (ICD-10-PCS; principal; 2020-09-19)
PROC: 5A1955Z Respiratory Ventilation, Greater than 96 Consecutive Hours (ICD-10-PCS; 2020-09-19)
PROC: 02HV33Z Insertion of Infusion Device into Superior Vena Cava, Percutaneous Approach (ICD-10-PCS; 2020-09-19)
PROC: B548ZZA Ultrasonography of Superior Vena Cava, Guidance (ICD-10-PCS; 2020-09-19)
PROC: 3E033XZ Introduction of Vasopressor into Peripheral Vein, Percutaneous Approach (ICD-10-PCS; 2020-09-19)
PROC: 0B110F4 Bypass Trachea to Cutaneous with Tracheostomy Device, Open Approach (ICD-10-PCS; 2020-09-29)
PROC: 0DH63UZ Insertion of Feeding Device into Stomach, Percutaneous Approach (ICD-10-PCS; 2020-09-29)
PROC: 0BJ08ZZ Inspection of Tracheobronchial Tree, Via Natural or Artificial Opening Endoscopic (ICD-10-PCS; 2020-09-30)
PROC: 5A2204Z Restoration of Cardiac Rhythm, Single (ICD-10-PCS; 2020-10-06)
PROC: 0B21XFZ Change Tracheostomy Device in Trachea, External Approach (ICD-10-PCS; 2020-10-06)
PROC: 0BJ08ZZ Inspection of Tracheobronchial Tree, Via Natural or Artificial Opening Endoscopic (ICD-10-PCS; 2020-10-06)
DX: J44.1 Chronic obstructive pulmonary disease with (acute) exacerbation (principal); J96.01 Acute respiratory failure with hypoxia; G93.41 Metabolic encephalopathy; J18.9 Pneumonia, unspecified organism; Z20.822 Contact with and (suspected) exposure to COVID-19; J96.02 Acute respiratory failure with hypercapnia; N17.9 Acute kidney failure, unspecified; E87.0 Hyperosmolality and hypernatremia; I47.1 Supraventricular tachycardia; E46 Unspecified protein-calorie malnutrition; I48.92 Unspecified atrial flutter; I50.32 Chronic diastolic (congestive) heart failure; J44.0 Chronic obstructive pulmonary disease with (acute) lower respiratory infection; I11.0 Hypertensive heart disease with heart failure; I25.10 Atherosclerotic heart disease of native coronary artery without angina pectoris; I95.9 Hypotension, unspecified; G40.909 Epilepsy, unspecified, not intractable, without status epilepticus; J98.01 Acute bronchospasm; E78.5 Hyperlipidemia, unspecified; H81.10 Benign paroxysmal vertigo, unspecified ear; G25.81 Restless legs syndrome; E66.9 Obesity, unspecified; D52.9 Folate deficiency anemia, unspecified; D69.6 Thrombocytopenia, unspecified; E87.8 Other disorders of electrolyte and fluid balance, not elsewhere classified; I48.0 Paroxysmal atrial fibrillation; J39.8 Other specified diseases of upper respiratory tract; Z90.49 Acquired absence of other specified parts of digestive tract; Z98.61 Coronary angioplasty status; Z91.14 Patient's other noncompliance with medication regimen; I25.2 Old myocardial infarction; Z88.8 Allergy status to other drugs, medicaments and biological substances; Z79.01 Long term (current) use of anticoagulants; Z79.82 Long term (current) use of aspirin; Z79.52 Long term (current) use of systemic steroids; Z68.28 Body mass index [BMI] 28.0-28.9, adult; Z86.73 Personal history of transient ischemic attack (TIA), and cerebral infarction without residual deficits; E87.5 Hyperkalemia; F17.210 Nicotine dependence, cigarettes, uncomplicated
CPT/HCPCS: 36415; 36416; 36600; 71045; 80048; 80156; 80162; 80202; 80203; 81001; 81003; 81015; 82607; 82746; 82805; 83605; 83735; 83880; 84100; 84145; 84443; 85025; 87077; 87086; 87635; 93005; 93010; 93306; 94002; 94003; 94640; J0456; J1100; J1160; J1630; J1940; J1956; J2060; J2250; J2270; J2405; J2704; J2920; J3010; J3370; J3475; J3480; J3490; J7030; J7050; J7070; J7620; P9047; S0020; S0028; U0003

== ENCOUNTER 2021-09-28 18:24 | Inpatient (IN) | payer MEDICARE ==
[2021-09-28 19:30] LABS: #Lymphocytes 1.5 thou/uL (1.20-3.40); #Monocytes 0.7 thou/uL (0.11-0.59); #Neutrophils 7.3 thou/uL (1.40-6.50); %Basophils 0.1 % (0.0-1.0); %Eosinophils 0.3 % (0.0-10.0); %Lymphocytes 16.2 % (21.0-51.0); %Monocytes 6.9 % (0.0-10.0); %Neutrophils 76.5 % (42.0-75.0); Hemoglobin 9.7 g/dL (14.0-18.0); Mean Corpuscular Hemoglobin 38.3 pg (27.0-31.0); Mean Platelet Volume 8.4 fL (7.4-10.4); Platelet Count 186 thou/uL (130-400); RBC Distribution Width 13.4 % (11.5-14.5); Red Blood Cell (RBC) Count 2.53 mill/uL (4.70-6.10); White Blood Cell (WBC) Count 9.5 thou/uL (4.8-10.8)
[2021-09-28 19:38] LABS: Bacteria/HPF None Seen HPF (None Seen); Bilirubin Negative (Negative); Blood, Urine 1+ (Negative); Clarity Clear (Clear); Glucose, Urine (Dipstick) Normal (Negative); Ketone, Urine Negative (Negative); Leukocyte Negative Leu/uL (Negative); Nitrite Negative (Negative); Protein, Urine (Dipstick) 50 mg/dL (Neg-Trace); RBC/HPF 0-3 HPF (0-3); Specific Gravity, Urine 1.013 (1.002-1.036); Squamous Epithelial None Seen HPF (0-3); Urobilinogen Normal mg/dL (Less than 2); WBC/HPF 0-3 HPF (0-3)
[2021-09-28 19:44] LABS: MDiff Complete? YES; Macrocytosis SLIGHT = 6-15 cells (100X) (0-5/hpf); Platelet Morphology Comment Appears Adequate; Polychromasia SLIGHT = 2-3 cells (100X) (0-2/hpf)
[2021-09-28 19:45] LABS: ALT (SGPT) 14 U/L (8-55); AST (SGOT) 20 U/L (5-34); Albumin 3.7 g/dL (3.4-4.8); Alkaline Phosphatase 40 U/L (40-110); Anion Gap 16 mmol/L (10-20); BUN (Urea Nitrogen) 19 mg/dL (8.4-25.7); Bilirubin, Total 0.4 mg/dL (0.2-1.2); Calc. Creatinine Clearance 0 mL/min (70-130); Carbon Dioxide 27 mmol/L (23-31); Chloride 99 mmol/L (98-107); Globulin 3.9 g/dL (2.4-3.5); Glucose 135 mg/dL (80-115); Lipase 9 U/L (8-78); Potassium 3.1 mmol/L (3.5-5.1); Protein, Total 7.6 g/dL (5.8-8.1); Sodium 139 mmol/L (136-145)
[2021-09-28] MEDS ORDERED: cefTRIAXone\\ROCEPHIN 2 GM VIAL ONE (20:34)
[2021-09-28] MEDS ORDERED: Aspirin 325 MG TAB ONE (20:34)
[2021-09-28] MEDS ORDERED: carBAMazepine 200 MG TAB PO SCH (20:45)
[2021-09-28] MEDS ORDERED: Zonisamide 100 MG CAP PO SCH (20:45)
[2021-09-28] MEDS ORDERED: Azithromycin 500 MG VIAL ONE (21:48)
[2021-09-28 23:26] LABS: SARS-CoV-2 NAA Rapid Test DETECTED (NotDetected)
[2021-09-29] MEDS ORDERED: Senokot S 8.6-50 MG TAB PO PRN (00:07)
[2021-09-29] MEDS ORDERED: Acetaminophen 325 MG TAB PO PRN (00:07)
[2021-09-29] MEDS ORDERED: Ondansetron PF 4 MG/2 ML Vial IVP PRN (00:07)
[2021-09-29] MEDS ORDERED: Ondansetron ODT 4 MG TAB PO PRN (00:07)
[2021-09-29] MEDS ORDERED: Dexamethasone 6 MG in Sodium Chloride 0.9% 50 ML IVPB SCH ×3 (00:45→21:00)
[2021-09-29] MEDS ORDERED: Lactated Ringer's 1,000 ML IV SCH (01:00)
[2021-09-29] MEDS ORDERED: Albuterol 200 PUFF (6.7GM INHALER) INH PRN (01:11)
[2021-09-29] MEDS: Ipratropium/Albuterol Sulfate 4 GM AER IH SCH ×4 (04:28→14:07)
[2021-09-29 05:49] LABS: Band 23 % (5-11); Hemoglobin 9.2 g/dL (14.0-18.0); Lymphocytes 11 % (21-51); MDiff Complete? YES; Mean Corpuscular Hemoglobin 38.6 pg (27.0-31.0); Mean Platelet Volume 8.1 fL (7.4-10.4); Monocytes 10 % (0-10); Neutrophil 56 % (42-75); Ovalocytes MODERATE= 6-15 cells (100X) (0-1/hpf); Platelet Count 171 thou/uL (130-400); Platelet Morphology Comment Appears Adequate; RBC Distribution Width 13.5 % (11.5-14.5); Red Blood Cell (RBC) Count 2.39 mill/uL (4.70-6.10); White Blood Cell (WBC) Count 7.7 thou/uL (4.8-10.8)
[2021-09-29 06:33] LABS: Anion Gap 12 mmol/L (10-20); BUN (Urea Nitrogen) 19 mg/dL (8.4-25.7); Calc. Creatinine Clearance 0 mL/min (70-130); Calcium 8.4 mg/dL (7.8-10.44); Carbon Dioxide 27 mmol/L (23-31); Chloride 103 mmol/L (98-107); Glucose 144 mg/dL (80-115); Potassium 3.2 mmol/L (3.5-5.1); Sodium 139 mmol/L (136-145)
[2021-09-29] MEDS ORDERED: Pharmacy to Dose REMDESIVIR IVPB PRN (08:14)
[2021-09-29] MEDS ORDERED: Potassium Chloride 20 MEQ TAB PO SCH (08:30)
[2021-09-29] MEDS ORDERED: Aspirin Chewable 81 MG TAB PO SCH (09:00)
[2021-09-29] MEDS ORDERED: Multivitamins CHEW w/Iron Tablet PO SCH (09:00)
[2021-09-29] MEDS ORDERED: Azithromycin 250 MG in Sodium Chloride 0.9% 250 ML 250 ML IVPB SCH (09:00)
[2021-09-29] MEDS ORDERED: Potassium Chloride 20 MEQ TAB ONE (09:16)
[2021-09-29] MEDS ORDERED: Famotidine 20 MG TAB ONE (09:16)
[2021-09-29] MEDS ORDERED: Aspirin Chewable 81 MG TAB ONE (09:16)
[2021-09-29] MEDS: Famotidine 20 MG TAB PO SCH ×2 (09:18→21:00)
[2021-09-29] MEDS ORDERED: Amoxicillin/Potassium Clav 875 MG TAB ONE (09:24)
[2021-09-29] MEDS: carBAMazepine 200 MG TAB PO SCH ×2 (09:25→20:58)
[2021-09-29] MEDS: Atorvastatin Calcium 40 MG TAB PO SCH (09:25)
[2021-09-29] MEDS: Apixaban 5 MG TAB PO SCH ×2 (09:25→20:58)
[2021-09-29] MEDS: MULTIVIT/IRON SULF/FOLIC ACID 1 EACH TAB PO SCH (09:25)
[2021-09-29] MEDS: Zonisamide 100 MG CAP PO SCH ×2 (09:25→20:58)
[2021-09-29] MEDS ORDERED: REMDESIVIR 200 MG in Sodium Chloride 0.9% 250 ML 210 ML IV SCH ×2 (09:45→13:15)
[2021-09-29 14:15] VITALS: BMI 29.9
[2021-09-29] MEDS ORDERED: hydrOXYzine 25 MG TAB PO PRN (17:18)
[2021-09-29] MEDS ORDERED: Spironolactone 25 MG TAB PO SCH (17:30)
[2021-09-29] MEDS ORDERED: Ipratropium Bromide 2.5 ml Neb NEB SCH (19:00)
[2021-09-29] MEDS: Mometasone 200 MCG/Formoterol 5 MCG 120 PUFF INHALER INH SCH (20:56)
[2021-09-29] MEDS: Albuterol 200 PUFF (6.7GM INHALER) INH SCH ×2 (20:59→23:27)
[2021-09-29] MEDS: Dexamethasone 10 MG/ML VIAL SLOW IVP SCH (20:59)
[2021-09-29] MEDS: cefTRIAXone\\ROCEPHIN 1 GM in Sodium Chloride 0.9% 100 ML IVPB SCH (20:59)
[2021-09-29] MEDS ORDERED: Zonisamide 100 MG CAP PO SCH (21:00)
[2021-09-29] MEDS ORDERED: carBAMazepine 200 MG TAB PO SCH (21:00)
[2021-09-29] MEDS: rOPINIRole HCl 2 MG TAB PO SCH (21:02)
[2021-09-29] MEDS: Azithromycin 250 MG in Sodium Chloride 0.9% 250 ML 250 ML IVPB SCH (22:05)
[2021-09-30] MEDS: Albuterol 200 PUFF (6.7GM INHALER) INH SCH ×6 (02:48→23:01)
[2021-09-30 05:19] LABS: #Lymphocytes 1.2 thou/uL (1.20-3.40); #Monocytes 0.3 thou/uL (0.11-0.59); #Neutrophils 3.1 thou/uL (1.40-6.50); %Basophils 0.6 % (0.0-1.0); %Eosinophils 0.3 % (0.0-10.0); %Monocytes 6.8 % (0.0-10.0); %Neutrophils 66.4 % (42.0-75.0); Hemoglobin 8.6 g/dL (14.0-18.0); Mean Corpuscular HGB CONC 33.5 g/dL (32.0-36.0); Mean Corpuscular Hemoglobin 38.4 pg (27.0-31.0); Mean Platelet Volume 8.1 fL (7.4-10.4); Platelet Count 181 thou/uL (130-400); RBC Distribution Width 13.5 % (11.5-14.5); Red Blood Cell (RBC) Count 2.23 mill/uL (4.70-6.10); White Blood Cell (WBC) Count 4.6 thou/uL (4.8-10.8)
[2021-09-30 05:35] LABS: Anion Gap 12 mmol/L (10-20); BUN (Urea Nitrogen) 17 mg/dL (8.4-25.7); Calc. Creatinine Clearance 90 mL/min (70-130); Calcium 8.7 mg/dL (7.8-10.44); Carbon Dioxide 25 mmol/L (23-31); Chloride 106 mmol/L (98-107); Glucose 140 mg/dL (80-115); Sodium 139 mmol/L (136-145)
[2021-09-30] MEDS: Mometasone 200 MCG/Formoterol 5 MCG 120 PUFF INHALER INH SCH ×2 (06:47→17:25)
[2021-09-30] MEDS: Atorvastatin Calcium 40 MG TAB PO SCH (07:57)
[2021-09-30] MEDS: Aspirin 325 MG TAB PO SCH (07:57)
[2021-09-30] MEDS: Dronedarone HCl 400 MG TAB PO SCH ×2 (07:58→17:25)
[2021-09-30] MEDS: Ziprasidone 20 MG CAP PO SCH (07:58)
[2021-09-30] MEDS: Potassium Chloride 20 MEQ TAB PO SCH (07:59)
[2021-09-30] MEDS: carBAMazepine 200 MG TAB PO SCH ×2 (08:00→21:30)
[2021-09-30] MEDS: Famotidine 20 MG TAB PO SCH ×2 (08:00→21:31)
[2021-09-30] MEDS: Apixaban 5 MG TAB PO SCH ×2 (08:00→21:31)
[2021-09-30] MEDS: Furosemide 20 MG TAB PO SCH (08:01)
[2021-09-30] MEDS: Zonisamide 100 MG CAP PO SCH ×2 (08:01→21:30)
[2021-09-30] MEDS: MULTIVIT/IRON SULF/FOLIC ACID 1 EACH TAB PO SCH (08:01)
[2021-09-30] MEDS ORDERED: Atorvastatin Calcium 40 MG TAB PO SCH (09:00)
[2021-09-30] MEDS: REMDESIVIR 100 MG in Sodium Chloride 0.9% 250 ML 230 ML IV SCH (13:10)
[2021-09-30] MEDS: cefTRIAXone\\ROCEPHIN 1 GM in Sodium Chloride 0.9% 100 ML IVPB SCH (21:29)
[2021-09-30] MEDS: rOPINIRole HCl 2 MG TAB PO SCH (21:30)
[2021-09-30] MEDS: Dexamethasone 10 MG/ML VIAL SLOW IVP SCH (21:31)
[2021-09-30] MEDS: Ipratropium Oral Inhaler INH SCH ×2 (21:32→23:01)
[2021-09-30] MEDS: Azithromycin 250 MG in Sodium Chloride 0.9% 250 ML 250 ML IVPB SCH (23:00)
[2021-10-01] MEDS: Albuterol 200 PUFF (6.7GM INHALER) INH SCH ×6 (02:30→21:50)
[2021-10-01 06:39] LABS: #Lymphocytes 1.5 thou/uL (1.20-3.40); #Monocytes 0.4 thou/uL (0.11-0.59); #Neutrophils 3.2 thou/uL (1.40-6.50); %Basophils 0.1 % (0.0-1.0); %Eosinophils 0.1 % (0.0-10.0); %Lymphocytes 29.9 % (21.0-51.0); %Monocytes 7.3 % (0.0-10.0); %Neutrophils 62.6 % (42.0-75.0); Mean Corpuscular HGB CONC 33.8 g/dL (32.0-36.0); Mean Platelet Volume 7.7 fL (7.4-10.4); Platelet Count 224 thou/uL (130-400); RBC Distribution Width 13.2 % (11.5-14.5)
[2021-10-01] MEDS: Mometasone 200 MCG/Formoterol 5 MCG 120 PUFF INHALER INH SCH ×2 (06:40→17:39)
[2021-10-01 07:01] LABS: ALT (SGPT) 23 U/L (8-55); AST (SGOT) 28 U/L (5-34); Albumin 3.3 g/dL (3.4-4.8); Alkaline Phosphatase 39 U/L (40-110); Anion Gap 14 mmol/L (10-20); BUN (Urea Nitrogen) 17 mg/dL (8.4-25.7); Bilirubin, Total 0.3 mg/dL (0.2-1.2); Calc. Creatinine Clearance 101 mL/min (70-130); Calcium 8.6 mg/dL (7.8-10.44); Carbon Dioxide 20 mmol/L (23-31); Chloride 107 mmol/L (98-107); Globulin 3.6 g/dL (2.4-3.5); Glucose 136 mg/dL (80-115); Potassium 4.4 mmol/L (3.5-5.1); Protein, Total 6.9 g/dL (5.8-8.1); Sodium 137 mmol/L (136-145)
[2021-10-01] MEDS: REMDESIVIR 100 MG in Sodium Chloride 0.9% 250 ML 230 ML IV SCH (08:31)
[2021-10-01] MEDS: Furosemide 20 MG TAB PO SCH (08:32)
[2021-10-01] MEDS: carBAMazepine 200 MG TAB PO SCH ×2 (08:32→22:02)
[2021-10-01] MEDS: Famotidine 20 MG TAB PO SCH ×2 (08:32→22:03)
[2021-10-01] MEDS: Zonisamide 100 MG CAP PO SCH ×2 (08:33→22:03)
[2021-10-01] MEDS: Potassium Chloride 20 MEQ TAB PO SCH (08:33)
[2021-10-01] MEDS: Atorvastatin Calcium 40 MG TAB PO SCH (08:34)
[2021-10-01] MEDS: Aspirin 325 MG TAB PO SCH (08:34)
[2021-10-01] MEDS: Ziprasidone 20 MG CAP PO SCH (08:34)
[2021-10-01] MEDS: Dronedarone HCl 400 MG TAB PO SCH ×2 (08:34→17:38)
[2021-10-01] MEDS: Apixaban 5 MG TAB PO SCH ×2 (08:35→22:02)
[2021-10-01] MEDS ORDERED: Dexamethasone 10 MG/ML VIAL PO SCH (09:26)
[2021-10-01] MEDS: Ipratropium Oral Inhaler INH SCH ×3 (15:40→21:50)
[2021-10-01] MEDS: MULTIVIT/IRON SULF/FOLIC ACID 1 EACH TAB PO SCH (16:13)
[2021-10-01] MEDS ORDERED: Dexamethasone 4 MG TAB PO SCH (21:00)
[2021-10-01] MEDS: rOPINIRole HCl 2 MG TAB PO SCH (22:03)
[2021-10-01] MEDS: Azithromycin 250 MG in Sodium Chloride 0.9% 250 ML 250 ML IVPB SCH (22:25)
[2021-10-02] MEDS: Ipratropium Oral Inhaler INH SCH ×3 (04:30→12:13)
[2021-10-02] MEDS: Albuterol 200 PUFF (6.7GM INHALER) INH SCH ×3 (04:30→12:12)
[2021-10-02 07:51] LABS: Hemoglobin 9.5 g/dL (14.0-18.0); Mean Corpuscular HGB CONC 32.6 g/dL (32.0-36.0); Mean Corpuscular Hemoglobin 37.4 pg (27.0-31.0); Mean Platelet Volume 8.1 fL (7.4-10.4); Platelet Count 283 thou/uL (130-400); RBC Distribution Width 13.3 % (11.5-14.5); Red Blood Cell (RBC) Count 2.54 mill/uL (4.70-6.10); White Blood Cell (WBC) Count 5.4 thou/uL (4.8-10.8)
[2021-10-02 08:05] LABS: ALT (SGPT) 24 U/L (8-55); AST (SGOT) 26 U/L (5-34); Albumin 3.4 g/dL (3.4-4.8); Alkaline Phosphatase 39 U/L (40-110); Anion Gap 12 mmol/L (10-20); BUN (Urea Nitrogen) 20 mg/dL (8.4-25.7); Bilirubin, Total 0.4 mg/dL (0.2-1.2); Calc. Creatinine Clearance 92 mL/min (70-130); Carbon Dioxide 25 mmol/L (23-31); Chloride 109 mmol/L (98-107); Globulin 3.9 g/dL (2.4-3.5); Glucose 145 mg/dL (80-115); Protein, Total 7.3 g/dL (5.8-8.1); Sodium 141 mmol/L (136-145)
[2021-10-02] MEDS: Furosemide 20 MG TAB PO SCH (08:51)
[2021-10-02] MEDS: MULTIVIT/IRON SULF/FOLIC ACID 1 EACH TAB PO SCH (08:51)
[2021-10-02] MEDS: Potassium Chloride 20 MEQ TAB PO SCH (08:52)
[2021-10-02] MEDS: carBAMazepine 200 MG TAB PO SCH (08:52)
[2021-10-02] MEDS: Apixaban 5 MG TAB PO SCH (08:53)
[2021-10-02] MEDS: Famotidine 20 MG TAB PO SCH (08:53)
[2021-10-02] MEDS: Aspirin 325 MG TAB PO SCH (08:53)
[2021-10-02] MEDS: Atorvastatin Calcium 40 MG TAB PO SCH (08:53)
[2021-10-02] MEDS: Dronedarone HCl 400 MG TAB PO SCH (08:53)
[2021-10-02] MEDS: Mometasone 200 MCG/Formoterol 5 MCG 120 PUFF INHALER INH SCH (09:00)
[2021-10-02] MEDS ORDERED: Azithromycin 250 MG TAB PO SCH (09:45)
[2021-10-02] MEDS: REMDESIVIR 100 MG in Sodium Chloride 0.9% 250 ML 230 ML IV SCH (10:45)
[2021-10-02 10:50] LABS: Band 6 % (5-11); Lymphocytes 31 % (21-51); MDiff Complete? YES; Macrocytosis SLIGHT = 6-15 cells (100X) (0-5/hpf); Monocytes 10 % (0-10); Neutrophil 52 % (42-75); Ovalocytes SLIGHT = 2-5 cells (100X) (0-1/hpf); Platelet Morphology Comment Appears Adequate; Polychromasia SLIGHT = 2-3 cells (100X) (0-2/hpf); Reactive Lymphocytes 1 % (0-10)
[2021-10-02] MEDS: Ziprasidone 20 MG CAP PO SCH (11:06)
[2021-10-02] MEDS: Zonisamide 100 MG CAP PO SCH (11:06)
[2021-10-02 14:47] VITALS: BP 108/64; TEMP 97.9
== END 2021-10-02 15:04 | disposition home or self-care (01) | DRG 177 ==
LOC: ERS 18:24 → ERHOLD 20:19 → OBSVTOIN 09-29 10:20 → 2SE 09-29 14:13 → 2SW 09-30 00:55 → T4-A 10-01 17:18
PROVIDERS: ADMIT Student in an Organized Health Care Education/Training Program; ATTEND Student in an Organized Health Care Education/Training Program
PROC: 8E0ZXY6 Isolation (ICD-10-PCS; 2021-09-28)
PROC: XW033E5 Introduction of Remdesivir Anti-infective into Peripheral Vein, Percutaneous Approach, New Technology Group 5 (ICD-10-PCS; principal; 2021-09-29)
PROC: 3E0333Z Introduction of Anti-inflammatory into Peripheral Vein, Percutaneous Approach (ICD-10-PCS; 2021-09-29)
DX: U07.1 COVID-19 (principal); J12.82 Pneumonia due to coronavirus disease 2019; J96.01 Acute respiratory failure with hypoxia; J44.1 Chronic obstructive pulmonary disease with (acute) exacerbation; J44.0 Chronic obstructive pulmonary disease with (acute) lower respiratory infection; N17.9 Acute kidney failure, unspecified; I50.32 Chronic diastolic (congestive) heart failure; E87.6 Hypokalemia; R19.7 Diarrhea, unspecified; D53.9 Nutritional anemia, unspecified; L89.151 Pressure ulcer of sacral region, stage 1; E78.5 Hyperlipidemia, unspecified; I48.0 Paroxysmal atrial fibrillation; G25.81 Restless legs syndrome; G40.909 Epilepsy, unspecified, not intractable, without status epilepticus; I11.0 Hypertensive heart disease with heart failure; Z86.73 Personal history of transient ischemic attack (TIA), and cerebral infarction without residual deficits; I25.2 Old myocardial infarction; Z88.8 Allergy status to other drugs, medicaments and biological substances; Z79.899 Other long term (current) drug therapy; Z79.01 Long term (current) use of anticoagulants; Z79.82 Long term (current) use of aspirin; Z90.49 Acquired absence of other specified parts of digestive tract; Z98.890 Other specified postprocedural states
CPT/HCPCS: 0240U; 36415; 36416; 70450; 71045; 80048; 80053; 81003; 81015; 83690; 83880; 84145; 84484; 85025; 93005; 96365; 96367; J0456; J0696; J1100; J3490; J7050; J7120; J7620; J8540

== ENCOUNTER 2022-02-21 14:47 | Inpatient (IN) | payer MEDICARE ==
[2022-02-21 17:03] LABS: Troponin I Less than 0.010 ng/mL (< 0.028)
[2022-02-21] MEDS ORDERED: Acetaminophen 650 MG Suppository PR PRN (17:08)
[2022-02-21] MEDS ORDERED: Acetaminophen 325 MG TAB PO PRN (17:08)
[2022-02-21] MEDS ORDERED: Calcium Carbonate 500 MG ChewTAB PO PRN (17:08)
[2022-02-21] MEDS ORDERED: Furosemide 20 MG/2 ML VIAL SLOW IVP SCH (17:30)
[2022-02-21] MEDS ORDERED: Furosemide 20 MG/2 ML VIAL ONE (17:50)
[2022-02-21] MEDS ORDERED: hydrOXYzine 25 MG TAB PO PRN (18:18)
[2022-02-21] MEDS ORDERED: Diclofenac 1% 100 GM GEL TP PRN (18:18)
[2022-02-21 18:28] VITALS: BMI 32.8
[2022-02-21 19:48] LABS: Troponin I Less than 0.010 ng/mL (< 0.028)
[2022-02-21] MEDS ORDERED: Albuterol Sulfate 1.25 MG/3 ML NEB NEB PRN (21:45)
[2022-02-21] MEDS: rOPINIRole HCl 2 MG TAB PO SCH (22:09)
[2022-02-21] MEDS: carBAMazepine 200 MG TAB PO SCH (22:10)
[2022-02-21] MEDS: Amoxicillin/Potassium Clav 875 MG TAB PO SCH (22:10)
[2022-02-21] MEDS: Gabapentin 100 MG CAP PO SCH (22:11)
[2022-02-21] MEDS: Atorvastatin Calcium 40 MG TAB PO SCH (22:12)
[2022-02-21] MEDS: Apixaban 5 MG TAB PO SCH (22:12)
[2022-02-21] MEDS: Zonisamide 100 MG CAP PO SCH (22:13)
[2022-02-22 05:34] LABS: Anion Gap 13 mmol/L (10-20); BUN (Urea Nitrogen) 18 mg/dL (8.4-25.7); Calc. Creatinine Clearance 82 mL/min (70-130); Calcium 7.8 mg/dL (7.8-10.44); Carbon Dioxide 22 mmol/L (23-31); Chloride 108 mmol/L (98-107); Glucose 161 mg/dL (80-115); Potassium 5.2 mmol/L (3.5-5.1); Sodium 138 mmol/L (136-145)
[2022-02-22 07:01] LABS: Hemoglobin A1c 6.2 % (4.0-6.0)
[2022-02-22 07:32] LABS: Band 18 % (5-11); Hemoglobin 8.6 g/dL (14.0-18.0); Lymphocytes 28 % (21-51); MDiff Complete? YES; Macrocytosis MODERATE=16-30 cells (100X) (0-5/hpf); Mean Corpuscular HGB CONC 31.3 g/dL (32.0-36.0); Mean Corpuscular Hemoglobin 38.1 pg (27.0-31.0); Mean Platelet Volume 8.5 fL (7.4-10.4); Monocytes 7 % (0-10); Neutrophil 46 % (42-75); Ovalocytes SLIGHT = 2-5 cells (100X) (0-1/hpf); Platelet Count 104 thou/uL (130-400); Platelet Morphology Comment Appears Decreased; Polychromasia SLIGHT = 2-3 cells (100X) (0-2/hpf); RBC Distribution Width 13.9 % (11.5-14.5); Red Blood Cell (RBC) Count 2.25 mill/uL (4.70-6.10)
[2022-02-22] MEDS: Mometasone 200 MCG/Formoterol 5 MCG 120 PUFF INHALER INH SCH (07:45)
[2022-02-22 08:09] LABS: Anion Gap 11 mmol/L (10-20); BUN (Urea Nitrogen) 20 mg/dL (8.4-25.7); Calc. Creatinine Clearance 79 mL/min (70-130); Calcium 8.3 mg/dL (7.8-10.44); Carbon Dioxide 27 mmol/L (23-31); Chloride 107 mmol/L (98-107); Glucose 109 mg/dL (80-115); Potassium 3.9 mmol/L (3.5-5.1); Sodium 141 mmol/L (136-145)
[2022-02-22 08:10] LABS: Cardiac Risk 2.2 (Less than 4.5)
[2022-02-22] MEDS ORDERED: Furosemide 20 MG/2 ML VIAL SLOW IVP SCH ×2 (09:00→16:00)
[2022-02-22] MEDS: predniSONE 20 MG TAB PO SCH (10:03)
[2022-02-22] MEDS: Dronedarone HCl 400 MG TAB PO SCH ×2 (10:03→17:34)
[2022-02-22] MEDS: Ziprasidone 20 MG CAP PO SCH (10:04)
[2022-02-22] MEDS: Amoxicillin/Potassium Clav 875 MG TAB PO SCH ×2 (10:04→20:29)
[2022-02-22] MEDS: Apixaban 5 MG TAB PO SCH ×2 (10:04→20:28)
[2022-02-22] MEDS: carBAMazepine 200 MG TAB PO SCH ×2 (10:05→20:28)
[2022-02-22] MEDS: Ezetimibe 10 MG TAB PO SCH (10:06)
[2022-02-22] MEDS: Multivitamin W/ Minerals 1 TAB PO SCH (10:07)
[2022-02-22] MEDS: Spironolactone 25 MG TAB PO SCH (10:07)
[2022-02-22] MEDS: Folic Acid 1 MG TAB PO SCH (10:07)
[2022-02-22] MEDS: Zonisamide 100 MG CAP PO SCH ×2 (10:08→20:29)
[2022-02-22] MEDS ORDERED: Furosemide 40 MG/4 ML VIAL SLOW IVP SCH (10:45)
[2022-02-22] MEDS: rOPINIRole HCl 2 MG TAB PO SCH (20:27)
[2022-02-22] MEDS: Gabapentin 100 MG CAP PO SCH (20:28)
[2022-02-22] MEDS: Atorvastatin Calcium 40 MG TAB PO SCH (20:29)
[2022-02-23] MEDS: Furosemide 100 MG/10 ML VIAL SLOW IVP SCH ×2 (05:50→15:43)
[2022-02-23] MEDS: Mometasone 200 MCG/Formoterol 5 MCG 120 PUFF INHALER INH SCH (07:00)
[2022-02-23 08:02] LABS: Anion Gap 13 mmol/L (10-20); BUN (Urea Nitrogen) 21 mg/dL (8.4-25.7); Calc. Creatinine Clearance 78 mL/min (70-130); Calcium 8.5 mg/dL (7.8-10.44); Carbon Dioxide 29 mmol/L (23-31); Chloride 102 mmol/L (98-107); Glucose 108 mg/dL (80-115); Potassium 3.6 mmol/L (3.5-5.1); Sodium 140 mmol/L (136-145)
[2022-02-23] MEDS: Amoxicillin/Potassium Clav 875 MG TAB PO SCH ×2 (09:28→20:39)
[2022-02-23] MEDS: Spironolactone 25 MG TAB PO SCH (09:28)
[2022-02-23] MEDS: Zonisamide 100 MG CAP PO SCH ×2 (09:29→20:40)
[2022-02-23] MEDS: Ziprasidone 20 MG CAP PO SCH (09:31)
[2022-02-23] MEDS: Ezetimibe 10 MG TAB PO SCH (09:31)
[2022-02-23] MEDS: Apixaban 5 MG TAB PO SCH ×2 (09:31→20:39)
[2022-02-23] MEDS: Multivitamin W/ Minerals 1 TAB PO SCH (09:31)
[2022-02-23] MEDS: carBAMazepine 200 MG TAB PO SCH ×2 (09:32→20:40)
[2022-02-23] MEDS: predniSONE 20 MG TAB PO SCH (09:32)
[2022-02-23] MEDS: Folic Acid 1 MG TAB PO SCH (09:32)
[2022-02-23] MEDS: Dronedarone HCl 400 MG TAB PO SCH ×2 (09:33→18:02)
[2022-02-23] MEDS: Gabapentin 100 MG CAP PO SCH (20:40)
[2022-02-23] MEDS: rOPINIRole HCl 2 MG TAB PO SCH (20:40)
[2022-02-23] MEDS: Atorvastatin Calcium 40 MG TAB PO SCH (20:40)
[2022-02-24] MEDS ORDERED: guaiFENesin/DM ER PO SCH (04:45)
[2022-02-24 05:27] LABS: Anion Gap 13 mmol/L (10-20); BUN (Urea Nitrogen) 27 mg/dL (8.4-25.7); Calc. Creatinine Clearance 69 mL/min (70-130); Calcium 8.7 mg/dL (7.8-10.44); Carbon Dioxide 29 mmol/L (23-31); Chloride 103 mmol/L (98-107); Glucose 136 mg/dL (80-115); Potassium 4.7 mmol/L (3.5-5.1); Sodium 140 mmol/L (136-145)
[2022-02-24] MEDS: Furosemide 100 MG/10 ML VIAL SLOW IVP SCH (05:37)
[2022-02-24] MEDS ORDERED: Albuterol Sulfate 2.5 mg/3 ml Neb NEB PRN (06:14)
[2022-02-24] MEDS: Mometasone 200 MCG/Formoterol 5 MCG 120 PUFF INHALER INH SCH (07:33)
[2022-02-24 08:19] LABS: Hemoglobin 9.8 g/dL (14.0-18.0); MDiff Complete? YES; Mean Corpuscular HGB CONC 31.4 g/dL (32.0-36.0); Mean Corpuscular Hemoglobin 37.7 pg (27.0-31.0); Mean Platelet Volume 8.4 fL (7.4-10.4); Platelet Count 129 thou/uL (130-400); RBC Distribution Width 13.8 % (11.5-14.5); Red Blood Cell (RBC) Count 2.59 mill/uL (4.70-6.10); White Blood Cell (WBC) Count 6.5 thou/uL (4.8-10.8)
[2022-02-24 08:20] LABS: Band 3 % (5-11); Eosinophils 1 % (0-10); Lymphocytes 34 % (21-51); Macrocytosis MODERATE=16-30 cells (100X) (0-5/hpf); Monocytes 15 % (0-10); Neutrophil 45 % (42-75); Platelet Morphology Comment PLT SLIGHTLY DECREASED
[2022-02-24] MEDS: Folic Acid 1 MG TAB PO SCH (09:09)
[2022-02-24] MEDS: Dronedarone HCl 400 MG TAB PO SCH (09:10)
[2022-02-24] MEDS: carBAMazepine 200 MG TAB PO SCH (09:11)
[2022-02-24] MEDS: Zonisamide 100 MG CAP PO SCH (09:11)
[2022-02-24] MEDS: Amoxicillin/Potassium Clav 875 MG TAB PO SCH (09:12)
[2022-02-24] MEDS: Ezetimibe 10 MG TAB PO SCH (09:12)
[2022-02-24] MEDS: predniSONE 20 MG TAB PO SCH (09:12)
[2022-02-24] MEDS: Apixaban 5 MG TAB PO SCH (09:12)
[2022-02-24] MEDS: Multivitamin W/ Minerals 1 TAB PO SCH (09:12)
[2022-02-24] MEDS: Spironolactone 25 MG TAB PO SCH (09:12)
[2022-02-24] MEDS: Ziprasidone 20 MG CAP PO SCH (09:18)
[2022-02-24 10:17] LABS: A/G Ratio 1.3 (0.7-1.7); Albumin 3.6 g/dL (2.9-4.4); Alpha 1 0.2 g/dL (0.0-0.4); Alpha 2 0.8 g/dL (0.4-1.0); Beta 0.8 g/dL (0.7-1.3); Gamma 0.9 g/dL (0.4-1.8); Globulin, Total 2.7 g/dL (2.2-3.9); M-Spike Not Observed g/dL (Not Observed)
[2022-02-24 10:17] LABS: Albumin-Ur 25.7 % (.); Alpha 1 - Ur 12.3 % (.); Alpha 2 - Ur 26.9 % (.); Beta-Ur 19.8 % (.); Gamma-Ur 15.2 % (.); M-Spike,% Not Observed % (Not Observed); Protein, Urine 5.6 mg/dL (Not Estab.)
[2022-02-24 12:16] VITALS: BP 101/51; TEMP 97.3
[2022-02-24] MEDS ORDERED: Benzonatate 100 MG CAP PO PRN (13:52)
== END 2022-02-24 15:47 | disposition home or self-care (01) | DRG 291 ==
LOC: ERS 14:47 → 2SW 15:46 → ERHOLD 15:46 → 2SW 18:20 → OBSVTOIN 02-22 09:22
PROVIDERS: ADMIT Emergency Medicine; ATTEND Emergency Medicine
DX: I11.0 Hypertensive heart disease with heart failure (principal); I50.23 Acute on chronic systolic (congestive) heart failure; J44.1 Chronic obstructive pulmonary disease with (acute) exacerbation; E78.5 Hyperlipidemia, unspecified; I48.0 Paroxysmal atrial fibrillation; G25.81 Restless legs syndrome; G40.909 Epilepsy, unspecified, not intractable, without status epilepticus; F17.210 Nicotine dependence, cigarettes, uncomplicated; R47.81 Slurred speech; D53.9 Nutritional anemia, unspecified; D69.6 Thrombocytopenia, unspecified; E78.00 Pure hypercholesterolemia, unspecified; R73.03 Prediabetes; Z88.8 Allergy status to other drugs, medicaments and biological substances; Z79.01 Long term (current) use of anticoagulants; Z79.82 Long term (current) use of aspirin; Z79.899 Other long term (current) drug therapy; Z79.51 Long term (current) use of inhaled steroids; Z86.73 Personal history of transient ischemic attack (TIA), and cerebral infarction without residual deficits; I25.2 Old myocardial infarction; Z90.49 Acquired absence of other specified parts of digestive tract; Z98.61 Coronary angioplasty status
CPT/HCPCS: 36415; 80048; 80061; 82607; 82746; 83036; 84145; 84165; 84166; 85025; 85060; 93005; 94640; 99285; J1940; J7512; J7620

== ENCOUNTER 2022-07-28 15:49 | Inpatient (IN) | payer MEDICARE ==
[2022-07-28 17:06] LABS: #Basophils 0.1 thou/uL (0.0-0.2); #Eosinphils 0.1 thou/uL (0.0-0.7); #Lymphocytes 1.5 thou/uL (1.20-3.40); #Monocytes 0.8 thou/uL (0.11-0.59); #Neutrophils 5.6 thou/uL (1.40-6.50); %Basophils 0.9 % (0.0-1.0); %Eosinophils 1.2 % (0.0-10.0); %Lymphocytes 18.7 % (21.0-51.0); %Neutrophils 69.2 % (42.0-75.0); Hemoglobin 9.7 g/dL (14.0-18.0); Mean Corpuscular HGB CONC 31.6 g/dL (32.0-36.0); Mean Platelet Volume 8.4 fL (7.4-10.4); Platelet Count 164 thou/uL (130-400); RBC Distribution Width 13.9 % (11.5-14.5); White Blood Cell (WBC) Count 8.1 thou/uL (4.8-10.8)
[2022-07-28 17:07] LABS: ALT (SGPT) 15 U/L (8-55); AST (SGOT) 14 U/L (5-34); Albumin 4.4 g/dL (3.4-4.8); Alkaline Phosphatase 56 U/L (40-110); Anion Gap 12 mmol/L (10-20); BUN (Urea Nitrogen) 21 mg/dL (8.4-25.7); Bilirubin, Total 0.6 mg/dL (0.2-1.2); Calc. Creatinine Clearance 0 mL/min (70-130); Calcium 8.5 mg/dL (7.8-10.44); Carbon Dioxide 28 mmol/L (23-31); Chloride 103 mmol/L (98-107); Estimated GFR 54; Globulin 2.9 g/dL (2.4-3.5); Glucose 116 mg/dL (80-115); Lipase 23 U/L (8-78); Potassium 4.5 mmol/L (3.5-5.1); Protein, Total 7.3 g/dL (5.8-8.1); Sodium 138 mmol/L (136-145)
[2022-07-28 19:09] LABS: SARS-CoV-2 NAA Rapid Test Not Detected (NotDetected)
[2022-07-28] MEDS ORDERED: Magnesium 2 GM/50 ML BAG (IN WATER) ONE (19:34)
[2022-07-28] MEDS ORDERED: methylPREDNISolone Sod Succ/PF 125 MG/2 ML VIAL ONE (19:34)
[2022-07-28] MEDS ORDERED: Azithromycin 500 MG VIAL ONE (21:11)
[2022-07-28 21:57] LABS: Troponin I 0.014 ng/mL (< 0.028)
[2022-07-29 00:59] LABS: Troponin I 0.016 ng/mL (< 0.028)
[2022-07-29] MEDS ORDERED: hydrOXYzine 25 MG TAB PO PRN (01:55)
[2022-07-29] MEDS ORDERED: Furosemide 40 MG/4 ML VIAL SLOW IVP SCH ×2 (02:00→04:15)
[2022-07-29] MEDS ORDERED: cefTRIAXone\\ROCEPHIN 2 GM VIAL ONE (02:41)
[2022-07-29 04:11] VITALS: BMI 33.3
[2022-07-29 05:08] LABS: #Lymphocytes 1.1 thou/uL (1.20-3.40); #Monocytes 0.2 thou/uL (0.11-0.59); #Neutrophils 4.1 thou/uL (1.40-6.50); %Basophils 0.4 % (0.0-1.0); %Eosinophils 0.1 % (0.0-10.0); %Lymphocytes 19.8 % (21.0-51.0); %Monocytes 4.1 % (0.0-10.0); %Neutrophils 75.7 % (42.0-75.0); Hemoglobin 9.2 g/dL (14.0-18.0); Mean Corpuscular HGB CONC 32.2 g/dL (32.0-36.0); Mean Corpuscular Hemoglobin 39.4 pg (27.0-31.0); Mean Platelet Volume 8.4 fL (7.4-10.4); Platelet Count 154 thou/uL (130-400); Red Blood Cell (RBC) Count 2.33 mill/uL (4.70-6.10); White Blood Cell (WBC) Count 5.4 thou/uL (4.8-10.8)
[2022-07-29 05:29] LABS: Anion Gap 15 mmol/L (10-20); BUN (Urea Nitrogen) 24 mg/dL (8.4-25.7); Calc. Creatinine Clearance 74 mL/min (70-130); Calcium 8.5 mg/dL (7.8-10.44); Carbon Dioxide 24 mmol/L (23-31); Chloride 104 mmol/L (98-107); Estimated GFR 51; Glucose 187 mg/dL (80-115); Potassium 4.6 mmol/L (3.5-5.1); Sodium 138 mmol/L (136-145)
[2022-07-29] MEDS: Aspirin 81 mg Enteric Coated Tablet PO SCH (07:54)
[2022-07-29] MEDS: Dronedarone HCl 400 MG TAB PO SCH ×2 (07:54→16:43)
[2022-07-29] MEDS: Apixaban 5 MG TAB PO SCH ×2 (07:54→20:21)
[2022-07-29] MEDS: Potassium Chloride 20 MEQ TAB PO SCH (07:54)
[2022-07-29] MEDS: Ziprasidone 20 MG CAP PO SCH (07:55)
[2022-07-29] MEDS: Spironolactone 25 MG TAB PO SCH (07:55)
[2022-07-29] MEDS: Ezetimibe 10 MG TAB PO SCH (07:56)
[2022-07-29] MEDS: Empagliflozin 10 MG TAB PO SCH (07:56)
[2022-07-29] MEDS: predniSONE 20 MG TAB PO SCH (07:56)
[2022-07-29] MEDS: carBAMazepine 200 MG TAB PO SCH ×2 (07:57→16:43)
[2022-07-29] MEDS: Zonisamide 100 MG CAP PO SCH ×2 (07:58→20:22)
[2022-07-29] MEDS: MULTIVIT/IRON SULF/FOLIC ACID 1 EACH TAB PO SCH (07:58)
[2022-07-29] MEDS: Mometasone 200 MCG/Formoterol 5 MCG 120 PUFF INHALER INH SCH ×2 (08:16→18:53)
[2022-07-29 11:16] LABS: Iron 52 ug/dL (65-175); Iron Binding Capacity, Total 256 mcg/dL (261-462); Transferrin, Serum 205 mg/dL (163-344)
[2022-07-29] MEDS: Acetaminophen 325 MG TAB PO PRN (15:23)
[2022-07-29] MEDS: Cepastat Lozenges 1 LOZ PO PRN ×3 (15:24→20:26)
[2022-07-29] MEDS: rOPINIRole HCl 2 MG TAB PO SCH (20:21)
[2022-07-29] MEDS: Gabapentin 100 MG CAP PO SCH (20:21)
[2022-07-29] MEDS: Atorvastatin Calcium 40 MG TAB PO SCH (20:21)
[2022-07-30 04:58] LABS: #Basophils 0.1 thou/uL (0.0-0.2); #Lymphocytes 1.4 thou/uL (1.20-3.40); #Monocytes 0.6 thou/uL (0.11-0.59); #Neutrophils 3.3 thou/uL (1.40-6.50); %Eosinophils 0.6 % (0.0-10.0); %Lymphocytes 25.8 % (21.0-51.0); %Neutrophils 60.6 % (42.0-75.0); Hemoglobin 8.7 g/dL (14.0-18.0); Mean Corpuscular HGB CONC 31.9 g/dL (32.0-36.0); Mean Corpuscular Hemoglobin 39.1 pg (27.0-31.0); Mean Platelet Volume 8.5 fL (7.4-10.4); Platelet Count 140 thou/uL (130-400); RBC Distribution Width 13.7 % (11.5-14.5); Red Blood Cell (RBC) Count 2.22 mill/uL (4.70-6.10); White Blood Cell (WBC) Count 5.4 thou/uL (4.8-10.8)
[2022-07-30 05:48] LABS: Anion Gap 14 mmol/L (10-20); BUN (Urea Nitrogen) 31 mg/dL (8.4-25.7); Calc. Creatinine Clearance 73 mL/min (70-130); Calcium 8.2 mg/dL (7.8-10.44); Carbon Dioxide 23 mmol/L (23-31); Chloride 103 mmol/L (98-107); Estimated GFR 50; Glucose 166 mg/dL (80-115); Sodium 136 mmol/L (136-145)
[2022-07-30] MEDS ORDERED: Furosemide 40 MG/4 ML VIAL SLOW IVP SCH (07:00)
[2022-07-30] MEDS: Mometasone 200 MCG/Formoterol 5 MCG 120 PUFF INHALER INH SCH ×2 (07:28→19:01)
[2022-07-30] MEDS: carBAMazepine 200 MG TAB PO SCH ×2 (08:06→16:25)
[2022-07-30] MEDS: Ezetimibe 10 MG TAB PO SCH (08:06)
[2022-07-30] MEDS: Ziprasidone 20 MG CAP PO SCH (08:06)
[2022-07-30] MEDS: predniSONE 20 MG TAB PO SCH (08:06)
[2022-07-30] MEDS: Spironolactone 25 MG TAB PO SCH (08:07)
[2022-07-30] MEDS: MULTIVIT/IRON SULF/FOLIC ACID 1 EACH TAB PO SCH (08:07)
[2022-07-30] MEDS: Empagliflozin 10 MG TAB PO SCH (08:07)
[2022-07-30] MEDS: Dronedarone HCl 400 MG TAB PO SCH ×2 (08:07→16:25)
[2022-07-30] MEDS: Potassium Chloride 20 MEQ TAB PO SCH (08:07)
[2022-07-30] MEDS: Apixaban 5 MG TAB PO SCH ×2 (08:07→20:50)
[2022-07-30] MEDS: Zonisamide 100 MG CAP PO SCH ×2 (08:07→20:49)
[2022-07-30] MEDS: Aspirin 81 mg Enteric Coated Tablet PO SCH (08:07)
[2022-07-30] MEDS: Cepastat Lozenges 1 LOZ PO PRN ×4 (09:09→22:59)
[2022-07-30] MEDS: Torsemide 20 MG TAB PO SCH (16:25)
[2022-07-30] MEDS: Atorvastatin Calcium 40 MG TAB PO SCH (20:50)
[2022-07-30] MEDS: Gabapentin 100 MG CAP PO SCH (20:51)
[2022-07-30] MEDS: rOPINIRole HCl 2 MG TAB PO SCH (20:51)
[2022-07-31] MEDS: Cepastat Lozenges 1 LOZ PO PRN ×2 (03:16→06:01)
[2022-07-31 05:22] LABS: Hemoglobin 8.7 g/dL (14.0-18.0); Mean Corpuscular HGB CONC 31.4 g/dL (32.0-36.0); Mean Corpuscular Hemoglobin 38.4 pg (27.0-31.0); Mean Platelet Volume 8.7 fL (7.4-10.4); Platelet Count 126 thou/uL (130-400); RBC Distribution Width 13.7 % (11.5-14.5); Red Blood Cell (RBC) Count 2.26 mill/uL (4.70-6.10); White Blood Cell (WBC) Count 5.3 thou/uL (4.8-10.8)
[2022-07-31 05:39] LABS: Hemoglobin A1c 6.1 % (4.0-6.0)
[2022-07-31 05:46] LABS: Anion Gap 13 mmol/L (10-20); BUN (Urea Nitrogen) 32 mg/dL (8.4-25.7); Calc. Creatinine Clearance 75 mL/min (70-130); Calcium 8.7 mg/dL (7.8-10.44); Carbon Dioxide 25 mmol/L (23-31); Chloride 105 mmol/L (98-107); Estimated GFR 53; Glucose 134 mg/dL (80-115); Potassium 4.1 mmol/L (3.5-5.1); Sodium 139 mmol/L (136-145)
[2022-07-31 06:04] LABS: Band 12 % (5-11); Eosinophils 2 % (0-10); Lymphocytes 31 % (21-51); MDiff Complete? YES; Macrocytosis SLIGHT = 6-15 cells (100X) (0-5/hpf); Monocytes 6 % (0-10); Neutrophil 49 % (42-75); Platelet Morphology Comment Appears Adequate
[2022-07-31] MEDS: Mometasone 200 MCG/Formoterol 5 MCG 120 PUFF INHALER INH SCH (06:36)
[2022-07-31] MEDS: Zonisamide 100 MG CAP PO SCH (09:15)
[2022-07-31] MEDS: Ezetimibe 10 MG TAB PO SCH (09:15)
[2022-07-31] MEDS: MULTIVIT/IRON SULF/FOLIC ACID 1 EACH TAB PO SCH (09:15)
[2022-07-31] MEDS: carBAMazepine 200 MG TAB PO SCH ×2 (09:16→17:19)
[2022-07-31] MEDS: Ziprasidone 20 MG CAP PO SCH (09:16)
[2022-07-31] MEDS: Empagliflozin 10 MG TAB PO SCH (09:16)
[2022-07-31] MEDS: predniSONE 20 MG TAB PO SCH (09:16)
[2022-07-31] MEDS: Potassium Chloride 20 MEQ TAB PO SCH (09:17)
[2022-07-31] MEDS: Spironolactone 25 MG TAB PO SCH (09:17)
[2022-07-31] MEDS: Dronedarone HCl 400 MG TAB PO SCH ×2 (09:17→17:19)
[2022-07-31] MEDS: Torsemide 20 MG TAB PO SCH ×2 (09:23→15:44)
[2022-07-31] MEDS: Apixaban 5 MG TAB PO SCH (10:31)
[2022-07-31] MEDS: Aspirin 81 mg Enteric Coated Tablet PO SCH (10:31)
[2022-07-31] MEDS ORDERED: guaiFENesin ER 600 MG TAB PO SCH ×2 (11:45→21:00)
[2022-07-31] MEDS: Acetaminophen 325 MG TAB PO PRN (12:40)
[2022-07-31 17:25] VITALS: BP 128/60; TEMP 97.9
== END 2022-07-31 17:23 | disposition home or self-care (01) | DRG 291 ==
LOC: ERS 15:49 → ERHOLD 20:55 → 2SW 07-29 03:27
PROVIDERS: ADMIT Student in an Organized Health Care Education/Training Program; ATTEND Family Medicine
DX: I11.0 Hypertensive heart disease with heart failure (principal); I50.33 Acute on chronic diastolic (congestive) heart failure; J44.1 Chronic obstructive pulmonary disease with (acute) exacerbation; Z20.822 Contact with and (suspected) exposure to COVID-19; E78.5 Hyperlipidemia, unspecified; G40.909 Epilepsy, unspecified, not intractable, without status epilepticus; I48.91 Unspecified atrial fibrillation; G25.81 Restless legs syndrome; D53.9 Nutritional anemia, unspecified; I25.10 Atherosclerotic heart disease of native coronary artery without angina pectoris; E66.9 Obesity, unspecified; Z88.8 Allergy status to other drugs, medicaments and biological substances; Z79.899 Other long term (current) drug therapy; Z79.01 Long term (current) use of anticoagulants; Z68.33 Body mass index [BMI] 33.0-33.9, adult; I25.2 Old myocardial infarction; Z86.73 Personal history of transient ischemic attack (TIA), and cerebral infarction without residual deficits; Z90.49 Acquired absence of other specified parts of digestive tract; Z90.89 Acquired absence of other organs; Z83.6 Family history of other diseases of the respiratory system; Z87.891 Personal history of nicotine dependence; Z79.82 Long term (current) use of aspirin; Z79.51 Long term (current) use of inhaled steroids
CPT/HCPCS: 36415; 71045; 80048; 80053; 82607; 82728; 83036; 83540; 83550; 83690; 83880; 84145; 84466; 84484; 85025; 93005; 94640; 94644; 94760; J0456; J0696; J1940; J2930; J3475; J7512; J7620

== ENCOUNTER 2022-10-16 16:49 | Inpatient (IN) | payer MEDICARE ==
[2022-10-16 18:16] LABS: #Eosinphils 0.2 thou/uL (0.0-0.7); #Lymphocytes 1.7 thou/uL (1.20-3.40); #Monocytes 0.8 thou/uL (0.11-0.59); #Neutrophils 5.1 thou/uL (1.40-6.50); %Basophils 0.5 % (0.0-1.0); %Eosinophils 2.6 % (0.0-10.0); %Lymphocytes 21.3 % (21.0-51.0); %Monocytes 10.3 % (0.0-10.0); %Neutrophils 65.2 % (42.0-75.0); Hemoglobin 10.3 g/dL (14.0-18.0); Mean Corpuscular HGB CONC 33.7 g/dL (32.0-36.0); Mean Corpuscular Hemoglobin 39.4 pg (27.0-31.0); Platelet Count 138 10x3/uL (130-400); RBC Distribution Width 13.7 % (11.5-14.5); Red Blood Cell (RBC) Count 2.62 mill/uL (4.70-6.10); White Blood Cell (WBC) Count 7.8 10x3/uL (4.8-10.8)
[2022-10-16 18:34] LABS: ALT (SGPT) 17 U/L (8-55); AST (SGOT) 15 U/L (5-34); Albumin 3.8 g/dL (3.4-4.8); Alkaline Phosphatase 47 U/L (40-110); Anion Gap 12 mmol/L (10-20); BUN (Urea Nitrogen) 15 mg/dL (8.4-25.7); Band 24 % (5-11); Bilirubin, Total 0.3 mg/dL (0.2-1.2); Calc. Creatinine Clearance 0 mL/min (70-130); Calcium 8.4 mg/dL (7.8-10.44); Carbon Dioxide 27 mmol/L (23-31); Chloride 103 mmol/L (98-107); Eosinophils 3 % (0-10); Estimated GFR 62; Globulin 3.1 g/dL (2.4-3.5); Glucose 116 mg/dL (80-115); Lymphocytes 21 % (21-51); MDiff Complete? YES; Macrocytosis SLIGHT = 6-15 cells (100X) (0-5/hpf); Metamyelocyte 1 % (0-0); Monocytes 5 % (0-10); Neutrophil 43 % (42-75); Ovalocytes SLIGHT = 2-5 cells (100X) (0-1/hpf); Platelet Morphology Comment Appears Adequate; Polychromasia SLIGHT = 2-3 cells (100X) (0-2/hpf); Potassium 4.2 mmol/L (3.5-5.1); Protein, Total 6.9 g/dL (5.8-8.1); Reactive Lymphocytes 1 % (0-10); Sodium 138 mmol/L (136-145)
[2022-10-16] MEDS ORDERED: predniSONE 20 MG TAB ONE (21:05)
[2022-10-16] MEDS ORDERED: Ipratropium/Albuterol 3 ML NEB ONE (21:50)
[2022-10-16 22:25] LABS: SARS-CoV-2 NAA Rapid Test Not Detected (NotDetected)
[2022-10-16] MEDS ORDERED: Albuterol 2.5 MG/0.5 ML NEB ONE (23:36)
[2022-10-17] MEDS ORDERED: Acetaminophen 325 MG TAB PO PRN (00:02)
[2022-10-17] MEDS ORDERED: Ipratropium/Albuterol 3 ML NEB NEB PRN (00:06)
[2022-10-17] MEDS ORDERED: Magnesium 2 GM/50 ML BAG (IN WATER) ONE ×2 (00:17)
[2022-10-17] MEDS ORDERED: hydrOXYzine 25 MG TAB PO PRN (00:36)
[2022-10-17] MEDS ORDERED: Zonisamide 100 MG CAP PO SCH (00:45)
[2022-10-17] MEDS ORDERED: carBAMazepine 100 mg Chewable Tablet PO SCH (00:45)
[2022-10-17] MEDS ORDERED: Azithromycin 250 MG TAB PO SCH (00:45)
[2022-10-17] MEDS ORDERED: Benzonatate 100 MG CAP PO PRN (01:16)
[2022-10-17] MEDS ORDERED: guaiFENesin ER 600 MG TAB PO SCH (01:30)
[2022-10-17 02:16] VITALS: BMI 25.0
[2022-10-17] MEDS: Ipratropium/Albuterol 3 ML NEB NEB SCH ×6 (04:37→23:34)
[2022-10-17] MEDS ORDERED: Ipratropium/Albuterol 3 ML NEB ONE (07:07)
[2022-10-17 07:23] LABS: #Lymphocytes 1.5 thou/uL (1.20-3.40); #Monocytes 0.5 thou/uL (0.11-0.59); #Neutrophils 3.9 thou/uL (1.40-6.50); %Basophils 0.3 % (0.0-1.0); %Eosinophils 0.2 % (0.0-10.0); %Lymphocytes 24.7 % (21.0-51.0); %Monocytes 8.1 % (0.0-10.0); %Neutrophils 66.8 % (42.0-75.0); Hemoglobin 9.9 g/dL (14.0-18.0); Mean Corpuscular HGB CONC 33.1 g/dL (32.0-36.0); Mean Corpuscular Hemoglobin 39.1 pg (27.0-31.0); Mean Platelet Volume 8.1 fL (7.4-10.4); Platelet Count 134 10x3/uL (130-400); RBC Distribution Width 13.7 % (11.5-14.5); Red Blood Cell (RBC) Count 2.52 mill/uL (4.70-6.10); White Blood Cell (WBC) Count 5.9 10x3/uL (4.8-10.8)
[2022-10-17 07:46] LABS: Anion Gap 13 mmol/L (10-20); BUN (Urea Nitrogen) 17 mg/dL (8.4-25.7); Calc. Creatinine Clearance 72 mL/min (70-130); Calcium 8.4 mg/dL (7.8-10.44); Carbon Dioxide 22 mmol/L (23-31); Chloride 104 mmol/L (98-107); Estimated GFR 70; Glucose 252 mg/dL (80-115); Potassium 4.3 mmol/L (3.5-5.1); Sodium 135 mmol/L (136-145)
[2022-10-17] MEDS ORDERED: Dextrose 5% in Water 1,000 ML IV PRN (08:18)
[2022-10-17] MEDS ORDERED: Dextrose 50% Abboject 50 ML SYRINGE SLOW IVP PRN (08:18)
[2022-10-17] MEDS ORDERED: Famotidine 20 MG TAB ONE (08:39)
[2022-10-17] MEDS ORDERED: Potassium Chloride 20 MEQ TAB ONE (08:39)
[2022-10-17] MEDS ORDERED: Aspirin 81 mg Enteric Coated Tablet ONE (08:39)
[2022-10-17] MEDS ORDERED: Folic Acid 1 MG TAB ONE (08:39)
[2022-10-17] MEDS ORDERED: Ziprasidone 20 MG CAP ONE (08:39)
[2022-10-17] MEDS ORDERED: predniSONE 20 MG TAB ONE (08:40)
[2022-10-17] MEDS: Ziprasidone 20 MG CAP PO SCH (08:52)
[2022-10-17] MEDS: predniSONE 20 MG TAB PO SCH (08:52)
[2022-10-17] MEDS: Dronedarone HCl 400 MG TAB PO SCH ×2 (08:52→17:19)
[2022-10-17] MEDS: Famotidine 20 MG TAB PO SCH ×2 (08:53→21:16)
[2022-10-17] MEDS: Empagliflozin 10 MG TAB PO SCH (08:53)
[2022-10-17] MEDS: Aspirin 81 mg Enteric Coated Tablet PO SCH (08:53)
[2022-10-17] MEDS: carBAMazepine 200 MG TAB PO SCH ×2 (08:53→21:15)
[2022-10-17] MEDS: Ezetimibe 10 MG TAB PO SCH (08:53)
[2022-10-17] MEDS: Apixaban 5 MG TAB PO SCH ×2 (08:53→21:16)
[2022-10-17] MEDS: Potassium Chloride 20 MEQ TAB PO SCH (08:54)
[2022-10-17] MEDS: Zonisamide 100 MG CAP PO SCH ×2 (08:54→21:16)
[2022-10-17] MEDS: Folic Acid 1 MG TAB PO SCH (08:54)
[2022-10-17] MEDS: Torsemide 20 MG TAB PO SCH ×2 (08:54→14:10)
[2022-10-17] MEDS: Spironolactone 25 MG TAB PO SCH (08:54)
[2022-10-17] MEDS ORDERED: Mometasone/Formoterol 200/5 60 PUFF INH SCH (09:00)
[2022-10-17] MEDS: HumaLOG 300 UNITS/3 ML VIAL SC PRN (17:19)
[2022-10-17] MEDS: Mometasone/Formoterol 200/5 60 PUFF INH SCH (18:51)
[2022-10-17] MEDS: Atorvastatin Calcium 40 MG TAB PO SCH (21:14)
[2022-10-17] MEDS: Gabapentin 100 MG CAP PO SCH (21:14)
[2022-10-17] MEDS: guaiFENesin ER 600 MG TAB PO SCH (21:15)
[2022-10-17] MEDS: rOPINIRole HCl 2 MG TAB PO SCH (22:21)
[2022-10-18] MEDS: Ipratropium/Albuterol 3 ML NEB NEB SCH ×5 (03:22→18:52)
[2022-10-18] MEDS: HumaLOG 300 UNITS/3 ML VIAL SC PRN (06:38)
[2022-10-18] MEDS: Mometasone/Formoterol 200/5 60 PUFF INH SCH ×2 (07:33→18:53)
[2022-10-18 07:49] LABS: Hemoglobin 9.7 g/dL (14.0-18.0); Mean Corpuscular HGB CONC 32.8 g/dL (32.0-36.0); Mean Corpuscular Hemoglobin 38.7 pg (27.0-31.0); Mean Platelet Volume 7.7 fL (7.4-10.4); Platelet Count 159 10x3/uL (130-400); RBC Distribution Width 13.7 % (11.5-14.5); Red Blood Cell (RBC) Count 2.51 mill/uL (4.70-6.10); White Blood Cell (WBC) Count 6.1 10x3/uL (4.8-10.8)
[2022-10-18 07:59] LABS: Anion Gap 14 mmol/L (10-20); BUN (Urea Nitrogen) 22 mg/dL (8.4-25.7); Calc. Creatinine Clearance 63 mL/min (70-130); Calcium 8.7 mg/dL (7.8-10.44); Carbon Dioxide 24 mmol/L (23-31); Chloride 102 mmol/L (98-107); Estimated GFR 60; Glucose 138 mg/dL (80-115); Potassium 3.9 mmol/L (3.5-5.1); Sodium 136 mmol/L (136-145)
[2022-10-18] MEDS: carBAMazepine 200 MG TAB PO SCH ×2 (08:35→20:04)
[2022-10-18] MEDS: Ziprasidone 20 MG CAP PO SCH (08:35)
[2022-10-18] MEDS: Potassium Chloride 20 MEQ TAB PO SCH (08:35)
[2022-10-18] MEDS: Zonisamide 100 MG CAP PO SCH ×2 (08:35→20:05)
[2022-10-18] MEDS: Apixaban 5 MG TAB PO SCH ×2 (08:36→20:04)
[2022-10-18] MEDS: Spironolactone 25 MG TAB PO SCH (08:36)
[2022-10-18] MEDS: guaiFENesin ER 600 MG TAB PO SCH ×2 (08:36→20:05)
[2022-10-18] MEDS: predniSONE 20 MG TAB PO SCH (08:36)
[2022-10-18] MEDS: Folic Acid 1 MG TAB PO SCH (08:36)
[2022-10-18] MEDS: Empagliflozin 10 MG TAB PO SCH (08:37)
[2022-10-18] MEDS: Azithromycin 250 MG TAB PO SCH (08:37)
[2022-10-18] MEDS: Aspirin 81 mg Enteric Coated Tablet PO SCH (08:37)
[2022-10-18] MEDS: Dronedarone HCl 400 MG TAB PO SCH ×2 (08:37→17:10)
[2022-10-18] MEDS: Famotidine 20 MG TAB PO SCH ×2 (08:37→20:04)
[2022-10-18] MEDS: Torsemide 20 MG TAB PO SCH ×2 (08:40→14:47)
[2022-10-18] MEDS: Ezetimibe 10 MG TAB PO SCH (08:40)
[2022-10-18 11:58] LABS: Band 17 % (5-11); Eosinophils 2 % (0-10); Lymphocytes 36 % (21-51); MDiff Complete? YES; Monocytes 5 % (0-10); Neutrophil 38 % (42-75); Platelet Morphology Comment Appears Adequate; Polychromasia SLIGHT = 2-3 cells (100X) (0-2/hpf); Reactive Lymphocytes 2 % (0-10)
[2022-10-18 17:32] LABS: Actual Bicarbonate (HCO3a) 26.5 mEq/L (22-28); Calcium, Ionized (arterial) 1.12 mmol/L (1.12-1.30); Carboxyhemoglobin (COHb) 0.2 gm% (0.0-3.0); Hemoglobin (Hb) 10.6 g/dL (14.0-18.0); O2 Tension (PaO2), arterial 61.7 mmHg (> 70.0); Potassium - ABG Lab 4.15 mmol/L (3.70-5.30); pH, Arterial 7.38 (7.35-7.45)
[2022-10-18] MEDS: Atorvastatin Calcium 40 MG TAB PO SCH (20:04)
[2022-10-18] MEDS: rOPINIRole HCl 2 MG TAB PO SCH (20:05)
[2022-10-18] MEDS: Gabapentin 100 MG CAP PO SCH (20:05)
[2022-10-19] MEDS: Ipratropium/Albuterol 3 ML NEB NEB SCH ×6 (00:44→18:25)
[2022-10-19] MEDS: Mometasone/Formoterol 200/5 60 PUFF INH SCH ×2 (07:25→18:25)
[2022-10-19 08:48] LABS: #Basophils 0.1 thou/uL (0.0-0.2); #Eosinphils 0.1 thou/uL (0.0-0.7); #Lymphocytes 1.8 thou/uL (1.20-3.40); #Monocytes 0.6 thou/uL (0.11-0.59); #Neutrophils 3.1 thou/uL (1.40-6.50); %Basophils 1.1 % (0.0-1.0); %Eosinophils 1.6 % (0.0-10.0); %Lymphocytes 31.7 % (21.0-51.0); %Neutrophils 54.6 % (42.0-75.0); Hemoglobin 9.9 g/dL (14.0-18.0); Mean Corpuscular HGB CONC 33.8 g/dL (32.0-36.0); Mean Corpuscular Hemoglobin 39.6 pg (27.0-31.0); Mean Platelet Volume 7.5 fL (7.4-10.4); Platelet Count 159 10x3/uL (130-400); RBC Distribution Width 13.5 % (11.5-14.5); White Blood Cell (WBC) Count 5.8 10x3/uL (4.8-10.8)
[2022-10-19 09:08] LABS: Anion Gap 13 mmol/L (10-20); BUN (Urea Nitrogen) 24 mg/dL (8.4-25.7); Calc. Creatinine Clearance 60 mL/min (70-130); Calcium 8.7 mg/dL (7.8-10.44); Carbon Dioxide 27 mmol/L (23-31); Chloride 102 mmol/L (98-107); Estimated GFR 56; Glucose 130 mg/dL (80-115); Potassium 3.9 mmol/L (3.5-5.1); Sodium 138 mmol/L (136-145)
[2022-10-19] MEDS: Potassium Chloride 20 MEQ TAB PO SCH (09:15)
[2022-10-19] MEDS: predniSONE 20 MG TAB PO SCH (09:15)
[2022-10-19] MEDS: Spironolactone 25 MG TAB PO SCH (09:15)
[2022-10-19] MEDS: Empagliflozin 10 MG TAB PO SCH (09:15)
[2022-10-19] MEDS: Azithromycin 250 MG TAB PO SCH (09:15)
[2022-10-19] MEDS: carBAMazepine 200 MG TAB PO SCH ×2 (09:15→20:25)
[2022-10-19] MEDS: Folic Acid 1 MG TAB PO SCH (09:16)
[2022-10-19] MEDS: Famotidine 20 MG TAB PO SCH ×2 (09:16→20:26)
[2022-10-19] MEDS: Ezetimibe 10 MG TAB PO SCH (09:16)
[2022-10-19] MEDS: Aspirin 81 mg Enteric Coated Tablet PO SCH (09:16)
[2022-10-19] MEDS: guaiFENesin ER 600 MG TAB PO SCH ×2 (09:16→20:25)
[2022-10-19] MEDS: Dronedarone HCl 400 MG TAB PO SCH ×2 (09:16→18:09)
[2022-10-19] MEDS: Apixaban 5 MG TAB PO SCH ×2 (09:16→20:25)
[2022-10-19] MEDS: Torsemide 20 MG TAB PO SCH ×2 (09:26→15:23)
[2022-10-19] MEDS: Ziprasidone 20 MG CAP PO SCH (10:21)
[2022-10-19] MEDS: Zonisamide 100 MG CAP PO SCH ×2 (10:22→20:26)
[2022-10-19] MEDS ORDERED: Furosemide 20 MG/2 ML VIAL SLOW IVP SCH (13:45)
[2022-10-19] MEDS: HumaLOG 300 UNITS/3 ML VIAL SC PRN (18:09)
[2022-10-19] MEDS: Atorvastatin Calcium 40 MG TAB PO SCH (20:25)
[2022-10-19] MEDS: Gabapentin 100 MG CAP PO SCH (20:26)
[2022-10-19] MEDS: rOPINIRole HCl 2 MG TAB PO SCH (20:35)
[2022-10-20] MEDS: Ipratropium/Albuterol 3 ML NEB NEB SCH ×3 (00:29→14:09)
[2022-10-20 06:51] LABS: #Basophils 0.1 thou/uL (0.0-0.2); #Eosinphils 0.1 thou/uL (0.0-0.7); #Lymphocytes 2.3 thou/uL (1.20-3.40); #Monocytes 0.8 thou/uL (0.11-0.59); #Neutrophils 3.5 thou/uL (1.40-6.50); %Basophils 1.2 % (0.0-1.0); %Lymphocytes 34.4 % (21.0-51.0); %Monocytes 11.1 % (0.0-10.0); %Neutrophils 52.2 % (42.0-75.0); Hemoglobin 10.1 g/dL (14.0-18.0); Mean Corpuscular Hemoglobin 39.2 pg (27.0-31.0); Mean Platelet Volume 7.6 fL (7.4-10.4); Platelet Count 139 10x3/uL (130-400); RBC Distribution Width 13.5 % (11.5-14.5); Red Blood Cell (RBC) Count 2.57 mill/uL (4.70-6.10); White Blood Cell (WBC) Count 6.7 10x3/uL (4.8-10.8)
[2022-10-20] MEDS: Mometasone/Formoterol 200/5 60 PUFF INH SCH (07:12)
[2022-10-20 07:18] LABS: Anion Gap 14 mmol/L (10-20); BUN (Urea Nitrogen) 26 mg/dL (8.4-25.7); Calc. Creatinine Clearance 62 mL/min (70-130); Calcium 8.9 mg/dL (7.8-10.44); Carbon Dioxide 26 mmol/L (23-31); Chloride 100 mmol/L (98-107); Estimated GFR 58; Glucose 128 mg/dL (80-115); Potassium 3.6 mmol/L (3.5-5.1); Sodium 136 mmol/L (136-145)
[2022-10-20] MEDS: Empagliflozin 10 MG TAB PO SCH (08:09)
[2022-10-20] MEDS: predniSONE 20 MG TAB PO SCH (08:09)
[2022-10-20] MEDS: guaiFENesin ER 600 MG TAB PO SCH (08:09)
[2022-10-20] MEDS: Potassium Chloride 20 MEQ TAB PO SCH (08:10)
[2022-10-20] MEDS: Apixaban 5 MG TAB PO SCH (08:10)
[2022-10-20] MEDS: Azithromycin 250 MG TAB PO SCH (08:10)
[2022-10-20] MEDS: carBAMazepine 200 MG TAB PO SCH (08:11)
[2022-10-20] MEDS: Famotidine 20 MG TAB PO SCH (08:11)
[2022-10-20] MEDS: Aspirin 81 mg Enteric Coated Tablet PO SCH (08:11)
[2022-10-20] MEDS: Ezetimibe 10 MG TAB PO SCH (08:11)
[2022-10-20] MEDS: Folic Acid 1 MG TAB PO SCH (08:11)
[2022-10-20] MEDS: Spironolactone 25 MG TAB PO SCH (08:11)
[2022-10-20] MEDS: Ziprasidone 20 MG CAP PO SCH (08:12)
[2022-10-20] MEDS: Dronedarone HCl 400 MG TAB PO SCH ×2 (08:12→17:18)
[2022-10-20] MEDS: Zonisamide 100 MG CAP PO SCH (08:13)
[2022-10-20] MEDS: Torsemide 20 MG TAB PO SCH (08:18)
[2022-10-20] MEDS ORDERED: FLU VACC QS2022-23(65YR UP)/PF 240 MCG/0.7 ML SYRINGE IM ONE (09:00)
[2022-10-20 18:33] VITALS: BP 121/67; TEMP 98.1
[2022-10-21] MEDS ORDERED: Torsemide 20 MG TAB PO SCH (09:00)
== END 2022-10-20 18:35 | disposition home or self-care (01) | DRG 189 ==
LOC: ERS 16:49 → ERHOLD 23:31 → T4-B 10-17 13:51 → OBSVTOIN 10-18 08:53
PROVIDERS: ADMIT Family Medicine; ATTEND Family Medicine
DX: J96.01 Acute respiratory failure with hypoxia (principal); J44.1 Chronic obstructive pulmonary disease with (acute) exacerbation; I13.0 Hypertensive heart and chronic kidney disease with heart failure and stage 1 through stage 4 chronic kidney disease, or unspecified chronic kidney disease; I50.32 Chronic diastolic (congestive) heart failure; J96.02 Acute respiratory failure with hypercapnia; Z20.822 Contact with and (suspected) exposure to COVID-19; R91.8 Other nonspecific abnormal finding of lung field; E78.5 Hyperlipidemia, unspecified; I48.0 Paroxysmal atrial fibrillation; G25.81 Restless legs syndrome; G40.909 Epilepsy, unspecified, not intractable, without status epilepticus; N18.2 Chronic kidney disease, stage 2 (mild); D53.9 Nutritional anemia, unspecified; I25.10 Atherosclerotic heart disease of native coronary artery without angina pectoris; T38.0X5A Adverse effect of glucocorticoids and synthetic analogues, initial encounter; R73.9 Hyperglycemia, unspecified; Z86.73 Personal history of transient ischemic attack (TIA), and cerebral infarction without residual deficits; I25.2 Old myocardial infarction; Z87.891 Personal history of nicotine dependence; Z88.8 Allergy status to other drugs, medicaments and biological substances; Z79.01 Long term (current) use of anticoagulants; Z79.899 Other long term (current) drug therapy; Z79.82 Long term (current) use of aspirin; Z79.52 Long term (current) use of systemic steroids; Z83.6 Family history of other diseases of the respiratory system
CPT/HCPCS: 36415; 36416; 71045; 71250; 80048; 80053; 82805; 83880; 84145; 84484; 85025; 85379; 87205; 87804; 93005; 94640; 94644; 96374; G0378; J1815; J3475; J7512; J7611; J7620; U0002

== ENCOUNTER 2022-11-14 10:39 | Outpatient (CLI) | payer MEDICARE | END 2022-11-14 10:40 | disposition home or self-care (01) | LOC: RAD 10:39 | PROVIDERS: ATTEND Internal Medicine Critical Care Medicine | DX: R06.00 Dyspnea, unspecified (principal) | CPT/HCPCS: 71046 ==

== ENCOUNTER 2022-11-22 08:45 | Outpatient (CLI) | payer MEDICARE | END 2022-11-22 08:46 | disposition home or self-care (01) | LOC: PET 08:45 | PROVIDERS: ATTEND Internal Medicine Critical Care Medicine | DX: R91.1 Solitary pulmonary nodule (principal) | CPT/HCPCS: 78815; A9552 ==